=== PATIENT | male | born 1940 | race Caucasian/White ===

== ENCOUNTER 2018-05-08 13:28 | Outpatient (REF) | payer OTHER, SELFPAY ==
[2018-05-08 21:50] LABS: ALT 20 U/L (12-78); AST 21 U/L (15-37); Alkaline Phosphatase 95 U/L (46-116); Anion Gap 11.3 mmol/L (3-11); BUN 21 mg/dL (7-18); Bilirubin, Total 0.9 mg/dL (0.2-1.0); CO2 26.7 mmol/L (21.0-32.0); CREATININE 1.28 mg/dL (0.70-1.30); Calcium 8.8 mg/dL (8.5-10.1); Chloride 101 mmol/L (98-107); Estimated GFR 54.35 (mL/min/1.73m2); Glucose 94 mg/dL (70-100); LDH 193 U/L (85-227); Potassium 4.2 mmol/L (3.5-5.1); Sodium 139 mmol/L (136-145)
[2018-05-08 22:04] LABS: Abs Immature Grans 0.01 k/cumm (0.0-0.09); Absolute Basophil Count 0.03 k/cumm (0.0-0.2); Absolute Eosinophil Count 0.17 k/cumm (0.0-0.7); Absolute Lymphocyte Count 1.13 k/cumm (1.2-3.4); Absolute Monocyte Count 0.39 k/cumm (0.11-0.7); Absolute Neutrophil Count 2.77 k/cumm (1.2-6.7); Basophils % 0.7; Eosinophils % 3.8; HCT 41.8 % (40.0-50.0); HGB 14.5 g/dL (13.5-17.5); Immature Grans % 0.2; Lymphocytes % 25.1; Mean Corp. HGB Concentration 34.7 g/dL (32.0-36.0); Mean Corpuscular Hemoglobin 32.8 pg (27.0-33.0); Mean Corpuscular Volume 94.6 fL (80-95); Mean Platelet Volume 10.7 fL (8.0-11.0); Monocytes % 8.7; Neutrophils % 61.5; Platelet Count 236 x1000/uL (130-400); RBC 4.42 m/cumm (4.50-6.00); RBC Distribution Width 12.4 % (11.8-14.1)
[2018-05-11 18:35] LABS: Beta-2-Microglobulin 2.16 mcg/mL
== END 2018-05-08 13:48 ==
LOC: NCHCN 13:28
PROVIDERS: PCP Internal Medicine; Visit Provider Internal Medicine
DX: R22.1 Localized swelling, mass and lump, neck (principal)
CPT/HCPCS: 80053; 82232; 83615; 85025

== ENCOUNTER 2018-05-11 01:09 | Outpatient (CLI) | payer OTHER, SELFPAY ==
--- NOTE | 2018-05-11 10:22 | DI.CT_ITS ---
SYMPTOM/DIAGNOSIS: NECK MASS, R22.1 CT NECK: CT scan of the neck was performed according to protocol. No priors for comparison. A marker was placed in the area of palpable abnormality in the left neck. There is asymmetric enlargement of the left sternocleidomastoid muscle in the area of palpable abnormality. The sternocleidomastoid appears homogeneous in density at this level but measures 3.0 x 3.1 cm compared with 2.1 x 1.4 cm on the corresponding right muscle. There is artifact from the patient's dental amalgam which affects this visualization of the muscle in this region. A muscle mass cannot be excluded. In the right neck there is a multi-cystic lesion at the angle of the mandible measuring 2.2 cm transverse x 1.6 cm AP x 3.5 cm craniocaudad. There also appears to be a soft tissue mass at the base of the tongue on the left measuring 2.2 x 2.9 cm The remainder of the nasopharynx, hypopharynx and larynx are unremarkable. The retropharyngeal soft tissues are unremarkable. The parotid and submandibular glands have a normal appearance as does the thyroid gland. There are mildly enlarged lymph nodes seen in the neck. The visualized paranasal sinuses are clear. The mastoid air cells are well pneumatized. There are moderately severe degenerative changes present in the cervical spine. The vascular structures appear grossly unremarkable. The lung apices are clear. IMPRESSION: 1. Soft tissue mass seen at the left aspect of the base of the tongue. Neoplasm should be considered. 2. Focal thickening seen in the left sternocleidomastoid muscle corresponding to the area of palpable abnormality. The study is poorly visualized due to the orthodontic artifact. Metastatic disease or neoplasm should be considered. 3. Multi-cystic lesion seen in the left neck as described above. The finding is nonspecific. Further evaluation with post contrast MRI of the neck is recommended in this patient. Direct visualization is recommended. Biopsy should be considered particularly in the area involving the sternocleidomastoid and the area involving the left base of the tongue.
== END 2018-05-11 01:29 ==
PROVIDERS: PCP Internal Medicine; Visit Provider Internal Medicine
DX: R22.1 Localized swelling, mass and lump, neck (principal); M62.89 Other specified disorders of muscle; K14.9 Disease of tongue, unspecified; D48.7 Neoplasm of uncertain behavior of other specified sites
CPT/HCPCS: 70491

== ENCOUNTER 2018-07-23 13:14 | Outpatient (REF) | payer OTHER, SELFPAY ==
[2018-07-23 13:32] LABS: ALT 20 U/L (12-78); AST 18 U/L (15-37); Albumin 3.3 g/dL (3.4-5.0); Alkaline Phosphatase 87 U/L (46-116); Anion Gap 7.5 mmol/L (3-11); BUN 28 mg/dL (7-18); Bilirubin, Total 0.3 mg/dL (0.2-1.0); CO2 27.5 mmol/L (21.0-32.0); Calcium 9.2 mg/dL (8.5-10.1); Chloride 103 mmol/L (98-107); Estimated GFR 32.48 (mL/min/1.73m2); Glucose 151 mg/dL (70-100); Potassium 4.2 mmol/L (3.5-5.1); Sodium 138 mmol/L (136-145); Total Protein 6.5 g/dL (6.4-8.2)
== END 2018-07-23 13:34 ==
LOC: LBN 13:14
PROVIDERS: PCP Internal Medicine; Visit Provider Nurse Practitioner Family
DX: C01 Malignant neoplasm of base of tongue (principal)
CPT/HCPCS: 80053

== ENCOUNTER 2018-07-27 01:11 | Outpatient (RCR) | payer OTHER, SELFPAY ==
[2018-07-20] MEDS: Normal Saline Flush 10 ML SYR IVP (07:45)
[2018-07-20 08:12] LABS: Absolute Basophil Count 0.02 k/cumm (0.0-0.2); Absolute Eosinophil Count 0.19 k/cumm (0.0-0.7); Absolute Lymphocyte Count 0.88 k/cumm (1.2-3.4); Absolute Neutrophil Count 3.96 k/cumm (1.2-6.7); Basophils % 0.4; Eosinophils % 3.4; HCT 40.9 % (40.0-50.0); HGB 14.4 g/dL (13.5-17.5); Lymphocytes % 15.6; Mean Corp. HGB Concentration 35.2 g/dL (32.0-36.0); Mean Corpuscular Volume 93.8 fL (80-95); Mean Platelet Volume 9.5 fL (8.0-11.0); Monocytes % 10.6; Platelet Count 281 x1000/uL (130-400); RBC 4.36 m/cumm (4.50-6.00); RBC Distribution Width 11.9 % (11.8-14.1); White Blood Cell Count 5.65 k/cumm (4.4-10.8)
[2018-07-20 08:23] LABS: ALT 20 U/L (12-78); AST 17 U/L (15-37); Albumin 3.4 g/dL (3.4-5.0); Alkaline Phosphatase 85 U/L (46-116); Anion Gap 10.4 mmol/L (3-11); BUN 23 mg/dL (7-18); Bilirubin, Total 0.6 mg/dL (0.2-1.0); CO2 25.6 mmol/L (21.0-32.0); CREATININE 1.86 mg/dL (0.70-1.30); Calcium 8.9 mg/dL (8.5-10.1); Chloride 100 mmol/L (98-107); Estimated GFR 35.31 (mL/min/1.73m2); Glucose 181 mg/dL (70-100); Magnesium 1.9 mg/dL (1.8-2.4); Sodium 136 mmol/L (136-145); Total Protein 6.8 g/dL (6.4-8.2)
[2018-07-21] MEDS: Normal Saline Flush 10 ML SYR IVP (08:40)
[2018-07-21 09:03] LABS: CREATININE 1.74 mg/dL (0.70-1.30); Estimated GFR 38.14 (mL/min/1.73m2)
[2018-07-27] MEDS: Normal Saline Flush 10 ML SYR IVP (07:13)
[2018-07-27 07:36] LABS: Abs Immature Grans 0.01 k/cumm (0.0-0.09); Absolute Basophil Count 0.02 k/cumm (0.0-0.2); Absolute Eosinophil Count 0.19 k/cumm (0.0-0.7); Absolute Lymphocyte Count 0.48 k/cumm (1.2-3.4); Absolute Monocyte Count 0.59 k/cumm (0.11-0.7); Absolute Neutrophil Count 5.32 k/cumm (1.2-6.7); Basophils % 0.3; Eosinophils % 2.9; HCT 36.4 % (40.0-50.0); HGB 12.8 g/dL (13.5-17.5); Immature Grans % 0.2; Lymphocytes % 7.3; Mean Corp. HGB Concentration 35.2 g/dL (32.0-36.0); Mean Corpuscular Hemoglobin 33.7 pg (27.0-33.0); Mean Corpuscular Volume 95.8 fL (80-95); Mean Platelet Volume 9.2 fL (8.0-11.0); Monocytes % 8.9; Neutrophils % 80.4; Platelet Count 212 x1000/uL (130-400); RBC Distribution Width 11.9 % (11.8-14.1); White Blood Cell Count 6.61 k/cumm (4.4-10.8)
[2018-07-27 07:56] LABS: ALT 11 U/L (12-78); AST 21 U/L (15-37); Albumin 3.5 g/dL (3.4-5.0); Alkaline Phosphatase 101 U/L (46-116); Anion Gap 8.8 mmol/L (3-11); BUN 27 mg/dL (7-18); Bilirubin, Total 0.7 mg/dL (0.2-1.0); CO2 29.2 mmol/L (21.0-32.0); CREATININE 1.81 mg/dL (0.70-1.30); Chloride 100 mmol/L (98-107); Estimated GFR 36.44 (mL/min/1.73m2); Glucose 114 mg/dL (70-100); Magnesium 1.9 mg/dL (1.8-2.4); Potassium 4.5 mmol/L (3.5-5.1); Sodium 138 mmol/L (136-145); Total Protein 7.3 g/dL (6.4-8.2)
== END 2018-07-30 23:59 | disposition home or self-care (01) ==
LOC: INF 01:11
PROVIDERS: PCP Internal Medicine; Visit Provider Nurse Practitioner Family
DX: C01 Malignant neoplasm of base of tongue (principal); Z45.2 Encounter for adjustment and management of vascular access device
CPT/HCPCS: 36591; 80053; 82565; 83735; 85025

== ENCOUNTER 2018-08-17 01:25 | Outpatient (RCR) | payer OTHER, SELFPAY ==
[2018-08-03] MEDS: Normal Saline Flush 10 ML SYR IVP (08:56)
[2018-08-03 08:59] LABS: Abs Immature Grans 0.01 k/cumm (0.0-0.09); Absolute Basophil Count 0.02 k/cumm (0.0-0.2); Absolute Eosinophil Count 0.01 k/cumm (0.0-0.7); Absolute Lymphocyte Count 0.23 k/cumm (1.2-3.4); Absolute Monocyte Count 0.25 k/cumm (0.11-0.7); Absolute Neutrophil Count 5.03 k/cumm (1.2-6.7); Basophils % 0.4; Eosinophils % 0.2; HCT 30.7 % (40.0-50.0); HGB 10.6 g/dL (13.5-17.5); Immature Grans % 0.2; Lymphocytes % 4.1; Mean Corp. HGB Concentration 34.5 g/dL (32.0-36.0); Mean Corpuscular Hemoglobin 32.9 pg (27.0-33.0); Mean Corpuscular Volume 95.3 fL (80-95); Mean Platelet Volume 8.9 fL (8.0-11.0); Monocytes % 4.5; Neutrophils % 90.6; Platelet Count 257 x1000/uL (130-400); RBC 3.22 m/cumm (4.50-6.00); RBC Distribution Width 11.7 % (11.8-14.1); White Blood Cell Count 5.55 k/cumm (4.4-10.8)
[2018-08-03 09:12] LABS: ALT 18 U/L (12-78); AST 18 U/L (15-37); Albumin 3.4 g/dL (3.4-5.0); Alkaline Phosphatase 91 U/L (46-116); BUN 31 mg/dL (7-18); Bilirubin, Total 0.3 mg/dL (0.2-1.0); CO2 27.2 mmol/L (21.0-32.0); CREATININE 1.57 mg/dL (0.70-1.30); Calcium 9.1 mg/dL (8.5-10.1); Estimated GFR 42.94 (mL/min/1.73m2); Glucose 136 mg/dL (70-100); Magnesium 1.9 mg/dL (1.8-2.4); Total Protein 7.3 g/dL (6.4-8.2)
[2018-08-03 09:17] LABS: Anion Gap 8.8 mmol/L (3-11); Chloride 102 mmol/L (98-107); Potassium 4.8 mmol/L (3.5-5.1); Sodium 138 mmol/L (136-145)
[2018-08-10] MEDS: Normal Saline Flush 10 ML SYR IVP (08:15)
[2018-08-10 08:25] LABS: Abs Immature Grans 0.01 k/cumm (0.0-0.09); Absolute Basophil Count 0.01 k/cumm (0.0-0.2); Absolute Eosinophil Count 0.19 k/cumm (0.0-0.7); Absolute Lymphocyte Count 0.36 k/cumm (1.2-3.4); Absolute Monocyte Count 0.54 k/cumm (0.11-0.7); Basophils % 0.2; Eosinophils % 4.7; HCT 30.4 % (40.0-50.0); HGB 10.2 g/dL (13.5-17.5); Immature Grans % 0.2; Mean Corp. HGB Concentration 33.6 g/dL (32.0-36.0); Mean Corpuscular Hemoglobin 32.4 pg (27.0-33.0); Mean Corpuscular Volume 96.5 fL (80-95); Mean Platelet Volume 8.9 fL (8.0-11.0); Monocytes % 13.5; Neutrophils % 72.4; Platelet Count 240 x1000/uL (130-400); RBC 3.15 m/cumm (4.50-6.00); RBC Distribution Width 12.4 % (11.8-14.1); White Blood Cell Count 4.01 k/cumm (4.4-10.8)
[2018-08-10 08:38] LABS: ALT 24 U/L (12-78); AST 28 U/L (15-37); Albumin 3.1 g/dL (3.4-5.0); Alkaline Phosphatase 94 U/L (46-116); Anion Gap 6.4 mmol/L (3-11); BUN 30 mg/dL (7-18); Bilirubin, Total 0.6 mg/dL (0.2-1.0); CO2 31.6 mmol/L (21.0-32.0); CREATININE 1.32 mg/dL (0.70-1.30); Calcium 9.4 mg/dL (8.5-10.1); Chloride 101 mmol/L (98-107); Estimated GFR 52.46 (mL/min/1.73m2); Glucose 91 mg/dL (70-100); Magnesium 1.8 mg/dL (1.8-2.4); Potassium 4.3 mmol/L (3.5-5.1); Sodium 139 mmol/L (136-145)
[2018-08-17] MEDS: Normal Saline Flush 10 ML SYR IVP (08:11)
[2018-08-17 08:37] LABS: Abs Immature Grans 0.01 k/cumm (0.0-0.09); Absolute Basophil Count 0.01 k/cumm (0.0-0.2); Absolute Eosinophil Count 0.16 k/cumm (0.0-0.7); Absolute Lymphocyte Count 0.37 k/cumm (1.2-3.4); Absolute Monocyte Count 0.64 k/cumm (0.11-0.7); Absolute Neutrophil Count 3.16 k/cumm (1.2-6.7); Basophils % 0.2; Eosinophils % 3.7; HGB 9.3 g/dL (13.5-17.5); Immature Grans % 0.2; Lymphocytes % 8.5; Mean Corp. HGB Concentration 34.4 g/dL (32.0-36.0); Mean Corpuscular Hemoglobin 33.6 pg (27.0-33.0); Mean Corpuscular Volume 97.5 fL (80-95); Mean Platelet Volume 9.1 fL (8.0-11.0); Monocytes % 14.7; Neutrophils % 72.7; Platelet Count 231 x1000/uL (130-400); RBC 2.77 m/cumm (4.50-6.00); RBC Distribution Width 13.2 % (11.8-14.1); White Blood Cell Count 4.35 k/cumm (4.4-10.8)
[2018-08-17 08:53] LABS: ALT 19 U/L (12-78); AST 19 U/L (15-37); Albumin 2.8 g/dL (3.4-5.0); Alkaline Phosphatase 86 U/L (46-116); Anion Gap 7.4 mmol/L (3-11); BUN 33 mg/dL (7-18); Bilirubin, Total 0.5 mg/dL (0.2-1.0); CO2 32.6 mmol/L (21.0-32.0); CREATININE 1.04 mg/dL (0.70-1.30); Calcium 9.2 mg/dL (8.5-10.1); Chloride 98 mmol/L (98-107); Glucose 135 mg/dL (70-100); Magnesium 1.9 mg/dL (1.8-2.4); Potassium 3.5 mmol/L (3.5-5.1); Sodium 138 mmol/L (136-145)
== END 2018-08-27 23:59 | disposition home or self-care (01) ==
LOC: INF 01:25
PROVIDERS: PCP Internal Medicine; Visit Provider Nurse Practitioner Family
DX: C01 Malignant neoplasm of base of tongue (principal); Z45.2 Encounter for adjustment and management of vascular access device
CPT/HCPCS: 36591; 80053; 83735; 85025

== ENCOUNTER 2018-10-02 12:28 | Outpatient (CLI) | payer OTHER, SELFPAY ==
--- NOTE | 2018-10-02 12:16 | DI.RAD_ITS ---
SYMPTOMS/DIAGNOSIS: NAUSEA AND VOMITING, R11.2, EVALUATE POSITION OF G-TUBE G-TUBE INJECTION: Indwelling G-tube was injected with contrast material. The contrast material flows into the gastric fundus and body. No extravasation seen. CONCLUSION: Normally placed gastrostomy tube.
== END 2018-10-02 12:48 ==
PROVIDERS: PCP Internal Medicine; Visit Provider Preventive Medicine Undersea and Hyperbaric Medicine
DX: R11.2 Nausea with vomiting, unspecified (principal); Z43.1 Encounter for attention to gastrostomy
CPT/HCPCS: 74018

== ENCOUNTER 2018-10-08 15:44 | Emergency (ER) | payer OTHER, SELFPAY ==
[2018-10-08] VITALS (13 sets, daily range): BP systolic 123–159; BP diastolic 61–91; PULSE 82–96; RESP 12–27; TEMP 36.8; O2SAT 96
--- NOTE | 2018-10-08 16:02 | ED.GENADUL_ITS ---
Discharge Plan Disposition Patient Disposition: HOME Condition: Stable Discharge Details Chief Complaint: GenMedical Clinical Impression: Chronic sore throat, Chronic secondary oral pain, History of radiation to head and neck region, History of laryngeal cancer, Fatigue, Headache Primary Care Provider: Vicente Reagan ED Provider: Abi Hawkins Home Meds and New Rx's Prescriptions: New nystatin 100,000 unit/mL suspension 5 ml PO QID 14 Days Qty: 280 RF: 0 Continued acyclovir 200 mg capsule 200 mg PO DAILY PRN (Reason: genital herpes) RF: 0 dexamethasone 4 mg tablet 4 mg PO Q8H PRNRF: 0 lactulose 20 gram/30 mL solution 20 gm PO BID PRNRF: 0 lidocaine HCl 2 % solution 5 ml MM Q1H PRN RF: 0 ondansetron HCl 8 mg tablet 8 mg PO TID PRNRF: 0 prochlorperazine maleate 10 mg tablet 10 mg PO Q6H PRN RF: 0 Narcan 4 mg/actuation spray,non-aerosol 1 spray KAUSHIK ONCE PRN (Reason: opioid overdose) Qty: 2 RF: 0 Excedrin Extra Strength 250-250-65 mg tablet 2 tab PO TID PRNRF: 0 polyethylene glycol 3350 [Miralax] 17 gram powder in packet 17 gm PO BID PRN (Reason: constipation) RF: 0 methadone 10 mg/5 mL solution 5 mg PO Q8H MDD 7.5ml Qty: 60 RF: 0 morphine concentrate 100 mg/5 mL (20 mg/mL) solution 30 mg PO Q2H PRN MDD 6ml PRN (Reason: pain) Qty: 120 RF: 0 gabapentin 600 mg tablet 600 mg PO TID Qty: 90 RF: 4 guaifenesin 100 mg/5 mL liquid 400 mg PO Q4H PRN (Reason: mucous) Qty: 1500 RF: 4 magic mouthwash 5 ml PO Q2H PRN Qty: 120 RF: 3 Discharge Instructions Instructions: Fatigue (ED), General Headache (ED), Gingivostomatitis (ED) Additional Instructions: Continue to use your Magic mouthwash as needed and directed. Use the nystatin suspension as directed. Call your oncologist tomorrow to schedule a follow-up appointment for reevaluation next week. Drink fluids and get plenty of rest. Use [id number] Colace to help with constipation while taking narcotic pain medication. Take your narcotic pain medication as needed and directed. Return immediately to the emergency department any worsening or new concerning symptoms. Discharge Data Discharge Date/Time-TO BE ENTERED AT DEPARTURE: 10/08/18 19:54 Discharge Physician: Abi Hawkins Medical Decision Making 77-year-old male with a history of laryngeal cancer diagnosed in March 2018 with radiation and chemo finished in July 2018 who presents with mouth and throat pain for 3 months, worse recently, and a chronic history of migraine headaches who presents for persistent bitemporal and frontal headache not relieved with Excedrin over the past few days. Also complaining of fatigue, general malaise, nausea for the past week. He denies fever, neck pain, chest pain, shortness of breath, abdominal pain. Patient sent for evaluation by nurse practitioner at the cancer center down the street after evaluated for the symptoms above. Vitals within normal limits. Patient appears nontoxic. He appears uncomfortable with his headache. He has extensive sloughing of his mucosal tissue within the mouth, tongue and mucosa around teeth. No exudates. Speaking in full sentences. No drooling. Port noted in right chest NG tube and abdomen without evidence of infection. No meningeal signs. No focal deficits. Due to patient's age, history and complaint, will check labs, urinalysis, CT head, chest x-ray and give bolus IV fluids, Compazine and Benadryl and reassess. 1814 -- labs and imaging reviewed. Normal white blood cell count. Normal electrolytes. Troponin negative. Urinalysis negative. CT and chest x-ray negative. Will give a dose of Toradol and reassess. 1919 -- Pt feels much better and feels good to go home. States his headache is much improved. Patient has Magic mouthwash, lidocaine as well as nystatin at home. Patient states he is mainly concerned about his mouth pain. He states he has discussed this with his oncologist and was told that this is expected side effects which may be prolonged. Patient states he has used nystatin in the past which has worked but his most recent prescription has a bad taste. Patient is requesting another prescription for nystatin. The nurse practitioner report is now available from today's visit which states that patient had complained of fecal incontinence. Patient did not complain of this to me and states that he had previously had constipation which he was told to hold on his morphine and take lactulose. He is instructed to eat he can use Colace [id number]-[id number] as directed. Patient has no complaint of sudden headache or thunderclap quality so doubt dissection. He states his headache feels consistent with his usual migraine headaches but is now much improved. Patient, and I had a long discussion regarding his medications and how to take them appropriately. Instructed to call the primary care doctor and oncologist tomorrow to schedule a follow-up appointment for reevaluation. Return immediately to the emergency department with any worsening or new concerning symptoms. Medical Records Medical records reviewed: Yes I reviewed the patient's medical records. Imaging Data Radiologic Study: Radiologist's impression: XR Chest, 2 Views EXAM DATE/TIME: 10/08/2018 4:53 PM FINDINGS: Tubes, catheters and devices: A right-sided internal jugular Port-A-Cath is in place with the catheter tip in the superior vena cava. Lungs: Unremarkable. No consolidation. Pleural space: Unremarkable. No pleural effusion. No pneumothorax. Heart/Mediastinum: Unremarkable. No cardiomegaly. Vasculature: There is an elongated tortuous thoracic aorta. Bones/joints: Degenerative changes of the thoracic spine without acute osseous abnormality. IMPRESSION: No evidence of active pulmonary disease. Radiologic Study #2: Radiologist's impression: CT Head Without Contrast EXAM DATE/TIME: 10/08/2018 4:53 PM FINDINGS: Brain: There is mild prominence of cerebral cortical sulcal markings. Mild periventricular white matter lucency. Ventricles: Mild dilatation of the ventricles without evidence of intrinsic mass effect. Bones/joints: Unremarkable. No acute fracture. Sinuses: Visualized sinuses are unremarkable. No acute sinusitis. Mastoid air cells: Visualized mastoid air cells are unremarkable. No mastoid effusion. Soft tissues: Unremarkable. Vasculature: Atherosclerotic calcifications of the vertebral arteries. IMPRESSION: 1. No acute intracranial amount is identified. 2. Mild cerebral cortical atrophy with mild periventricular degenerative white matter changes. Lab Data Lab results reviewed: Yes I reviewed the patient's lab results. 10/08/18 18:29 Blood Blood Culture - Pending 10/08/18 16:40 Blood Blood Culture - Pending Laboratory Tests Range/Units 10/08/18 10/08/18 10/08/18 16:40 16:40 16:40 WBC (4.4-10.8) k/cumm 5.87 RBC (4.50-6.00) m/cumm 3.36 L Hgb (13.5-17.5) g/dL 11.2 L Hct (40.0-50.0) % 32.7 L MCV (80-95) fL 97.3 H MCH (27.0-33.0) pg 33.3 H MCHC (32.0-36.0) g/dL 34.3 RDW (11.8-14.1) % 12.0 Plt Count (130-400) x1000/uL 273 MPV (8.0-11.0) fL 9.4 Immature Gran % 0.2 Neutrophils % 67.8 Lymphocytes % 17.9 Monocytes % 11.4 Eosinophils % 2.2 Basophils % 0.5 Absolute Neutrophils (1.2-6.7) k/cumm 3.98 Absolute Lymphocytes (1.2-3.4) k/cumm 1.05 L Absolute Monocytes (0.11-0.7) k/cumm 0.67 Absolute Eosinophils (0.0-0.7) k/cumm 0.13 Absolute Basophils (0.0-0.2) k/cumm 0.03 Sodium (136-145) mmol/L 136 Potassium (3.5-5.1) mmol/L 3.9 Chloride (98-107) mmol/L 99 Carbon Dioxide (21.0-32.0) mmol/L 28.3 Anion Gap (3-11) mmol/L 8.7 BUN (7-18) mg/dL 25 H Creatinine (0.70-1.30) mg/dL 0.89 Estimated GFR/1.73 m2 (mL/min/1.73m2) >= 60.00 Glucose (70-100) mg/dL 91 Lactate (0.6-1.4) mmol/l 1.0 Calcium (8.5-10.1) mg/dL 8.9 Magnesium (1.8-2.4) mg/dL 2.2 Total Bilirubin (0.2-1.0) mg/dL 0.3 AST (15-37) U/L 16 ALT (12-78) U/L 21 Alkaline Phosphatase (46-116) U/L 112 Troponin I (0.00-0.06) ng/mL 0.02 Total Protein (6.4-8.2) g/dL 7.2 Albumin (3.4-5.0) g/dL 3.6 Urine Color (Yellow) Urine Clarity Urine pH (5-8) Ur Specific Edna (1.005-1.025) Urine Protein (Negative) mg/dL Urine Ketones (Negative) mg/dL Urine Blood (Negative) Urine Nitrite (Negative) Urine Bilirubin (Negative) Urine Urobilinogen (Up TO 0.2) EU/dL Ur Leukocyte Esterase (Negative) Urine Glucose (Negative) mg/dL Range/Units 10/08/18 16:55 WBC (4.4-10.8) k/cumm RBC (4.50-6.00) m/cumm Hgb (13.5-17.5) g/dL Hct (40.0-50.0) % MCV (80-95) fL MCH (27.0-33.0) pg MCHC (32.0-36.0) g/dL RDW (11.8-14.1) % Plt Count (130-400) x1000/uL MPV (8.0-11.0) fL Immature Gran % Neutrophils % Lymphocytes % Monocytes % Eosinophils % Basophils % Absolute Neutrophils (1.2-6.7) k/cumm Absolute Lymphocytes (1.2-3.4) k/cumm Absolute Monocytes (0.11-0.7) k/cumm Absolute Eosinophils (0.0-0.7) k/cumm Absolute Basophils (0.0-0.2) k/cumm Sodium (136-145) mmol/L Potassium (3.5-5.1) mmol/L Chloride (98-107) mmol/L Carbon Dioxide (21.0-32.0) mmol/L Anion Gap (3-11) mmol/L BUN (7-18) mg/dL Creatinine (0.70-1.30) mg/dL Estimated GFR/1.73 m2 (mL/min/1.73m2) Glucose (70-100) mg/dL Lactate (0.6-1.4) mmol/l Calcium (8.5-10.1) mg/dL Magnesium (1.8-2.4) mg/dL Total Bilirubin (0.2-1.0) mg/dL AST (15-37) U/L ALT (12-78) U/L Alkaline Phosphatase (46-116) U/L Troponin I (0.00-0.06) ng/mL Total Protein (6.4-8.2) g/dL Albumin (3.4-5.0) g/dL Urine Color (Yellow) Yellow Urine Clarity Clear Urine pH (5-8) 8.5 H Ur Specific Edna (1.005-1.025) 1.015 Urine Protein (Negative) mg/dL Negative Urine Ketones (Negative) mg/dL Negative Urine Blood (Negative) Negative Urine Nitrite (Negative) Negative Urine Bilirubin (Negative) Negative Urine Urobilinogen (Up TO 0.2) EU/dL 0.2 Ur Leukocyte Esterase (Negative) Negative Urine Glucose (Negative) mg/dL Negative ECG Data Attestation: I personally reviewed and interpreted this ECG (s) as follows: Interpretation: Rate of 85, sinus, PVCs. No acute ST findings. QTc 435. QRS 98. HPI General Mode of arrival: ambulatory . Date/Time Provider Initiated Documentation: 10/08/18 15:55 . Limitations to Documentation: no limitations . Information obtained by: patient . HPI Narrative: Patient is a 77-year-old male with a history of laryngeal cancer diagnosed in March 2018 with radiation chemo finished in July 2018 who presents with multiple complaints. Patient was seen by the nurse practitioner at the cancer center down the street for these symptoms when she thought he did not look well. Patient states he has had bilateral throat pain pain on the roof of his mouth and inside of his mouth above his teeth for 3 months. He has a G-tube and is rarely able to take p.o. by mouth. He states he is able to drink a bottle of water yesterday. He states he has history of chronic headaches and migraines for several years but states his headache has been worse over the past few days. He describes a headache is constant, dull, pressure-like and in the bitemporal and frontal region, currently 6-7/10. He states normally his headaches are resolved with Excedrin but has had no relief with this for the past few days. He also denies any relief of this with oxycodone. His states that it appears he is more withdrawn, fatigued, complaining of chills, and generally seems more sick than u sumarvel. Patient admits to nausea and vomiting once last week but not since then. He has been occasionally taking Reglan, Compazine, Zofran for his nausea. His last bowel movement was 2 days ago. He had seen his primary care doctor earlier this week for a checkup and was advised to hold on his morphine due to constipation recently. His last dose of morphine was 10/04/18. He also admits to decreased urine output recently. He denies any dysuria or hematuria. He denies any known fever, chest pain, shortness of breath or abdominal pain. Related Data Home Medications Medication Instructions Recorded Confirmed acyclovir 200 mg capsule 200 mg PO DAILY PRN cap 08/04/18 08/04/18 dexamethasone 4 mg tablet 4 mg PO Q8H PRN 08/04/18 08/04/18 lactulose 20 gram/30 mL oral 20 gm PO BID PRN 08/04/18 08/04/18 solution lidocaine 2 % mucosal solution 5 ml MM Q1H PRN ml 08/04/18 08/04/18 naloxone 4 mg/actuation nasal spray 1 spray KAUSHIK ONCE PRN #2 each 08/04/18 08/04/18 ondansetron HCl 8 mg tablet 8 mg PO TID PRN 08/04/18 08/04/18 prochlorperazine maleate 10 mg 10 mg PO Q6H PRN tab 08/04/18 08/04/18 tablet magic mouthwash 5 ml PO Q2H PRN #120 ml 08/19/18 [id number]-[id number]-zlhhxiyb 250 2 tab PO TID PRN tab 08/21/18 08/21/18 mg-250 mg-65 mg tablet gabapentin 600 mg tablet 600 mg PO TID #90 tab 08/21/18 08/21/18 guaifenesin 100 mg/5 mL oral liquid 400 mg PO Q4H PRN #1500 ml 08/21/18 08/21/18 methadone 10 mg/5 mL oral solution 5 mg PO Q8H #60 ml MDD 7.5ml 08/21/18 08/21/18 morphine concentrate 100 mg/5 mL 30 mg PO Q2H PRN PRN #120 ml MDD 08/21/18 08/21/18 (20 mg/mL) oral solution 6ml polyethylene glycol 3350 17 gram 17 gm PO BID PRN each 08/21/18 08/21/18 oral powder packet nystatin 5 ml PO QID 14 Days #280 ml 10/08/18 Previous Rx's Medication Instructions Recorded naloxone 4 mg/actuation nasal spray 1 spray KAUSHIK ONCE PRN #2 each 08/04/18 magic mouthwash 5 ml PO Q2H PRN #120 ml 08/19/18 gabapentin 600 mg tablet 600 mg PO TID #90 tab 08/21/18 guaifenesin 100 mg/5 mL oral liquid 400 mg PO Q4H PRN #1500 ml 08/21/18 methadone 10 mg/5 mL oral solution 5 mg PO Q8H #60 ml MDD 7.5ml 08/21/18 morphine concentrate 100 mg/5 mL 30 mg PO Q2H PRN PRN #120 ml MDD 08/21/18 (20 mg/mL) oral solution 6ml nystatin 5 ml PO QID 14 Days #280 ml 10/08/18 Allergies Allergy/AdvReac Type Severity Reaction Status Date / Time bee pollen Allergy Severe Anaphylaxsi Unverified 12/11/17 00:33 s Penicillins Allergy Unknown happened Unverified 12/11/17 00:33 at age 5, serious hives General Stated Complaint: GenMedical VIJAY: 2 Review of Systems Review of Systems All systems reviewed & are unremarkable except as noted in HPI and below Constitutional Reports as per HPI, Reports chills, Reports difficulty sleeping, Reports fatigue, Denies fever(s), Reports headache(s), Reports lethargy, Reports malaise and Reports poor appetite Eyes Denies blurry vision ENT Denies dizziness, Reports headache(s), Reports mouth pain, Reports sore throat and Denies throat swelling Cardiovascular Denies chest pain and Denies dyspnea Respiratory Denies cough and Denies dyspnea Gastrointestinal Denies abdominal pain, Denies diarrhea, Reports nausea and Reports vomiting Genitourinary Denies hematuria and Denies dysuria Musculoskeletal Denies back pain and Denies numbness Integumentary/Breasts Denies lesions and Denies rash Neurologic Denies dizziness, Reports headache(s), Denies focal weakness and Denies numbness Endocrine Reports fatigue Allergic/Immunologic Denies throat swelling PFSH Medical History Palliative care patient (Acute) 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) Uses feeding tube (Acute) Tongue cancer (Acute) Osteoarthritis of left knee Alcohol consumption binge drinking Chronic insomnia Situational depression Actinic cheilitis Adenomatous colon polyp Bee sting allergy Carpal tunnel syndrome Dermatitis Erectile dysfunction HSV (herpes simplex virus) infection Hyperlipidemia Left lumbar radiculopathy Leg pain Lipoma Lumbar back pain Marital problem Ventral hernia Surgical History Arthroplasty of knee Colonoscopy - IV Sedation (05/28/16) Family History Mother Alcohol abuse COPD (chronic obstructive pulmonary disease) Father Heart disease Sister Multiple myeloma Brother Alcohol abuse Substance abuse Social History Smoking/Tobacco Use Status: Never Alcohol Intake: current Counseling given: Yes Counseling provided: reduce to 2 or less/day Details: drinks heavily on a daily basis, says he's quit before. suggested reduction Drug use: Never Caregiver/Support person: Yes Household members: spouse Housing: house Number of Children: 0 number of grandchildren: 0 Pets and animals: Yes (yellow and chocolate labs, one each) Pets and animals: dog(s) What is your relationship status?: How often do you talk on the phone with friends or family?: twice per week How often do you get together with friends or relatives?: twice per week Panel score (0-1 are the most socially isolated patients): 2 What type of physical activity do you participate in: walking, irregular exercise and occasional exercise Special heidi needs: No Do you feel safe at home: Yes Do you feel safe in your relationship?: Yes Exam Const General: cooperative and no acute distress Orientation: alert, awake and oriented x3 HENMT Head: normal to inspection Ears: hearing grossly normal bilaterally, external ears normal and TM's normal bilaterally General nose exam: external nose normal Face and sinus: normal facial exam Mouth: oral mucosae normal Teeth and gingiva: abnormal tooth or associated gingiva (whitish discoloration and tenderness to superior gingiva) Throat: uvula midline and posterior oropharynx abnormal erythema; no edema and no exudates Eyes General: appearance normal, both eyes and all related structures Eyelids: eyelids normal Pupils: PERRL EOM: EOM intact bilaterally Neck Neck: normal visual inspection Lymphatic: no lymphadenopathy noted Chest Chest: normal inspection of the chest Other: Port in R chest, no signs of infection Resp Effort & Inspection: normal respiratory effort and able to speak in complete sentences Auscultation: clear to auscultation bilaterally Cardio Rate: regular rate Rhythm: regular rhythm GI Inspection: normal to inspection and other (G tube in place, no drainage or infection ) Palpation: soft, not firm, no guarding, no hepatosplenomegaly, no masses and nontender Auscultation: normal bowel sounds Back/Spine/Pelvis Back: no CVA tenderness Skin General skin exam: no rashes or lesions noted Neuro General: alert, awake, moves all extremities, no meningeal signs and no focal motor deficits Cranial Nerves: CN's II-XI intact bilaterally Cognition: normal cognition Speech: speech normal Gait: normal gait Motor: muscle tone normal throughout Sensory Exam: no sensory deficits noted Extrem General: normal to inspection, full ROM, normal capillary refill and no edema Psych Appearance: grossly normal Mental Status: mental status grossly normal Speech and Movement: speech and movement normal Affect: normal affect Thought Process: normal Course Vital Signs Temperature 98.2 F 10/08/18 15:49 Pulse 88 10/08/18 15:49 Respiratory Rate 20 10/08/18 15:49 Blood Pressure 123/61 10/08/18 15:49 Pulse Oximetry 96 10/08/18 15:49 Temperature 98.2 F 10/08/18 15:49 Temperature Source Temporal Artery Scan 10/08/18 15:49 Pulse 88 10/08/18 15:49 Respiratory Rate 20 10/08/18 15:49 Respiratory Effort Non-Labored 10/08/18 15:49 Blood Pressure 123/61 10/08/18 15:49 Pulse Oximetry 96 10/08/18 15:49 Oxygen Delivery Method Room Air 10/08/18 15:49 Oxygen Flow Rate 0 10/08/18 15:49 Pain Level 9 10/08/18 15:49
[2018-10-08 16:52] LABS: Abs Immature Grans 0.01 k/cumm (0.0-0.09); Absolute Basophil Count 0.03 k/cumm (0.0-0.2); Absolute Eosinophil Count 0.13 k/cumm (0.0-0.7); Absolute Lymphocyte Count 1.05 k/cumm (1.2-3.4); Absolute Monocyte Count 0.67 k/cumm (0.11-0.7); Absolute Neutrophil Count 3.98 k/cumm (1.2-6.7); Basophils % 0.5; Eosinophils % 2.2; HCT 32.7 % (40.0-50.0); HGB 11.2 g/dL (13.5-17.5); Immature Grans % 0.2; Lymphocytes % 17.9; Mean Corp. HGB Concentration 34.3 g/dL (32.0-36.0); Mean Corpuscular Hemoglobin 33.3 pg (27.0-33.0); Mean Corpuscular Volume 97.3 fL (80-95); Mean Platelet Volume 9.4 fL (8.0-11.0); Monocytes % 11.4; Neutrophils % 67.8; Platelet Count 273 x1000/uL (130-400); RBC 3.36 m/cumm (4.50-6.00); White Blood Cell Count 5.87 k/cumm (4.4-10.8)
[2018-10-08] MEDS: Normal Saline 250 ML 500 ML IV (16:59)
[2018-10-08 17:06] LABS: Bilirubin Negative (Negative); Blood Negative (Negative); Clarity Clear; Glucose Negative (Negative); Ketones Negative (Negative); Leukocyte Esterase Negative (Negative); Nitrite Negative (Negative); Specific Gravity 1.015 (1.005-1.025); Urobilinogen 0.2 EU/dL (Up TO 0.2); pH 8.5 (5-8)
[2018-10-08 17:10] LABS: ALT 21 U/L (12-78); AST 16 U/L (15-37); Albumin 3.6 g/dL (3.4-5.0); Alkaline Phosphatase 112 U/L (46-116); Anion Gap 8.7 mmol/L (3-11); BUN 25 mg/dL (7-18); Bilirubin, Total 0.3 mg/dL (0.2-1.0); CO2 28.3 mmol/L (21.0-32.0); CREATININE 0.89 mg/dL (0.70-1.30); Calcium 8.9 mg/dL (8.5-10.1); Chloride 99 mmol/L (98-107); Glucose 91 mg/dL (70-100); Magnesium 2.2 mg/dL (1.8-2.4); Potassium 3.9 mmol/L (3.5-5.1); Sodium 136 mmol/L (136-145); Total Protein 7.2 g/dL (6.4-8.2); Troponin I 0.02 ng/mL (0.00-0.06)
[2018-10-08] MEDS: diphenhydrAMINE 50 MG/ML VIAL 25 MG IVP (17:40)
[2018-10-08] MEDS: Prochlorperazine 10 MG/2 ML VIAL IVP (17:40)
[2018-10-08] MEDS: Dexamethasone 10 MG/ML VIAL IVP (17:41)
--- NOTE | 2018-10-08 18:04 | DI.COMBO_ITS ---
SYMPTOM/DIAGNOSIS: FATIGUE, ? PNEUMONIA, HEADACHE, ? ACUTE CVA OR BLEED NONCONTRAST HEAD CT: A noncontrast cranial CT was performed. There is mild generalized cerebral atrophy. There is an an apparent left sided lacunar infarct. There is no evidence of acute intracranial hemorrhage, mass effect or midline shift. Paranasal sinuses appear well aerated as visualized as do the mastoid air cells. The orbital and temporal bone structures appear intact. CONCLUSION: No evidence of acute intracranial process. PA AND LATERAL CHEST: There is a right subclavian indwelling catheter in position. The heart is not enlarged. The lungs are clear. No pleural effusion is seen. CONCLUSION: No evidence of acute disease.
--- NOTE | 2018-10-08 18:15 | DI.VRAD_ITS ---
EXAM: XR Chest, 2 Views EXAM DATE/TIME: 10/08/2018 4:53 PM CLINICAL HISTORY: 77 years old, male; Signs and symptoms; Other: Fatigue, R/O pneumonia/acute disease; Prior surgery TECHNIQUE: Imaging protocol: XR of the chest, 2 views. COMPARISON: No relevant prior studies available. FINDINGS: Tubes, catheters and devices: A right-sided internal jugular Port-A-Cath is in place with the catheter tip in the superior vena cava. Lungs: Unremarkable. No consolidation. Pleural space: Unremarkable. No pleural effusion. No pneumothorax. Heart/Mediastinum: Unremarkable. No cardiomegaly. Vasculature: There is an elongated tortuous thoracic aorta. Bones/joints: Degenerative changes of the thoracic spine without acute osseous abnormality. IMPRESSION: No evidence of active pulmonary disease. Dictated and Authenticated by: Juve Martinez MD. Ordering:JENNI Alex MD
--- NOTE | 2018-10-08 18:19 | DI.VRAD_ITS ---
EXAM: CT Head Without Contrast EXAM DATE/TIME: 10/08/2018 4:53 PM CLINICAL HISTORY: 77 years old, male; Signs and symptoms; Other: Fatigue, headache, R/O acute cva/bleed TECHNIQUE: Imaging protocol: Axial computed tomography images of the head/brain without contrast. Coronal and sagittal reformatted images were created and reviewed. COMPARISON: No relevant prior studies available. FINDINGS: Brain: There is mild prominence of cerebral cortical sulcal markings. Mild periventricular white matter lucency. Ventricles: Mild dilatation of the ventricles without evidence of intrinsic mass effect. Bones/joints: Unremarkable. No acute fracture. Sinuses: Visualized sinuses are unremarkable. No acute sinusitis. Mastoid air cells: Visualized mastoid air cells are unremarkable. No mastoid effusion. Soft tissues: Unremarkable. Vasculature: Atherosclerotic calcifications of the vertebral arteries. IMPRESSION: 1. No acute intracranial amount is identified. 2. Mild cerebral cortical atrophy with mild periventricular degenerative white matter changes. Dictated and Authenticated by: Jvue Martinez MD. Ordering:JENNI Alex MD
[2018-10-08] MEDS: Ketorolac 30 MG/ML VIAL IVP (18:48)
== END 2018-10-08 19:54 | disposition home or self-care (01) ==
PROVIDERS: Emergency Provider Physician Assistant; PCP Internal Medicine
DX: J02.9 Acute pharyngitis, unspecified (principal); R51 Headache; K12.31 Oral mucositis (ulcerative) due to antineoplastic therapy; C02.9 Malignant neoplasm of tongue, unspecified
CPT/HCPCS: 36415; 80053; 87040; 96374; 96375; 99284; 70450; 71046; 81003; 83605; 83735; 84484; 85025; J0780; J1100; J1200; J1885

== ENCOUNTER 2018-11-12 00:54 | Outpatient (CLI) | payer OTHER, SELFPAY ==
--- NOTE | 2018-11-12 11:03 | DI.CT_ITS ---
SYMPTOMS/DIAGNOSIS: HERNIA OF ABDOMINAL WALL, K43.[address]: CT examination of the abdomen and pelvis was performed with a bolus infusion of 100 cc of Omnipaque 350 and oral contrast material administered via feeding tube. Images obtained through the lung bases are unremarkable. Gastrostomy tube noted in position. The liver and spleen appear normal. Pancreas appears normal. Gallbladder and bile ducts are normal by CT criteria. Small infrahepatic elongated nodular radiodensities noted, unchanged from previous CT of 12/11/17. Spleen appears normal. Adrenals and kidneys are unremarkable except for presumed tiny left renal cortical cyst. No evidence of urinary tract obstruction or calcification. No abdominal or pelvic adenopathy seen. No focal bowel obstruction identified. Appendix is not specifically visualized, but there is no evidence of appendicitis or diverticulitis. Previously noted supraumbilical ventral hernia seen on CT of 12/11/17 is significantly smaller on today's examination and does not contain bowel. Small fat-containing umbilical hernia is noted, which is unremarkable. CONCLUSION: Small ventral hernias as described; widely patent 5.5 cm in diameter hernia is present just above the umbilicus and does not contain bowel. No evidence of acute disease.
[2018-11-12] MEDS: Omnipaque 350 MG/ML 100 ML BTL IJ (11:05)
== END 2018-11-12 01:14 ==
PROVIDERS: PCP Internal Medicine; Visit Provider Surgery
DX: K43.9 Ventral hernia without obstruction or gangrene (principal); K42.9 Umbilical hernia without obstruction or gangrene
CPT/HCPCS: 74177; J3490

== ENCOUNTER 2019-02-03 00:52 | Outpatient (CLI) | payer OTHER, SELFPAY ==
--- NOTE | 2019-02-03 13:13 | DI.RAD_ITS ---
SYMPTOM/DIAGNOSIS: RT HIP PAIN M25.551 PELVIS AND RIGHT HIP: There is mild narrowing of the left hip joint space and moderate narrowing of the right hip joint space. There is periarticular sclerosis bilaterally as well as acetabular spurring, greater on the right. There is also spurring from the right femoral head. There is severe degenerative changes of the lower lumbar spine. Some spurring is noted about the S-I joint as well as iliac wings. Vascular calcifications are seen. Suture material is noted in the right lower quadrant of the abdomen. IMPRESSION: Moderate to severe degenerative changes of the right hip. Mild to moderate degenerative changes of the left hip.
== END 2019-02-03 01:12 ==
PROVIDERS: PCP Internal Medicine; Visit Provider Internal Medicine
DX: M25.551 Pain in right hip (principal); M16.0 Bilateral primary osteoarthritis of hip; M53.3 Sacrococcygeal disorders, not elsewhere classified
CPT/HCPCS: 73502

== ENCOUNTER 2019-02-16 15:36 | Outpatient (REF) | payer OTHER, SELFPAY ==
[2019-02-16 21:52] LABS: FREE T4 0.82 ng/dL (0.76-1.46)
== END 2019-02-16 15:56 ==
LOC: NCHCN 15:36
PROVIDERS: PCP Internal Medicine; Visit Provider Internal Medicine
DX: E03.9 Hypothyroidism, unspecified (principal)
CPT/HCPCS: 84439; 84443

== ENCOUNTER → 2019-03-22 08:46 | Outpatient (BNVA) | payer OTHER, SELFPAY | PROVIDERS: PCP Internal Medicine; Referring Provider Internal Medicine; Visit Provider Student in an Organized Health Care Education/Training Program | DX: M16.11 Unilateral primary osteoarthritis, right hip (principal); C02.9 Malignant neoplasm of tongue, unspecified; Z92.3 Personal history of irradiation | CPT/HCPCS: 99203; 99214 ==

== ENCOUNTER 2019-03-29 00:48 | Outpatient (CLI) | payer OTHER, SELFPAY ==
--- NOTE | 2019-03-29 06:48 | DI.RAD_ITS ---
EXAM: RF JOINT INJECTION FLUORO GUID CLINICAL HISTORY: hip pain,PRIMARY OA RT HIP, M16.11 TECHNIQUE: 2D and realtime digital imaging was performed. CONTRAST MATERIAL: COMPARISON: No exams were available for comparison FINDINGS: Fluoroscopy was utilized by Dr. Woodward during the performance of a right hip injection. Please ref er to the procedure report for complete details. IMPRESSION: Right hip injection.
[2019-03-29] MEDS: Omnipaque 300 MG/ML 10 ML BTL IJ (08:29)
[2019-03-29] MEDS: methylPREDNISolone ACETATE 80 MG/ML VIAL IM (08:32)
--- NOTE | 2019-03-29 17:26 | W.PROCNOTE ---
Date of service: 03/29/19 Time of Service: 08:26 Procedure Note Date of procedure: 03/29/19 Procedure: Right Hip Injection with Fluoroscopic Guidance Surgeon/Proceduralist/Physician: Arnulfo Woodward Procedure Diagnosis: Right Hip Osteoarthritis Procedure Indications: Jim has had persistent pain of the RIGHT hip and groin. Noninvasive measures have been tried. To serve as both diagnostic and therapeutic, an injection under fluoroscopy was recommended. I had discussed the risks of the procedure and the patient elected to proceed. Procedure Description: Jim was greeted in the flouroscopy room. The correct side was identified and the consent was reviewed with the patient and signed. The patient was then placed in the supine position on the fluoroscopy table. The RIGHT hip was then prepped with Chloraprep. The anterolateral injection starting point was identiifed by bony landmarks and fluoroscopy. The skin and soft tissue in the tract of the injection was anesthetized with 1% Lidocaine. A spinal needle was then inserted deep into the hip joint at the level of the lateral femoral neck under fluoroscopic guidance. A small amount of Omnipaque solution was injected to confirm intraarticular placement. Once confirmed, the hip was injected with 6cc of 0.5% Bupivicaine and 80mg of Depo-Medrol. A bandaid was placed on the injection site. The patient tolerated the procedure well and noted improvement in pre-injection pain.
== END 2019-03-29 01:08 ==
PROVIDERS: PCP Internal Medicine; Visit Provider Student in an Organized Health Care Education/Training Program
DX: M16.11 Unilateral primary osteoarthritis, right hip (principal); M25.551 Pain in right hip
CPT/HCPCS: 20610; 77002; J1040

== ENCOUNTER 2019-04-12 10:09 | Outpatient (REF) | payer OTHER, SELFPAY ==
[2019-04-12 14:01] LABS: FREE T4 0.95 ng/dL (0.76-1.46); TSH 3.69 uIU/mL (0.36-3.74)
== END 2019-04-12 10:29 ==
LOC: NCHCN 10:09
PROVIDERS: PCP Internal Medicine; Visit Provider Internal Medicine
DX: E03.9 Hypothyroidism, unspecified (principal)
CPT/HCPCS: 84439; 84443

== ENCOUNTER 2019-05-05 07:02 | Emergency (ER) | payer OTHER, SELFPAY ==
--- NOTE | 2019-05-05 07:01 | W.ED.GENAD ---
Discharge Plan Disposition Patient Disposition: HOME Condition: Good Discharge Details Chief Complaint: HeadInjury Clinical Impression: Concussion, Scalp hematoma, Laceration of ear Primary Care Provider: Vicente Reagan ED Provider: Moe Mathis Home Meds and New Rx's Prescriptions: No Action acyclovir 200 mg capsule 200 mg PO DAILY PRN (Reason: genital herpes) RF: 0 ondansetron HCl 8 mg tablet 8 mg PO TID PRNRF: 0 Excedrin Extra Strength 250-250-65 mg tablet 2 tab PO TID PRNRF: 0 polyethylene glycol 3350 [Miralax] 17 gram powder in packet 17 gm PO BID PRN (Reason: constipation) RF: 0 bupropion HCl 100 mg tablet 125 mg PO DAILY RF: 0 meloxicam 15 mg tablet 15 mg PO DAILY RF: 0 levothyroxine 25 mcg capsule 50 mcg PO DAILY RF: 0 zolpidem [Ambien] 10 mg tablet 10 mg PO QHS RF: 0 Discharge Instructions Instructions: Concussion (ED), Care For Your Absorbable Stitches (ED) Additional Instructions: The CT scan of your head and neck show no evidence of fracture or bleed. I suspect you do have a mild to moderate concussion though. The sutures that were used to fix your laceration behind your ear are absorbable will come out on their own in 7 to 10 days. If you notice any redness, bleeding discharge fever or chills please return immediately for reassessment. If you notice any worsening of your symptoms, or any new symptoms such as vomiting, diarrhea, fever, chills, shortness of breath, chest pain, numbness, weakness, or fainting , please return immediately to the emergency department for reevaluation. Please follow up with your primary care provider as soon as possible for reassessment and reevaluation. As always, it was a pleasure participating in your medical care today. Referrals: Vicente Reagan MD [Primary Care Provider] - Medical Decision Making This is a pleasant 78-year-old male with a past medical history of squamous cell carcinoma, which has been treated, who is not currently on chemotherapy or radiation who does take a daily aspirin who presents today for evaluation of mechanical fall. The patient states that he fell and tripped down 14 steps earlier this morning when his feet caught on the cord of the dehumidifier that he was carrying. He hit his head on a sliding door at the bottom. He had no loss of consciousness, he was able to get up and ambulate to the stretcher when EMS arrived. Aside for mild achiness in his neck and pain in his head he denies any other complaints. Physical exam demonstrates notable contusion over the scalp. He has a 3 cm laceration behind the left ear. No fracture cartilage. No other evidence of significant trauma. Tetanus is up-to-date from 3 years ago. Mild achiness in the neck but no midline C-spine tenderness. C-collar was placed as a precaution. We will get a CT scan of his head neck, and not suture his laceration. He refuses any pain medications at this time. Neurologic exam is normal. No other concerning abnormalities on exam. 7:53 AM Left ear was sutured with 5-0 chromic gut, 5 simple interrupted sutures were placed. Wound edges were well reapproximated. CT scan results per Dr. Osorio demonstrate no evidence of acute intracranial or cervical spine process. There is notable hematoma, but no evidence of acute bleed, or cervical fracture. At this time the patient is feeling well. He would like to go home. Tetanus up-to-date. Concussion diagnosis. With no acute process I feel he can be safely discharged. C-spine is been clear. I have extensively reviewed the treatment plan and discharge instructions with the patient and their family. I have addressed all patient concerns at this time. The patient and family was made aware of what symptoms to monitor for that would warrant a return to the emergency department. Discussed the plan with the patient and family, they demonstrate verbal understanding and agreement with our assessment and plan at this time. HPI General Date/Time Provider Initiated Documentation: 05/05/19 07:08. HPI Narrative: This is a 78-year-old male with a past medical history of squamous cell carcinoma, no longer receiving chemotherapy or radiation, who presents today for evaluation of fall. Earlier this morning he was carrying a dehumidifier downstairs, when he tripped on the cords and fell 14 steps down his stairs, hitting his head. He had no loss of consciousness. He recalls the entire event. He denies any chest pain, arm neck or shoulder pain. He denies any pain in his body except for his head. He does admit to mild soreness in his neck. He is on an aspirin daily but no other blood thinners. He denies any other complaints at this time. He had no loss of consciousness. Uncertain for tetanus status. No other complaints or modifying factors. Related Data Home Medications Medication Instructions Recorded Confirmed acyclovir 200 mg capsule 200 mg PO DAILY PRN cap 08/04/18 03/22/19 ondansetron HCl 8 mg tablet 8 mg PO TID PRN 08/04/18 03/22/19 yqnvfws-pzfxxkoldkyun-rqwcjapj 250 2 tab PO TID PRN tab 08/21/18 03/22/19 mg-250 mg-65 mg tablet polyethylene glycol 3350 17 gram 17 gm PO BID PRN each 08/21/18 03/22/19 oral powder packet bupropion HCl 100 mg tablet 125 mg PO DAILY tab 03/22/19 03/22/19 levothyroxine 25 mcg capsule 50 mcg PO DAILY cap 03/22/19 03/22/19 meloxicam 15 mg tablet 15 mg PO DAILY 03/22/19 03/22/19 zolpidem 10 mg tablet 10 mg PO QHS tab 03/22/19 03/22/19 Allergies Allergy/AdvReac Type Severity Reaction Status Date / Time bee pollen Allergy Severe Anaphylaxsi Unverified 05/05/19 07:10 s Penicillins Allergy Unknown happened Unverified 05/05/19 07:10 at age 5, serious hives General VIJAY: 2 Review of Systems All systems reviewed & are unremarkable except as noted in HPI and below PFSH Medical History (Updated 03/22/19 @ 12:27 by ELLIE Duke) Actinic cheilitis Adenomatous colon polyp Alcohol consumption binge drinking Bee sting allergy Carpal tunnel syndrome Chronic insomnia Dermatitis Erectile dysfunction 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) HSV (herpes simplex virus) infection Hyperlipidemia Left lumbar radiculopathy Leg pain Lipoma Lumbar back pain Marital problem Osteoarthritis of left knee Palliative care patient (Acute) Situational depression Tongue cancer (Acute) Uses feeding tube (Acute) Ventral hernia Surgical History (Updated 03/22/19 @ 12:27 by ELLIE Duke) Colonoscopy - IV Sedation (05/28/16) History of total left knee replacement (TKR) (Acute) Social History Smoking/Tobacco Use Status: Never Alcohol Intake: current Counseling given: Yes Counseling provided: reduce to 2 or less/day Details: drinks heavily on a daily basis, says he's quit before. suggested reduction Drug use: Never Caregiver/Support person: Yes Household members: spouse Housing: house Number of Children: 0 number of grandchildren: 0 Pets and animals: Yes (yellow and chocolate labs, one each) Pets and animals: dog(s) What is your relationship status?: How often do you talk on the phone with friends or family?: twice per week How often do you get together with friends or relatives?: twice per week Panel score (0-1 are the most socially isolated patients): 2 What type of physical activity do you participate in: walking, irregular exercise and occasional exercise Special heidi needs: No Do you feel safe at home: Yes Do you feel safe in your relationship?: Yes Exam Narrative Exam Narrative: 1.Const: Well-nourished, Well-developed, appearing stated age 2.Eyes: PERRL, no conjunctival injection, and symmetrical lids. 3.ENT: Moist MM. Neck: Symmetric, trachea midline, No thyromegaly. There is no evidence of raccoon eyes, hector sign, CSF rhinorrhea, mastoid tenderness, cranial crepitus, hemotympanum, exophthalmos, or hyphema. Patient demonstrates intact dentition with no signs of tooth avulsion or fracture, no signs of jaw deformity, no evidence of a LeFort's fracture, with an intact palate, nose and orbital region. There is no evidence of a nasal septal hematoma. No proptosis. Jaw closes symmetrically. Airway is clear. Notable contusion over the left parietal region. Notable 3 cm linear laceration behind the left ear. No evidence of fracture cartilage. 4.CVS: Regular rate and rhythm, Normal s1 and s2. No murmurs, carotid bruits, rubs, or gallops. Radial pulses 2+ bilaterally and symmetric. Dorsalis pedis pulses 2+ bilaterally and symmetric. 2+ capillary refill. No evidence of distant heart sounds. No extremity edema. No evidence of gross hemorrhage. 5.RESP: Airway clear, no obstructions. No abrasions or ecchymosis. Chest movement symmetric with respirations. No chest wall tenderness. Trachea midline. No crepitus. No step offs. No paradoxical movements. Lungs are clear to auscultation bilaterally. No rales, rhonchi, wheezing or stridor. Breath sound symmetric. No Sucking chest wounds. No clinical evidence of significant chest trauma. 6.GI: Soft, nondistended, nontender. Bowel tones normoactive. No masses or organomegaly. No ecchymosis or abrasions. No periumbilical ecchymosis or seatbelt sign. No flank or CVA tenderness. No clinical signs of significant trauma. Genital Exam: Intact and traumatically unremarkable genital and rectal exam with no significant bruising, blood, or deformity. Rectal tone normal, stool without gross blood. No clinical evidence of significant abdominal trauma. 7.MSK: No gross deformities or discolorations or lesions. Tolerates full range of motion of extremities without tenderness. All compartments of upper and lower extremities are soft with no tenderness. Vascular exam demonstrates brisk capillary refill and intact pulses in all extremities. Pelvic exam demonstrates a stable pelvis, nontender to lateral compression and palpation of symphysis pubis.. No clinical evidence of significant musculoskeletal trauma. No midline tenderness to palpation over the CTLS spine. However he does have self-described achiness and stiffness in his neck with range of motion. Normal ROM in flexion, extension, side bend, and rotation. Patient has +5 out of 5 strength in the lower extremities in dorsiflexion and plantarflexion, knee flexion and extension, hip flexion and extension. There is +2 over 2 dorsalis pedis pulses bilaterally. There is normal sensation to the skin with light touch at the foot, knee, and hip. Normal saddle sensation. Good sensation over the deep sural nerve area bilaterally. Rectal exam deferred. Reflexes are +2 over 4 in the patellar reflex bilaterally. +5 out of 5 strength in the medial, ulnar, radial nerve distribution bilaterally in the hands as well as intact light touch sensation to these dermatomes on the hands 8.Skin: Warm, Dry. 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 Sensation grossly intact, no focal neurologic deficits. 10.Psych: (AAO) x3. Appropriate mood and affect Procedures Laceration Laceration 1: Site: other (Left Ear) Side (If applicable): left Size (cm): 3 Description: stellate Depth: simple, single layer Local Anesthetic: Lidocaine 1% Amount of anesthesia used (mL): 3 Pre-repair: wound explored, irrigated extensively and deep structures intact Skin layer closed with: other (chromic Gut) Size (cm): 5-0 Number of sutures: 5 Technique: simple, interrupted
[2019-05-05 07:04] VITALS: BP 123/74; PULSE 77; RESP 18; TEMP 36.4; O2SAT 99
--- NOTE | 2019-05-05 07:26 | DI.CT_ITS ---
EXAM: CT HEAD CERVICAL SPINE WO CLINICAL HISTORY: fell 14 steps, L ear lac, notable contusion TECHNIQUE: CT examination of the cervical spine was performed utilizing multi slice acquisition and multiplanar reconstruction. Cranial CT was performed without contrast administration COMPARISON: CT HEAD WO from 10/08/2018 FINDINGS: There are moderate degenerative changes involving the facet joints and vertebral endplates throughou t the cervical region and there is multilevel loss of disc height. No evidence of acute fracture or dislocation. Visualized lung apices and tracheolaryngeal structures appear intact. No cervical mass or adenopathy. There is mild generalized cerebral atrophy. No evidence of acute intracranial hemorrhage, mass effe ct or midline shift. Visualized mastoid air cells and paranasal sinuses are generally clear. Orbita l and temporal bone structures appear intact. IMPRESSION: No evidence of acute cervical spine injury. No evidence of acute intracranial injury.
[2019-05-05 08:13] VITALS: BP 138/95; PULSE 77; RESP 16; TEMP 36.4; O2SAT 96
== END 2019-05-05 08:05 | disposition home or self-care (01) ==
PROVIDERS: Emergency Provider Student in an Organized Health Care Education/Training Program; PCP Internal Medicine
DX: S06.0X0A Concussion without loss of consciousness, initial encounter (principal); S00.03XA Contusion of scalp, initial encounter; S01.312A Laceration without foreign body of left ear, initial encounter; W10.8XXA Fall (on) (from) other stairs and steps, initial encounter
CPT/HCPCS: 12013; 99284; 70450; 72125; L0172

== ENCOUNTER 2019-06-15 12:58 | Outpatient (CLI) | payer OTHER, SELFPAY ==
--- NOTE | 2019-06-15 13:19 | DI.RAD_ITS ---
EXAM: XR PELVIS AP INDICATION: R hip OA. COMPARISON: XR hip RT complete AP pelvis from 02/03/2019 TECHNIQUE: 2D digital imaging was performed. FINDINGS: Severe narrowing of the right hip joint space and periarticular spurring and sclerosis are again note d. Milder degenerative changes are seen of the left hip. No new abnormalities are identified.
[2019-06-15 21:55] LABS: HCT 41.1 % (40.0-50.0); Mean Corp. HGB Concentration 34.1 g/dL (32.0-36.0); Mean Corpuscular Hemoglobin 33.3 pg (27.0-33.0); Mean Corpuscular Volume 97.9 fL (80-95); Mean Platelet Volume 10.1 fL (8.0-11.0); Platelet Count 249 x1000/uL (130-400); White Blood Cell Count 4.72 k/cumm (4.4-10.8)
[2019-06-15 22:31] LABS: Anion Gap 10.6 mmol/L (3-11); BUN 29 mg/dL (7-18); CO2 26.4 mmol/L (21.0-32.0); CREATININE 1.08 mg/dL (0.70-1.30); Calcium 9.2 mg/dL (8.5-10.1); Chloride 104 mmol/L (98-107); Glucose 96 mg/dL (74-106); Magnesium 2.3 mg/dL (1.8-2.4); Potassium 4.4 mmol/L (3.5-5.1); Sodium 141 mmol/L (136-145); TSH 6.23 uIU/mL (0.36-3.74)
[2019-06-15 23:07] LABS: FREE T4 0.97 ng/dL (0.76-1.46)
== END 2019-06-15 13:18 ==
PROVIDERS: PCP Internal Medicine; Visit Provider Physician Assistant
DX: M16.0 Bilateral primary osteoarthritis of hip; I48.91 Unspecified atrial fibrillation
CPT/HCPCS: 80048; 85027; 72170; 83735; 84439; 84443

== ENCOUNTER 2019-06-15 14:20 | Outpatient (CLI) | payer OTHER, SELFPAY ==
--- NOTE | 2019-06-15 15:04 | W.PREOPHP ---
Date of service: 06/15/19 Assessment and Plan Assessment and plan (1) Atrial fibrillation: Status: Chronic Assessment and plan: Jim was found to have an irregular heartbeat at this visit both on physical exam and on EKG would suggest atrial fibrillation. He was referred to his PCP and has an appointment with him today. If he is assessed today and determined to be safe to continue with surgery, we will proceed with the surgery as planned. Likely, however, he will need a cardiac work-up in his surgery may have to be postponed. (2) Primary osteoarthritis of right hip: Status: Chronic Assessment and plan: Total hip replacement. Details of surgery were discussed with patient as well as risks and pertinent anatomy. All questions were answered. This may have to be postponed due to new onset atrial fibrillation. History of Present Illness History of Present Illness Chief Complaint: Right hip pain Narrative: Jim is a 78-year-old male who comes in today for a preop history and physical for a right total hip replacement. He states that he has been dealing with right hip pain for a few years now, but it really only bothered him with certain motions previously. 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 He has for the most part recovered from this, and his hip pain has continued to get worse. X-rays taken in the office did show some severe arthritis of the right hip with complete loss of joint space and bone spurring throughout. He did have an injection which only helps temporarily in the right hip. He has had a visit with his PCP who instructed him that as far as cancer treatment is concerned, there is no contraindication for him to have surgery. Dr. Woodward does have a right total hip replacement, and he is anxious to proceed. 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 He has been cleared by his PCP as far as cancer treatment completion, and he states that there is no contraindication to surgery. He does have a results of difficulty swallowing making him only able to swallow liquids. Patient denies history of hypertension, CVA, [place], angina, asthma, COPD, renal or liver disorders, hepatitis, bleeding disorders, diabetes, immune or thyroid disorders. No complications from anesthesia. Review of Systems Constitutional Constitutional: Denies fever(s) ENT Ears, Nose, Mouth, and Throat: Denies dizziness and Denies sore throat Cardiovascular Cardiovascular: Denies chest pain, Denies palpitations and Denies dyspnea Respiratory Respiratory: Denies cough and Denies dyspnea Gastrointestinal Gastrointestinal: Denies abdominal pain, Denies melena, Denies hematochezia, Denies diarrhea, Denies nausea and Denies vomiting Genitourinary Genitourinary: Denies hematuria and Denies dysuria Neurologic Neurologic: Denies dizziness Endocrine Endocrine: Denies palpitations [facility] Medical History (Updated 06/15/19 @ 15:08 by ELLIE Duke) Actinic cheilitis Adenomatous colon polyp Alcohol consumption binge drinking Bee sting allergy Chronic insomnia Dermatitis Dysphagia (Acute) Erectile dysfunction 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) HSV (herpes simplex virus) infection Hyperlipidemia Left lumbar radiculopathy Leg pain Lipoma Lumbar back pain Marital problem Osteoarthritis of left knee Palliative care patient (Acute) Situational depression Tongue cancer (Acute) Uses feeding tube (Acute) Ventral hernia Surgical History (Updated 06/15/19 @ 15:11 by ELLIE Duke) Ankle fracture, right (Inactive) s/p ORIF Carpal tunnel syndrome s/p ECTR and OCTR B/L (4 total surgeries) Colonoscopy - IV Sedation (05/28/16) History of cataract extraction with lens replacement (Acute) B/L History of tonsillectomy (Chronic) History of total left knee replacement (TKR) (Acute) Social History Smoking/Tobacco Use Status: Never Alcohol Intake: current Counseling given: Yes Counseling provided: reduce to 2 or less/day Details: drinks heavily on a daily basis, says he's quit before. suggested reduction Drug use: Never Caregiver/Support person: Yes Household members: spouse Housing: house Number of Children: 0 number of grandchildren: 0 Pets and animals: Yes (yellow and chocolate labs, one each) Pets and animals: dog(s) What is your relationship status?: How often do you talk on the phone with friends or family?: twice per week How often do you get together with friends or relatives?: twice per week Panel score (0-1 are the most socially isolated patients): 2 What type of physical activity do you participate in: walking, irregular exercise and occasional exercise Special heidi needs: No Do you feel safe at home: Yes Do you feel safe in your relationship?: Yes Meds Home Medications and Allergies Home Medications Medication Instructions Recorded Confirmed Type acyclovir 200 mg capsule 200 mg PO DAILY PRN cap 08/04/18 06/15/19 History ondansetron HCl 8 mg tablet 8 mg PO TID PRN 08/04/18 06/15/19 History qzjbzth-lrvthbtstvvdz-zuxiujmt 250 2 tab PO TID PRN tab 08/21/18 06/15/19 History mg-250 mg-65 mg tablet polyethylene glycol 3350 17 gram 17 gm PO BID PRN each 08/21/18 06/15/19 History oral powder packet bupropion HCl 100 mg tablet 125 mg PO DAILY tab 03/22/19 06/15/19 History levothyroxine 25 mcg capsule 50 mcg PO DAILY cap 03/22/19 06/15/19 History meloxicam 15 mg tablet 15 mg PO DAILY 03/22/19 06/15/19 History zolpidem 10 mg tablet 10 mg PO QHS tab 03/22/19 06/15/19 History Allergies Allergy/AdvReac Type Severity Reaction Status Date / Time bee pollen Allergy Severe Anaphylaxsi Unverified 05/05/19 07:10 s Penicillins Allergy Unknown happened Unverified 05/05/19 07:10 at age 5, serious hives Exam [facility] Head: normocephalic and atraumatic General nose exam: no nasal discharge Throat: uvula midline and no uvular edema Other: soft palate rises symmetrically, no erythema Eyes Conjunctivae: conjunctivae normal Sclera: sclerae normal Pupils: PERRL Resp Effort & Inspection: normal respiratory effort Auscultation: clear to auscultation bilaterally and no wheezes Cardio Rate: regular rate Rhythm: abnormal rhythm irregularly irregular Heart Sounds: no murmurs and other (only one heart sound noted at irregular rhythm) Other: pulse rhythm irregularly irregular GI Palpation: soft, no hepatosplenomegaly and nontender Auscultation: normal bowel sounds
== END 2019-06-15 14:40 ==
PROVIDERS: PCP Internal Medicine; Visit Provider Student in an Organized Health Care Education/Training Program
DX: I48.91 Unspecified atrial fibrillation (principal); M16.11 Unilateral primary osteoarthritis, right hip; Z01.810 Encounter for preprocedural cardiovascular examination
CPT/HCPCS: NC; 93005; 93010

== ENCOUNTER 2019-06-21 01:44 | Outpatient (CLI) | payer OTHER, SELFPAY | END 2019-06-21 02:04 | PROVIDERS: PCP Internal Medicine; Visit Provider Internal Medicine | DX: I48.91 Unspecified atrial fibrillation (principal) | CPT/HCPCS: 93225 ==

== ENCOUNTER 2019-06-25 08:58 | Outpatient (CLI) | payer OTHER, SELFPAY ==
--- NOTE | 2019-06-25 12:38 | W.HOLTRPT ---
Date of service: 06/25/19 Time of Service: 12:38 Holter Monitor Report Holter Monitor Note: The patient was monitored for 2 days and 12 minutes. Rhythm throughout was atrial fibrillation. Mean heart rate was 105. Minimum heart rate was 76. Maximum heart rate was 145 Ventricular ectopic beats, couplets and triplets were noted. There was one 4 beat run of nonsustained ventricular tachycardia. There was no bradycardia. There are no pauses
== END 2019-06-25 09:18 ==
PROVIDERS: PCP Internal Medicine; Visit Provider Internal Medicine
DX: I48.91 Unspecified atrial fibrillation (principal)
CPT/HCPCS: 93227; 93226

== ENCOUNTER 2019-06-29 01:23 | Outpatient (CLI) | payer OTHER, SELFPAY ==
--- NOTE | 2019-06-29 08:41 | DI.US_ITS ---
EXAM: US SOFT TISSUE HEAD OR NECK CLINICAL HISTORY: MIDLINE NECK MASS, R22.1 TECHNIQUE: Ultrasound performed using standard protocol. COMPARISON: No exams were available for comparison FINDINGS: Soft tissue ultrasound of questionable palpable areas of abnormality of the anterior mid cervical reg ion shows no mass lesion. Grossly unremarkable appearance of thyroid. No gross adenopathy. IMPRESSION: No cervical mass identified. If there is a high clinical suspicion of a mass, additional evaluation with CT or MRI may be considered.
[2019-06-29 09:20] LABS: Abs Immature Grans 0.01 k/cumm (0.0-0.09); Absolute Basophil Count 0.02 k/cumm (0.0-0.2); Absolute Eosinophil Count 0.21 k/cumm (0.0-0.7); Absolute Lymphocyte Count 0.35 k/cumm (1.2-3.4); Absolute Neutrophil Count 4.11 k/cumm (1.2-6.7); Basophils % 0.4; Eosinophils % 4.1; HCT 41.8 % (40.0-50.0); HGB 14.3 g/dL (13.5-17.5); Immature Grans % 0.2; Lymphocytes % 6.9; Mean Corp. HGB Concentration 34.2 g/dL (32.0-36.0); Mean Corpuscular Hemoglobin 33.2 pg (27.0-33.0); Monocytes % 7.8; Neutrophils % 80.6; Platelet Count 298 x1000/uL (130-400); RBC 4.31 m/cumm (4.50-6.00); RBC Distribution Width 12.4 % (11.8-14.1)
[2019-06-29 10:36] LABS: ALT 15 U/L (16-63); AST 15 U/L (15-37); Albumin 4.1 g/dL (3.4-5.0); Alkaline Phosphatase 103 U/L (46-116); Anion Gap 9.3 mmol/L (3-11); BUN 27 mg/dL (7-18); Bilirubin, Total 0.6 mg/dL (0.2-1.0); CO2 30.7 mmol/L (21.0-32.0); CREATININE 1.12 mg/dL (0.70-1.30); Calcium 9.4 mg/dL (8.5-10.1); Chloride 102 mmol/L (98-107); Glucose 83 mg/dL (74-106); Sodium 142 mmol/L (136-145); Total Protein 7.2 g/dL (6.4-8.2)
== END 2019-06-29 01:43 ==
PROVIDERS: Nurse Practitioner; PCP Internal Medicine; Visit Provider Otolaryngology
DX: C02.9 Malignant neoplasm of tongue, unspecified (principal); R22.1 Localized swelling, mass and lump, neck; E03.9 Hypothyroidism, unspecified
CPT/HCPCS: 36415; 76536; 80053; 84443; 85025

== ENCOUNTER 2019-07-06 01:18 | Outpatient (CLI) | payer OTHER, SELFPAY ==
--- NOTE | 2019-07-06 07:30 | DI.US_ITS ---
APPROVED REPORT EXAM: Comprehensive 2D, Doppler, and color-flow Echocardiogram Patient Location: Out-Patient [facility] Operator: Ml Dias RDCS (AE) Rhythm: Atrial Fibrillation Indications: atrial fibrillation i48.91 Conclusion Left Ventricle : The left ventricle is normal size. The left ventricular systolic function is normal. The left ventricular ejection fraction is within the normal range. There is normal left ventricular wall thickness. There is normal LV segmental wall motion. Diastolic function is indeterminate. LVEF i s estimated to be 55-60%. Right Ventricle : Right ventricle is mildly dilated. The right ventricular systolic function appears low normal. Atria : Left atrium is mildly dilated. Right atrium is mildly dilated. Aortic Valve : Aortic valve is trileaflet. Aortic valve leaflets are sclerotic but open well. There i s no aortic valvular stenosis. Mild aortic regurgitation. Mitral Valve : Mitral valve leaflets are mildly thickened, but open well. No evidence of mitral valve stenosis. Moderate mitral regurgitation. Tricuspid Valve : The tricuspid valve is normal in structure. Moderate tricuspid regurgitation. Great Vessels : Aortic root is mildly dilated. The ascending aorta is moderately dilated (4.47cm). IV C is normal in size and collapses >50% with inspiration. Estimated RVSP is 28-31 mmHg. There is no prior echocardiogram available for comparison. Wall motion Left Ventricle The left ventricle is normal size. The left ventricular systolic function is normal. The left ventric ular ejection fraction is within the normal range. There is normal left ventricular wall thickness. T here is normal LV segmental wall motion. Diastolic function is indeterminate. LVEF is estimated to be 55-60%. Right Ventricle Right ventricle is mildly dilated. The right ventricular systolic function appears low normal. Atria Left atrium is mildly dilated. Right atrium is mildly dilated. Aortic Valve Aortic valve is trileaflet. Aortic valve leaflets are sclerotic but open well. There is no aortic donald vular stenosis. Mild aortic regurgitation. Mitral Valve Mitral valve leaflets are mildly thickened, but open well. No evidence of mitral valve stenosis. Mode rate mitral regurgitation. Tricuspid Valve The tricuspid valve is normal in structure. Moderate tricuspid regurgitation. Pulmonic Valve Pulmonic valve is not well visualized. Mild to moderate pulmonic regurgitation. Great Vessels Aortic root is mildly dilated. The ascending aorta is moderately dilated (4.47cm). IVC is normal in s ize and collapses >50% with inspiration. Estimated RVSP is 28-31 mmHg. Pericardium The pericardium appears normal. 2D Dimensions IVSd 0.95 cm M: 0.6-1.2 LV EDV A2C 84.10 mL PWd 0.90 cm M: 0.6 - 1.2 LV EDV A4C 93.10 mL LVDd 5.20 cm M: 4.2 - 5.8 LA Volume Index A2C 44.22 mL/m2 LVDs 3.80 cm M: 2.5 - 4.0 LA Volume Index A4C 39.25 mL/m2 Aortic Root 3.60 cm M: 3.1 - 3.7 LA Volume Index Biplane 44.38 mL/m2 RVID Base (AP4) 4.06 cm (M/F) 2.5-4.1 LA Area A4C 23.75 cm2 RA Area A4C 20.96 cm2 LA Area A2C 26.86 cm2 LVOT 2.05 cm (M/F) 1.5-2.5 EF AP4 52.52 % Ascending Aorta 4.47 cm M: 2.6 - 3.4 EF AP2 57.43 % LVEF (Teich) 52.18 % EF BP 53.58 % LVEF (Nolan's) 53.58 % M: 52 - 72 LV Volume 66.04 mL M: 62 - 150 LV Volume Index 32.85 mL/m2 M: 34 - 74 FS 26.90 % LV Diastology MED E' 0.07 (>0.07 m/s) LV E/e MED 9.65 (<14) LAT E' 0.11 (>0.1 m/s) LV E/e LAT 6.35 (<14) Pulm Vein s 0.20 m/s PV S/D Ratio 0.29 Pulm Vein d 0.68 m/s Aortic Valve LVOT Area 3.38 cm2 LVOT Vmax 0.67 m/s LVOT Mean Paras. 0.50 m/s LVOT Peak Gr. 1.8 mmHg LVOT Mean Gr. 1.1 mmHg AoV Area/ BSA (Vmax) 1.03 cm2/m2 LVOT VTI 0.133 m AoV Vmax 1.09 (0.5-1.3 m/s) FABIAN Mean Paras. Index 0.94 cm2/m2 AoV Mean Paras. 0.89 m/s AoV Peak Grad 4.8 mmHg AoV Mean Grad 3.3 (<5 mmHg) AoV VTI 0.231 (0.18-0.25 m) AoV Area VTI 2.02 (2.5-4.5 cm2) AoV Area/ BSA (VTI) 1.00 cm/m2 Mitral Valve MV E Max Paras. 0.70 (0.4-1.3 m/s) MVA VTI 9.45 (4.0-6.0 cm2) Vena Contracta 0.50 (0-0.3 cm) MV Mean Gr. 0.30 (<2mmHg) Pulmonary Valve PV Peak Velocity 0.61 (0.5-1.5 m/s) RVOT Peak Gr. 0.90 mmHg RVOT Peak Paras. 0.47 m/s RVOT Mean Gr. 0.60 mmHg RVOT VTI 0.05 m Tricuspid Valve TR P. Velocity 2.69 m/s TV Regurg Vmax 2.69 m/s RAP Estimate 3.00 mmHg RVSP 31.90 mmHg TR P. Gradient 28.90 mmHg
== END 2019-07-06 01:38 ==
PROVIDERS: PCP Internal Medicine; Visit Provider Internal Medicine
DX: I48.91 Unspecified atrial fibrillation (principal); I51.7 Cardiomegaly; I77.819 Aortic ectasia, unspecified site; E03.9 Hypothyroidism, unspecified; E78.5 Hyperlipidemia, unspecified
CPT/HCPCS: 93306

== ENCOUNTER → 2019-07-15 00:52 | Outpatient (CLI) | payer OTHER, SELFPAY ==
--- NOTE | 2019-07-15 15:19 | DI.RAD_ITS ---
EXAM: RF JOINT INJECTION FLUORO GUID CLINICAL HISTORY: PRIMARY OA RT HIP, M16.11, RT HIP INJECTION, RT HIP PAIN. TECHNIQUE: 2D and realtime digital imaging was performed. COMPARISON: No exams were available for comparison FINDINGS: Fluoroscopy was provided for Dr. Woodward for guidance with performing a right hip injection. Please see procedure note for details. Fluoro time: 1 second
[2019-07-15] MEDS: Bupivacaine 0.5% Pres-Free 10 ML VIAL 6 ML IJ (15:32)
[2019-07-15] MEDS: Omnipaque 300 MG/ML 10 ML BTL IJ (15:33)
[2019-07-15] MEDS: methylPREDNISolone ACETATE 80 MG/ML VIAL IM (15:34)
--- NOTE | 2019-07-16 06:31 | W.PROCNOTE ---
Date of service: 07/15/19 Time of Service: 15:31 Procedure Note Date of procedure: 07/15/19 Procedure: Right Hip Injection with Fluoroscopic Guidance Surgeon/Proceduralist/Physician: Arnulfo Woodward Procedure Diagnosis: Right Hip Osteoarthritis Procedure Indications: Jim has had persistent pain of the RIGHT hip and groin. Noninvasive measures have been tried. To serve as both diagnostic and therapeutic, an injection under fluoroscopy was recommended. I had discussed the risks of the procedure and the patient elected to proceed. Procedure Description: Jim was greeted in the flouroscopy room. The correct side was identified and the consent was reviewed with the patient and signed. The patient was then placed in the supine position on the fluoroscopy table. The RIGHT hip was then prepped with Chloraprep. The anterolateral injection starting point was identiifed by bony landmarks and fluoroscopy. The skin and soft tissue in the tract of the injection was anesthetized with 1% Lidocaine. A spinal needle was then inserted deep into the hip joint at the level of the lateral femoral neck under fluoroscopic guidance. A small amount of Omnipaque solution was injected to confirm intraarticular placement. Once confirmed, the hip was injected with 6cc of 0.5% Bupivicaine and 80mg of Depo-Medrol. A bandaid was placed on the injection site. The patient tolerated the procedure well and noted improvement in pre-injection pain.
== END ==
PROVIDERS: PCP Internal Medicine; Visit Provider Student in an Organized Health Care Education/Training Program
DX: M25.551 Pain in right hip (principal); M16.11 Unilateral primary osteoarthritis, right hip
CPT/HCPCS: 20610; 77002; J1040

== ENCOUNTER 2019-07-20 01:03 | Outpatient (CLI) | payer OTHER, SELFPAY ==
[2019-07-20 09:36] LABS: ALT 16 U/L (16-63); AST 18 U/L (15-37); Albumin 3.8 g/dL (3.4-5.0); Alkaline Phosphatase 99 U/L (46-116); Anion Gap 8.1 mmol/L (3-11); BUN 26 mg/dL (7-18); Bilirubin, Total 0.7 mg/dL (0.2-1.0); CO2 28.9 mmol/L (21.0-32.0); CREATININE 1.06 mg/dL (0.70-1.30); Chloride 104 mmol/L (98-107); Glucose 91 mg/dL (74-106); Potassium 4.3 mmol/L (3.5-5.1); Sodium 141 mmol/L (136-145)
--- NOTE | 2019-07-20 10:02 | DI.CT_ITS ---
EXAM: CT NECK W CLINICAL HISTORY: CANCER BASE OF TONGUE C01 TECHNIQUE: The exam was performed according to the usual protocol. COMPARISON: CT HEAD CERVICAL SPINE WO from 05/05/2019 FINDINGS: ThIs is a cervical CT July 20. CT examination cervical region was performed with intravenous in fusion of 100 cc of Omnipaque 350. Images obtained through the lung apices are unremarkable. No vas cular abnormality seen involving the aortic arch or cervical vessels. No superior mediastinal adenop athy. 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 This region is partially obscured by artifact from dental amalgams. There appears to be narrowing of the oropharyngeal and nasal pharyng eal airway with edema seen bilaterally. There is also paralaryngeal edema to the level of the vocal cords. No gross obstructing mass identified. Correlation requested regarding recent surgical proced ure. No significant cervical adenopathy seen. Salivary glands are unremarkable. Thyroid is small and mil dly heterogeneous. IMPRESSION: Nonspecific laryngeal/para laryngeal edema and narrowing of an oropharyngeal airway, nonspecific. No cervical adenopathy seen. Correlation requested regarding surgical history in a patient with reporte d history of carcinoma of the base of the tongue.
[2019-07-20] MEDS: Omnipaque 350 MG/ML 100 ML BTL IJ (10:08)
== END 2019-07-20 01:23 ==
PROVIDERS: PCP Internal Medicine; Visit Provider Otolaryngology
DX: C01 Malignant neoplasm of base of tongue (principal); J38.4 Edema of larynx
CPT/HCPCS: 70491; 80053; J3490

== ENCOUNTER 2019-09-02 11:47 | Outpatient (REF) | payer OTHER, SELFPAY ==
[2019-09-02 21:21] LABS: FREE T4 1.19 ng/dL (0.76-1.46); TSH 5.48 uIU/mL (0.36-3.74)
== END 2019-09-02 12:07 ==
LOC: NCHCN 11:47
PROVIDERS: PCP Internal Medicine
DX: E03.9 Hypothyroidism, unspecified (principal)
CPT/HCPCS: 84439; 84443

== ENCOUNTER 2019-11-03 12:52 | Outpatient (CLI) | payer OTHER, SELFPAY ==
--- NOTE | 2019-11-03 12:45 | DI.RAD_ITS ---
EXAM: XR HIP RT COMPLETE AP PELVIS INDICATION: PRE OP. COMPARISON: XR PELVIS AP from 06/15/2019 TECHNIQUE: 2D digital imaging was performed. FINDINGS: There is marked narrowing of the right hip joint space, similar to the previous exam. There is ivy articular spurring and sclerosis. Subchondral cysts are seen in the superior acetabulum. There are [id number] degenerative changes of left hip. There is mild spurring of the SI joints. IMPRESSION: Stable degenerative changes of both hips, right greater than. DATA REPOSITORY: RADIATION DOSE DELIVERED:
== END 2019-11-03 13:12 ==
PROVIDERS: PCP Internal Medicine; Referring Provider Internal Medicine; Visit Provider Student in an Organized Health Care Education/Training Program
DX: M53.3 Sacrococcygeal disorders, not elsewhere classified; Z01.818 Encounter for other preprocedural examination; M16.11 Unilateral primary osteoarthritis, right hip
CPT/HCPCS: 73502

== ENCOUNTER 2019-11-05 08:59 | Outpatient (CLI) | payer OTHER, SELFPAY ==
[2019-11-05 15:39] LABS: HCT 36.8 % (40.0-50.0); HGB 12.8 g/dL (13.5-17.5); Mean Corp. HGB Concentration 34.8 g/dL (32.0-36.0); Mean Corpuscular Hemoglobin 33.5 pg (27.0-33.0); Mean Corpuscular Volume 96.3 fL (80-95); Mean Platelet Volume 8.7 fL (8.0-11.0); Platelet Count 287 x1000/uL (130-400); RBC 3.82 m/cumm (4.50-6.00); RBC Distribution Width 12.6 % (11.8-14.1); White Blood Cell Count 5.24 k/cumm (4.4-10.8)
[2019-11-05 17:08] LABS: Anion Gap 8.6 mmol/L (3-11); BUN 29 mg/dL (7-18); CO2 27.4 mmol/L (21.0-32.0); CREATININE 1.43 mg/dL (0.70-1.30); Calcium 8.9 mg/dL (8.5-10.1); Chloride 103 mmol/L (98-107); Estimated GFR 47.58 (mL/min/1.73m2); Glucose 91 mg/dL (74-106); Potassium 4.1 mmol/L (3.5-5.1); Sodium 139 mmol/L (136-145)
[2019-11-06 15:53] LABS: COVID-19 RT-PCR UVMMC Result Negative (Negative)
== END 2019-11-05 09:19 ==
PROVIDERS: PCP Internal Medicine; Visit Provider Student in an Organized Health Care Education/Training Program
DX: M25.551 Pain in right hip (principal); M16.11 Unilateral primary osteoarthritis, right hip; Z11.59 Encounter for screening for other viral diseases; Z01.818 Encounter for other preprocedural examination; Z01.812 Encounter for preprocedural laboratory examination
CPT/HCPCS: 36415; 80048; 85027; 86850; 86900; 86901; U0003

== ENCOUNTER 2019-11-10 06:03 | Inpatient (IN) | payer OTHER, SELFPAY ==
[2019-11-10] VITALS (13 sets, daily range): BP systolic 93–121; BP diastolic 51–83; PULSE 52–69; RESP 14–19; TEMP 35.9–36.9; O2SAT 97–99
[2019-11-10] MEDS: Celecoxib 200 MG CAP 400 MG PO (06:56)
[2019-11-10] MEDS: Lactated Ringers 1,000 ML 80 ML IV ×2 (07:05→11:52)
[2019-11-10] MEDS: ACETAMINOPHEN 1,000 MG/100 ML BTL 400 MG IVPB (07:25)
[2019-11-10] MEDS: ceFAZolin 2 GM/50 ML BAG IVPB (07:31)
[2019-11-10] MEDS: Bupivacaine 0.25% Pres-Free 30 ML VIAL (08:21)
[2019-11-10] MEDS: Ketorolac 30 MG/ML VIAL (08:22)
--- NOTE | 2019-11-10 09:20 | DI.RAD_ITS ---
EXAM: XR HIP RT IN OR CLINICAL HISTORY: Primary osteoarthritis of right hip TECHNIQUE: 2D and realtime digital imaging was performed. Fluoroscopy was provided in the OR COMPARISON: No exams were available for comparison FINDINGS: C-arm fluoroscopy was utilized by Dr. Woodward during total joint replacement of the right hip. Hard copy show placement of right total hip arthroplasty, the components appear well seated. Fluoro time was 43 seconds. IMPRESSION: RADIATION DOSE DELIVERED: Total DLP
--- NOTE | 2019-11-10 09:53 | DSE_ITS ---
DS: Diagnosis Discharge Diagnosis (1) Primary osteoarthritis of right hip: Status: Chronic Discharge Plan Disposition Patient Disposition: HOME Condition: Good Discharge Details Reason For Visit: (R) HIP DJD Admit Date/Time: 11/10/19 06:03 Admit Provider: Arnulfo Woodward Attending Provider: Arnulfo Woodward Primary Care Provider: Vicente Reagan Hospital Course Hospital Course: Patient was admitted to the medical/surgical floor following the procedure. It was tolerated well without any notable medical, surgical, or anesthetic complications. Mobilization began postoperatively. The sanchez catheter was removed and voiding spontaneously. Vitals were stable. Physical therapy worked with the patient and was cleared for discharge home. No acute medical issues. Home Meds and New Rx's Prescriptions: New ibuprofen 100 mg/5 mL suspension 400 mg PO Q6H PRNQty: 473 RF: 6 acetaminophen 650 mg/20.3 mL solution 650 mg PO Q6H PRNQty: 2030 RF: 3 morphine concentrate 100 mg/5 mL (20 mg/mL) solution 10 - 20 mg PO Q4H PRNQty: 30 RF: 0 Continued acyclovir 200 mg capsule 200 mg PO DAILY PRN (Reason: genital herpes) RF: 0 Excedrin Extra Strength 250-250-65 mg tablet 2 tab PO TID PRNRF: 0 polyethylene glycol 3350 [Miralax] 17 gram powder in packet 17 gm PO DAILY RF: 0 zolpidem [Ambien] 10 mg tablet 10 mg PO QHS RF: 0 levothyroxine 25 mcg capsule 100 mcg PO DAILY RF: 0 metoprolol succinate 25 mg tablet extended release 24 hr 25 mg PO DAILY RF: 0 Discontinued ondansetron HCl 8 mg tablet 8 mg PO TID PRNRF: 0 ibuprofen 800 mg Tablet 800 mg PO Q6H RF: 0 morphine concentrate 100 mg/5 mL (20 mg/mL) Solution 10 mg PO Q4H PRNRF: 0 No Action bupropion HCl 300 mg tablet extended release 24 hr 300 mg PO DAILY RF: 0 Xarelto 20 mg tablet 20 mg PO DAILY RF: 0 Discharge Instructions Additional Instructions: Dr. Woodward's Total Hip Discharge Instructions Activity: The most important activity is to walk. You should try to take short walks a few times a day. You have no restrictions on movement or positioning, but do not try to force what you do. You will find some stiffness and weakness with hip flexion (lifting your knee). Do not try to strengthen this too early, continue to practice walking and stairs and this will come. Use the walker for balance and support while you're healing. - Outpatient physical therapy can be helpful to help return you to a normal gait and improve your flexibility and strength. This can start around 2 weeks. For some patients, it?s not necessary. Usually this is determined at the time of discharge or at the first post-operative visit. - You should wear the OCTAVIO hose on both legs for 2 weeks. Dressing: Keep the surgical dressing in place for at least one week. After the first week it may be removed and replace with light gauze and tape or nothing. It may get wet after 3 days but avoid soaking the dressing. If it gets wet, just lightly pat dry. It is important to always keep some gauze between skin folds if you removed the dressing, especially when you are sitting. Medications: - You should take Tylenol and an anti-inflammatory, Ibuprofen, as your primary pain control medications every 6 hours as needed - You have been prescribed a stronger pain medication, Morphine, for breakthrough pain, take as needed as prescribed. - You will be taking your home dose of Rivaroxaban for DVT prevention. - If you have constipation you should take Colace or Miralax (both hris-cta-xoibyvs). It takes most people 3-4 days to have a bowel movement. Follow-up: 2 weeks. If you have any urgent or emergent question or concern, do not hesitate to contact Dr. Woodward on his cell, Referrals: Arnulfo Woodward MD [ [facility]FF [facility]YS[facility]IAN] - Activity:: Activity as Tolerated Equipment/Supplies:: Walker Diet:: As Tolerated Discharge Orders Discharge Orders: Discharge Order (Routine); Ordered 11/10/19 Ordered By: Arnulfo Woodward DS: Summary Status at Discharge Functional status at discharge: uses cane/walker Overall status at discharge: patient is progressing back to baseline Mental Status: mental status grossly normal Speech and Movement: speech and movement normal Mood: congruent mood Affect: normal affect Exam Psych Mental Status: mental status grossly normal Speech and Movement: speech and movement normal Mood: congruent mood Affect: normal affect DS: Data Vitals/I&O Vitals and I&O: Vital Signs Temperature 36.3 C L 11/10/19 06:35 Pulse 69 11/10/19 06:35 Pulse Rhythm Regular 11/10/19 06:35 Respiratory Rate 18 11/10/19 06:35 Respiratory Effort 11/10/19 06:35 Respiratory Depth Normal 11/10/19 06:35 Respiratory Pattern Normal 11/10/19 06:35 Blood Pressure 97/58 L 11/10/19 06:35 Pulse Oximetry 98 11/10/19 06:35 Oxygen Delivery Method Room Air 11/10/19 06:35 Oxygen Flow Rate 0 11/10/19 06:35 Pain Level 4 11/10/19 06:35 Intake & Output 11/09/19 11/09/19 11/10/19 11:59 23:59 11:59 Intake Total 670 / 670 Output Total 350 / 350 Balance 320 / 320 Weight 85.3 kg Intake: IV 670 / 670 Output: Urine 50 / 50 Estimated Blood Loss 300 / 300 Other: Urine Color Yellow Urine Appearance Clear [facility] Medical History Actinic cheilitis Adenomatous colon polyp Alcohol consumption binge drinking Bee sting allergy Chronic insomnia Dermatitis Dysphagia (Acute) Erectile dysfunction 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) HSV (herpes simplex virus) infection Hyperlipidemia denies any history looks like he was discontinued on medication last July Left lumbar radiculopathy Following left TKA Leg pain Lipoma Lumbar back pain Marital problem Palliative care patient (Acute) Situational depression Tongue cancer (Acute) Uses feeding tube (Acute) Ventral hernia s/p 2 repairs Surgical History Ankle fracture, right (Inactive) s/p ORIF Carpal tunnel syndrome s/p ECTR and OCTR B/L (4 total surgeries) Colonoscopy - IV Sedation (05/28/16) History of cataract extraction with lens replacement (Acute) B/L History of gastrostomy tube placement (Acute) feeding tube per pt History of removal of Port-a-Cath (Acute) History of tonsillectomy (Chronic) History of total left knee replacement (TKR) (Acute) Status post hernia repair (Acute) Family History Mother , age 76 Alcohol abuse COPD (chronic obstructive pulmonary disease) Father , age 74 during surgery to repair heart valve Heart disease Sister Multiple myeloma Brother Alcohol abuse Substance abuse Social History Smoking/Tobacco Use Status: Never Alcohol Intake: current Alcohol Intake frequency: 0-2 drinks per day Counseling given: Yes Counseling provided: reduce to 2 or less/day Details: drinks heavily on a daily basis, says he's quit before. suggested reduction Drug use: Never Caregiver/Support person: Yes Household members: spouse Housing: house Number of Children: 0 number of grandchildren: 0 Pets and animals: Yes (yellow and chocolate labs, one each) Pets and animals: dog(s) What is your relationship status?: How often do you talk on the phone with friends or family?: twice per week How often do you get together with friends or relatives?: twice per week Panel score (0-1 are the most socially isolated patients): 2 What type of physical activity do you participate in: walking, irregular exercise and occasional exercise Special heidi needs: No Do you feel safe at home: Yes Do you feel safe in your relationship?: Yes
[2019-11-10] MEDS: fentaNYL 100 MCG/2 ML VIAL IVP (10:12)
[2019-11-10] MEDS: ceFAZolin 1 GM/50 ML BAG IVPB (12:19)
--- NOTE | 2019-11-10 12:22 | IN_ITS ---
Date of service: 11/10/19 Time of Service: 11:25 PT Notes Visit Reasons: (R) HIP DJD Inpatient Physical Therapy Evaluation Date: November 10, 2019 Referring Doctor: Arnulfo Woodward PT Orders: PT CONSULT: s/p R JAQUELINE Precautions: WBAT R LE, Standard, Falls Patient Profile/Admitting Diagnosis: Shon is a 79 year old male s/p R JAQUELINE secondary to chronic right hip OA. 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) HSV (herpes simplex virus) infection Hyperlipidemia denies any history looks like he was discontinued on medication last July Left lumbar radiculopathy Following left TKA Leg pain Lipoma Lumbar back pain Marital problem Palliative care patient (Acute) Situational depression Tongue cancer (Acute) Uses feeding tube (Acute) Ventral hernia s/p 2 repairs Surgical History (Updated 11/03/19 @ 13:23 by Nelda Erazo) Ankle fracture, right (Inactive) s/p ORIF Carpal tunnel syndrome s/p ECTR and OCTR B/L (4 total surgeries) Colonoscopy - IV Sedation (05/28/16) History of cataract extraction with lens replacement (Acute) B/L History of tonsillectomy (Chronic) History of total left knee replacement (TKR) (Acute) Status post hernia repair (Acute) Social History/Home Situation: Patient lives at home with his . He does have a flight of stairs to his bedroom with bilateral railings however does have a bedroom on the first level if needed. He reports of previous use of a walker in the past as well as crutches due to knee surgery. He reports complete I at baseline. Current Functional Limitations: WBAT R LE Equipment Owned/DME: Walk in shower, grab bars in bathroom, raised toilet Subjective: Shon notes that he feels well for just coming out of surgery. Reports his pain to be a 5/10 right hip and is in hopes of going home this evening. Objective: General Observation: IV R UE, catheter, bilateral OCTAVIO stockings Mental Status: Alert and oriented x3 Pain: 5/10 right hip Vital Signs: BP 110-74 mmHg, heart rate 52 bpm ROM: Right Upper Extremity: Demonstrates within functional limit active right upper extremity range of motion Left Upper Extremity: Demonstrates within functional limit active left upper extremity range of motion Right Lower Extremity: Demonstrates hip flexion to 100 degrees, knee flexion 110 degrees, knee extension 0 degrees, within functional limits dorsiflexion/pl antarflexion Left Lower Extremity: Demonstrates within functional limits active left lower extremity range of motion Strength: Right Upper Extremity: Demonstrates 5/5 right upper extremity myotomes Left Upper Extremity: Demonstrates 5/5 left lower extremity myotomes Right Lower Extremity: Hip flexion 4-/5, knee extension 4+/5, knee flexion 4+/5, dorsiflexion/plantarflexion 5/5 Left Lower Extremity: Demonstrates 5/5 left lower extremity myotomes Sensation: Intact to light touch. Declines paresthesias Bed Mobility/Transfers: Rolling: Independent Supine?sit: Independent Sit?supine: Independent Sit?stand: Independent Stand?sit: Independent Bed?chair: Supervision with front wheel walker Gait: Front wheeled walker, weightbearing as tolerated right lower extremity, supervision, 200 feet with good betty and no loss of balance Stairs: Patient tolerated with use of bilateral railings 6 x 4 inch step, 4 time 6 inch step, step to fashion with cueing for proper sequencing with no loss of balance Balance: Static Sitting: Normal Dynamic Sitting: Normal Static Standing: Good Dynamic Standing: Good Special Tests: Mobility Limitations Standardized Measure [facility] AM-PAC 6 clicks Basic Mobility Inpatient Short Form: Raw Score: 22 CMS Score: 21% Informed Consent/Education: Patient instructed in purpose of PT consult and plan of care. Assessment: Patient is a 79 year old male referred to physical therapy services with the diagnosis of s/p R JAQUELINE. Patient presents with clinical signs and symptoms consistent with diagnosis, as demonstrated by the following impairment level findings: Impaired right hip joint mobility, muscle performance, motor function with mild altered gait requiring use of front wheeled walker or all ADLs and ambulation for safety- status post R JAQUELINE. Demonstrated good independence with his functional transfers at time of PT consult. Demonstrated no loss of balance with ambulation. Anticipate patient will return home per MD order this evening Patient is [place] a Low 37311 complexity based on the following: History: As above Examination: As above Presentation: Stable Decision Making: Low Plan of Care/Treatment Plan: Discharge patient from PT services with anticipation of return home via MD order this evening. We will seek follow-up consultation via Dr. Woodward in clinic with outpatient PT services if needed. DISCHARGE RECOMMENDATIONS: TREATMENT CODE/TIME: 29853, 30 minutes, 11:25 AM Thank you for this referral! Kathya Bailey, MPT [facility] Disclaimer: This note was created using [employer] voice recognition software. It was reviewed for major content. However, there may be multiple small discrepancies and errors due to the voice recognition aspects of the software.
[2019-11-10] MEDS: Ketorolac 15 MG/ML VIAL IVP (13:19)
--- NOTE | 2019-11-10 13:46 | NUR.NOTE ---
Nursing Note: 1101: pt arrives to room 206 via pt bed from pacu. pt is alert/oriented x 3. pt has patent IV in RH and patent sanchez draining yellow urine. pt reports pain at 5/10 but declines pain medication at this time. pt oriented to call elias/tv remote. SCDs placed on pt. HR regular, LS anteriorly are clear, hypo bs at this time. pt has good CMST's in bilateral extremities. dressing to right hip is CDI; a few wrinkles are noted r/t pt position at this time. see VS for further information. continue to monitor.
--- NOTE | 2019-11-10 14:11 | ROE_ITS ---
Date of service: 11/10/19 Time of Service: 09:45 Operative Note Operative Note DATE OF PROCEDURE: 11/10/19 PRE-OP DIAGNOSIS: Right Hip Osteoarthritis POST-OP DIAGNOSIS: same PROCEDURE: Right Anterior Total Hip Arthroplasty SURGEON: Arnulfo Woodward ECHO TECHNICIAN: Pelon Lou ANESTHESIA: spinal ESTIMATED BLOOD LOSS: 300 PATHOLOGY: none sent TOURNIQUET TIME: 0 COMPLICATIONS: None Patient was transported to: PACU Patient's condition: stable Implants: 1. Depuy [place] Acetabular Component, 58 mm 2. Depuy Acetabular Liner, 58 x 36 mm 3. Depuy Corail coxa vara femoral Stem, Size 16 4. Depuy Altrx Ceramic Femoral Head, Size 36+5 mm Indications: I have seen Jim in clinic for symptoms of hip arthritis, confirmed with radiographic findings. Jim has exhausted nonoperative methods and was having significant limitations in daily function and desired better function and less pain. I discussed the technical details of a hip replacement. I explained the risks of the procedure to include, but not limited to, bleeding, infection, pain, stiffness, fracture, damage to nerves and vessels, damage to muscles and tendons, loosening, instability, leg length inequality, need for repeat procedure, blood clot and cardiopulmonary demise. Despite these risks, he elected to proceed. Findings: There was significant signs of arthritis throughout the hip. Large osteophytes were seen along the femoral neck with complete eburnation of bone over the superior femoral head. Procedure Description: Jim was greeted in the preoperative holding area where the correct side was identified and marked. The consent was reviewed with the patient and signed. The history and physical was updated. All questions were answered. Jim was taken back to the operating room. A spinal anesthestic was then administered. The patient was placed into the supine position on the operating room table. The patient was then positioned onto the ARCH table. Both feet were wrapped with Webrill cotton wrap along with Coban. The feet were placed in specialized boots for the ARCH table, well seated within the boot and secured. SCDs were applied. The patient was then slid down onto a peroneal post and the nonoperative leg was secured in a leg mejia attached to the table. The operative side was placed into the ARCH table attachment and bed height and positioning was secured. A preoperative AP pelvis was obtained to serve as a reference for determining leg lengths. Prophylactic antibiotics in the form of cefazolin were administered. 1g of Tranxemic Acid was given intravenously within 30 minutes of incision. The right leg was then prepped with Chloraprep and draped in a standard fashion. A second prep with Chloraprep was performed prior to placement of a shower-curtain type drape with Iodine impregnated skin protection. A timeout to confirm correct identity, side and site, procedure, allergies, anesthesia, and medical concerns was performed. An obliquely oriented incision was made starting lateral to the ASIS and running distal over the Tensor Fascia Kimmy (TFL) muscle belly toward the fibular head, approximately 10cm. The skin and soft tissue was dissected sharply, through Sc arpa?s fascia, and to the fascia of the TFL. With the fascia and superior border of the IT band identified, the fascia was incised with a new knife just above any perforators from the IT band. The TFL muscle belly was bluntly dissected away from the fascia and moved laterally. The fat between TFL and rectus was identified to ensure the dissection was not within the TFL. Blunt dissection created space between abductors and the capsule and retractor was placed over the lateral femoral neck. The fibers of the rectus femoris tendon were identified and these were freed from the anterior capsule. A second cobra retractor was placed around the medial femoral neck. The TFL was further retracted laterally to show the deep fascia. Careful dissection through this layer identified three main crossing vessels of the lateral femoral circumflex. These were cauterized in multiple locations and then cut without any noticeable bleeding. The TFL was further released bluntly from the deep fascia to expose anterior hip capsule and fat the Josesito orthopaedic retractor was then placed beneath the TFL and against sartorius and medial soft tissues to protect and retract the soft tissues. A T-capsulotomy was then performed starting at the superior lateral acetabulum and moving distally to the intertrochanteric ridge. These capsular flaps were tagged with a No. 1 Ethibond and elevated from within. The capsular flaps were released to the shoulder of the lateral neck and to the lesser trochanter to give excellent visualization of the proximal femur. A neck osteotomy was performed using an oscillating saw based on preoperative templates. This cut started in the shoulder and of the lateral neck and exited medially. The saw was at all times directed medially to avoid injury to the gr eater trochanter. 6cm of traction was applied to the leg and the osteotomy opened. The femoral head was removed with a corkscrew, making sure to protect the TFL on its exit. This was measured on the back table to determing the starting reamer size. Portions of the rectus obscuring visualization were minimally elevated off the superior acetabulum. An anterior retractor was placed over the anterior wall between capsule and labrum and attached to the Gripper retraction system. A posterior retractor was placed similarly. This provided excellent visualization. The contents of the cotyloid fossa were removed with electrocautery and the labrum was removed with a knife. There was a notable floor osteophyte. There was significant chondromalacia of the superior acetabulum. Acetabular reaming began with a 52 mm reamer. This first reaming was directed anterior to posterior and medial to get down to the true floor. This was inspected and reamed until the true floor was reached. I then reamed sequentially up to a 57 mm reamer where good fit was obtained. The larger reamers were oriented based on anatomical reference of the anterior and lateral diane to ensure proper abduction and anteversion. Positioning and size was confirmed with the fluoroscopy. A 58 mm Depuy [place] acetabular component was selected. The acetabulum was reamed around the periphery with the selected acet abular size to prevent a rim fit. The deep tissues were irrigated. The acetabular component was then impacted in a position of about 40-45 degrees of abduction and 15-20 degrees of anteversion, using the patient?s anatomy as the ultimate landmark. Fluoroscopy was used to confirm this. There was excellent assembly line machine operator of the acetabular component and the inserting handle was removed. The acetabular liner, Depuy 58 x 36 mm polyethylene liner, was inserted and lined up with the tines of the acetabular component. There was no soft tissue interposition. The liner was then impacted into position and confirmed to be well-seated. A portion of the ivy-articular cocktail was then injected around the acetabulum into the capsule and periosteum. This cocktail consisted of 50cc of 0.25% Bupivicaine and 20cc of Exparel, expanded to a total of 120cc. Traction was released from the femur. The leg was rotated to 120 degrees. Any remaining medial capsule was released until the lesser trochanter was easily palpable. A Arana retractor was placed medially. The lateral capsule was further released into the shoulder to allow access to the greater trochanter. A Arana retractor was placed over the greater trochanter which allowed the trochanter to flip in front of the capsule for excellent exposure. The leg was brought down into maximal extension and 20 degrees of adduction while ensuring there was no impingement on the acetabulum. Any remnant capsule within the trochanter was released. Piriformis and obturator externis were identified and protected. There was excellent access to the proximal femur. The lateral neck remnant was removed with a rongeur. A blunt canal probe was used to identify the canal and trajectory for later broaching. A box osteotome initiated the broach course. A small curved rasp and a curved curette were used to work laterally. Broaching then began with a size 8 Corail broach. This was inserted manually around the trochanter and into the canal before mallet blows. The broach was seated to the neck cut level based on the neck cut and the preoperative template. Sequential broaching was continued with the Familytic pneumatic broaching device until a tight fit was obtained with good rotational control of the femur. A trial coxa vara neck was inserted along with a +1.5 trial head. The leg was brought out of extension and adduction and then reduced with traction and internal rotation. The leg was stable anteriorly in a position of 30 degrees of extension and 90 degrees of external rotation. Fluoroscopy was used to ensure there was no fracture and the stem was seated well. Leg lengths were checked with an AP pelvis and pelvic reference points. Joint point intraoperative navigation was also utilized to confirm appropriate positioning, leg length, and offset. It was determined to go up to +5 head slight leg length as well as offset. Once content with the desired offset and leg lengths, the leg was brought back into extension, external rotation and adduction. The periosteum and surrounding tissue was injected with remaining portion of the ivy-articular cocktail. The proximal femur was irrigated as well as the deep tissues. The Depuy Corail coxa vara stem, size 16, was then manually inserted into the proximal femur making sure to control rotation. It was then malleted into position with light blows, giving breaks to allow bone expansion and decrease risk of fracture. The selected Depuy Altrx Ceramic Head, size 36+5 mm, was then placed onto the clean and dry trunnion and secured with impaction onto the tapered fit. The leg was brought back out of extension and adduction and reduced with traction and internal rotation. Stability was confirmed with no shuck at 90 degrees of external rotation and 30 degrees of extension. No impingement through range of motion arc. Final x-ray images were obtained with fluoroscopy to confirm adequate positioning and no intraoperative fracture. The deep tissues were thoroughly irrigated with Irrisept chlorhexadine solution. The second dose of TXA 1g was administered intravenously. The capsule was then reapproximated with the previously placed Ethibond sutures. The TFL fascia was finally closed with a No. 2 Stratafix, barbed suture. Deep tissues were then reapproximated with 0 Vicryl and a running 2-0 Vicryl. The skin was closed with a running 4-0 Monocryl in a subcuticular fashion. This was reinforced with skin glue. A Mepilex silver dressing was applied. At the end of the case, all counts were correct. Jim was transferred to the hospital bed without difficulty and suffering no apparent complication. NAME has a good prognosis. Physical therapy will start today and without restrictions, weight-bearing as tolerated. Aspirin 81mg BID will be used for DVT prophylaxis.
== END 2019-11-10 15:10 | disposition home or self-care (01) | DRG 470 ==
LOC: PDS 09:55 → MS 13:32
PROVIDERS: Admitting Provider Student in an Organized Health Care Education/Training Program; PCP Internal Medicine; Visit Provider Student in an Organized Health Care Education/Training Program
PROC: 0SR904A Replacement of Right Hip Joint with Ceramic on Polyethylene Synthetic Substitute, Uncemented, Open Approach (ICD-10-PCS; CPT 27130; principal; 2019-11-10 07:30)
DX: M16.11 Unilateral primary osteoarthritis, right hip (principal); M25.551 Pain in right hip; Z96.641 Presence of right artificial hip joint; I48.91 Unspecified atrial fibrillation; Z93.1 Gastrostomy status
CPT/HCPCS: 27130; 97161; NC; 73501; J0131; J0690; J1885; J2001; J3010

== ENCOUNTER 2019-11-15 12:57 | Outpatient (REF) | payer OTHER, SELFPAY ==
[2019-11-15 21:41] LABS: TSH 1.46 uIU/mL (0.36-3.74)
== END 2019-11-15 13:17 ==
LOC: NCHCN 12:57
PROVIDERS: PCP Internal Medicine; Visit Provider Internal Medicine
DX: I48.91 Unspecified atrial fibrillation (principal); E03.9 Hypothyroidism, unspecified; F32.9 Major depressive disorder, single episode, unspecified; R63.4 Abnormal weight loss; M16.0 Bilateral primary osteoarthritis of hip; F51.04 Psychophysiologic insomnia
CPT/HCPCS: 84439; 84443

== ENCOUNTER 2019-11-25 12:29 | Outpatient (CLI) | payer OTHER, SELFPAY ==
--- NOTE | 2019-11-25 11:45 | DI.RAD_ITS ---
EXAM: XR HIP RT AP LAT ONLY INDICATION: f/u R JAQUELINE. COMPARISON: CR XR HIP RT COMPLETE AP PELVIS from 11/03/2019 XR HIP RT IN OR from 11/10/2019 TECHNIQUE: 2D digital imaging was performed. FINDINGS: A right hip prosthesis is seen, unchanged when compared with intraoperative images. No abnormal bon y lucencies are seen. There are moderate degenerative changes of the left hip. DATA REPOSITORY: RADIATION DOSE DELIVERED:
== END 2019-11-25 12:49 ==
PROVIDERS: PCP Internal Medicine; Referring Provider Internal Medicine; Visit Provider Student in an Organized Health Care Education/Training Program
DX: M16.11 Unilateral primary osteoarthritis, right hip (principal); Z96.641 Presence of right artificial hip joint; M16.12 Unilateral primary osteoarthritis, left hip; Z47.89 Encounter for other orthopedic aftercare
CPT/HCPCS: 73502

== ENCOUNTER → 2019-12-13 15:16 | Outpatient (BNVA) | payer OTHER, SELFPAY | PROVIDERS: PCP Internal Medicine; Referring Provider Internal Medicine; Visit Provider Student in an Organized Health Care Education/Training Program | DX: Z47.1 Aftercare following joint replacement surgery (principal); Z96.641 Presence of right artificial hip joint ==

== ENCOUNTER → 2020-02-17 11:45 | Outpatient (BNVA) | payer OTHER, SELFPAY | PROVIDERS: PCP Internal Medicine; Referring Provider Internal Medicine; Visit Provider Student in an Organized Health Care Education/Training Program | DX: M16.11 Unilateral primary osteoarthritis, right hip (principal); M70.61 Trochanteric bursitis, right hip; Z96.641 Presence of right artificial hip joint | CPT/HCPCS: 99213 ==

== ENCOUNTER 2020-05-01 15:11 | Emergency (ER) | payer OTHER, SELFPAY ==
[2020-05-01 16:05] VITALS: BP 134/78; PULSE 97; RESP 20; TEMP 36.3; O2SAT 97
[2020-05-01] MEDS: Lidocaine/Epinephri/Tetracaine Topical Gel 3 ML TP (16:05)
--- NOTE | 2020-05-01 16:16 | ED.GENADUL_ITS ---
Discharge Plan Disposition Patient Disposition: HOME Condition: Stable Discharge Details Clinical Impression: Head injury, Laceration of scalp Primary Care Provider: Vicente Reagan ED Provider: Casa Nagel Home Meds and New Rx's Prescriptions: Continued acyclovir 200 mg capsule 200 mg PO DAILY PRN (Reason: genital herpes) RF: 0 Excedrin Extra Strength 250-250-65 mg tablet 2 tab PO TID PRNRF: 0 polyethylene glycol 3350 [Miralax] 17 gram powder in packet 17 gm PO DAILY RF: 0 morphine concentrate 100 mg/5 mL (20 mg/mL) solution 10 - 20 mg PO Q6H MDD 80mg PRN (Reason: pain) Qty: 30 RF: 0 celecoxib 100 mg capsule 100 mg PO BID PRN (Reason: pain) Qty: 60 RF: 0 diclofenac sodium [Voltaren] 1 % gel 2 gm TP QID Qty: 20 RF: 0 zolpidem [Ambien] 10 mg tablet 10 mg PO QHS RF: 0 levothyroxine 25 mcg capsule 100 mcg PO DAILY RF: 0 metoprolol succinate 25 mg tablet extended release 24 hr 25 mg PO DAILY RF: 0 amoxicillin 500 mg tablet 500 mg PO TID RF: 0 amoxicillin 400 mg/5 mL suspension for reconstitution 800 mg PO ONCE Qty: 25 RF: 0 ibuprofen 100 mg/5 mL suspension 400 mg PO Q6H PRNQty: 473 RF: 6 acetaminophen 650 mg/20.3 mL solution 650 mg PO Q6H PRNQty: 2030 RF: 3 bupropion HCl 300 mg tablet extended release 24 hr 300 mg PO DAILY RF: 0 Xarelto 20 mg tablet 20 mg PO DAILY RF: 0 Discharge Instructions Instructions: Head Injury (ED), Staple Care (ED) Additional Instructions: CT imaging of head and neck do not reveal any obvious emergent process. Cool compresses as tolerated. You may change antibiotic dressing daily. Ella should be removed in the next 5-7 days. Please watch for new or worsening symptoms and return to the ER for any concerns. Otherwise I recommend contacting your primary care provider tomorrow for prompt outpatient reevaluation Discharge Data Discharge Date/Time-TO BE ENTERED AT DEPARTURE: 05/01/20 18:12 Medical Decision Making I assumed care of this 79-year-old gentleman at shift change from my colleague JENNIFER Pro. His initial chart was started during downtime, please see JENNIFER Pro's note for initial history and physical. In short patient had a mechanical fall striking the back of his head, he is anticoagulated. Upon my evaluation of the patient he was awaiting head CT. He reports now mild nausea, mild global headache, and diffuse mild posterior neck discomfort. He appears well, nontoxic and neurologically intact. He has no midline cervical point tenderness given his age, presenting complaint, I will add on a cervical spine CT as well. LET has already been applied to the laceration. The wound on his occiput was 3 cm in nature. No active bleeding. He denies any pain to palpation. Easily repaired using 5 ella. Bacitracin dressing a pplied. CT imaging of the head and cervical spine reveal no significant change when compared to the prior study. Degenerative changes and degenerative disc disease as above. Nothing acute. Patient was offered Tylenol for his discomfort, declined. Upon my initial evaluation he reported nausea, was given Zofran, and now reports nausea has resolved completely. Patient appears well, nontoxic, remains neurologically intact. He ambulates without difficulty. We discussed his negative CT results. Patient has no additional questions or concerns and is comfortable discharge at this time. We discussed that the ella need to be removed in the next 5-7 days. He was encouraged to return to the ER for new or worsening symptoms, otherwise contact his primary care provider tomorrow for outpatient reevaluation. Medical Records Medical records reviewed: Yes I reviewed the patient's medical records. HPI General Date/Time Provider Initiated Documentation: 05/01/20 16:13 . Related Data Home Medications Medication Instructions Recorded Confirmed acyclovir 200 mg capsule 200 mg PO DAILY PRN cap 08/04/18 02/17/20 stjeris-[id number]-[id number] 250 2 tab PO TID PRN tab 08/21/18 02/17/20 mg-250 mg-65 mg tablet polyethylene glycol 3350 17 gram 17 gm PO DAILY each 08/21/18 02/17/20 oral powder packet zolpidem 10 mg tablet 10 mg PO QHS tab 03/22/19 02/17/20 levothyroxine 25 mcg capsule 100 mcg PO DAILY cap 11/03/19 02/17/20 metoprolol succinate 25 mg 25 mg PO DAILY 11/03/19 05/01/20 tablet,extended release 24 hr Xarelto 20 mg PO DAILY 11/10/19 05/01/20 acetaminophen 650 mg PO Q6H PRN #2030 ml 11/10/19 02/17/20 bupropion HCl 300 mg PO DAILY 11/10/19 02/17/20 ibuprofen 400 mg PO Q6H PRN #473 ml 11/10/19 02/17/20 morphine concentrate 100 mg/5 mL 10 - 20 mg PO Q6H PRN #30 ml MDD 11/26/19 02/17/20 (20 mg/mL) oral solution 80mg amoxicillin 400 mg/5 mL oral 800 mg PO ONCE #25 ml 11/29/19 02/17/20 suspension amoxicillin 500 mg tablet 500 mg PO TID 12/13/19 02/17/20 celecoxib 100 mg capsule 100 mg PO BID PRN #60 cap 02/17/20 02/17/20 diclofenac sodium 1 % topical gel 2 gm TP QID #20 gm 02/17/20 02/17/20 Previous Rx's Medication Instructions Recorded acetaminophen 650 mg PO Q6H PRN #2030 ml 11/10/19 ibuprofen 400 mg PO Q6H PRN #473 ml 11/10/19 morphine concentrate 100 mg/5 mL 10 - 20 mg PO Q6H PRN #30 ml MDD 11/26/19 (20 mg/mL) oral solution 80mg amoxicillin 400 mg/5 mL oral 800 mg PO ONCE #25 ml 11/29/19 suspension celecoxib 100 mg capsule 100 mg PO BID PRN #60 cap 02/17/20 diclofenac sodium 1 % topical gel 2 gm TP QID #20 gm 02/17/20 Allergies Allergy/AdvReac Type Severity Reaction Status Date / Time bee pollen Allergy Severe Anaphylaxsi Unverified 05/01/20 16:49 s Penicillins Allergy Unknown happened Unverified 05/01/20 16:49 at age 5, serious hives General VIJAY: 3 PFSH Medical History (Updated 05/01/20 @ 18:03 by ELLIE Hubbard) Actinic cheilitis Adenomatous colon polyp Alcohol consumption binge drinking Bee sting allergy Chronic insomnia Dermatitis Dysphagia Erectile dysfunction 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 (herpes simplex virus) infection Hyperlipidemia denies any history looks like he was discontinued on medication last July Left lumbar radiculopathy Following left TKA Leg pain Lipoma Lumbar back pain Marital problem Palliative care patient Situational depression Tongue cancer Uses feeding tube Ventral hernia s/p 2 repairs Surgical History (Updated 12/14/19 @ 13:51 by ELLIE Duke) Ankle fracture, right s/p ORIF Carpal tunnel syndrome s/p ECTR and OCTR B/L (4 total surgeries) Colonoscopy - IV Sedation (05/28/16) History of cataract extraction with lens replacement B/L History of gastrostomy tube placement feeding tube per pt History of removal of Port-a-Cath History of tonsillectomy History of total left knee replacement (TKR) History of total right hip replacement (11/10/19) Status post hernia repair Family History Mother , age 76 Alcohol abuse COPD (chronic obstructive pulmonary disease) Father , age 74 during surgery to repair heart valve Heart disease Sister Multiple myeloma Brother Alcohol abuse Substance abuse Social History Smoking/Tobacco Use Status: Never Smoking risk assessment performed?: Yes Alcohol Intake: current Alcohol Intake frequency: 0-2 drinks per day Alcohol type: beer, wine and hard liquor Counseling given: Yes Counseling provided: reduce to 2 or less/day Details: drinks heavily on a daily basis, says he's quit before. suggested reduction Drug use: Never Caregiver/Support person: Yes Household members: spouse Housing: house Number of Children: 0 number of grandchildren: 0 Pets and animals: Yes (yellow and chocolate labs, one each) Pets and animals: dog(s) Current gender identity: male What is your relationship status?: How often do you talk on the phone with friends or family?: twice per week How often do you get together with friends or relatives?: twice per week Panel score (0-1 are the most socially isolated patients): 2 What type of physical activity do you participate in: walking, irregular exercise and occasional exercise Special heidi needs: No Do you feel safe at home: Yes Do you feel safe in your relationship?: Yes
[2020-05-01] MEDS: Ondansetron O.D.T. 4 MG TABEF PO (16:35)
--- NOTE | 2020-05-01 16:50 | DI.CT_ITS ---
EXAM: CT HEAD CERVICAL SPINE WO CLINICAL HISTORY: fall, pain, anticoagulated. TECHNIQUE: Imaging Protocol: Axial computed tomography images with coronal and sagittal reformatted images were created and reviewed COMPARISON: CT CT HEAD CERVICAL SPINE WO from 05/05/[address] NECK W from 07/20/2019 FINDINGS: CT Head: Ventricles and Extra axial spaces: Normal in size and morphology for the patient's age. Hemorrhage: None. Cerebral parenchyma: There are areas of decreased attenuation in the white matter consistent with chr onic microvascular ischemic change. 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 No acute t erritorial infarct. Midline shift: None. Brainstem/Cerebellum: Normal. Calvarium: Normal. Visualized Paranasal sinuses/Mastoids: Clear. Soft Tissues: There is a small scalp hematoma at the apex of the skull posteriorly. CT Cervical Spine: Bones: No acute fracture or subluxation. Moderate degenerative changes are seen throughout the cervic al spine. Soft Tissues: Unremarkable. Lung Apices: Clear. IMPRESSION: 1. No acute intracranial process. 2. No acute fracture or subluxation in the cervical spine. RADIATION DOSE DELIVERED: 1,296.01mGy.cm Total DLP DATA REPOSITORY: All CT scans at this facility are submitted to the National Radiology Data Registry (NRDR) Dose Index Registry (DIR) with the [employer] ([employer]). RADIATION OPTIMIZATION: All CT scans at this facility use at least one of these dose optimization te chniques: automated exposure control; mA and/or kV adjustment per patient size (includes targeted exa ms where dose is matched to clinical indication); or iterative reconstruction.
--- NOTE | 2020-05-01 17:44 | DI.VRAD_ITS ---
PROCEDURE INFORMATION: Exam: CT Head Without Contrast Exam date and time: 05/01/2020 4:40 PM Age: 79 years old Clinical indication: Injury or trauma; Fall; Blunt trauma (contusions or hematomas); Without loss of consciousness; Injury date: 05/01/20 TECHNIQUE: Imaging protocol: Computed tomography of the head without contrast. Radiation optimization: All CT scans at this facility use at least one of these dose optimization techniques: automated exposure control; mA and/or kV adjustment per patient size (includes targeted exams where dose is matched to clinical indication); or iterative reconstruction. COMPARISON: CT HEAD CERVICAL SPINE WO 05/05/2019 7:15 AM FINDINGS: Brain: There is normal sulcal prominence for a patient of this age. There is an old lacunar infarct within the left basal ganglion region. This was present on the earlier study and is unchanged. Cerebral ventricles: The ventricular system is midline and symmetrical. It is normally dilated for a patient of this age. Bones/joints: Unremarkable. No acute fracture. Paranasal sinuses: Visualized sinuses are unremarkable. No fluid levels. Mastoid air cells: Visualized mastoid air cells are well aerated. Soft tissues: Unremarkable. IMPRESSION: No significant change when compared to the prior study. Please see discussion above. PROCEDURE INFORMATION: Exam: CT Cervical Spine Without Contrast Exam date and time: 05/01/2020 4:40 PM Age: 79 years old Clinical indication: Injury or trauma; Fall; Blunt trauma (contusions or hematomas); Without loss of consciousness; Injury date: 05/01/20 TECHNIQUE: Imaging protocol: Computed tomography images of the cervical spine without contrast. Radiation optimization: All CT scans at this facility use at least one of these dose optimization techniques: automated exposure control; mA and/or kV adjustment per patient size (includes targeted exams where dose is matched to clinical indication); or iterative reconstruction. COMPARISON: CT HEAD CERVICAL SPINE WO 05/05/2019 7:15 AM FINDINGS: Bones/joints: There is a normal lordosis. The vertebral bodies maintain their height throughout. The pedicles are intact. There is left-sided facet joint hypertrophy at C3-C4. There is bilateral facet joint hypertrophy at C4-C5. Discs/Spinal canal/Neural foramina: There are degenerative changes at C2-C3. There are degenerative changes and degenerative disc disease at C3-C4, C4-C5, C5-C6 and C6-C7. These findings are essentially unchanged when compared to the prior study. Prevertebral Space: There is no prevertebral soft tissue swelling. Soft tissues: Unremarkable. Lungs: The visualized lung apices are unremarkable. IMPRESSION: Degenerative changes and degenerative disc disease as above. Dictated and Authenticated by: Jordan Jeffery MD. Ordering:MICHELL Cormier MD
[2020-05-01 18:09] VITALS: BP 115/89; PULSE 75; RESP 18; TEMP 36.5; O2SAT 96
[2020-05-01 18:10] VITALS: BP 115/89; PULSE 75; RESP 18; TEMP 36.5; O2SAT 96
== END 2020-05-01 18:12 | disposition home or self-care (01) ==
PROVIDERS: Emergency Provider Physician Assistant; PCP Internal Medicine
DX: S01.01XA Laceration without foreign body of scalp, initial encounter (principal); W00.0XXA Fall on same level due to ice and snow, initial encounter; R11.0 Nausea; R51.9 Headache, unspecified; M54.2 Cervicalgia; Z79.01 Long term (current) use of anticoagulants
CPT/HCPCS: 12002; 99284; 70450; 72125; 99281

== ENCOUNTER 2020-05-11 21:37 | Outpatient (REF) | payer OTHER, SELFPAY ==
[2020-05-11 22:07] LABS: HCT 40.4 % (40.0-50.0); HGB 13.2 g/dL (13.5-17.5); MCH 32.2 pg (27.0-33.0); MCHC 32.7 % (32.0-36.0); MCV 98.5 fL (80-95); MPV 10.2 fL (8.0-11.0); Platelet Count 283 10^3/uL (130-400); RDW 13.1 % (11.8-14.1); RDW-SD 46.5 fL; WBC 5.36 10^3/uL (4.4-10.8)
[2020-05-11 22:44] LABS: ALT 17 U/L (16-63); AST 20 U/L (15-37); Albumin 3.8 g/dL (3.4-5.0); Alkaline Phosphatase 91 U/L (46-116); Anion Gap 10.9 mmol/L (3-11); BUN 21 mg/dL (7-18); Bilirubin, Total 0.6 mg/dL (0.2-1.0); CO2 26.1 mmol/L (21.0-32.0); CREATININE 1.35 mg/dL (0.70-1.30); Calcium 9.1 mg/dL (8.5-10.1); Chloride 103 mmol/L (98-107); Estimated GFR 50.85 (mL/min/1.73m2); Glucose 97 mg/dL (74-106); Magnesium 2.2 mg/dL (1.8-2.4); Potassium 4.7 mmol/L (3.5-5.1); Sodium 140 mmol/L (136-145); TSH 3.54 uIU/mL (0.36-3.74); Total Protein 6.6 g/dL (6.4-8.2); Vitamin B12 555 pg/mL (193-986)
== END 2020-05-11 21:57 ==
LOC: NCHCN 21:37
PROVIDERS: PCP Internal Medicine; Visit Provider Internal Medicine
DX: R27.9 Unspecified lack of coordination (principal)
CPT/HCPCS: 80053; 85027; 82607; 83735; 84443

== ENCOUNTER 2020-08-18 00:37 | Outpatient (CLI) | payer OTHER, SELFPAY ==
--- NOTE | 2020-08-18 | DI.RAD_ITS ---
EXAM: XR MANDIBLE COMPLETE CLINICAL HISTORY: JAW PAIN, R68.84. TECHNIQUE: 2D digital imaging was performed. COMPARISON: No exams were available for comparison FINDINGS: BONES: No evidence of fracture. No gross bony erosion. JOINTS: No evidence of temporomandibular joint dislocation or subluxation. SOFT TISSUES: Unremarkable. IMPRESSION: Unremarkable radiographs of the mandible. DATA REPOSITORY: RADIATION DOSE DELIVERED:
== END 2020-08-18 00:38 ==
PROVIDERS: PCP Internal Medicine; Visit Provider Internal Medicine
DX: R68.84 Jaw pain (principal)
CPT/HCPCS: 70110

== ENCOUNTER 2020-08-23 01:07 | Outpatient (CLI) | payer OTHER, SELFPAY ==
--- NOTE | 2020-08-23 09:45 | DI.CT_ITS ---
EXAM: CT FACIAL W CLINICAL HISTORY: JAW PAIN,R68.84. TECHNIQUE: Imaging Protocol: Axial computed tomography images with coronal and sagittal reformatted images were created and reviewed. IV contrast administered: 100 cc Omnipaque 350 COMPARISON: CT CT HEAD CERVICAL SPINE WO from 05/01/2020 FINDINGS: MAXILLOFACIAL CT SCAN: On the left side of the mandible there is a defect at the previous molar extraction site. This bony defect measures 11 millimeters wide by 9 millimeters AP by 8 millimeters deep. It is well-defined bu t there is dehiscence of the medial cortex of the mandible at this level.. There is no enhancing mas s at this level evident. No surrounding soft tissue mass nor adenopathy evident. No other focal fin dings elsewhere in the field of view of this study. Paranasal sinuses are clear. Submandibular glands appear symmetrical. Tissues nasopharynx are symmetrical.. Uvula is midline. There is no obvious mass in the oropharynx. There is slight thickening of the free edge of the epiglottis. No significant orbital findings. Some calcified plaque is noted at level the carotid bifurcations but without prominent stenosis at th is level either side. IMPRESSION: There is a defect in the left side of the mandible at site of prior molar extraction. There is dehis cence of the medial cortex of the mandible at this level noted. There is also single gas bubble in t his pocket, possibly significant with respect to infection. However, there is no enhancing soft tiss ue mass at this level nor elsewhere in the field of view of this study. No obvious lymphadenopathy. Slightly thickened free edge of the epiglottis, possibly related to prior radiation. RADIATION DOSE DELIVERED: 403.05mGy.cm Total DLP DATA REPOSITORY: All CT scans at this facility are submitted to the National Radiology Data Registry (NRDR) Dose Index Registry (DIR) with the [employer] (ACR). RADIATION OPTIMIZATION: All CT scans at this facility use at least one of these dose optimization te chniques: automated exposure control; mA and/or kV adjustment per patient size (includes targeted exa ms where dose is matched to clinical indication); or iterative reconstruction.
[2020-08-23 09:56] LABS: CREATININE 1.3 mg/dL (0.70-1.30); Estimated GFR 53.12 (mL/min/1.73m2)
== END 2020-08-23 01:08 ==
LOC: DI 01:07
PROVIDERS: PCP Internal Medicine; Visit Provider Internal Medicine
DX: R68.84 Jaw pain (principal); M27.8 Other specified diseases of jaws; Z01.812 Encounter for preprocedural laboratory examination
CPT/HCPCS: 70487; 82565

== ENCOUNTER 2020-11-06 15:50 | Outpatient (REF) | payer OTHER, SELFPAY ==
[2020-11-07 17:50] LABS: PSA, Screening 12.8 ng/mL (0.0-6.5)
== END 2020-11-06 15:51 | disposition home or self-care (01) ==
LOC: NCHCN 15:50
PROVIDERS: PCP Internal Medicine; Visit Provider Internal Medicine
DX: N40.1 Benign prostatic hyperplasia with lower urinary tract symptoms (principal); Z12.5 Encounter for screening for malignant neoplasm of prostate
CPT/HCPCS: 84153

== ENCOUNTER 2020-11-23 13:31 | Outpatient (CLI) | payer OTHER, SELFPAY ==
--- NOTE | 2020-11-23 10:45 | DI.RAD_ITS ---
Exam(s) XR HIP RT AP LAT ONLY EXAM: XR HIP RT AP LAT ONLY CLINICAL HISTORY: R JAQUELINE. TECHNIQUE: 2D digital imaging was performed. COMPARISON: CR XR HIP RT AP LAT ONLY from 11/25/2019 FINDINGS: There is stable position alignment of the components of the right hip prosthesis. No fracture or loo sening evident. No radiographic evidence of osteomyelitis. IMPRESSION: DATA REPOSITORY: RADIATION DOSE DELIVERED:
== END 2020-11-23 13:32 | disposition home or self-care (01) ==
LOC: DIORS 13:32
PROVIDERS: PCP Internal Medicine; Referring Provider Internal Medicine; Visit Provider Student in an Organized Health Care Education/Training Program
DX: Z47.1 Aftercare following joint replacement surgery (principal); Z96.641 Presence of right artificial hip joint; M16.11 Unilateral primary osteoarthritis, right hip
CPT/HCPCS: 99213; 73502

== ENCOUNTER 2021-02-21 01:06 | Outpatient (CLI) | payer OTHER, SELFPAY ==
--- NOTE | 2021-02-21 15:10 | DI.RAD_ITS ---
Exam(s) RF MODIFIED SPEECH BA SWALLOW TECHNIQUE: Modified barium swallow was performed in conjunction with speech pathology. CONTRAST MATERIAL: Oral barium Oral water soluble contrast was administered. COMPARISON: No exams were available for comparison FINDINGS: Imaging assistance-fluoroscopy was provided during swallowing mechanism modified barium swallow study performed in our department in conjunction with the speech therapist. Please see her separate repor t dictation Hypertense upper esophageal sphincter was noted. There was some aspiration evident on this study. IMPRESSION: Aspiration was demonstrated on this study. See separate report from speech pathologist. RADIATION DOSE DELIVERED: latia Romero=23.3 mGy
[2021-02-21] MEDS: Barium Sulfate Oral Paste 40% W/V 230 ML TUBE 60 ML PO (15:15)
[2021-02-21] MEDS: Barium Sulfate 81% w/w for Oral Suspension 148 GM BTL 90 GM PO (15:16)
[2021-02-21] MEDS: Barium Sulfate 700 MG TAB PO (15:18)
[2021-02-21] MEDS: Barium Sulfate 40% W/V 240 ML BTL 30 ML PO (15:19)
[2021-02-21] MEDS: Barium Sulfate 40% W/V 1500 CPS 250 ML BTL 30 ML PO (15:21)
--- NOTE | 2021-03-29 19:41 | ST.MBS ---
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 Patient referred for VFSE/MBSS from Dr Sue given ongoing issues with pharyngeal dysphagia, also being followed by both Dr. Ortega and Dr Perkins (ENT). PMHx: History of tongue cancer, mucositis, thrush Previous Imaging: N/A SUBJECTIVE: Patient arrives and reports consistent throat clearing with thick ropey phlegm, occasionally will be bubbly or frothy, continues with xerostomia and reduced appetite, as well as pharyngeal globus (patient reports he consistently has to swallow multiple times to clear residue); Dr. Perkins recently recommended continuation of famotidine to help with nausea as well as reflux management. The MD Koko Dysphagia Inventory (MDADI) is a self-administered questionnaire designed specifically for evaluating the impact of dysphagia on the quality of life of patients with head and neck cancer. MDADI: 2/5 Physical 2.9 Emotional 2.7 Functional 3.0 Composite: 57.9 / 100 Reflux Symptom Index (RSI) RSI: 28 (elevated) Interpretation: Normative data suggests that a RSI greater than or equal to 13 is clinically significant and may be indicative of significant reflux disease. Izzy PC, Robinson GN, Jannet JA. Validity and reliability of the reflux symptom index (RSI). J Voice. 2002 Vince;16(2):274-7. OBJECTIVE: Videofluoroscopic Swallow Evaluation (VFSE/MBSS) was conducted in the lateral and [id number] projections by Speech-Language Pathologist, in collaboration with Radiologist, to evaluate oropharyngeal swallow function. Anatomic view under fluoroscopy: WFL PO barium contrast trials: Oral barium water soluble contrast was administered as follows: IDDSI Level 0 Varibar thin liquid (40% w/v) IDDSI Level 2 Varibar nectar thick/mildly thick liquid (40% w/v) IDDSI Level 3 Varibar thin honey/liquidised/moderately-thick (40% w/v) IDDSI Level 4 Varibar pudding/pureed/extremely thick (40% w/v) IDDSI Level 7 Regular Solid: 1/2 omid cracker coated in 3 mL Varibar pudding; 13 mm barium tablet PHYSIOLOGIC FINDINGS Oral Phase 1 Lip Closure: 0-No labial escape 2 Tongue Control: 0- Cohesive bolus between tongue to palatal seal 3 Bolus Preparation/Mastication: 0- Timely and efficient chewing/mashing 4 Bolus Transport/Lingual Motion: 0- Brisk tongue motion 5 Oral residue: 0- Complete oral clearance 6 Initiation of pharyngeal swallow: 1- Bolus head in valleculae Pharyngeal Phase 7 Velar Elevation: 1- Trace column of contrast or air between soft palate and pharyngeal wall 8 Laryngeal Elevation: 2- Minimal superior movement of thyroid cartilage with minimal approximation of arytenoids to epiglottic petiole 9 Anterior Hyoid Excursion: 1- Partial anterior movement 10 Epiglottic Movement: 1- Partial inversion (delayed; incomplete) 11 Laryngeal Vestibule Closure: 1- incomplete, narrow column of air/contrast in laryngeal vestibule 12 Pharyngeal Stripping Wave: 1- Present; diminished 13 Pharyngeal Contraction: 1 - Incomplete 14 PES/UES Openin- minimal distension and minimal duration; marked obstruction of flow 15 Tongue Base Retraction: 3- Wide column of contrast between tongue base and posterior pharyngeal wall 16 Pharyngeal residue: 2- Collection of residue within or on pharyngeal structures Diffuse: Tongue base, Valleculae, Pharyngeal wall, Pyriform sinuses Vermilion Pharyngeal Residue Severity Rating Scale (YPRS) (Ameena, et al, 2015) Vallecula Residue Severity IV Moderate 25-50% Epiglottic ligament covered *Patient unable to completely swallow barium tablet during study, instead bringing tablet back into oral cavity Pyriform Sinus Residue Severity IV Moderate 25-50% Up wall to half full Esophageal Phase 17 Esophageal Clearance Upright Position: 2 esophageal retention with retrograde flow below PES; hypertense PES with hypertrophy also noted at C5-C6 level of cervical esophagus NOTE: This study was performed for interpretation only of the oropharyngeal and pharyngoesophageal domains of swallowing. It is not intended to diagnose any other radiologic abnormalities or substitute for a formal esophagram study. Overall 8-Point Penetration-Aspiration Scale (PAS) (Rosenestellak, et al, 1996) 1 - No material enters the airway. 2 - Material enters the airway, remains above the vocal folds, and is ejected from the airway. 3 - Material enters the airway, remains above the vocal folds, and is not ejected from the airway. 4 - Material enters the airway, contacts the vocal folds, and is ejected from the airway. 5 - Material enters the airway, contacts the vocal folds, and is not ejected from the airway. 6 - Material enters the airway, passes below the vocal folds, and is ejected into the larynx or out of the airway. (cued cough required) 7 - Material enters the airway, passes below the vocal folds, and is not ejected from the trachea despite effort. 8 - Material enters the airway, passes below the vocal folds, and no effort is made to eject. Clinical Indicator(s) of Prandial/Postprandial Aspiration: Throat Clear Cough DIGEST Scale Rating (O'Dick, et al, 1999) DIGEST Score: Safety Grade 2 / Efficiency Grade 3 = 3 - Overall Severe Pharyngeal Impairment (0=No Impairment, 1=Mild, 2=Moderate, 3=Severe, 4=Life Threatening) The Dynamic Imaging Grade of Swallowing Toxicity (DIGEST) Score represents a set of structured criteria primarily validated for head and neck cancer patients to grade the interaction of safety, efficiency, and overall impairment of the pharyngeal swallow, meant to assist in prioritization of targets for dysphagia treatment planning. (Ford, et al. Cancer. 2017;123(1):62-70) Note: Above score represents swallowing events without application of compensatory techniques Trialed Compensatory Swallow Strategies & Outcome: Postures Head Turn/Rotation to Left and/or Right - unsuccessful in clearing barium tablet from vallecular space Maneuvers 3-second Preparatory Set - no change Volitional Cough - successful in clearing aspirated material Volitional Throat Clear - successful in clearing aspirated material Secondary saliva swallow x3-4- successful in reducing amount of pharyngeal stasis Bolus Modifications Delivery/Alternating Consistencies - Wash with thin liquid - unsuccessful in clearing barium tablet from vallecular space; mildly successful in clearing puree texture from vallecular and pyriform sinus space Reduced Volume - most successful Dysphagia Outcome and Severity Scale (ASIM) LEVEL 6 - Full PO: normal diet - Within functional limits/modified independence IMPRESSIONS: Overall Moderate-severe pharyngeal dysphagia with esophageal component, likely chronic; dysphagia presentation likely due to combination of atrophy and post-radiation change/radiation fibrosis, as well as possible link with reflux symptomology and reduced laryngeal sensation during aspiration event (noted x2, able to effectively clear aspirated material from airway first with cued cough, then with reflexive cough during second aspiration event at end of study, seen in a-p view). Patient does demonstrate hypertensive upper esophageal sphincter which appears to contribute to overall inefficiency of swallow process, which results in marked residue post swallow of most consistencies in both vallecular and pyriform sinus space; esophageal retention with retrograde flow below UES/PES is also noted, along with hypertrophy at C5-C6 level of cervical esophagus; patient is likely to benefit from GI consult with endoscopy and potential consideration of esophageal dilation as deemed appropriate and follow up with DEGREASER OPERATOR to re-assess efficiency of swallow mechanism with appropriate treatment plan of care. Swallow safety is somewhat impaired however appears to be managed relatively well by patient at this time; swallow efficiency is also quite impaired, requiring multiple compensatory strategies which the patient has initiated himself (and appear to work quite well, despite increased effort). Patient appears to be at low-moderate risk for potential aspiration PNA, pulmonary compromise and low-moderate risk for malnutrition given reduced appetite, low risk for dehydration. Diet modification, non-oral nutrition are not indicated. Swallow prognosis is good-fair, given history of post-radiation changes and motivation to participate in direct treatment; outcomes pending patient/caregiver training in risk management as outlined. Patient appears to be a good candidate for behavioral swallow rehabilitation. PLAN: Diet recommendation: IDDSI Level 7-Regular, 0-Thin Liquids May consider pills/tablets in more viscous texture combined with hard swallow and to be followed with multiple (separate) hard swallows of thin liquid until pharyngeal globus passes; may consider alternate forms of medications as appropriate with MD/Pharmacist to prevent deterioration of medications in pharyngeal space (and possible reduced sensation to pharyngeal area over time) Risk Management: Behavioral reflux precautions, including upright position during + 90 mins after meals. Small bites, small sips Alternate solids/liquids as able Multiple swallows per bolus to encourage clearance of both vallecular and pyriform sinus residue Control risk factors for aspiration pneumonia via (a) thorough oral hygiene & (b) maintaining physical mobility as tolerated Specialist referrals: GI for assessment re: esophageal hypertension, ?dilation; patient also requested ENT to review study images from today as well, specifically Dr. Perkins Therapy: Recommend subsequent outpatient session with DEGREASER OPERATOR to review results of today's exam and develop treatment plan as appropriate. May consider discussion re: RMST for improved airway clearance and, continued reflux symptom management review, discussion of potential pharyngeal swallow exercise to be addressed after GI consult if this does take place. Goal: TBD pending patient/caregiver interview Follow-up exam: N/A Thank you for allowing me to take part in this patient's care. Please feel free to contact me with any questions/concerns. Sridevi Gan MA CCC-DEGREASER OPERATOR Speech Language Pathologist [phone] Coding CPT Codes MOTION FLUOROSCOPY/SWALLOW - [id number] ([id number])
== END 2021-02-21 01:26 ==
PROVIDERS: PCP Internal Medicine; Visit Provider Speech-Language Pathologist
DX: C01 Malignant neoplasm of base of tongue (principal)
CPT/HCPCS: 74221

== ENCOUNTER 2021-03-16 03:51 | Outpatient (CLI) | payer OTHER, SELFPAY ==
--- NOTE | 2021-03-16 | DI.CT_ITS ---
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 CT examination of the cervical region was also performed. COMPARISON: CR XR CHEST 2V PA LATERAL from 10/08/2018 CR XR CHEST 2V PA LATERAL from 10/08/[address] NECK W from 07/20/[address] NECK W from 07/20/[address] HEAD CERVICAL SPINE WO from 05/01/2020 FINDINGS: The lungs show evidence of mild emphysematous change. There are multiple apparent linear scars in th e right upper lobe. There are multiple calcified basilar intrapulmonary nodules. No significant non calcified intrapulmonary nodule seen.. There is no evidence of pleural effusion. There is no evidence of pulmonary embolic disease although there is suboptimal contrast opacification for visualization of smaller vessels.. The ascending thoracic aorta is ectatic at 45 millimeters. No evidence of dissection. There is no mediastinal or hilar adenopathy. Tracheobronchial tree appears intact. No axillary or supraclavicular adenopathy. Visualized portions of the liver, spleen, adrenals, and kidneys are unremarkable. No abnormality seen involving the bony thorax. CT examination of the cervical region was performed. 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 No recurrent mass identified. No cervical adenopathy. Tracheolaryngeal structures appear intact as visualized. There is an unremarkable appearance of the salivary glands bilaterally. Visualized orbital and intracranial structures appear intact. No focal vascular abnorm ality seen. Visualized paranasal sinuses are clear. IMPRESSION: No evidence of intrapulmonary metastatic disease. No evidence of acute process. 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 RADIATION DOSE DELIVERED: 894.45mGy.cm Total DLP 894.45mGy.cm Total DLP 10.84mGy CTDIvol
[2021-03-16 07:52] LABS: ALT 15 U/L (16-63); AST 16 U/L (15-37); Albumin 3.6 g/dL (3.4-5.0); Alkaline Phosphatase 138 U/L (46-116); Anion Gap 6.5 mmol/L (3-11); BUN 22 mg/dL (7-18); Bilirubin, Total 0.5 mg/dL (0.2-1.0); CO2 26.5 mmol/L (21.0-32.0); CREATININE 1.5 mg/dL (0.70-1.30); Calcium 8.6 mg/dL (8.5-10.1); Chloride 105 mmol/L (98-107); Estimated GFR 44.92 (mL/min/1.73m2); Glucose 102 mg/dL (74-106); Potassium 4.2 mmol/L (3.5-5.1); Sodium 138 mmol/L (136-145)
== END 2021-03-16 04:11 ==
PROVIDERS: Nurse Practitioner Family; PCP Internal Medicine; Visit Provider Internal Medicine Hematology & Oncology
DX: C01 Malignant neoplasm of base of tongue (principal); C77.0 Secondary and unspecified malignant neoplasm of lymph nodes of head, face and neck
CPT/HCPCS: 70491; 80053; 71260

== ENCOUNTER 2021-03-20 16:12 | Outpatient (REF) | payer OTHER, SELFPAY ==
[2021-03-20 22:15] LABS: FREE T4 0.97 ng/dL (0.76-1.46); TSH 2.46 uIU/mL (0.36-3.74)
[2021-03-21 17:04] LABS: PSA, Screening 14.3 ng/mL (0.0-6.5)
== END 2021-03-20 16:13 | disposition home or self-care (01) ==
LOC: NCHCN 16:12
PROVIDERS: PCP Internal Medicine; Visit Provider Internal Medicine
DX: Z12.5 Encounter for screening for malignant neoplasm of prostate (principal); R97.20 Elevated prostate specific antigen [PSA]; E03.9 Hypothyroidism, unspecified
CPT/HCPCS: 84153; 84439; 84443

== ENCOUNTER 2021-03-25 02:11 | Emergency (ER) | payer OTHER, SELFPAY ==
[2021-03-25 02:36] VITALS: BP 124/87; PULSE 76; RESP 16; TEMP 36.6; O2SAT 97
--- NOTE | 2021-03-25 02:50 | ED.GENADUL_ITS ---
Discharge Plan Disposition Patient Disposition: HOME Condition: Good Discharge Details Clinical Impression: Postoperative bleeding from incision Primary Care Provider: Vicente Reagan ED Provider: Vahe Johnson [place] Meds and New Rx's Prescriptions: Continued acyclovir 200 mg capsule 800 mg PO BID PRN (Reason: genital herpes) RF: 0 polyethylene glycol 3350 [Miralax] 17 gram powder in packet 17 gm PO DAILY RF: 0 ondansetron 8 mg tablet,disintegrating 8 mg PO DAILY PRNRF: 0 tamsulosin 0.4 mg capsule 0.8 mg PO QHS RF: 0 lidocaine HCl [Lidocaine Viscous] 2 % solution 1 applic mucous membrane QID RF: 0 levothyroxine 25 mcg capsule 100 mcg PO DAILY RF: 0 Xarelto 20 mg tablet 20 mg PO DAILY RF: 0 Discharge Instructions Additional Instructions: Please follow up with Dr. Vasquez next week for recheck and suture removal. Return to ED for continued bleeding, infection other concerns Medical Decision Making Area around previous biopsy site injected with 1% lidocaine with epinephrine which slowed the bleeding but did not stop it. Direct pressure held which also did not control the bleeding. When previous biopsy site pinched together, bleeding controlled. Therefore, one 6-0 nylon stitch placed with complete control of bleeding. Will have patient follow-up with Dr. Vasquez next week for reevaluation and suture removal. Return to ED if problems. HPI General Mode of arrival: ambulatory . Date/Time Provider Initiated Documentation: 03/25/21 02:50 . Limitations to Documentation: no limitations . Information obtained by: patient and RN notes reviewed . HPI Narrative: Patient presents to ED with bleeding from previous biopsy site on his forehead. Patient has been seen by dermatology and has biopsy of lesion on his forehead done little over a week ago. It has been healing fine but tonight just spontaneously started bleeding. Patient does not think that he has been taking at it though he does admit it sometimes pruritic in nature. He is on Xarelto. They have not been able to control the bleeding at home. Presents here for ev aluation. Related Data Home Medications Medication Instructions Recorded Confirmed polyethylene glycol 3350 17 gram 17 gm PO DAILY each 08/21/18 03/25/21 oral powder packet levothyroxine 25 mcg capsule 100 mcg PO DAILY cap 11/03/19 03/25/21 Xarelto 20 mg PO DAILY 11/10/19 03/25/21 acyclovir 200 mg capsule 800 mg PO BID PRN cap 11/23/20 03/25/21 lidocaine HCl 2 % mucosal solution 1 applic MUCOUS MEMBRANE QID 11/23/20 02/15/21 ondansetron 8 mg disintegrating 8 mg PO DAILY PRN tab 11/23/20 03/25/21 tablet tamsulosin 0.4 mg capsule 0.8 mg PO QHS cap 11/23/20 03/25/21 Allergies Allergy/AdvReac Type Severity Reaction Status Date / Time bee pollen Allergy Severe Anaphylaxsi Verified 03/25/21 02:40 s Penicillins Allergy Unknown happened Verified 03/25/21 02:40 at age 5, serious hives General Stated Complaint: Laceration VIJAY: 4 Review of Systems Constitutional Constitutional: Denies fever(s) Cardiovascular Cardiovascular: Denies chest pain and Denies dyspnea Respiratory Respiratory: Denies cough and Denies dyspnea Hematologic/Lymphatic Hematologic/Lymphatic: Reports easy bleeding PFSH Medical History Actinic cheilitis Adenomatous colon polyp Alcohol consumption binge drinking Bee sting allergy Chronic insomnia Dermatitis Dysphagia Erectile dysfunction 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 (herpes simplex virus) infection Hyperlipidemia denies any history looks like he was discontinued on medication last July Left lumbar radiculopathy Following left TKA Leg pain Lipoma Lumbar back pain Marital problem 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 care 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 Situational depression Tongue cancer Uses feeding tube Ventral hernia s/p 2 repairs Surgical History Ankle fracture, right s/p ORIF Carpal tunnel syndrome s/p ECTR and OCTR B/L (4 total surgeries) Colonoscopy - IV Sedation (05/28/16) History of cataract extraction with lens replacement B/L History of gastrostomy tube placement feeding tube per pt History of lung surgery 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) History of removal of Port-a-Cath History of tonsillectomy History of total left knee replacement (TKR) History of total right hip replacement (11/10/19) Status post hernia repair Family History Mother , age 76 Alcohol abuse COPD (chronic obstructive pulmonary disease) Father , age 74 during surgery to repair heart valve Heart disease Sister Multiple myeloma Brother Alcohol abuse Substance abuse Social History Smoking/Tobacco Use Status: Never Smoking risk assessment performed?: Yes Alcohol Intake: current Alcohol Intake frequency: 0-2 drinks per day Alcohol type: beer, wine and hard liquor Counseling given: Yes Counseling provided: reduce to 2 or less/day Details: drinks heavily on a daily basis, says he's quit before. suggested reduction Drug use: Never Substance use type: does not use Caregiver/Support person: Yes Household members: spouse Housing: house Number of Children: 0 number of grandchildren: 0 Pets and animals: Yes (yellow and chocolate labs, one each) Pets and animals: dog(s) Current gender identity: male What is your relationship status?: How often do you talk on the phone with friends or family?: twice per week How often do you get together with friends or relatives?: twice per week Panel score (0-1 are the most socially isolated patients): 2 What type of physical activity do you participate in: walking, irregular exercise and occasional exercise Special heidi needs: No Do you feel safe at home: Yes Do you feel safe in your relationship?: Yes Exam Narrative Exam Narrative: Const: WDWN elderly male in NAD. HEENT: NC/AT. Brisk bleeding from small incision left lower forehead. Eyes: Normal conjunctiva and sclera. Neck: Supple. Trachea midline. Lungs: Normal respiratory effort. Cor: Good radial pulses. Neuro: A+O x 3. Normal speech, mentation, gait. Cranial nerves II - XII grossly intact. No gross motor or sensory deficit. Course Vital Signs Vital signs: Vital Signs Temperature 97.9 F 03/25/21 02:36 Pulse 76 03/25/21 02:36 Respiratory Rate 16 03/25/21 02:36 Blood Pressure 124/87 03/25/21 02:36 Pulse Oximetry 97 03/25/21 02:36 Temperature 97.9 F 03/25/21 02:36 Temperature Source Temporal Artery Scan 03/25/21 02:36 Pulse 76 03/25/21 02:36 Respiratory Rate 16 03/25/21 02:36 Respiratory Effort Non-Labored 03/25/21 02:44 Blood Pressure 124/87 03/25/21 02:36 Blood Pressure Position Supine 03/25/21 02:36 Pulse Oximetry 97 03/25/21 02:36 Oxygen Delivery Method Room Air 03/25/21 02:36 Oxygen Flow Rate 0 03/25/21 02:36 Procedures Laceration Laceration 1: Site: face Size (cm): 0.3 Description: linear Depth: simple, single layer Local Anesthetic: Lidocaine 1% and with Epi Skin layer closed with: nylon Size (cm): 6-0 Number of sutures: 1 Technique: simple, interrupted
== END 2021-03-25 03:33 | disposition home or self-care (01) ==
PROVIDERS: Emergency Provider Emergency Medicine; PCP Internal Medicine
DX: L76.21 Postprocedural hemorrhage of skin and subcutaneous tissue following a dermatologic procedure (principal)
CPT/HCPCS: 12001

== ENCOUNTER 2021-05-09 15:39 | Outpatient (REF) | payer MEDICARE, SELFPAY ==
[2021-05-11 15:55] LABS: COVID-19 RT-PCR UVMMC Result Negative (Negative)
== END 2021-05-09 15:40 | disposition home or self-care (01) ==
LOC: NCHCN 15:39
PROVIDERS: PCP Internal Medicine; Visit Provider Internal Medicine
DX: Z20.822 Contact with and (suspected) exposure to COVID-19 (principal)
CPT/HCPCS: U0003

== ENCOUNTER 2021-05-11 12:32 | Outpatient (CLI) | payer MEDICARE, SELFPAY ==
--- NOTE | 2021-05-11 | DI.RAD_ITS ---
Exam(s) XR RIBS RT W PA LAT CHEST EXAM: XR RIBS RT W PA LAT CHEST CLINICAL HISTORY: RT CHEST PAIN, RT LUNG CA METASTATIC,R07.89,C34.91 TECHNIQUE: COMPARISON: CR XR CHEST 2V PA LATERAL from 10/08/[address] NECK CHEST W from 03/16/2021 FINDINGS: PA and lateral views of the chest and 4 additional views of the right ribs were obtained. There is a n old healed fracture of the right 10th rib posteriorly and also of the right 3rd rib posteriorly.. No acute rib fracture or erosive process is seen. There is an apparent small right pleural effusion. Radiodensities are again noted peripherally in the right mid lung, with associated pleural thickening , as noted on chest CT of March 16. The peripheral radiodensities are grossly unchanged from p rior examination, however the right pleural effusion appears to be new.. IMPRESSION: Small new right pleural effusion in a patient who is status post right lung carcinoma. Pleural based changes in the right mid to upper lung are again noted and probably stable since chest CT of . RADIATION DOSE DELIVERED: Total DLP
== END 2021-05-11 12:52 ==
PROVIDERS: PCP Internal Medicine; Visit Provider Internal Medicine
DX: R07.89 Other chest pain (principal); C34.91 Malignant neoplasm of unspecified part of right bronchus or lung; J90 Pleural effusion, not elsewhere classified; J98.4 Other disorders of lung
CPT/HCPCS: 71046; 71100

== ENCOUNTER 2021-05-18 01:40 | Outpatient (CLI) | payer MEDICARE, SELFPAY ==
[2021-05-18 14:16] LABS: CREATININE 1.1 mg/dL (0.70-1.30)
[2021-05-18] MEDS: Normal Saline - Diluent 50 ML VIAL IV (14:45)
[2021-05-18] MEDS: Omnipaque 350 MG/ML 50 ML BTL IJ ×2 (14:45→14:48)
[2021-05-18] MEDS: Breeza Beverage 473 ML BTL PO (14:47)
[2021-05-18] MEDS: Omnipaque 350 MG/ML 100 ML BTL IJ (14:47)
--- NOTE | 2021-05-18 14:52 | DI.CT_ITS ---
Exam(s) CT NECK CHEST ABD W EXAM: CT NECK CHEST ABD W CLINICAL HISTORY: RT LUNG CARCINOMA C34.91, PERSISTANT RT SIDED CHEST PAIN TECHNIQUE: Imaging Protocol: Axial computed tomography images with coronal and sagittal reformatted images were created and reviewed CONTRAST MATERIAL: Intravenous: Omnipaque 350 Contrast volume:structured data in ml Contrast route:I V - Oral: yes COMPARISON: CT CT NECK CHEST W from 03/16/[address] NECK CHEST W from 03/16/2021 CR XR RIBS RT W PA LAT CHEST from 05/11/2021 CR XR RIBS RT W PA LAT CHEST from 05/11/2021 FINDINGS: Neck: Parotids/submandibular/thyroid gland: Parotids normal. Submandibular and thyroid glands appear atrop hic. Lymphadenopathy: There is scattered lymph nodes seen along the level one to level three all measurin g less than 8 mm in short axis diameter which are physiologic in nature. Carotids/Jugular: Within normal limits. Soft tissues: There is artifact related to dental work. T there is some asymmetry in the floor of th e mouth but no visible mass. The findings may be postsurgical. Appear unchanged from the previous exa m. The epiglottis and vocal cords are within normal limits. Bones: Degenerative disc changes and facet degenerative changes. Sinuses: Clear. Mastoid air cells: Clear. Chest: Tracheobronchial tree: Patent where visualized. Mediastinum and Suzette: No dominant adenopathy or fluid collection. Pulmonary parenchyma: Suture material and linear scarring right upper lobe. Apparent recurrence mass pleural based low in the right upper lobe measuring 5.1 x 3.1 by 4.0 cm. Additional 13 millimeter p leural-based nodule posterior right upper lobe. Mild nodular thickening along left lateral chest inf erior to the larger mass. Mild emphysematous changes.. Pleura: Tiny right pleural effusion. No pneumothorax. Heart/Aorta: Ascending aorta 4.8 cm. Left atrial enlargement.. Coronary artery calcifications are see n. Bone: Old right rib fractures. No bony destruction. Mild compression fractures T4 and T5, stable. Mild compression of the superior endplate of T11 appears more prominent when compared with the previo us exam.. ABDOMEN: Lung Bases: Normal where visualized. Liver: Normal density. No measurable mass. Gallbladder and biliary tract: Small stones. No biliary dilation. Pancreas: Normal density, no abnormal calcifications or inflammatory process. Spleen: Normal. Kidneys: Normal size, contour and axis. No radiodense stones or obstructive uropathy. No masses seen. Adrenal glands: No masses seen. Abdominal Aorta: Abdominal portion non-dilated. Mild to moderate atherosclerotic changes. Soft tissues: Anterior abdominal wall midline hernia,, above the umbilicus. Defect 4.7 cm transverse containing nonobstructed loop of bowel. Bowel: No obstruction or bowel wall thickening. Peritoneal cavity: No ascites, collection or mesenteric inflammatory response. Bones: No lytic or blastic lesions. Degenerative changes lower lumbar spine. IMPRESSION: Right upper lobe pleural based mass measuring 5.1 x 3.1 x 4.0 cm. Additional 13 millimeter posterior right upper lobe nodule. No metastatic disease in the upper abdomen. No visible recurrence mass in the mouth. Small region somewhat obscured by dental artifact. No adenop athy. RADIATION DOSE DELIVERED: 1,853.46mGy.cm Total DLP DATA REPOSITORY: All CT scans at this facility are submitted to the National Radiology Data Registry (NRDR) Dose Index Registry (DIR) with the [employer] (ACR). RADIATION OPTIMIZATION: All CT scans at this facility use at least one of these dose optimization te chniques: automated exposure control; mA and/or kV adjustment per patient size (includes targeted exa ms where dose is matched to clinical indication); or iterative reconstruction.
== END 2021-05-18 02:00 ==
PROVIDERS: PCP Internal Medicine; Visit Provider Internal Medicine
DX: C34.91 Malignant neoplasm of unspecified part of right bronchus or lung (principal); R07.89 Other chest pain; R91.8 Other nonspecific abnormal finding of lung field; J90 Pleural effusion, not elsewhere classified; K43.9 Ventral hernia without obstruction or gangrene; Z01.812 Encounter for preprocedural laboratory examination
CPT/HCPCS: 70491; 71260; 74160; 82565; J3490; Q9967

== ENCOUNTER → 2021-05-21 09:45 | Outpatient (BNVA) | payer MEDICARE, SELFPAY | PROVIDERS: PCP Internal Medicine; Referring Provider Internal Medicine; Visit Provider Student in an Organized Health Care Education/Training Program | DX: T84.84XA Pain due to internal orthopedic prosthetic devices, implants and grafts, initial encounter (principal); Z96.652 Presence of left artificial knee joint | CPT/HCPCS: 99212 ==

== ENCOUNTER 2021-06-06 00:36 | Outpatient (CLI) | payer MEDICARE, SELFPAY ==
--- NOTE | 2021-06-06 | DI.RAD_ITS ---
Exam(s) XR CHEST 2V PA LATERAL EXAM: XR CHEST 2V PA LATERAL CLINICAL HISTORY: H/O RUL LUNG CA,C34.11,NEW RT LAT PLEURAL MASS,SOLID VS HEMATOMA,INCREASING TECHNIQUE: 2D digital imaging was performed of the chest. Two images were obtained. PA and lateral views were obtained. COMPARISON: CR XR CHEST 2V PA LATERAL from 10/08/2018 CR XR RIBS RT W PA LAT CHEST from 05/11/2021 CR XR RIBS RT W PA LAT CHEST from 05/11/2021 FINDINGS: MEDIASTINUM: Normal. HEART: Normal. PULMONARY VASCULATURE: Normal. There is tortuosity of the thoracic aorta. LUNGS: There has been no change in the right upper lobe pleural based mass since 05/11/2021. PLEURAL SPACE: There is been interval increase in size of the right pleural effusion which is now sma ll to moderate. No left pleural effusion is seen. No pneumothorax. BONE:Within normal limits for the patient's age. OTHER FINDINGS:Normal. IMPRESSION: 1. Stable right upper lobe pulmonary mass. 2. Slight interval increase in size of the right pleural effusion since 05/11/2021. DATA REPOSITORY: RADIATION DOSE DELIVERED:
== END 2021-06-06 00:56 ==
PROVIDERS: PCP Internal Medicine; Visit Provider Internal Medicine Hematology & Oncology
DX: Z85.118 Personal history of other malignant neoplasm of bronchus and lung (principal); J90 Pleural effusion, not elsewhere classified
CPT/HCPCS: 71046

== ENCOUNTER 2021-07-23 02:47 | Outpatient (RCR) | payer MEDICARE, SELFPAY ==
[2021-07-02 08:07] LABS: Abs Immature Grans 0.03 10^3/uL (0.0-0.06); Absolute Basophil Count 0.03 10^3/uL (0.0-0.2); Absolute Eosinophil Count 0.31 10^3/uL (0.0-0.7); Absolute Lymphocyte Count 0.61 10^3/uL (1.2-3.4); Absolute Monocyte Count 0.74 10^3/uL (0.1-0.8); Absolute Neutrophil Count 7.45 10^3/uL (1.2-6.7); Basophils % 0.3; Eosinophils % 3.4; HCT 43.4 % (40.0-50.0); HGB 13.9 g/dL (13.5-17.5); Immature Grans % 0.3; Lymphocytes % 6.7; MCH 29.6 pg (27.0-33.0); MCV 92.3 fL (80-95); MPV 9.1 fL (8.0-11.0); Monocytes % 8.1; Neutrophils % 81.2; Nucleated RBC 0 %; Platelet Count 369 10^3/uL (130-400); RDW-SD 42.8 fL; WBC 9.17 10^3/uL (4.4-10.8)
[2021-07-02 08:34] LABS: ALT 19 U/L (16-63); AST 19 U/L (15-37); Albumin 3.5 g/dL (3.4-5.0); Alkaline Phosphatase 179 U/L (46-116); Anion Gap 8.4 mmol/L (3-11); BUN 14 mg/dL (7-18); Bilirubin, Total 0.5 mg/dL (0.2-1.0); CO2 28.6 mmol/L (21.0-32.0); CREATININE 1.3 mg/dL (0.70-1.30); Calcium 9.1 mg/dL (8.5-10.1); Chloride 100 mmol/L (98-107); Estimated GFR 52.98 (mL/min/1.73m2); Glucose 107 mg/dL (74-106); Sodium 137 mmol/L (136-145); Total Protein 7.9 g/dL (6.4-8.2)
[2021-07-23 12:55] LABS: Abs Immature Grans 0.05 10^3/uL (0.0-0.06); Absolute Basophil Count 0.05 10^3/uL (0.0-0.2); Absolute Lymphocyte Count 0.57 10^3/uL (1.2-3.4); Absolute Monocyte Count 0.76 10^3/uL (0.1-0.8); Absolute Neutrophil Count 9.68 10^3/uL (1.2-6.7); Basophils % 0.4; Eosinophils % 1.8; HCT 40.3 % (40.0-50.0); HGB 12.9 g/dL (13.5-17.5); Immature Grans % 0.4; MCH 29.3 pg (27.0-33.0); MCV 91.4 fL (80-95); Monocytes % 6.7; Neutrophils % 85.7; Nucleated RBC 0 %; Platelet Count 359 10^3/uL (130-400); RBC 4.41 10^6/uL (4.36-5.78); RDW 13.2 % (11.8-14.1)
[2021-07-23 13:17] LABS: ALT 11 U/L (16-63); AST 22 U/L (15-37); Albumin 3.6 g/dL (3.4-5.0); Alkaline Phosphatase 138 U/L (46-116); Anion Gap 8.1 mmol/L (3-11); BUN 18 mg/dL (7-18); Bilirubin, Total 0.5 mg/dL (0.2-1.0); CO2 25.9 mmol/L (21.0-32.0); CREATININE 1.3 mg/dL (0.70-1.30); Calcium 9.2 mg/dL (8.5-10.1); Chloride 103 mmol/L (98-107); Estimated GFR 52.98 (mL/min/1.73m2); FREE T4 1.23 ng/dL (0.76-1.46); Glucose 133 mg/dL (74-106); Potassium 4.1 mmol/L (3.5-5.1); Sodium 137 mmol/L (136-145); TSH 2.91 uIU/mL (0.36-3.74); Total Protein 7.3 g/dL (6.4-8.2)
== END 2021-07-30 23:59 | disposition home or self-care (01) ==
LOC: INF 02:47
PROVIDERS: PCP Internal Medicine; Visit Provider Internal Medicine Hematology & Oncology
DX: C01 Malignant neoplasm of base of tongue (principal)
CPT/HCPCS: 36415; 80053; 84439; 84443; 85025

== ENCOUNTER 2021-08-10 19:10 | Outpatient (REF) | payer MEDICARE, SELFPAY ==
[2021-08-10 18:39] LABS: C Diff PCR Negative (Negative)
[2021-08-12 10:43] LABS: Campylobacter PCR Negative (Negative); Salmonella PCR Negative (Negative); Shiga Toxin PCR Negative (Negative); Shigella/Enteroinvasive Ecoli Negative (Negative)
== END 2021-08-10 19:11 | disposition home or self-care (01) ==
LOC: LBN 19:10
PROVIDERS: PCP Internal Medicine; Visit Provider Internal Medicine Hematology & Oncology
DX: R19.7 Diarrhea, unspecified (principal)
CPT/HCPCS: 87493; 87505

== ENCOUNTER 2021-08-13 00:45 | Outpatient (RCR) | payer MEDICARE, SELFPAY ==
[2021-08-13 10:50] LABS: Abs Immature Grans 0.09 10^3/uL (0.0-0.06); Absolute Basophil Count 0.03 10^3/uL (0.0-0.2); Absolute Eosinophil Count 0.01 10^3/uL (0.0-0.7); Absolute Lymphocyte Count 0.78 10^3/uL (1.2-3.4); Absolute Monocyte Count 0.89 10^3/uL (0.1-0.8); Absolute Neutrophil Count 12.16 10^3/uL (1.2-6.7); Basophils % 0.2; Eosinophils % 0.1; HCT 38.1 % (40.0-50.0); HGB 12.4 g/dL (13.5-17.5); Immature Grans % 0.6; Lymphocytes % 5.6; MCH 29.3 pg (27.0-33.0); MCHC 32.5 % (32.0-36.0); MCV 90.1 fL (80-95); MPV 9.1 fL (8.0-11.0); Monocytes % 6.4; Neutrophils % 87.1; Nucleated RBC 0 %; Platelet Count 392 10^3/uL (130-400); RBC 4.23 10^6/uL (4.36-5.78); RDW 13.6 % (11.8-14.1); RDW-SD 44.9 fL; WBC 13.96 10^3/uL (4.4-10.8)
[2021-08-13 11:12] LABS: ALT 22 U/L (16-63); AST 27 U/L (15-37); Albumin 3.6 g/dL (3.4-5.0); Alkaline Phosphatase 123 U/L (46-116); Anion Gap 7.4 mmol/L (3-11); BUN 20 mg/dL (7-18); Bilirubin, Total 0.3 mg/dL (0.2-1.0); CO2 26.6 mmol/L (21.0-32.0); CREATININE 1.3 mg/dL (0.70-1.30); Calcium 9.6 mg/dL (8.5-10.1); Chloride 101 mmol/L (98-107); Estimated GFR 52.98 (mL/min/1.73m2); FREE T4 1.19 ng/dL (0.76-1.46); Glucose 110 mg/dL (74-106); Potassium 5.1 mmol/L (3.5-5.1); Sodium 135 mmol/L (136-145); TSH 0.52 uIU/mL (0.36-3.74); Total Protein 7.5 g/dL (6.4-8.2)
== END 2021-08-27 23:59 | disposition home or self-care (01) ==
LOC: INF 00:45
PROVIDERS: PCP Internal Medicine; Visit Provider Internal Medicine Hematology & Oncology
DX: C01 Malignant neoplasm of base of tongue (principal)
CPT/HCPCS: 36415; 80053; 84439; 84443; 85025

== ENCOUNTER 2021-09-24 02:23 | Outpatient (RCR) | payer MEDICARE, SELFPAY ==
[2021-09-03 10:40] LABS: Abs Immature Grans 0.07 10^3/uL (0.0-0.06); Absolute Basophil Count 0.04 10^3/uL (0.0-0.2); Absolute Eosinophil Count 0.44 10^3/uL (0.0-0.7); Absolute Lymphocyte Count 0.34 10^3/uL (1.2-3.4); Absolute Monocyte Count 0.46 10^3/uL (0.1-0.8); Absolute Neutrophil Count 10.85 10^3/uL (1.2-6.7); Basophils % 0.3; Eosinophils % 3.6; HCT 42.1 % (40.0-50.0); HGB 13.6 g/dL (13.5-17.5); Immature Grans % 0.6; Lymphocytes % 2.8; MCHC 32.3 % (32.0-36.0); MCV 92.7 fL (80-95); Monocytes % 3.8; Neutrophils % 88.9; Nucleated RBC 0 %; Platelet Count 239 10^3/uL (130-400); RBC 4.54 10^6/uL (4.36-5.78); RDW 15.6 % (11.8-14.1); RDW-SD 53.1 fL
[2021-09-03 11:05] LABS: ALT 20 U/L (16-63); AST 31 U/L (15-37); Albumin 3.5 g/dL (3.4-5.0); Alkaline Phosphatase 110 U/L (46-116); BUN 16 mg/dL (7-18); Bilirubin, Total 0.7 mg/dL (0.2-1.0); CREATININE 1.2 mg/dL (0.70-1.30); Calcium 9.4 mg/dL (8.5-10.1); Chloride 100 mmol/L (98-107); Estimated GFR 58.11 (mL/min/1.73m2); FREE T4 1.11 ng/dL (0.76-1.46); Glucose 118 mg/dL (74-106); Potassium 4.6 mmol/L (3.5-5.1); Sodium 140 mmol/L (136-145); TSH 1.81 uIU/mL (0.36-3.74); Total Protein 7.3 g/dL (6.4-8.2)
[2021-09-24 08:16] LABS: Abs Immature Grans 0.18 10^3/uL (0.0-0.06); Absolute Basophil Count 0.09 10^3/uL (0.0-0.2); Absolute Eosinophil Count 0.18 10^3/uL (0.0-0.7); Absolute Lymphocyte Count 0.96 10^3/uL (1.2-3.4); Basophils % 0.6; Eosinophils % 1.2; HCT 40.4 % (40.0-50.0); HGB 12.8 g/dL (13.5-17.5); Immature Grans % 1.2; Lymphocytes % 6.4; MCH 30.2 pg (27.0-33.0); MCHC 31.7 % (32.0-36.0); MCV 95.3 fL (80-95); MPV 8.9 fL (8.0-11.0); Monocytes % 7.7; Neutrophils % 82.9; Nucleated RBC 0 %; Platelet Count 484 10^3/uL (130-400); RBC 4.24 10^6/uL (4.36-5.78); WBC 14.99 10^3/uL (4.4-10.8)
[2021-09-24 08:19] LABS: Absolute Monocyte Count 1.15 10^3/uL (0.1-0.8); Absolute Neutrophil Count 12.43 10^3/uL (1.2-6.7)
[2021-09-24 08:41] LABS: ALT 24 U/L (16-63); AST 25 U/L (15-37); Albumin 3.5 g/dL (3.4-5.0); Alkaline Phosphatase 123 U/L (46-116); Anion Gap 9.7 mmol/L (3-11); BUN 17 mg/dL (7-18); Bilirubin, Total 0.5 mg/dL (0.2-1.0); CO2 27.3 mmol/L (21.0-32.0); CREATININE 1.5 mg/dL (0.70-1.30); Calcium 9.6 mg/dL (8.5-10.1); Chloride 105 mmol/L (98-107); Estimated GFR 44.92 (mL/min/1.73m2); FREE T4 1.11 ng/dL (0.76-1.46); Glucose 104 mg/dL (74-106); Potassium 4.8 mmol/L (3.5-5.1); Sodium 142 mmol/L (136-145); TSH 4.96 uIU/mL (0.36-3.74); Total Protein 7.7 g/dL (6.4-8.2)
== END 2021-09-27 23:59 | disposition home or self-care (01) ==
LOC: INF 02:23
PROVIDERS: PCP Internal Medicine; Visit Provider Internal Medicine Hematology & Oncology
DX: C01 Malignant neoplasm of base of tongue (principal)
CPT/HCPCS: 36415; 80053; 99195; 84439; 84443; 85025

== ENCOUNTER 2021-10-12 00:51 | Outpatient (RCR) | payer MEDICARE, SELFPAY ==
[2021-10-12 10:28] LABS: Abs Immature Grans 0.08 10^3/uL (0.0-0.06); Absolute Basophil Count 0.06 10^3/uL (0.0-0.2); Absolute Lymphocyte Count 0.63 10^3/uL (1.2-3.4); Absolute Monocyte Count 0.92 10^3/uL (0.1-0.8); Absolute Neutrophil Count 12.75 10^3/uL (1.2-6.7); Basophils % 0.4; Eosinophils % 1.2; HCT 34.4 % (40.0-50.0); HGB 10.9 g/dL (13.5-17.5); Immature Grans % 0.5; Lymphocytes % 4.3; MCH 30.2 pg (27.0-33.0); MCHC 31.7 % (32.0-36.0); MCV 95.3 fL (80-95); MPV 8.8 fL (8.0-11.0); Monocytes % 6.3; Neutrophils % 87.3; Platelet Count 361 10^3/uL (130-400); RBC 3.61 10^6/uL (4.36-5.78); RDW 15.9 % (11.8-14.1); RDW-SD 55.7 fL; WBC 14.61 10^3/uL (4.4-10.8)
[2021-10-12 10:30] LABS: Absolute Eosinophil Count 0.18 10^3/uL (0.0-0.7)
[2021-10-12 10:48] LABS: ALT 17 U/L (16-63); AST 23 U/L (15-37); Albumin 3.2 g/dL (3.4-5.0); Alkaline Phosphatase 121 U/L (46-116); Anion Gap 7.8 mmol/L (3-11); BUN 16 mg/dL (7-18); Bilirubin, Total 0.4 mg/dL (0.2-1.0); CO2 29.2 mmol/L (21.0-32.0); CREATININE 1.4 mg/dL (0.70-1.30); Calcium 8.9 mg/dL (8.5-10.1); Chloride 99 mmol/L (98-107); Estimated GFR 48.64 (mL/min/1.73m2); FREE T4 1.23 ng/dL (0.76-1.46); Glucose 138 mg/dL (74-106); Sodium 136 mmol/L (136-145); TSH 0.79 uIU/mL (0.36-3.74); Total Protein 6.6 g/dL (6.4-8.2)
== END 2021-10-27 23:59 | disposition home or self-care (01) ==
LOC: INF 00:51
PROVIDERS: PCP Internal Medicine; Visit Provider Internal Medicine Hematology & Oncology
DX: C01 Malignant neoplasm of base of tongue (principal)
CPT/HCPCS: 36415; 80053; 84439; 84443; 85025

== ENCOUNTER 2021-10-19 13:20 | Outpatient (REF) | payer MEDICARE, SELFPAY ==
[2021-10-19 11:36] LABS: Anion Gap 5.2 mmol/L (3-11); BUN 27 mg/dL (7-18); CO2 29.8 mmol/L (21.0-32.0); CREATININE 1.6 mg/dL (0.70-1.30); Calcium 8.8 mg/dL (8.5-10.1); Chloride 101 mmol/L (98-107); Estimated GFR 41.69 (mL/min/1.73m2); Glucose 116 mg/dL (74-106); Magnesium 2.2 mg/dL (1.8-2.4); Potassium 3.8 mmol/L (3.5-5.1); Sodium 136 mmol/L (136-145)
== END 2021-10-19 13:21 | disposition home or self-care (01) ==
LOC: LBN 13:20
PROVIDERS: PCP Internal Medicine; Visit Provider Internal Medicine Hematology & Oncology
DX: C01 Malignant neoplasm of base of tongue (principal)
CPT/HCPCS: 80048; 83735

== ENCOUNTER 2021-10-27 09:54 | Emergency (ER) | payer MEDICARE, SELFPAY ==
[2021-10-27 10:06] VITALS: BP 102/69; PULSE 83; RESP 17; TEMP 36.3; O2SAT 100
--- NOTE | 2021-10-27 10:30 | DI.RAD_ITS ---
Exam(s) XR HAND RT COMPLETE EXAM: XR HAND RT COMPLETE CLINICAL HISTORY: Fall, Swelling, R/O Fx. TECHNIQUE: 2D digital imaging was performed. Three views. COMPARISON: No exams were available for comparison FINDINGS: BONES: No acute fracture is present. No bony destructive lesion is seen. JOINTS: No dislocation present. Degenerative changes greatest at scaphoid multangular joint. SOFT TISSUE: Dorsal soft tissue swelling over metacarpal region. IMPRESSION: No acute DATA REPOSITORY: RADIATION DOSE DELIVERED:
--- NOTE | 2021-10-27 10:39 | ED.GENADUL_ITS ---
Discharge Plan Disposition Patient Disposition: HOME Condition: Stable Discharge Details Clinical Impression: Cellulitis of hand, right Primary Care Provider: Vicente Reagan ED Provider: Ariana Pro Home Meds and New Rx's Prescriptions: New clindamycin HCl 150 mg capsule 450 mg PO TID 7 Days Qty: 63 0RF Rx Instructions: Take with Food. Three tablets TID x 7 days Continued polyethylene glycol 3350 [Miralax] 17 gram powder in packet 17 gm PO DAILY 0RF tamsulosin 0.4 mg capsule 0.8 mg PO BID 0RF levothyroxine 25 mcg capsule 100 mcg PO DAILY 0RF carvedilol 3.125 mg tablet 3.125 mg PO BID 0RF Rx Instructions: must administer with a meal/food multivitamin Tablet 1 tab PO DAILY 0RF omeprazole 40 mg capsule,delayed release(DR/EC) 40 mg PO DAILY 0RF prednisone 10 mg tablets,dose pack 5 mg PO DAILY 0RF Xarelto 20 mg tablet 20 mg PO DAILY 0RF acetaminophen 500 mg Tablet 1,000 mg PO Q6H PRN0RF Discharge Instructions Instructions: Cellulitis (ED) Additional Instructions: Keep wound area clean and dry. Allowed to air dry at least 2 hours a day. Take antibiotics 3 tablets a day 3 times a day for the next 7 days. At this time the x-rays show no evidence for fracture or broken bones. There is questionable small foreign body to the base of your pinky finger. This should however work itself out. Please take the antibiotics as directed. Take the antibiotics with yogurt or probiotic. Follow up with primary care provider in 3-5 days. Return to ED sooner if any worsening swelling, redness or problems bending your fingers or your wrist or concerns. Increase oral fluids. Please take Tylenol with food every 4-6 hours as needed for pain and swelling. Referrals: Vicente Reagan MD [Primary Care Provider] - 5 days Medical Decision Making 80-year-old male presents to the ER with chief complaint of mechanical fall 2 days ago while walking his dog. Patient reports that he fell onto gravel ground. He has had it covered for the last 2 days. Does have a laceration/abrasion noted to the dorsum of his right hand at the base of his fifth digit. He also has some swelling noted to the dorsum of his right hand. Full range of motion to all 5 fingers. Denies any wrist pain. Denies any other associated symptoms or injuries. Past medical history includes tongue cancer, insomnia, atrial fibrillation, osteoarthritis. Past surgical history left total knee replacement, tonsillectomy, carpal tunnel, skin biopsy. 1052: At this time imaging ordered to rule out fracture or foreign body, wound care and clindamycin 450 mg p.o. At this time laceration repair not available option there is no suturable laceration. I do suspect infection and or underlying fracture. Patient does have a penicillin allergy. Clindamycin ordered. [facility] report of hand x-ray shows mild osteoarthritic changes without acute findings. No acute fracture or dislocation. There is a couple of small radiopaque lucencies noted to the base of the fifth digit questionable foreign body. This time we will treat for infection. Wound care performed by senior staff specialized employment. Will discuss home care with patient and follow-up care we will send patient home on clindamycin 450 mg 3 times daily x7 days. This text was generated using [employer] system, please disregard any oddities of phrase or misspellings. Imaging Data Radiologic Study: Imaging: X-Ray My impression: Radiopaque lucency. Questionable FB? to base of 5th digit. No Fracture. Radiologist's impression: [facility] Report: Imaging protocol: XR Right hand. Views: 3 or more views. COMPARISON: No relevant images were readily available for comparison purposes. FINDINGS: Bones/joints: N o acute fracture or dislocation. Mild osteoarthritic changes. Soft tissues: Unremarkable. IMPRESSION: Mild osteoarthritic changes without acute findings. Dictated and Authenticated by: Vicente Viramontes DO [facility] Mode of arrival: ambulatory . Date/Time Provider Initiated Documentation: 10/27/21 10:27 . Limitations to Documentation: no limitations . Information obtained by: patient, RN notes reviewed and old records reviewed . HPI Narrative: 80-year-old male presents to the ER with chief complaint of mechanical fall 2 days ago while walking his dog. Patient reports that he fell onto gravel ground. He has had it covered for the last 2 days. Does have a laceration/ abrasion noted to the dorsum of his right hand at the base of his fifth digit. He also has some swelling noted to the dorsum of his right hand. Full range of motion to all 5 fingers. Denies any wrist pain. Denies any other associated symptoms or injuries. Past medical history includes tongue cancer, insomnia, atrial fibrillation, osteoarthritis. Past surgical history left total knee replacement, tonsillectomy, carpal tunnel, skin biopsy. Related Data Home Medications Medication Instructions Recorded Confirmed polyethylene glycol 3350 17 gram 17 gm PO DAILY each 08/21/18 10/27/21 oral powder packet (Miralax) levothyroxine 25 mcg capsule 100 mcg PO DAILY cap 11/03/19 10/27/21 rivaroxaban 20 mg tablet (Xarelto) 20 mg PO DAILY 11/10/19 10/27/21 tamsulosin 0.4 mg capsule 0.8 mg PO BID cap 11/23/20 10/27/21 carvedilol 3.125 mg tablet 3.125 mg PO BID 05/17/21 10/27/21 multivitamin 1 tab PO DAILY 05/17/21 10/27/21 omeprazole 40 mg capsule,delayed 40 mg PO DAILY 05/17/21 10/27/21 release prednisone 10 mg tablets in a dose 5 mg PO DAILY 10/04/21 10/27/21 pack acetaminophen 500 mg tablet 1,000 mg PO Q6H PRN 10/27/21 10/27/21 clindamycin HCl 150 mg capsule 450 mg PO TID 7 Days #63 cap 10/27/21 Previous Rx's Medication Instructions Recorded clindamycin HCl 150 mg capsule 450 mg PO TID 7 Days #63 cap 10/27/21 Allergies Allergy/AdvReac Type Severity Reaction Status Date / Time Penicillins Allergy Unknown happened Verified 10/27/21 10:11 at age 5, serious hives bee sting Allergy Uncoded 10/27/21 10:11 General Stated Complaint: Orthopedic VIJAY: 4 Review of Systems Musculoskeletal Musculoskeletal: Reports as per HPI, Reports arthralgias (Right hand, base of fifth digit and fourth digit.) and Reports joint swelling Integumentary/Breasts Skin/Breast: Reports wounds (Abrasion dorsum of right hand) PFSH All Active Problems (Updated 10/27/21 @ 11:31 by Ariana Pro) Cellulitis of hand, right (Acute) Adenocarcinoma of right lung (Acute) Painful total knee replacement, left (Acute) Postoperative bleeding from incision (Acute) Chronic throat clearing (Acute) History of lung surgery (Acute) 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) Trochanteric bursitis, right hip (Acute) History of total right hip replacement (Acute 11/10/19) Tongue irritation (Acute) Globus sensation (Acute) Mucositis (ulcerative) due to antineoplastic therapy (Acute) Tongue ulcer (Acute) Dr. Perkins Atrial fibrillation (Chronic) Mass in neck (Acute) Cancer of base of tongue (Acute) Palliative care patient (Acute) 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) Uses feeding tube (Acute) Tongue cancer (Acute) Medical History Actinic cheilitis Adenomatous colon polyp Bee sting allergy BPH (benign prostatic hyperplasia) Dermatitis Dysphagia Erectile dysfunction HSV (herpes simplex virus) infection Hyperlipidemia denies any history looks like he was discontinued on medication last July Left lumbar radiculopathy Following left TKA Leg pain Lipoma Lumbar back pain Marital problem Cpjnixex-Ewsddrilui-Rhreyhmyw syndrome Thrush Ventral hernia s/p 2 repairs Surgical History Ankle fracture, right s/p ORIF Carpal tunnel syndrome s/p ECTR and OCTR B/L (4 total surgeries) Colonoscopy - IV Sedation (05/28/16) History of biopsy History of cataract extraction with lens replacement B/L History of esophagogastroduodenoscopy (EGD) History of gastrostomy tube placement feeding tube per pt History of removal of Port-a-Cath History of tonsillectomy History of total left knee replacement (TKR) Status post hernia repair Family History Mother , age 76 Alcohol abuse COPD (chronic obstructive pulmonary disease) Father , age 74 during surgery to repair heart valve Heart disease Sister Multiple myeloma Brother Alcohol abuse Substance abuse Social History Smoking/Tobacco Use Status: Never Smoking risk assessment performed?: Yes Alcohol Intake: current Alcohol Intake frequency: 0-2 drinks per day Alcohol type: beer, wine and hard liquor Counseling given: Yes Counseling provided: reduce to 2 or less/day Details: drinks heavily on a daily basis, says he's quit before. suggested reduction Drug use: Never Substance use type: does not use Caregiver/Support person: Yes Household members: spouse Housing: house Number of Children: 0 number of grandchildren: 0 Pets and animals: Yes (yellow and chocolate labs, one each) Pets and animals: dog(s) Current gender identity: male What is your relationship status?: How often do you talk on the phone with friends or family?: twice per week How often do you get together with friends or relatives?: twice per week Panel score (0-1 are the most socially isolated patients): 2 What type of physical activity do you participate in: walking, irregular exercise and occasional exercise Special heidi needs: No Do you feel safe at home: Yes Do you feel safe in your relationship?: Yes Exam Extrem Right upper extremity: hand Details: abnormal to inspection Details: joint swelling, normal capillary refill, tenderness, swelling, abrasion Location: of the dorsal hand Location: over the ulnar aspect and over the 5th metacarpal (Mild purulent, Greenish, yellow drainage noted. ) and laceration Hand/finger images: 1. Abrasion approx 2cm in length, with purulent drainage, 2. Swelling to dorsum Course Vital Signs Vital signs: Vital Signs Temperature 36.3 C L 10/27/21 10:06 Pulse 83 10/27/21 10:06 Respiratory Rate 17 10/27/21 10:06 Blood Pressure 102/69 10/27/21 10:06 Pulse Oximetry 100 10/27/21 10:06 Temperature 36.3 C L 10/27/21 10:06 Temperature Source Temporal Artery Scan 10/27/21 10:06 Pulse 83 10/27/21 10:06 Respiratory Rate 17 10/27/21 10:06 Respiratory Effort Non-Labored 10/27/21 10:07 Blood Pressure 102/69 10/27/21 10:06 Pulse Oximetry 100 10/27/21 10:06 Oxygen Delivery Method Room Air 10/27/21 10:06 Oxygen Flow Rate 0 10/27/21 10:06 Pain Level 3 10/27/21 10:07 PAWSS Have you Been Recently Intoxicated or Drunk Within the Last 30 days?: No Have you Ever Experienced Previous Episodes of Alcohol Withdrawal?: No Have you ever Experienced Withdrawal Seizures?: No Have you ever Experienced Delirium Tremens(DT)s?: No Have you ever undergone Alcohol Rehabilitation Treatment (i.e, inpt ot outpatient treatment programs)?: No Have you ever Experienced Blackouts?: No Have you ever Combined Alcohol with other Downers within the last 90 days?: No Have you ever Combined Alcohol with any other Substance of Abuse during the last 90 days?: No Positive Blood Alcohol level on Presentation? [PCS.BAL]: No Evidence of Increased Autonomic Activity (i.e. HR>120, tremor, sweating, agitation, nausea)?: No Result: 0
[2021-10-27] MEDS: Clindamycin 150 MG CAP 450 MG PO (11:11)
--- NOTE | 2021-10-27 11:17 | DI.[facility]AD_ITS ---
PROCEDURE INFORMATION: Exam: XR Right Hand Exam date and time: 10/27/2021 11:02 AM Age: 80 years old Clinical indication: Injury or trauma; Fall; Sprain or strain; Hand; Right TECHNIQUE: Imaging protocol: XR Right hand. Views: 3 or more views. COMPARISON: No relevant images were readily available for comparison purposes. FINDINGS: Bones/joints: No acute fracture or dislocation. Mild osteoarthritic changes. Soft tissues: Unremarkable. IMPRESSION: Mild osteoarthritic changes without acute findings. Dictated and Authenticated by: Vicente Viramontes MD. Ordering:EMMANUEL Lane MD
== END 2021-10-27 11:36 | disposition home or self-care (01) ==
PROVIDERS: Emergency Provider Registered Nurse Emergency; PCP Internal Medicine
DX: S60.511A Abrasion of right hand, initial encounter (principal); L03.113 Cellulitis of right upper limb; W01.0XXA Fall on same level from slipping, tripping and stumbling without subsequent striking against object, initial encounter
CPT/HCPCS: 99283; 73130

== ENCOUNTER 2021-11-27 02:07 | Outpatient (RCR) | payer MEDICARE, SELFPAY ==
[2021-11-02 12:57] LABS: Abs Immature Grans 0.02 10^3/uL (0.0-0.06); Absolute Basophil Count 0.04 10^3/uL (0.0-0.2); Absolute Eosinophil Count 0.13 10^3/uL (0.0-0.7); Absolute Lymphocyte Count 0.67 10^3/uL (1.2-3.4); Absolute Monocyte Count 0.46 10^3/uL (0.1-0.8); Absolute Neutrophil Count 4.56 10^3/uL (1.2-6.7); Basophils % 0.7; Eosinophils % 2.2; HCT 30.4 % (40.0-50.0); HGB 9.8 g/dL (13.5-17.5); Immature Grans % 0.3; Lymphocytes % 11.4; MCH 31.1 pg (27.0-33.0); MCHC 32.2 % (32.0-36.0); MCV 97 fL (80-95); MPV 8.8 fL (8.0-11.0); Monocytes % 7.8; Neutrophils % 77.6; Platelet Count 324 10^3/uL (130-400); RBC 3.15 10^6/uL (4.36-5.78); RDW 15.7 % (11.8-14.1); RDW-SD 54.4 fL; WBC 5.88 10^3/uL (4.4-10.8)
[2021-11-02 13:26] LABS: ALT 17 U/L (16-63); AST 15 U/L (15-37); Albumin 3.7 g/dL (3.4-5.0); Alkaline Phosphatase 100 U/L (46-116); Anion Gap 7.5 mmol/L (3-11); BUN 18 mg/dL (7-18); Bilirubin, Total 0.3 mg/dL (0.2-1.0); CO2 28.5 mmol/L (21.0-32.0); CREATININE 1.7 mg/dL (0.70-1.30); Calcium 8.4 mg/dL (8.5-10.1); Chloride 100 mmol/L (98-107); Estimated GFR 38.88 (mL/min/1.73m2); FREE T4 0.99 ng/dL (0.76-1.46); Glucose 121 mg/dL (74-106); Potassium 5.3 mmol/L (3.5-5.1); Sodium 136 mmol/L (136-145); TSH 6.18 uIU/mL (0.36-3.74); Total Protein 6.9 g/dL (6.4-8.2)
[2021-11-06 09:49] LABS: Magnesium 2.4 mg/dL (1.8-2.4)
[2021-11-16 08:59] LABS: Abs Immature Grans 0.02 10^3/uL (0.0-0.06); Absolute Basophil Count 0.03 10^3/uL (0.0-0.2); Absolute Eosinophil Count 0.04 10^3/uL (0.0-0.7); Absolute Lymphocyte Count 0.56 10^3/uL (1.2-3.4); Absolute Monocyte Count 0.38 10^3/uL (0.1-0.8); Absolute Neutrophil Count 3.28 10^3/uL (1.2-6.7); Basophils % 0.7; Eosinophils % 0.9; HCT 34.6 % (40.0-50.0); HGB 11.5 g/dL (13.5-17.5); Immature Grans % 0.5; MCH 33.2 pg (27.0-33.0); MCHC 33.2 % (32.0-36.0); MCV 100 fL (80-95); MPV 9.1 fL (8.0-11.0); Monocytes % 8.8; Neutrophils % 76.1; Platelet Count 253 10^3/uL (130-400); RBC 3.46 10^6/uL (4.36-5.78); RDW 16.1 % (11.8-14.1); RDW-SD 57.2 fL; WBC 4.31 10^3/uL (4.4-10.8)
[2021-11-16 09:28] LABS: ALT 17 U/L (16-63); AST 16 U/L (15-37); Albumin 3.8 g/dL (3.4-5.0); Alkaline Phosphatase 95 U/L (46-116); Anion Gap 6.1 mmol/L (3-11); BUN 14 mg/dL (7-18); Bilirubin, Total 0.5 mg/dL (0.2-1.0); CO2 27.9 mmol/L (21.0-32.0); CREATININE 1.5 mg/dL (0.70-1.30); Calcium 8.8 mg/dL (8.5-10.1); Chloride 100 mmol/L (98-107); Estimated GFR 44.81 (mL/min/1.73m2); Glucose 129 mg/dL (74-106); Potassium 4.5 mmol/L (3.5-5.1); Sodium 134 mmol/L (136-145); TSH 3.54 uIU/mL (0.36-3.74)
[2021-11-27 08:24] LABS: Abs Immature Grans 0.01 10^3/uL (0.0-0.06); Absolute Basophil Count 0.02 10^3/uL (0.0-0.2); Absolute Lymphocyte Count 0.89 10^3/uL (1.2-3.4); Absolute Monocyte Count 0.54 10^3/uL (0.1-0.8); Absolute Neutrophil Count 2.38 10^3/uL (1.2-6.7); Basophils % 0.5; Eosinophils % 2.5; HGB 12.7 g/dL (13.5-17.5); Immature Grans % 0.3; Lymphocytes % 22.6; MCH 34.4 pg (27.0-33.0); MCHC 34.3 % (32.0-36.0); MCV 100 fL (80-95); MPV 9.1 fL (8.0-11.0); Monocytes % 13.7; Neutrophils % 60.4; Platelet Count 298 10^3/uL (130-400); RBC 3.69 10^6/uL (4.36-5.78); RDW 17.3 % (11.8-14.1); RDW-SD 63.7 fL; WBC 3.94 10^3/uL (4.4-10.8)
[2021-11-27 08:46] LABS: ALT 13 U/L (16-63); AST 17 U/L (15-37); Albumin 3.7 g/dL (3.4-5.0); Alkaline Phosphatase 117 U/L (46-116); Anion Gap 9.8 mmol/L (3-11); BUN 19 mg/dL (7-18); Bilirubin, Total 0.6 mg/dL (0.2-1.0); CO2 26.2 mmol/L (21.0-32.0); CREATININE 1.5 mg/dL (0.70-1.30); Calcium 8.9 mg/dL (8.5-10.1); Chloride 101 mmol/L (98-107); Estimated GFR 44.81 (mL/min/1.73m2); FREE T4 1.17 ng/dL (0.76-1.46); Glucose 132 mg/dL (74-106); Potassium 4.3 mmol/L (3.5-5.1); Sodium 137 mmol/L (136-145); TSH 1.25 uIU/mL (0.36-3.74); Total Protein 7.2 g/dL (6.4-8.2)
[2021-11-27 09:06] LABS: Magnesium 1.8 mg/dL (1.8-2.4)
== END 2021-11-27 23:59 | disposition home or self-care (01) ==
LOC: INF 02:07
PROVIDERS: PCP Internal Medicine; Visit Provider Internal Medicine Hematology & Oncology
DX: C01 Malignant neoplasm of base of tongue (principal); C34.91 Malignant neoplasm of unspecified part of right bronchus or lung; I48.91 Unspecified atrial fibrillation
CPT/HCPCS: 36415; 80053; 83735; 84439; 84443; 85025

== ENCOUNTER → 2021-11-30 15:50 | Outpatient (CLI) | payer MEDICARE, SELFPAY ==
--- NOTE | 2021-11-30 11:51 | DI.RAD_ITS ---
Exam(s) XR CHEST 2V PA LATERAL EXAM: XR CHEST 2V PA LATERAL CLINICAL HISTORY: CA OF TONGUE, C01,METASTATIC LYMPH NODES,C77.0 TECHNIQUE: 2D digital imaging was performed of the chest. Two images were obtained. PA and lateral views were obtained. COMPARISON: CR XR RIBS RT W PA LAT CHEST from 05/11/2021 FINDINGS: MEDIASTINUM: Normal. HEART: Normal. PULMONARY VASCULATURE: Normal. LUNGS: There is a stable right upper lobe pleural based mass with right perihilar scarring. No focal consolidating infiltrates are seen. PLEURAL SPACE: No pleural effusion or pneumothorax. BONE:Within normal limits for the patient's age. OTHER FINDINGS:Normal. IMPRESSION: 1. No acute pulmonary findings. 2. Stable right upper lobe pleural based mass. DATA REPOSITORY: RADIATION DOSE DELIVERED:
== END ==
PROVIDERS: PCP Internal Medicine; Visit Provider Internal Medicine Hematology & Oncology
DX: C77.0 Secondary and unspecified malignant neoplasm of lymph nodes of head, face and neck (principal); C01 Malignant neoplasm of base of tongue; R91.8 Other nonspecific abnormal finding of lung field; R05.8 Other specified cough
CPT/HCPCS: 71046

== ENCOUNTER → 2021-12-06 01:26 | Outpatient (CLI) | payer MEDICARE, SELFPAY ==
--- NOTE | 2021-12-06 11:00 | DI.CT_ITS ---
Exam(s) CT CHEST WO EXAM: CT CHEST WO CLINICAL HISTORY: TONGUE CA, KNOWN LUNG METS,INCREASING PAIN,? PROGRESSION,. TECHNIQUE: Multi planar reconstructions were performed. CONTRAST MATERIAL: None COMPARISON: CT CT NECK CHEST W from 03/16/2021 FINDINGS: CHEST: LUNGS: There has been further deterioration. In the right upper lobe region there is increasing pleu ral base mass near the site of prior surgery which is associated with some lytic destruction of the l ateral aspect of the right 4th rib which is a new finding. The pleural base mass in this region doretha ures approximately 9 cm AP by 3 cm wide. Lower down on the right side there is a fluid collection me asuring 4 cm wide by 4.5 cm AP x 6 cm craniocaudal, this not associated with overlying rib destructio n but not evident on the prior CT scan of February 2021. In addition, there is some increasing pleu ral based and subpleural infiltrate posteriorly in the superior segment of the right lower lobe. The re is no layering pleural effusion on the right side. In the opposite-left lung there are no new significant findings nor pleural fluid. No left rib destr uction. MEDIASTINUM: There is no new obvious hilar nor mediastinal adenopathy. No subcarinal adenopathy. No new axillary nor supraclavicular adenopathy. Thyroid gland is diminutive. CARDIAC: Heart size is upper normal. There is slight thickening of the anterior pericardium. There is no large pericardial effusion. Coronary artery calcification is noted.The diameter of the ascendi ng thoracic aorta is prominent, measuring 4.6 cm. The diameter of the mid aortic arch is 3.3 cm. Th e diameter of the proximal descending thoracic aorta is 3.4 cm. Diameter of the distal thoracic aort a is 3.3 cm. VISUALIZED UPPER ABDOMEN:No adrenal mass is seen. No splenomegaly. OSSEOUS: Right 4th rib lytic destruction where it is contiguous with the increasing size right pleura l base mass. Other ribs remain intact. There is slight loss of height of what is probably T11 verte bral body. This, however, was previously present. No new compression fractures. IMPRESSION: 1. Compared to the prior CT scan of February 2021 there is now an increasing size pleural mass in th e right upper lobe region with overlying destruction of the adjacent 4th right rib. There is also a new well-defined fluid collection in the right costophrenic angle-lateral right lung base which measu res 4 x 4.5 x 6.0 cm. There is no free layering pleural effusion on either side. 2. No new adenopathy evident in the chest. 3. Enlarged ascending thoracic aorta which exhibits diameter 4.6 cm. RADIATION DOSE DELIVERED: 607.46mGy.cm Total DLP DATA REPOSITORY: All CT scans at this facility are submitted to the National Radiology Data Registry (NRDR) Dose Index Registry (DIR) with the [employer] (ACR). RADIATION OPTIMIZATION: All CT scans at this facility use at least one of these dose optimization te chniques: automated exposure control; mA and/or kV adjustment per patient size (includes targeted exa ms where dose is matched to clinical indication); or iterative reconstruction.
== END ==
PROVIDERS: PCP Internal Medicine; Visit Provider Preventive Medicine Undersea and Hyperbaric Medicine
DX: I77.89 Other specified disorders of arteries and arterioles (principal); R91.8 Other nonspecific abnormal finding of lung field; C01 Malignant neoplasm of base of tongue; C78.00 Secondary malignant neoplasm of unspecified lung
CPT/HCPCS: 71250

== ENCOUNTER 2021-12-18 00:39 | Outpatient (RCR) | payer MEDICARE, SELFPAY ==
[2021-12-18 08:47] LABS: Abs Immature Grans 0.01 10^3/uL (0.0-0.06); Absolute Basophil Count 0.02 10^3/uL (0.0-0.2); Absolute Eosinophil Count 0.15 10^3/uL (0.0-0.7); Absolute Lymphocyte Count 0.47 10^3/uL (1.2-3.4); Absolute Monocyte Count 0.58 10^3/uL (0.1-0.8); Absolute Neutrophil Count 2.69 10^3/uL (1.2-6.7); Basophils % 0.5; Eosinophils % 3.8; HCT 36.9 % (40.0-50.0); HGB 12.3 g/dL (13.5-17.5); Immature Grans % 0.3; MCH 34.4 pg (27.0-33.0); MCHC 33.3 % (32.0-36.0); MCV 103 fL (80-95); MPV 8.9 fL (8.0-11.0); Monocytes % 14.8; Neutrophils % 68.6; Platelet Count 249 10^3/uL (130-400); RBC 3.58 10^6/uL (4.36-5.78); RDW 16.5 % (11.8-14.1); RDW-SD 62.4 fL; WBC 3.92 10^3/uL (4.4-10.8)
[2021-12-18 09:09] LABS: ALT 16 U/L (16-63); AST 18 U/L (15-37); Albumin 3.7 g/dL (3.4-5.0); Alkaline Phosphatase 122 U/L (46-116); Anion Gap 8.8 mmol/L (3-11); BUN 20 mg/dL (7-18); Bilirubin, Total 0.5 mg/dL (0.2-1.0); CO2 27.2 mmol/L (21.0-32.0); CREATININE 1.7 mg/dL (0.70-1.30); Calcium 8.9 mg/dL (8.5-10.1); Chloride 100 mmol/L (98-107); Estimated GFR 38.78 (mL/min/1.73m2); FREE T4 1.11 ng/dL (0.76-1.46); Glucose 116 mg/dL (74-106); Potassium 4.1 mmol/L (3.5-5.1); Sodium 136 mmol/L (136-145); TSH 1.06 uIU/mL (0.36-3.74); Total Protein 7.1 g/dL (6.4-8.2)
[2021-12-18 09:42] LABS: Magnesium 1.9 mg/dL (1.8-2.4)
== END 2021-12-27 23:59 | disposition home or self-care (01) ==
LOC: INF 00:39
PROVIDERS: PCP Internal Medicine; Visit Provider Internal Medicine Hematology & Oncology
DX: C01 Malignant neoplasm of base of tongue (principal)
CPT/HCPCS: 36415; 80053; 83735; 84439; 84443; 85025

== ENCOUNTER 2022-01-08 02:04 | Outpatient (RCR) | payer MEDICARE, SELFPAY ==
[2022-01-08 08:35] LABS: Abs Immature Grans 0.01 10^3/uL (0.0-0.06); Absolute Basophil Count 0.02 10^3/uL (0.0-0.2); Absolute Lymphocyte Count 0.55 10^3/uL (1.2-3.4); Absolute Monocyte Count 0.87 10^3/uL (0.1-0.8); Absolute Neutrophil Count 2.64 10^3/uL (1.2-6.7); Basophils % 0.5; Eosinophils % 2.4; HCT 36.3 % (40.0-50.0); HGB 12.5 g/dL (13.5-17.5); Immature Grans % 0.2; Lymphocytes % 13.1; MCH 35.6 pg (27.0-33.0); MCHC 34.4 % (32.0-36.0); MCV 103 fL (80-95); MPV 8.8 fL (8.0-11.0); Monocytes % 20.8; Platelet Count 249 10^3/uL (130-400); RBC 3.51 10^6/uL (4.36-5.78); RDW 16.4 % (11.8-14.1); RDW-SD 62.4 fL; WBC 4.19 10^3/uL (4.4-10.8)
[2022-01-08 08:50] LABS: ALT 15 U/L (16-63); AST 16 U/L (15-37); Albumin 3.5 g/dL (3.4-5.0); Alkaline Phosphatase 116 U/L (46-116); Anion Gap 8.3 mmol/L (3-11); BUN 20 mg/dL (7-18); Bilirubin, Total 0.6 mg/dL (0.2-1.0); CO2 26.7 mmol/L (21.0-32.0); CREATININE 1.6 mg/dL (0.70-1.30); Chloride 100 mmol/L (98-107); Estimated GFR 41.59 (mL/min/1.73m2); Glucose 98 mg/dL (74-106); Potassium 4.6 mmol/L (3.5-5.1); Sodium 135 mmol/L (136-145); Total Protein 6.8 g/dL (6.4-8.2)
[2022-01-08 09:39] LABS: FREE T4 1.14 ng/dL (0.76-1.46); TSH 1.35 uIU/mL (0.36-3.74)
[2022-01-08 09:46] LABS: Magnesium 1.6 mg/dL (1.8-2.4)
== END 2022-01-27 23:59 | disposition home or self-care (01) ==
LOC: INF 02:04
PROVIDERS: PCP Internal Medicine; Visit Provider Internal Medicine Hematology & Oncology
DX: C01 Malignant neoplasm of base of tongue (principal)
CPT/HCPCS: 36415; 80053; 83735; 84439; 84443; 85025

== ENCOUNTER → 2022-02-11 01:04 | Outpatient (CLI) | payer MEDICARE, SELFPAY ==
--- NOTE | 2022-02-11 | DI.CT_ITS ---
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 TECHNIQUE: Multi planar reconstructions were performed. CONTRAST MATERIAL: Omnipaque 350; 70 cc COMPARISON: CR XR CHEST 2V PA LATERAL from 11/30/[address] CHEST WO from 12/06/2021 FINDINGS: CHEST: LUNGS: There is relative stable size of the malignant appearing pleural based mass in the lateral asp ect of the right upper lobe which is associated with an element of lytic destruction of the adjacent right 4th rib. The amount of 4th rib involvement appears unchanged. The amount of pleural thickenin g posteriorly at this level is also relatively stable and not associated with new rib destruction. S mall pleural based densities laterally in the right lung slightly lower down are slightly larger in s ize. The previously described pleural based fluid collection in the lower posterior right pleural sp ledy exhibits minimal change, presently measuring 5.3 cm craniocaudal by 3.7 cm wide by 4.6 cm AP. A few small metastatic nodules in the posterior basal segment of the right lower lobe appear slightly l arger than previous, the largest of these measuring 11 x 8 millimeters. Small focal pleural thickeni ng over the posterior aspect of the right lower lobe posterior basal segment exhibits minimal change. This is over an area of healed rib fracture. No rib destruction at this level. In the opposite-left lung there are no new significant focal findings. There is a healed fracture of the posterior aspect of the left 10th rib again noted. No layering pleural effusions on either side. MEDIASTINUM: There is no hilar nor mediastinal adenopathy. Visualized thyroid is diminutive. CARDIAC: Heart size is normal. There is no pericardial effusion.Caliber of the ascending thoracic ao rta is enlarged, measuring 4.5 cm. There is no dissection. The diameter of the aortic arch at mid l evel is 3.2 cm. Diameter of the descending thoracic aorta is minimally prominent. VISUALIZED UPPER ABDOMEN:There are no significant adrenal masses. Gallstones noted. OSSEOUS: There is loss of height of superior endplate ofT11 vertebral body again noted. Also T5, unc hanged. IMPRESSION: 1. Relatively stable appearance of the malignant-appearing right hemithoracic findings as described i ndividually above. The amount of lytic destruction of the right 4th rib is unchanged. No new rib le sions. Appearing compression fractures of T5 and T11. 2. No new findings in the opposite-left lung. 3. No new intrathoracic adenopathy. RADIATION DOSE DELIVERED: 560.1mGy.cm Total DLP DATA REPOSITORY: All CT scans at this facility are submitted to the National Radiology Data Registry (NRDR) Dose Index Registry (DIR) with the [employer] (ACR). RADIATION OPTIMIZATION: All CT scans at this facility use at least one of these dose optimization te chniques: automated exposure control; mA and/or kV adjustment per patient size (includes targeted exa ms where dose is matched to clinical indication); or iterative reconstruction.
[2022-02-11 12:42] LABS: Abs Immature Grans 0.03 10^3/uL (0.0-0.06); Absolute Basophil Count 0.02 10^3/uL (0.0-0.2); Absolute Eosinophil Count 0.07 10^3/uL (0.0-0.7); Absolute Lymphocyte Count 0.66 10^3/uL (1.2-3.4); Absolute Monocyte Count 0.51 10^3/uL (0.1-0.8); Absolute Neutrophil Count 5.44 10^3/uL (1.2-6.7); Basophils % 0.3; HCT 32.8 % (40.0-50.0); HGB 11.5 g/dL (13.5-17.5); Immature Grans % 0.4; Lymphocytes % 9.8; MCH 37.2 pg (27.0-33.0); MCHC 35.1 % (32.0-36.0); MCV 106 fL (80-95); MPV 8.9 fL (8.0-11.0); Monocytes % 7.6; Neutrophils % 80.9; Platelet Count 216 10^3/uL (130-400); RBC 3.09 10^6/uL (4.36-5.78); RDW 14.1 % (11.8-14.1); RDW-SD 54.4 fL; WBC 6.73 10^3/uL (4.4-10.8)
[2022-02-11 12:52] LABS: Diff Comment RBC Morph Reviewed; Macrocytosis 1+
[2022-02-11 13:05] LABS: ALT 19 U/L (16-63); AST 18 U/L (15-37); Albumin 3.7 g/dL (3.4-5.0); Alkaline Phosphatase 110 U/L (46-116); Anion Gap 7.4 mmol/L (3-11); BUN 20 mg/dL (7-18); Bilirubin, Total 0.4 mg/dL (0.2-1.0); CO2 29.6 mmol/L (21.0-32.0); CREATININE 1.7 mg/dL (0.70-1.30); Chloride 100 mmol/L (98-107); Estimated GFR 38.78 (mL/min/1.73m2); FREE T4 1.07 ng/dL (0.76-1.46); Glucose 122 mg/dL (74-106); Potassium 4.9 mmol/L (3.5-5.1); Sodium 137 mmol/L (136-145); TSH 5.29 uIU/mL (0.36-3.74); Total Protein 7.3 g/dL (6.4-8.2)
[2022-02-11] MEDS: Omnipaque 350 MG/ML 100 ML BTL IJ (13:15)
== END ==
PROVIDERS: PCP Internal Medicine; Visit Provider Internal Medicine Hematology & Oncology
DX: C01 Malignant neoplasm of base of tongue (principal)
CPT/HCPCS: 80053; 71260; 84439; 84443; 85025; J3490

== ENCOUNTER 2022-02-18 03:21 | Outpatient (RCR) | payer MEDICARE, SELFPAY ==
[2022-01-29 08:19] LABS: Abs Immature Grans 0.01 10^3/uL (0.0-0.06); Absolute Basophil Count 0.02 10^3/uL (0.0-0.2); Absolute Eosinophil Count 0.13 10^3/uL (0.0-0.7); Absolute Monocyte Count 0.79 10^3/uL (0.1-0.8); Basophils % 0.4; Eosinophils % 2.4; HCT 33.8 % (40.0-50.0); HGB 11.6 g/dL (13.5-17.5); Immature Grans % 0.2; Lymphocytes % 11.2; MCH 36.6 pg (27.0-33.0); MCHC 34.3 % (32.0-36.0); MCV 107 fL (80-95); MPV 8.7 fL (8.0-11.0); Monocytes % 14.8; Platelet Count 260 10^3/uL (130-400); RBC 3.17 10^6/uL (4.36-5.78); RDW 14.6 % (11.8-14.1); RDW-SD 57.6 fL; WBC 5.35 10^3/uL (4.4-10.8)
[2022-01-29 08:48] LABS: ALT 12 U/L (16-63); AST 16 U/L (15-37); Albumin 3.5 g/dL (3.4-5.0); Alkaline Phosphatase 116 U/L (46-116); Anion Gap 8.9 mmol/L (3-11); BUN 24 mg/dL (7-18); Bilirubin, Total 0.5 mg/dL (0.2-1.0); CO2 23.1 mmol/L (21.0-32.0); CREATININE 1.9 mg/dL (0.70-1.30); Chloride 101 mmol/L (98-107); Estimated GFR 34.11 (mL/min/1.73m2); FREE T4 1.09 ng/dL (0.76-1.46); Glucose 136 mg/dL (74-106); Potassium 4.3 mmol/L (3.5-5.1); Sodium 133 mmol/L (136-145); TSH 3.47 uIU/mL (0.36-3.74); Total Protein 6.9 g/dL (6.4-8.2)
[2022-01-29 09:30] LABS: Magnesium 1.7 mg/dL (1.8-2.4)
[2022-02-18 10:30] LABS: Abs Immature Grans 0.01 10^3/uL (0.0-0.06); Absolute Basophil Count 0.03 10^3/uL (0.0-0.2); Absolute Lymphocyte Count 0.52 10^3/uL (1.2-3.4); Absolute Monocyte Count 0.81 10^3/uL (0.1-0.8); Absolute Neutrophil Count 4.48 10^3/uL (1.2-6.7); Basophils % 0.5; Eosinophils % 3.3; HCT 33.3 % (40.0-50.0); HGB 11.7 g/dL (13.5-17.5); Immature Grans % 0.2; Lymphocytes % 8.6; MCH 37.5 pg (27.0-33.0); MCHC 35.1 % (32.0-36.0); MCV 107 fL (80-95); MPV 8.9 fL (8.0-11.0); Monocytes % 13.4; Platelet Count 250 10^3/uL (130-400); RBC 3.12 10^6/uL (4.36-5.78); RDW 14.1 % (11.8-14.1); RDW-SD 55.1 fL; WBC 6.05 10^3/uL (4.4-10.8)
[2022-02-18 10:42] LABS: ALT 13 U/L (16-63); AST 18 U/L (15-37); Albumin 3.6 g/dL (3.4-5.0); Alkaline Phosphatase 127 U/L (46-116); Anion Gap 7.5 mmol/L (3-11); BUN 25 mg/dL (7-18); Bilirubin, Total 0.8 mg/dL (0.2-1.0); CO2 28.5 mmol/L (21.0-32.0); CREATININE 2.2 mg/dL (0.70-1.30); Chloride 99 mmol/L (98-107); Glucose 123 mg/dL (74-106); Potassium 4.9 mmol/L (3.5-5.1); Sodium 135 mmol/L (136-145); Total Protein 7.4 g/dL (6.4-8.2)
== END 2022-02-27 23:59 | disposition home or self-care (01) ==
LOC: INF 03:21
PROVIDERS: PCP Internal Medicine; Visit Provider Internal Medicine Hematology & Oncology
DX: C01 Malignant neoplasm of base of tongue (principal); C76.0 Malignant neoplasm of head, face and neck; C77.0 Secondary and unspecified malignant neoplasm of lymph nodes of head, face and neck; T50.905D Adverse effect of unspecified drugs, medicaments and biological substances, subsequent encounter
CPT/HCPCS: 36415; 80053; 83735; 84439; 84443; 85025

== ENCOUNTER → 2022-02-26 21:34 | Outpatient (CLI) | payer MEDICARE, SELFPAY ==
--- NOTE | 2022-02-26 | DI.RAD_ITS ---
Exam(s) XR CHEST 2V PA LATERAL EXAM: XR CHEST 2V PA LATERAL CLINICAL HISTORY: CANCER BASE OF TOUNGE-C01 TECHNIQUE: COMPARISON: CR XR CHEST 2V PA LATERAL from 11/30/2021 FINDINGS: Examination is compared with prior examination of November 30. Note is again made of a right-sided pleu ral based mass, this appears slightly larger in comparison with prior examination of November 30, measur ing roughly 5 cm in greatest diameter on today's examination. Lungs otherwise appear mostly clear. No pleural effusion seen. No cardiac enlargement. IMPRESSION: Interval increase in size of right-sided pleural based mass. RADIATION DOSE DELIVERED: Total DLP
== END ==
PROVIDERS: PCP Internal Medicine; Visit Provider Nurse Practitioner Gerontology
DX: C01 Malignant neoplasm of base of tongue (principal); R91.8 Other nonspecific abnormal finding of lung field
CPT/HCPCS: 71046

== ENCOUNTER 2022-03-11 02:57 | Outpatient (RCR) | payer MEDICARE, SELFPAY ==
[2022-03-11 09:02] LABS: Abs Immature Grans 0.12 10^3/uL (0.0-0.06); HCT 30.7 % (40.0-50.0); HGB 10.3 g/dL (13.5-17.5); MCH 35.8 pg (27.0-33.0); MCHC 33.6 % (32.0-36.0); MCV 107 fL (80-95); Platelet Count 443 10^3/uL (130-400); RBC 2.88 10^6/uL (4.36-5.78); RDW 12.8 % (11.8-14.1); RDW-SD 50.5 fL; WBC 16.49 10^3/uL (4.4-10.8)
[2022-03-11 09:12] LABS: Absolute Lymphocyte Count 1.15 10^3/uL (1.2-3.4); Absolute Monocyte Count 1.15 10^3/uL (0.1-0.8); Absolute Neutrophil Count 14.18 10^3/uL (1.2-6.7); Atypical Lymphocytes % 0; Bands % 0; Diff Comment Manual Differential
[2022-03-11 09:13] LABS: Macrocytosis 1+
[2022-03-11 09:30] LABS: ALT 11 U/L (16-63); AST 16 U/L (15-37); Albumin 3.2 g/dL (3.4-5.0); Alkaline Phosphatase 142 U/L (46-116); Anion Gap 6.5 mmol/L (3-11); BUN 32 mg/dL (7-18); Bilirubin, Total 0.4 mg/dL (0.2-1.0); CO2 31.5 mmol/L (21.0-32.0); CREATININE 2.1 mg/dL (0.70-1.30); Calcium 9.5 mg/dL (8.5-10.1); Chloride 98 mmol/L (98-107); Estimated GFR 30.85 (mL/min/1.73m2); FREE T4 1.23 ng/dL (0.76-1.46); Glucose 107 mg/dL (74-106); Magnesium 1.9 mg/dL (1.8-2.4); Potassium 4.8 mmol/L (3.5-5.1); Sodium 136 mmol/L (136-145); TSH 1.64 uIU/mL (0.36-3.74); Total Protein 7.3 g/dL (6.4-8.2)
== END 2022-03-29 23:59 | disposition home or self-care (01) ==
LOC: INF 02:57
PROVIDERS: PCP Internal Medicine; Visit Provider Internal Medicine Hematology & Oncology
DX: C01 Malignant neoplasm of base of tongue (principal); C76.0 Malignant neoplasm of head, face and neck; C77.0 Secondary and unspecified malignant neoplasm of lymph nodes of head, face and neck; T50.905D Adverse effect of unspecified drugs, medicaments and biological substances, subsequent encounter
CPT/HCPCS: 36415; 80053; 83735; 84439; 84443; 85025

== ENCOUNTER → 2022-03-29 00:55 | Outpatient (CLI) | payer MEDICARE, SELFPAY ==
--- NOTE | 2022-03-29 13:00 | DI.MRI_ITS ---
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 METS TECHNIQUE: Multiplanar multisequence MRI of the brain was performed. Today's examination was planne d as a without and with contrast study, but the patient has severely decreased renal function with a GFR of 30 so noncontrast scan only was performed. COMPARISON: No exams were available for comparison FINDINGS: There is moderate generalized cerebral atrophy. There is a left basal ganglia infarct measuring roug hly 10 millimeters in greatest diameter and a 3 millimeter right basal ganglia lacunar is also noted. . There are slight periventricular signal abnormalities and subcortical signal abnormalities consistent with mild microvascular ischemic changes. No other significant signal abnormality seen.. The orbital and temporal bone structures appear intact as does the pituitary. Diffusion weighted imaging shows no evidence of infarction. Susceptibility weighted imaging shows no evidence of intracranial hemorrhage. There is normal flow void in the [place] vasculature. IMPRESSION: Cerebral atrophy and slight microvascular ischemic changes. 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 No intr acranial mass lesion seen.. DATA REPOSITORY:
[2022-03-29 13:14] LABS: Abs Immature Grans 0.07 10^3/uL (0.0-0.06); Absolute Eosinophil Count 0.24 10^3/uL (0.0-0.7); Absolute Lymphocyte Count 0.73 10^3/uL (1.2-3.4); Absolute Monocyte Count 1.19 10^3/uL (0.1-0.8); Absolute Neutrophil Count 12.59 10^3/uL (1.2-6.7); Basophils % 0.3; Eosinophils % 1.6; HCT 27.4 % (40.0-50.0); HGB 9.1 g/dL (13.5-17.5); Immature Grans % 0.5; Lymphocytes % 4.9; MCH 35.1 pg (27.0-33.0); MCHC 33.2 % (32.0-36.0); MCV 106 fL (80-95); MPV 8.5 fL (8.0-11.0); Neutrophils % 84.7; Platelet Count 400 10^3/uL (130-400); RBC 2.59 10^6/uL (4.36-5.78); RDW 12.6 % (11.8-14.1); RDW-SD 48.8 fL; WBC 14.87 10^3/uL (4.4-10.8)
[2022-03-29 13:15] LABS: Absolute Basophil Count 0.04 10^3/uL (0.0-0.2)
[2022-03-29 13:38] LABS: ALT 11 U/L (16-63); AST 19 U/L (15-37); Albumin 3.4 g/dL (3.4-5.0); Alkaline Phosphatase 162 U/L (46-116); Anion Gap 7.4 mmol/L (3-11); BUN 25 mg/dL (7-18); Bilirubin, Total 0.5 mg/dL (0.2-1.0); CO2 28.6 mmol/L (21.0-32.0); CREATININE 2.1 mg/dL (0.70-1.30); Calcium 9.5 mg/dL (8.5-10.1); Chloride 98 mmol/L (98-107); Estimated GFR 30.85 (mL/min/1.73m2); FREE T4 1.19 ng/dL (0.76-1.46); Glucose 93 mg/dL (74-106); Potassium 4.4 mmol/L (3.5-5.1); Sodium 134 mmol/L (136-145); TSH 1.09 uIU/mL (0.36-3.74); Total Protein 7.3 g/dL (6.4-8.2)
--- NOTE | 2022-03-29 13:45 | DI.CT_ITS ---
Exam(s) CT CHEST WO EXAM: CT CHEST WO CLINICAL HISTORY: BASE OF TONGUE CA, C01, METASTATIC HEAD/NECK CA, RESTAGING TECHNIQUE: COMPARISON: CT CT CHEST W from 02/11/2022 FINDINGS: CT examination of the chest was performed without contrast administration due to decreased renal func tion. Images obtained through the upper abdomen show cholelithiasis, no focal abnormality seen involving pa ncreas, adrenals, spleen, or bile ducts. No intrahepatic lesion is seen. A previously described rig ht sided inferior pleural mass compresses and distorts the right hepatic lobe. Numerous previously noted right pleural metastases have markedly increased in size in comparison with prior examination February 11. A right pleural based mass with associated erosion of the right 4th rib has increased in size from approximately 8 x 3 cm to approximately 10 x 6 cm. A medially located pleural based mass has increased in size from about 2.7 cm to 4 cm. No gross mediastinal or hilar adenopathy. Tracheobronchial tree appears intact. Staple line again a ppears to be present in the right lung. No significant pleural effusion seen. No supraclavicular ad enopathy. No new left lung lesions identified. Incidental note is made of ectasia of the ascending aorta at about 5 cm. IMPRESSION: Marked interval increase in size of numerous pleural based presumed metastatic lesions on the right s nicole prior examination of February 11. No other significant change. RADIATION DOSE DELIVERED: 535.66mGy.cm Total DLP !Error CTDIvol DATA REPOSITORY: All CT scans at this facility are submitted to the National Radiology Data Registry (NRDR) Dose Index Registry (DIR) with the [employer] (ACR). RADIATION OPTIMIZATION: All CT scans at this facility use at least one of these dose optimization te chniques: automated exposure control; mA and/or kV adjustment per patient size (includes targeted exa ms where dose is matched to clinical indication); or iterative reconstruction.
== END ==
PROVIDERS: PCP Internal Medicine; Visit Provider Internal Medicine Hematology & Oncology
DX: C01 Malignant neoplasm of base of tongue (principal); G93.89 Other specified disorders of brain
CPT/HCPCS: 71250; 80053; 70551; 84439; 84443; 85025

== ENCOUNTER 2022-04-22 02:29 | Outpatient (RCR) | payer MEDICARE, SELFPAY ==
[2022-04-09 12:23] LABS: Abs Immature Grans 0.04 10^3/uL (0.0-0.06); Absolute Basophil Count 0.01 10^3/uL (0.0-0.2); Absolute Eosinophil Count 0.03 10^3/uL (0.0-0.7); Absolute Lymphocyte Count 0.38 10^3/uL (1.2-3.4); Absolute Monocyte Count 0.05 10^3/uL (0.1-0.8); Absolute Neutrophil Count 3.38 10^3/uL (1.2-6.7); Basophils % 0.3; Eosinophils % 0.8; HCT 24.5 % (40.0-50.0); HGB 8.4 g/dL (13.5-17.5); Lymphocytes % 9.8; MCH 34.6 pg (27.0-33.0); MCHC 34.3 % (32.0-36.0); MCV 101 fL (80-95); MPV 9.4 fL (8.0-11.0); Monocytes % 1.3; Neutrophils % 86.8; Platelet Count 306 10^3/uL (130-400); RBC 2.43 10^6/uL (4.36-5.78); RDW-SD 44.4 fL; WBC 3.89 10^3/uL (4.4-10.8)
[2022-04-09 14:01] LABS: ALT 23 U/L (16-63); AST 14 U/L (15-37); Albumin 3.5 g/dL (3.4-5.0); Alkaline Phosphatase 116 U/L (46-116); Anion Gap 10.4 mmol/L (3-11); BUN 42 mg/dL (7-18); Bilirubin, Total 0.7 mg/dL (0.2-1.0); CO2 24.6 mmol/L (21.0-32.0); CREATININE 1.9 mg/dL (0.70-1.30); Calcium 9.3 mg/dL (8.5-10.1); Chloride 96 mmol/L (98-107); Estimated GFR 34.79 (mL/min/1.73m2); FREE T4 1.08 ng/dL (0.76-1.46); Glucose 139 mg/dL (74-106); Magnesium 2.1 mg/dL (1.8-2.4); Potassium 4.5 mmol/L (3.5-5.1); Sodium 131 mmol/L (136-145); TSH 1.38 uIU/mL (0.36-3.74); Total Protein 6.9 g/dL (6.4-8.2)
[2022-04-22 10:21] LABS: Abs Immature Grans 0.19 10^3/uL (0.0-0.06); Absolute Basophil Count 0.02 10^3/uL (0.0-0.2); Absolute Eosinophil Count 0.03 10^3/uL (0.0-0.7); Absolute Lymphocyte Count 0.69 10^3/uL (1.2-3.4); Absolute Monocyte Count 0.59 10^3/uL (0.1-0.8); Basophils % 0.2; Eosinophils % 0.3; HCT 27.2 % (40.0-50.0); HGB 9.4 g/dL (13.5-17.5); Immature Grans % 1.6; MCH 35.1 pg (27.0-33.0); MCHC 34.6 % (32.0-36.0); MCV 102 fL (80-95); MPV 8.9 fL (8.0-11.0); Monocytes % 5.1; Neutrophils % 86.8; Platelet Count 292 10^3/uL (130-400); RBC 2.68 10^6/uL (4.36-5.78); RDW 12.9 % (11.8-14.1); RDW-SD 47.5 fL; WBC 11.58 10^3/uL (4.4-10.8)
[2022-04-22 10:23] LABS: Absolute Neutrophil Count 10.05 10^3/uL (1.2-6.7)
[2022-04-22 10:48] LABS: ALT 34 U/L (16-63); AST 17 U/L (15-37); Albumin 3.6 g/dL (3.4-5.0); Alkaline Phosphatase 116 U/L (46-116); Anion Gap 7.2 mmol/L (3-11); BUN 35 mg/dL (7-18); Bilirubin, Total 0.4 mg/dL (0.2-1.0); CO2 29.8 mmol/L (21.0-32.0); CREATININE 1.7 mg/dL (0.70-1.30); Chloride 96 mmol/L (98-107); Estimated GFR 39.75 (mL/min/1.73m2); FREE T4 1.09 ng/dL (0.76-1.46); Glucose 82 mg/dL (74-106); Magnesium 2.3 mg/dL (1.8-2.4); Potassium 4.2 mmol/L (3.5-5.1); Sodium 133 mmol/L (136-145); Total Protein 7.2 g/dL (6.4-8.2)
== END 2022-04-29 23:59 | disposition home or self-care (01) ==
LOC: INF 02:29
PROVIDERS: PCP Internal Medicine; Visit Provider Internal Medicine Hematology & Oncology
DX: C01 Malignant neoplasm of base of tongue (principal)
CPT/HCPCS: 36415; 80053; 83735; 84439; 84443; 85025

== ENCOUNTER → 2022-05-21 15:09 | Outpatient (CLI) | payer MEDICARE, SELFPAY ==
--- NOTE | 2022-05-21 | DI.RAD_ITS ---
Exam(s) XR CHEST 2V PA LATERAL EXAM: XR CHEST 2V PA LATERAL CLINICAL HISTORY: RT LOWER LOBE PNEUMONIA, J18.9; IMMUNOCOMPROMISED WITH PRODUCTIVE COUGH TECHNIQUE: 2D digital imaging was performed of the chest. Two images were obtained. PA and lateral views were obtained. COMPARISON: CR XR CHEST 2V PA LATERAL from 02/26/2022 FINDINGS: MEDIASTINUM: Normal. HEART: Normal. PULMONARY VASCULATURE: Normal. There is tortuosity of the thoracic aorta. LUNGS: There has been interval decrease in size of the soft tissue mass along the posterior lateral r ight hemithorax. No focal consolidating infiltrates are seen. PLEURAL SPACE: No pleural effusion or pneumothorax. BONE:Within normal limits for the patient's age. Stable thoracic compression deformities are seen. OTHER FINDINGS:Normal. IMPRESSION: 1. Interval decrease in size of the pleural based soft tissue mass in the right upper lobe. 2. No acute pulmonary process. DATA REPOSITORY: RADIATION DOSE DELIVERED:
== END ==
PROVIDERS: PCP Internal Medicine; Visit Provider Internal Medicine
DX: J18.9 Pneumonia, unspecified organism (principal); J98.4 Other disorders of lung; R05.8 Other specified cough; D84.89 Other immunodeficiencies
CPT/HCPCS: 71046

== ENCOUNTER 2022-05-29 02:11 | Outpatient (CLI) | payer MEDICARE, SELFPAY ==
--- NOTE | 2022-05-29 08:16 | DI.RAD_ITS ---
Exam(s) RF MODIFIED SPEECH BA SWALLOW TECHNIQUE: Modified barium swallow was performed in conjunction with speech pathology. CONTRAST MATERIAL: Oral barium Oral water soluble contrast was administered. COMPARISON: No exams were available for comparison FINDINGS: Note that this is not a dedicated esophagram, distal esophagus not evaluated. This study did reveal some aspiration. See speech therapist report for details. IMPRESSION: As above. Total fluoroscopy time: 3 minutes 14 seconds RADIATION DOSE DELIVERED: latia Romero=18.7 mGy
[2022-05-29] MEDS: Barium Sulfate 81% w/w for Oral Suspension 148 GM BTL PO (15:14)
[2022-05-29] MEDS: Barium Sulfate Oral Paste 40% W/V 230 ML TUBE PO (15:15)
[2022-05-29] MEDS: Barium Sulfate 40% W/V 240 ML BTL PO (15:16)
--- NOTE | 2022-05-29 15:24 | ST.MBS_ITS ---
Date of Service Date of service: 05/29/22 Time of Service: 14:30 Modified Barium Swallow Study Findings: Video fluoroscopic Swallowing Evaluation (VFSE) / Modified Barium Swallow Study (MBSS) Speech Language Pathology Report Patient referred for VFSE/MBSS from Dr. Perkins given difficulty swallowing in setting of late effects of XRT, with metastatic recurrence now on palliative chemotherapy and interested in trying swallow rehabilitation to increase QOL. 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 In the past year he has undergone several trials of chemotherapy but with continued advancement of disease. He is currently on trials of palliative chemotherapy with [facility] and followed by our palliative team. Previously followed by Sridevi Gan, SANNA at [facility], who recommended oral-pharyn geal exercises.? ? MBSS from 03/29/21: Overall Moderate-severe pharyngeal dysphagia with esophageal component, likely chronic; dysphagia presentation likely due to combination of atrophy and post-radiation change/radiation fibrosis, as well as possible link with reflux symptomology and reduced laryngeal sensation during aspiration event (noted x2, able to effectively clear aspirated material from airway first with cued cough, then with reflexive cough during second aspiration event at end of study, seen in a-p view). Patient does demonstrate hypertensive upper esophageal sphincter which appears to contribute to overall inefficiency of swallow process, which results in marked residue post swallow of most consistencies in both vallecular and pyriform sinus space; esophageal retention with retrograde flow below UES/PES is also noted, along with hypertrophy at C5-C6 level of cervical esophagus; patient is likely to benefit from GI consult with endoscopy and potential consideration of esophageal dilation as deemed appropriate and follow up with [facility] VICE PRESIDENT to re-assess efficiency of swallow mechanism with appropriate treatment plan of care. ? Jim continues to report difficulties swallowing especially solid foods and dense purees. He primarily consumes a liquid diet at this time and has been eating less purees and solids in recent weeks. 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 He will undergo chest CT 06/03/22 to monitor for changes to lung masses. IMPRESSIONS: Moderate-severe chronic oropharyngoesophageal dysphagia impacting both safety and efficiency of swallow mechanism. Swallow is characterized by slow oral transit, delayed swallow onset, reduced hyo-laryngeal motility, absent epiglottic inversion, minimal approximation of tongue base and pharyngeal wall muscles, and limited cricopharyngeus opening to allow pharyngeal clearance. ? These deficits resulted in consistent aspiration of thin and thickened liquids into the airway as well as significant (majority of bolus) puree and solid residue Clinical Indicator(s) of Prandial/Postprandial Aspiration were not observed (no spontaneous cough, throat clear, etc). Patient with inconsistent ability to clear aspirated liquids with cued cough. Patient appears to be at moderate risk for potential aspiration PNA and/or pulmonary compromise and high risk for malnutrition, moderate risk for dehydration. Diet modification is indicated; non-oral nutrition may become indicated pending patient's intake, goals of care, and medical status. Swallow prognosis is guarded/fair given significant late effects of XRT, current medical status/fatigue, age, pending cancer treatement and impacts of disease. However, he is very motivated to participate in swallow rehabilitation for quality of life, has a strong support system, and could be considered a candidate for Intensive [facility] if cleared by ENT and Oncology from a medical/prognostic standpoint, and pending patient goals. He is likely to remain aspirating small amounts of thin liquids, treatment program may increase his ability to increase intake of puree textures and with some possibility to reduce frequency/amount of aspiration. He will be a good candidate for training in risk management strategies such as oral care measures. May not be a good candidate for trismus therapy or GI treatments such as esophageal dilation; will discuss with ENT. RECOMMENDATIONS: Diet Texture Recommendation:? IDDSI LEVEL SOLIDS 3-Liquidised Solids LIQUIDS 0-Thin Liquids Please see further details at?www.iddsi.org http://www.iddsi.org/ MEDICATIONS Crushed, as able with 0-Thin Liquids Diet texture modification is per patient's preference; please adjust diet textures at patient's discretion & collaboration with care team. Do not alter medications (e.g., cut)? without advice from your MD or pharmacist. Risk Management Strategies:? Behavioral reflux precautions, including upright position during + 90 mins after meals. Very small sips, approx 1/2 tsp Multiple swallows per bolus to encourage clearance of pharyngeal stasis/residue Control risk factors for aspiration pneumonia via (a) thorough oral hygiene & (b) maintaining physical mobility as tolerated PLAN: Therapy: Recommend subsequent outpatient session with [facility] CON[employer]ER SE[employer] VICE PRESIDENT to review results of today's exam and develop treatment plan as appropriate. May consider the following: Targeted Oropharyngeal Exercise, Further Compensatory Strategy Training, Further Training/Education in Risk Management, Further Counseling re: Options for maintaining quality of life in context of dysphagia presentation Goals: 1. Patient/caregivers will verbalize understanding of education r/t results of this study, impact of radiation on jail swallow function, options for maintaining quality of life in context of dysphagia presentation, prognosis for swallow improvement, and rationale for recommended treatment plan and swallow strategies/risk management strategies. Further goals TBD pending patient/caregiver interview. ----- OBJECTIVE Videofluoroscopic Swallow Evaluation (VFSE/MBSS) was conducted in the lateral[ and [id number]] projection by Speech-Language Pathologist, in collaboration with Radiologist, to evaluate oropharyngeal swallow function. Anatomic view under fluoroscopy: noting presence of cricopharyngeal prominence at UES. PO Barium Contrast Trials Oral barium water-soluble contrast was administered as follows: IDDSI Level 0 Varibar thin liquid (40% w/v) IDDSI Level 2 Varibar nectar thick/mildly thick liquid (40% w/v) IDDSI Level 4 Varibar pudding/pureed/extremely thick (40% w/v) IDDSI Level 7 Regular Solid: 1/2 omid cracker coated in 3 mL Varibar pudding MBSImP Component Scores: COMPONENT Scale SCORE 1 Lip closure (0-4) 0 Resulted in no labial escape 2 Hold Position (0-3) 0 Maintained a cohesive bolus between tongue to palatal seal 3 Bolus Preparation (0-4) 1 Resulted in slow prolonged chewing/mashing with complete re-collection 4 Bolus Transport (0-4) 2 Was with slowed tongue motion 5 Oral Residue (0-4) 2 Was a collection on oral structures 6 Swallow Initiation (0-4) 3 Occurred when the bolus head was in the pyriform sinuses 7 Soft Palate Elevation (0-4) 0 Resulted in no bolus between soft palate and t he pharyngeal wall 8 Laryngeal Elevation (0-3) 1 Was decreased with partial superior movement of thyroid cartilage/partial approximation of arytenoids to epiglottic petiole 9 Anterior Hyoid Motion (0-2) 1 Demonstrated partial anterior movement (minima l anterior movement) 10 Epiglottic Movement (0-2) 2 Resulted in no inversion 11 Laryngeal Closure (0-2) 1 Was incomplete with narrow a column of air/contra st in laryngeal vestibule 12 Pharyngeal Stripping Wave (0-2) 2 Was absent 13 Pharyngeal Contraction (0-3) NA 14 PES Opening (0-3) 2 Demonstrated minimal distension/minimal duration, with marked obstruction of flow 15 Tongue Base Retraction (0-4) 3 Allowed a wide column of contrast or air between the retracted tongue base and the posterior pharyngeal wall 16 Pharyngeal Residue (0-4) 3 Was the majority of contrast within or on pharyngeal structures 17 Esophageal Clearance (0-4) NA Note: No A/P view observed but able to observe some retrograde flow through UES likeley secondary to CP bar. Results: COMPONENT Scale SCORE 1 Oral Score (0-18) 8 2 Pharyngeal Score (0-29) 15 3 Esophageal Score (0-4) 0 (N/A - Not ab le to score) Dysphagia Outcome and Severity Scale: COMPONENT Scale SCORE 1 LEVEL (1-7) 3 Full PO - Modified diet and/or independence, Moderate dysphagi a; Total assist or strategies, 2 or more diet consistencies restricted. May become Level 2 (Partial Nonoral Nutrition necessary) Penetration-Aspiration Scale: COMPONENT Scale SCORE 1 Thin liquid (1-8) 8 Contrast entered the airway, passed below the vocal fold s, and no effort was made to eject. 2 Jarrell thick (1-8) 8 Contrast entered the airway, passed below the vocal fol d s, and no effort was made to eject. 3 Honey thick (1-8) NA 4 Pudding thick (1-8) 1 Contrast did not enter the airway 5 Cookie (1-8) 1 Contrast did not enter the airway Functional Oral Intake Scale: COMPONENT Scale SCORE 1 Pre-Study (1-7) 5 Total oral intake of multiple consistencies requiring s pecial preparation 2 Post-Study (1-7) 5 Total oral intake of multiple consistencies requiring special preparation DIGEST: COMPONENT Scale SCORE 1 Thin Max PAS (1-8) 8 Contrast entered the airway, passed below the vocal fol ds, and no effort was made to eject. 2 Jarrell Max PAS (1-8) 8 Contrast entered the airway, passed below the vocal folds, and no effort was made to eject. 3 Honey Max PAS (1-8) NA 4 Liquid Max PAS (1-8) 8 Maximum PAS Score over all liquid trials 5 Liquid Max Residue (0-3) 1 10 - 49% 6 Pudding Max PAS (1-8) 1 Contrast did not enter the airway 7 Pudding Max Residue (0-3) 3 above 90% 8 Cracker Max PAS (1-8) 1 Contrast did not enter the airway 9 Cracker Max Residue (0-3) 3 above 90% 10 Frequency if PAS >= 3 (0-3) 3 Chronic (50% or more of thin liquid trails and/or more than one consistency) 11 Amount if PAS >= 5 (0-1) 0 Not gross Results: COMPONENT Scale SCORE 1 SAFETY GRADE (0-4) 3 Safety grade for swallowing based on patterns of aspiration or laryngeal penetration 2 EFFICIENCY GRADE (0-4) 3 Efficiency grade of swallowing based on patterns of pharyngeal residue 3 DIGEST (0-4) 3 Severity grade of pharyngeal dysphagia: 0 - Normal, 1 - Mild, 2 - Moderate, 3 - Severe, 4 - Life threatening 4 Max Exam PAS (1-8) 8 Maximum PAS Score over all bolus trials 5 Max Exam Residue (0-3) 3 Maximum Exam Residue over all bolus trials Trialed Compensatory Strategies & Outcome: Maneuvers Successful (+) Unsuccessful (-) Postures Successful (+) Unsuccessful (-) 3 second Preparatory Set? ? - Chin Tuck Posture? ? Cough? ? Posterior Head tilt? Reflexive? Cued? ? - ? ? Throat Clear? ? Head Tilt to? Reflexive? Left? Cued? ? - ? Right? ? Saliva swallow? ? + reduce pharyngeal stasis Head Turn/Rotate to? ? Supraglottic Swallow? Left? ? no improvement in pharyngeal residue Super-supraglottic Swallow? Right? ? no improvement in pharyngeal residue Bolus Modifications Successful (+) Unsuccessful (-) Delivery/Alternating Consistencies ? Follow with Liquid Wash + reduces puree/regular residue but aspirates on liquids ? Follow with Solid Bolus? Delivery/Via Straw? ? Reduced Volume? ? + Reduced Rate of Intake? ? Increased Viscosity? ? +/- decreases aspiration, increases residue Other:?? ? Reduce viscosity to reduce pharyngeal residue Thank you for allowing us to take part in this patient's care. Please feel free to contact the [facility] Speech Language Pathology Department with any questions/concerns. Coding CPT Codes MOTION FLUOROSCOPY/SWALLOW - [id number] ([id number])
== END 2022-05-29 02:31 ==
PROVIDERS: PCP Internal Medicine; Visit Provider Otolaryngology
DX: C02.9 Malignant neoplasm of tongue, unspecified (principal); R13.10 Dysphagia, unspecified
CPT/HCPCS: 92611; 74221

== ENCOUNTER 2022-05-29 03:10 | Outpatient (RCR) | payer MEDICARE, SELFPAY ==
[2022-05-13 09:03] LABS: Abs Immature Grans 0.46 10^3/uL (0.0-0.06); Absolute Basophil Count 0.02 10^3/uL (0.0-0.2); Absolute Eosinophil Count 0.05 10^3/uL (0.0-0.7); Absolute Lymphocyte Count 0.93 10^3/uL (1.2-3.4); Absolute Monocyte Count 0.82 10^3/uL (0.1-0.8); Basophils % 0.2; Eosinophils % 0.4; HCT 29.7 % (40.0-50.0); Lymphocytes % 8.1; MCH 34.4 pg (27.0-33.0); MCHC 33.7 % (32.0-36.0); MCV 102 fL (80-95); MPV 9.1 fL (8.0-11.0); Monocytes % 7.1; Neutrophils % 80.2; Platelet Count 400 10^3/uL (130-400); RBC 2.91 10^6/uL (4.36-5.78); RDW 14.9 % (11.8-14.1); RDW-SD 54.1 fL; WBC 11.48 10^3/uL (4.4-10.8)
[2022-05-13 09:06] LABS: Absolute Neutrophil Count 9.21 10^3/uL (1.2-6.7)
[2022-05-13 09:28] LABS: ALT 37 U/L (16-63); AST 18 U/L (15-37); Albumin 3.7 g/dL (3.4-5.0); Alkaline Phosphatase 104 U/L (46-116); Anion Gap 9.9 mmol/L (3-11); BUN 47 mg/dL (7-18); Bilirubin, Total 0.6 mg/dL (0.2-1.0); CO2 27.1 mmol/L (21.0-32.0); CREATININE 1.8 mg/dL (0.70-1.30); Calcium 9.5 mg/dL (8.5-10.1); Chloride 96 mmol/L (98-107); Estimated GFR 37.12 (mL/min/1.73m2); FREE T4 1.21 ng/dL (0.76-1.46); Glucose 97 mg/dL (74-106); Magnesium 2.3 mg/dL (1.8-2.4); Potassium 4.5 mmol/L (3.5-5.1); Sodium 133 mmol/L (136-145); Total Protein 7.7 g/dL (6.4-8.2)
== END 2022-05-29 23:59 | disposition home or self-care (01) ==
LOC: INF 03:10
PROVIDERS: PCP Internal Medicine; Visit Provider Internal Medicine Hematology & Oncology
DX: C01 Malignant neoplasm of base of tongue (principal); C76.0 Malignant neoplasm of head, face and neck; C77.0 Secondary and unspecified malignant neoplasm of lymph nodes of head, face and neck; T50.905D Adverse effect of unspecified drugs, medicaments and biological substances, subsequent encounter
CPT/HCPCS: 36415; 80053; 96372; Q0221; 83735; 84439; 84443; 85025

== ENCOUNTER → 2022-06-04 02:16 | Outpatient (CLI) | payer MEDICARE, SELFPAY ==
--- NOTE | 2022-06-04 10:01 | DI.CT_ITS ---
Exam(s) CT CHEST WO EXAM: CT CHEST WO CLINICAL HISTORY: MESTATATIC HEAD/NECK CA, BASE OF TONGUE CA, C01, RESTAGING. TECHNIQUE: Imaging protocol: Axial computed tomography images were obtained and coronal and sagittal reformatted images were created and reviewed. COMPARISON: CT CT CHEST WO from 03/29/2022 FINDINGS: Tracheobronchial tree: Patent where visualized. Pulmonary parenchyma: There has been a significant decrease in size of the right pleural based masses since 03/29/2022. The mass associated with the right major fissure now measures 0.6 x 0.8 cm. This compares to 1.3 x 1.1 cm. The mass in the lateral aspect of the right middle lobe measures 1.2 x 0.5 cm. This compares to 1.6 x 1.1 cm. The mass along the right lateral chest wall measures 8.2 x 2.0 cm. This compares to a 9.8 x 5.8 cm. No new pulmonary nodules are seen. There is again seen a stap le line in the right upper lobe. There is a nodular infiltrate in the lung right lung base medially. It appears slightly more prominent compared to the prior examination. No focal consolidating infil trates are seen. Mediastinum and Suzette: No dominant adenopathy or fluid collection. The esophagus is unremarkable. Thyroid gland: Appears atrophic. Pleura: No effusion or pneumothorax. Heart: The heart is not dilated. Coronary artery calcification and/or stents are seen. No pericardia l effusion. Aorta: Thoracic aorta non-dilated. There is again seen a 5.1 cm ascending thoracic aortic aneurysm. Upper abdomen: Cholelithiasis. No biliary ductal dilatation. Colonic diverticulosis without eviden ce of acute diverticulitis. Lymph nodes: Within normal limits. Soft tissues: Unremarkable. Bones:Within normal limits for the patient's age. Unchanged erosions involving the right 4th rib lat erally. IMPRESSION: 1. Interval decrease in size of the pleural masses since 03/29/2022. 2. Stable thoracic aortic ascending aneurysm. 3. Nodular infiltrate in the right lung base. This may represent an infectious or inflammatory proce ss versus metastases. RADIATION DOSE DELIVERED: 525.08mGy.cm Total DLP 525.08mGy.cm Total DLP DATA REPOSITORY: All CT scans at this facility are submitted to the National Radiology Data Registry (NRDR) Dose Index Registry (DIR) with the [employer] ([employer]). RADIATION OPTIMIZATION: All CT scans at this facility use at least one of these dose optimization te chniques: automated exposure control; mA and/or kV adjustment per patient size (includes targeted exa ms where dose is matched to clinical indication); or iterative reconstruction.
== END ==
PROVIDERS: PCP Internal Medicine; Visit Provider Internal Medicine Hematology & Oncology
DX: R91.8 Other nonspecific abnormal finding of lung field (principal); C01 Malignant neoplasm of base of tongue
CPT/HCPCS: 71250

== ENCOUNTER 2022-06-10 10:00 | Outpatient (RCR) | payer MEDICARE, SELFPAY ==
[2022-06-10 10:24] LABS: Abs Immature Grans 0.11 10^3/uL (0.0-0.06); Absolute Basophil Count 0.03 10^3/uL (0.0-0.2); Absolute Eosinophil Count 0.07 10^3/uL (0.0-0.7); Absolute Lymphocyte Count 0.44 10^3/uL (1.2-3.4); Absolute Neutrophil Count 6.81 10^3/uL (1.2-6.7); Basophils % 0.4; Eosinophils % 0.9; HCT 25.4 % (40.0-50.0); HGB 8.3 g/dL (13.5-17.5); Immature Grans % 1.4; Lymphocytes % 5.5; MCH 34.3 pg (27.0-33.0); MCHC 32.7 % (32.0-36.0); MCV 105 fL (80-95); MPV 9.2 fL (8.0-11.0); Monocytes % 6.3; Neutrophils % 85.5; Platelet Count 204 10^3/uL (130-400); RBC 2.42 10^6/uL (4.36-5.78); RDW 16.4 % (11.8-14.1); RDW-SD 63.7 fL; WBC 7.96 10^3/uL (4.4-10.8)
[2022-06-10 10:51] LABS: ALT 27 U/L (16-63); AST 23 U/L (15-37); Albumin 3.1 g/dL (3.4-5.0); Alkaline Phosphatase 152 U/L (46-116); Anion Gap 7.3 mmol/L (3-11); BUN 25 mg/dL (7-18); Bilirubin, Total 0.9 mg/dL (0.2-1.0); CO2 27.7 mmol/L (21.0-32.0); CREATININE 1.8 mg/dL (0.70-1.30); Chloride 97 mmol/L (98-107); Estimated GFR 37.12 (mL/min/1.73m2); FREE T4 1.04 ng/dL (0.76-1.46); Glucose 107 mg/dL (74-106); Magnesium 1.9 mg/dL (1.8-2.4); Potassium 5.1 mmol/L (3.5-5.1); Sodium 132 mmol/L (136-145); TSH 2.92 uIU/mL (0.36-3.74); Total Protein 6.8 g/dL (6.4-8.2)
== END 2022-06-29 23:59 | disposition home or self-care (01) ==
LOC: INF 10:00
PROVIDERS: PCP Internal Medicine; Visit Provider Internal Medicine Hematology & Oncology
DX: C01 Malignant neoplasm of base of tongue (principal)
CPT/HCPCS: 36415; 80053; 83735; 84439; 84443; 85025

== ENCOUNTER 2022-07-17 15:47 | Outpatient (CLI) | payer MEDICARE, SELFPAY ==
--- NOTE | 2022-07-17 | DI.RAD_ITS ---
Exam(s) XR CHEST 2V PA LATERAL EXAM: XR CHEST 2V PA LATERAL CLINICAL HISTORY: CANCER BASE OF TONGUE C01, METS, RT RIB PAIN ? FX. TECHNIQUE: 2D digital imaging was performed. COMPARISON: CR XR CHEST 2V PA LATERAL from 05/21/[address] CHEST WO from 06/04/2022 FINDINGS: 2 views: Heart size is normal. The mediastinum is not widened. Left lung is clear. On the right side there is an increasing size spiculated pleural base mass in the peripheral aspect o f the right upper lobe as well as other pleural based densities on the right side. Suspicious for ne oplasm. No obvious rib destruction on these limited images. No large pleural effusions. IMPRESSION: Right-side findings as described above which are concerning for peripheral lung neoplastic infiltrate . Follow-up CT scan recommended. DATA REPOSITORY: RADIATION DOSE DELIVERED:
== END 2022-07-17 16:07 ==
PROVIDERS: PCP Internal Medicine; Visit Provider Internal Medicine Hematology & Oncology
DX: C01 Malignant neoplasm of base of tongue (principal); R07.81 Pleurodynia; R91.8 Other nonspecific abnormal finding of lung field
CPT/HCPCS: 71046

== ENCOUNTER 2022-07-25 02:06 | Outpatient (RCR) | payer MEDICARE, SELFPAY ==
[2022-07-15 12:51] LABS: Abs Immature Grans 0.05 10^3/uL (0.0-0.06); Absolute Basophil Count 0.05 10^3/uL (0.0-0.2); Absolute Eosinophil Count 0.18 10^3/uL (0.0-0.7); Absolute Lymphocyte Count 1.04 10^3/uL (1.2-3.4); Absolute Monocyte Count 1.12 10^3/uL (0.1-0.8); Basophils % 0.4; Eosinophils % 1.4; HCT 30.4 % (40.0-50.0); HGB 9.9 g/dL (13.5-17.5); Immature Grans % 0.4; MCHC 32.6 % (32.0-36.0); MCV 101 fL (80-95); MPV 9.2 fL (8.0-11.0); Monocytes % 8.6; Neutrophils % 81.2; Platelet Count 388 10^3/uL (130-400); WBC 13.04 10^3/uL (4.4-10.8)
[2022-07-15 12:55] LABS: Absolute Neutrophil Count 10.59 10^3/uL (1.2-6.7)
[2022-07-15 14:33] LABS: ALT 16 U/L (16-63); AST 29 U/L (15-37); Albumin 3.8 g/dL (3.4-5.0); Alkaline Phosphatase 199 U/L (46-116); Anion Gap 12.5 mmol/L (3-11); BUN 20 mg/dL (7-18); Bilirubin, Total 0.5 mg/dL (0.2-1.0); CO2 25.5 mmol/L (21.0-32.0); CREATININE 1.8 mg/dL (0.70-1.30); Calcium 9.5 mg/dL (8.5-10.1); Chloride 97 mmol/L (98-107); Estimated GFR 37.12 (mL/min/1.73m2); Glucose 105 mg/dL (74-106); Potassium 4.1 mmol/L (3.5-5.1); Sodium 135 mmol/L (136-145); Total Protein 7.8 g/dL (6.4-8.2)
[2022-07-25 12:26] LABS: Abs Immature Grans 0.03 10^3/uL (0.0-0.06); Absolute Basophil Count 0.04 10^3/uL (0.0-0.2); Absolute Eosinophil Count 0.28 10^3/uL (0.0-0.7); Absolute Lymphocyte Count 0.76 10^3/uL (1.2-3.4); Absolute Monocyte Count 0.31 10^3/uL (0.1-0.8); Basophils % 0.6; Eosinophils % 4.2; HCT 28.8 % (40.0-50.0); HGB 9.4 g/dL (13.5-17.5); Immature Grans % 0.5; Lymphocytes % 11.5; MCH 32.5 pg (27.0-33.0); MCHC 32.6 % (32.0-36.0); MCV 100 fL (80-95); MPV 9.3 fL (8.0-11.0); Monocytes % 4.7; Neutrophils % 78.5; Platelet Count 467 10^3/uL (130-400); RBC 2.89 10^6/uL (4.36-5.78); RDW 12.7 % (11.8-14.1); RDW-SD 45.8 fL; WBC 6.62 10^3/uL (4.4-10.8)
[2022-07-25 12:50] LABS: ALT 16 U/L (16-63); AST 20 U/L (15-37); Albumin 3.5 g/dL (3.4-5.0); Alkaline Phosphatase 162 U/L (46-116); BUN 24 mg/dL (7-18); Bilirubin, Total 0.4 mg/dL (0.2-1.0); CREATININE 1.8 mg/dL (0.70-1.30); Calcium 9.7 mg/dL (8.5-10.1); Chloride 99 mmol/L (98-107); Estimated GFR 37.12 (mL/min/1.73m2); Glucose 105 mg/dL (74-106); Potassium 5.3 mmol/L (3.5-5.1); Sodium 134 mmol/L (136-145); Total Protein 7.3 g/dL (6.4-8.2)
== END 2022-07-30 23:59 | disposition home or self-care (01) ==
LOC: INF 02:06
PROVIDERS: PCP Internal Medicine; Visit Provider Internal Medicine Hematology & Oncology
DX: C01 Malignant neoplasm of base of tongue (principal)
CPT/HCPCS: 36415; 80053; 85025

== ENCOUNTER 2022-08-26 02:03 | Outpatient (RCR) | payer MEDICARE, SELFPAY ==
[2022-08-05 09:43] LABS: Abs Immature Grans 0.03 10^3/uL (0.0-0.06); Absolute Basophil Count 0.04 10^3/uL (0.0-0.2); Absolute Eosinophil Count 0.14 10^3/uL (0.0-0.7); Absolute Lymphocyte Count 0.92 10^3/uL (1.2-3.4); Absolute Monocyte Count 0.71 10^3/uL (0.1-0.8); Absolute Neutrophil Count 3.59 10^3/uL (1.2-6.7); Basophils % 0.7; Eosinophils % 2.6; HCT 28.3 % (40.0-50.0); HGB 9.2 g/dL (13.5-17.5); Immature Grans % 0.6; Lymphocytes % 16.9; MCH 31.9 pg (27.0-33.0); MCHC 32.5 % (32.0-36.0); MCV 98 fL (80-95); Monocytes % 13.1; Neutrophils % 66.1; Platelet Count 471 10^3/uL (130-400); RBC 2.88 10^6/uL (4.36-5.78); RDW 13.4 % (11.8-14.1); RDW-SD 48.2 fL; WBC 5.43 10^3/uL (4.4-10.8)
[2022-08-05 10:25] LABS: ALT 11 U/L (16-63); AST 19 U/L (15-37); Albumin 3.2 g/dL (3.4-5.0); Alkaline Phosphatase 140 U/L (46-116); Anion Gap 9.1 mmol/L (3-11); BUN 19 mg/dL (7-18); Bilirubin, Total 0.4 mg/dL (0.2-1.0); CO2 26.9 mmol/L (21.0-32.0); CREATININE 1.8 mg/dL (0.70-1.30); Calcium 9.2 mg/dL (8.5-10.1); Chloride 99 mmol/L (98-107); Estimated GFR 37.12 (mL/min/1.73m2); Glucose 93 mg/dL (74-106); Potassium 4.1 mmol/L (3.5-5.1); Sodium 135 mmol/L (136-145); Total Protein 6.6 g/dL (6.4-8.2)
[2022-08-05] MEDS: Normal Saline Flush 10 ML SYR IVP (10:51)
[2022-08-12] MEDS: Normal Saline Flush 10 ML SYR IVP (07:45)
[2022-08-12 08:06] LABS: Abs Immature Grans 0.03 10^3/uL (0.0-0.06); Absolute Basophil Count 0.05 10^3/uL (0.0-0.2); Absolute Eosinophil Count 0.17 10^3/uL (0.0-0.7); Absolute Monocyte Count 0.41 10^3/uL (0.1-0.8); Absolute Neutrophil Count 3.72 10^3/uL (1.2-6.7); Basophils % 0.9; HGB 9.4 g/dL (13.5-17.5); Immature Grans % 0.5; Lymphocytes % 21.5; MCH 31.8 pg (27.0-33.0); MCHC 32.4 % (32.0-36.0); MCV 98 fL (80-95); MPV 9.5 fL (8.0-11.0); Monocytes % 7.3; Neutrophils % 66.8; Platelet Count 412 10^3/uL (130-400); RBC 2.96 10^6/uL (4.36-5.78); RDW 13.2 % (11.8-14.1); RDW-SD 47.3 fL; WBC 5.58 10^3/uL (4.4-10.8)
[2022-08-12 08:25] LABS: ALT 10 U/L (16-63); AST 19 U/L (15-37); Albumin 3.1 g/dL (3.4-5.0); Alkaline Phosphatase 138 U/L (46-116); Anion Gap 8.7 mmol/L (3-11); BUN 21 mg/dL (7-18); Bilirubin, Total 0.3 mg/dL (0.2-1.0); CO2 28.3 mmol/L (21.0-32.0); CREATININE 1.8 mg/dL (0.70-1.30); Calcium 9.3 mg/dL (8.5-10.1); Chloride 100 mmol/L (98-107); Estimated GFR 37.12 (mL/min/1.73m2); Glucose 89 mg/dL (74-106); Potassium 4.1 mmol/L (3.5-5.1); Sodium 137 mmol/L (136-145); Total Protein 6.6 g/dL (6.4-8.2)
[2022-08-19] MEDS: Normal Saline Flush 10 ML SYR IVP (07:53)
[2022-08-19 07:59] LABS: Abs Immature Grans 0.02 10^3/uL (0.0-0.06); Absolute Basophil Count 0.04 10^3/uL (0.0-0.2); Absolute Eosinophil Count 0.12 10^3/uL (0.0-0.7); Absolute Lymphocyte Count 1.34 10^3/uL (1.2-3.4); Absolute Monocyte Count 0.31 10^3/uL (0.1-0.8); Absolute Neutrophil Count 2.59 10^3/uL (1.2-6.7); Basophils % 0.9; Eosinophils % 2.7; HCT 26.3 % (40.0-50.0); HGB 8.8 g/dL (13.5-17.5); Immature Grans % 0.5; Lymphocytes % 30.3; MCHC 33.5 % (32.0-36.0); MCV 96 fL (80-95); MPV 9.4 fL (8.0-11.0); Neutrophils % 58.6; Platelet Count 417 10^3/uL (130-400); RBC 2.75 10^6/uL (4.36-5.78); RDW 13.7 % (11.8-14.1); RDW-SD 47.8 fL; WBC 4.42 10^3/uL (4.4-10.8)
[2022-08-19 08:12] LABS: ALT 11 U/L (16-63); AST 17 U/L (15-37); Albumin 3.2 g/dL (3.4-5.0); Alkaline Phosphatase 109 U/L (46-116); Anion Gap 10.4 mmol/L (3-11); BUN 21 mg/dL (7-18); Bilirubin, Total 0.3 mg/dL (0.2-1.0); CO2 23.6 mmol/L (21.0-32.0); CREATININE 1.8 mg/dL (0.70-1.30); Calcium 9.1 mg/dL (8.5-10.1); Chloride 101 mmol/L (98-107); Estimated GFR 37.12 (mL/min/1.73m2); Glucose 102 mg/dL (74-106); Potassium 4.4 mmol/L (3.5-5.1); Sodium 135 mmol/L (136-145); Total Protein 6.5 g/dL (6.4-8.2)
[2022-08-26] MEDS: Normal Saline Flush 10 ML SYR IVP (11:49)
[2022-08-26 11:55] LABS: Abs Immature Grans 0.05 10^3/uL (0.0-0.06); Absolute Basophil Count 0.04 10^3/uL (0.0-0.2); Absolute Eosinophil Count 0.06 10^3/uL (0.0-0.7); Absolute Lymphocyte Count 0.74 10^3/uL (1.2-3.4); Absolute Monocyte Count 0.28 10^3/uL (0.1-0.8); Absolute Neutrophil Count 3.92 10^3/uL (1.2-6.7); Basophils % 0.8; Eosinophils % 1.2; HGB 8.8 g/dL (13.5-17.5); Lymphocytes % 14.5; MCHC 33.8 % (32.0-36.0); MCV 95 fL (80-95); MPV 9.5 fL (8.0-11.0); Monocytes % 5.5; Platelet Count 438 10^3/uL (130-400); RBC 2.75 10^6/uL (4.36-5.78); RDW 14.3 % (11.8-14.1); RDW-SD 48.5 fL; WBC 5.09 10^3/uL (4.4-10.8)
[2022-08-26 12:10] LABS: ALT 15 U/L (16-63); AST 12 U/L (15-37); Albumin 3.5 g/dL (3.4-5.0); Alkaline Phosphatase 91 U/L (46-116); Anion Gap 11.9 mmol/L (3-11); BUN 25 mg/dL (7-18); Bilirubin, Total 0.4 mg/dL (0.2-1.0); CO2 23.1 mmol/L (21.0-32.0); Calcium 9.5 mg/dL (8.5-10.1); Chloride 100 mmol/L (98-107); Estimated GFR 32.71 (mL/min/1.73m2); Glucose 130 mg/dL (74-106); Potassium 4.3 mmol/L (3.5-5.1); Sodium 135 mmol/L (136-145); Total Protein 6.6 g/dL (6.4-8.2)
== END 2022-08-27 23:59 | disposition home or self-care (01) ==
LOC: INF 02:03
PROVIDERS: PCP Internal Medicine; Visit Provider Internal Medicine Hematology & Oncology
DX: C01 Malignant neoplasm of base of tongue (principal); Z45.2 Encounter for adjustment and management of vascular access device
CPT/HCPCS: 36591; 80053; 85025

== ENCOUNTER 2022-09-05 01:24 | Outpatient (CLI) | payer MEDICARE, SELFPAY ==
[2022-09-05] MEDS: Barium Sulfate 2% W/V-Berry Smoothie 450 ML BTL 900 ML PO (08:15)
[2022-09-05] MEDS: Omnipaque 350 MG/ML 500 ML BTL-Imaging package IJ (09:59)
[2022-09-05] MEDS: Normal Saline - Diluent 50 ML VIAL IJ (09:59)
--- NOTE | 2022-09-05 10:00 | DI.CT_ITS ---
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 TECHNIQUE: Imaging Protocol: Axial computed tomography images with coronal and sagittal reformatted images were created and reviewed CONTRAST MATERIAL: Intravenous: Omnipaque 350 Contrast volume:98 ml Oral: yes / COMPARISON: CT CT NECK CHEST ABD W from 05/18/[address] CHEST W from 02/11/[address] CHEST WO from 03/29/[address] CHEST WO from 06/04/2022 FINDINGS: CHEST: A port is now noted over the right upper chest wall with tip in the superior vena cava. Tracheobronchial tree: Patent where visualized. Pulmonary parenchyma: Staple line right upper lobe. Marked interval worsening of multiple right-side d masses. The pleural based mass along the lateral aspect of the right upper chest is now measures 9.2 by 1.7 b y 4 cm. This now appears nearly confluent with masses extending along the posterior aspect of the ch est wall. Significant interval increase in size of mass seen the medial right lower lobe, now measuring 4 x 2.5 by 3.5 cm. Mass seen at anterolateral right lung base now measures 7 x 4.5 by 6.3 cm. Other smaller areas of nodularity along the right pleural have also increased. Numerous small pulmonary nodules are noted at the right lung base. Most of these appear new from erick or. 14 millimeter mass at the right major fissure, also significantly increased in size. No left-sided abnormalities identified. Pleura: No effusion or pneumothorax. Lymph nodes: Within normal limits. Pulmonary arteries: No evidence of emboli. Aorta: Ascending aorta dilated to 5 cm, unchanged.. Heart: Left atrial dilatation. Coronary artery calcifications. No pericardial effusion. Bones: Worsening of right 4th rib destruction adjacent to the mass in the lateral right upper lobe w ith extension through the chest wall. Stable compression fractures. ABDOMEN: Liver: Normal density. New 9 millimeter hypodensity superior anterior right lobe. Tiny hypodensity i n the dome of the liver appears unchanged. Gallbladder and biliary tract: Gallbladder sludge and or small layering stones. No biliary dilation. Pancreas: Normal density, no abnormal calcifications or inflammatory process. Spleen: Normal. Kidneys: Normal size, contour and axis. No radiodense stones or obstructive uropathy. No suspicious m asses seen. Adrenal glands: No masses seen. Aorta: Abdominal portion non-dilated. Lymph nodes: Within normal limits. Soft tissues: Stable appearance midline abdominal wall hernia above the level of umbilicus.. Loop of bowel appears nonobstructed. PELVIS: Bladder: Symmetric distention, no gross wall thickening. Bowel: No obstruction or bowel wall thickening. Peritoneal cavity: No ascites, collection or mesenteric inflammatory response. Bones: Right hip prosthesis. Degenerative changes in lumbar spine. No lytic or blastic lesions iden tified. Reproductive organs: Enlarged prostate. IMPRESSION: Marked interval increase in size of previously noted multiple right sided pleural based masses. Incr eased size and number pulmonary nodules at the right lung base. Increase in bony destruction of the right 4th rib by the pleural based mass New low-density lesion in the upper liver could represent a metastatic focus. No evidence of adenopa thy or suspicious bony lesions. RADIATION DOSE DELIVERED: 1,645.39mGy.cm Total DLP DATA REPOSITORY: All CT scans at this facility are submitted to the National Radiology Data Registry (NRDR) Dose Index Registry (DIR) with the [employer] (A[employer]). RADIATION OPTIMIZATION: All CT scans at this facility use at least one of these dose optimization te chniques: automated exposure control; mA and/or kV adjustment per patient size (includes targeted exa ms where dose is matched to clinical indication); or iterative reconstruction.
== END 2022-09-05 01:44 ==
PROVIDERS: PCP Internal Medicine; Visit Provider Nurse Practitioner Adult Health
DX: C34.11 Malignant neoplasm of upper lobe, right bronchus or lung (principal); K12.1 Other forms of stomatitis; R04.2 Hemoptysis; R91.8 Other nonspecific abnormal finding of lung field; M89.8X8 Other specified disorders of bone, other site
CPT/HCPCS: 74177; 71260

== ENCOUNTER 2022-09-22 09:50 | Emergency (ER) | payer MEDICARE, SELFPAY ==
[2022-09-22] VITALS (41 sets, daily range): BP systolic 98–119; BP diastolic 69–86; PULSE 74–128; RESP 16–18; TEMP 36.6; O2SAT 95–100
--- NOTE | 2022-09-22 10:12 | ED.GENADUL_ITS ---
Discharge Plan Disposition Patient Disposition: Home Condition: Improving Discharge Details Clinical Impression: Palliative care patient, Acute dehydration Primary Care Provider: Vicente Reagan ED Provider: Jorden Hall Home Meds and New Rx's Prescriptions: Continued polyethylene glycol 3350 [Miralax] 17 gram powder in packet 17 gm PO DAILY levothyroxine 25 mcg capsule 100 mcg PO DAILY multivitamin Tablet 1 tab PO DAILY Patient Comments: does not take anymore omeprazole 40 mg capsule,delayed release(DR/EC) 40 mg PO DAILY prochlorperazine maleate 10 mg tablet 10 mg PO BID PRN alprazolam [Xanax] 1 tab PO DAILY zinc gluconate 50 mg tablet 50 mg PO DAILY magnesium oxide 500 mg tablet 1,000 mg PO DAILY fentanyl 12 mcg/hr patch 72 hour 1 patch transdermal Q72H MDD 12 Qty: 10 0RF hydromorphone 2 mg tablet 2 mg PO DAILY MDD 2 PRN (Reason: pain) Qty: 60 0RF Rx Instructions: cancer related pain Xarelto 20 mg tablet 20 mg PO DAILY Patient Comments: does not take anymore, aspirin instead. acetaminophen 500 mg Tablet 1,000 mg PO Q6H PRN aspirin 325 mg Tablet 325 mg PO DAILY tamsulosin 0.4 mg Capsule 0.8 mg PO DAILY dexamethasone 1 mg tablet 1 mg PO DAILY Patient Comments: TAKE TWO TABLETS BY MOUTH DAILY FOR 3 DAYS, THEN TAKE ONE TABLE DAILY FOR 3 DAYS, THEN TAKE ONE TABLET EVERY OTHER DAY FOR 7 DAYS diphenhydramine HCl [Benadryl] 25 mg Capsule 25 mg PO HS diltiazem HCl 120 mg Capsule,Ext.Rel 24h Degradable 120 mg PO DAILY Discharge Instructions Instructions: Dehydration (ED) Additional Instructions: Continue your Ensure, soft diet, and small, frequent sips of fluids. You are given 1500 cc of fluid in the emergency department. Continue your palliative care with Dr. Guevara and your routine care with Dr. Reagan. Return to the emergency department for any acute concerns. It was a pleasure taking care of you today. Medical Decision Making This is an 81-year-old male who is suffering from metastatic cancer for which she is receiving palliative chemotherapy. He has establish care with Dr. Reagan as well as Dr. Guevara and wishes to have minimal medical interventions. He reports from home with his of weeks of episodes of lightheadedness and elevated heart rate with rising. His noted blood pressures in the mid 70s of 6 at home with a pulse approximately 100. The patient has had poor p.o. intake, no longer taking solid foods. He is primarily taking Ensure as a source of nutrition. He arrives tachycardic and dehydrated in appearance. He is certainly at risk for metabolic abnormalities. IV access was established, fluids initiated, screening laboratories obtained. Following 1 L of fluids patient is improving and his pulse is correcting. His laboratories note chronic anemia with hemoglobin of 8.7, platelet count of 405. Electrolytes are reassuring, BUN 27 and creatinine 1.6. Patient received an additional 500 cc of normal saline. He felt subjectively better and improving. He has ongoing follow-up with oncology planned. He is stable and appropriate for trial of outpatient management. HPI General Mode of arrival: ambulatory . Date/Time Provider Initiated Documentation: 09/22/22 09:55 . Limitations to Documentation: no limitations . Information obtained by: patient and EMS . History of Present Illness 81 year old M presents to the emergency department with the chief complaint of Feeling weak and lightheaded with standing/change in position, described as moderate, Patient started experiencing this week(s) and it has been intermittent. Rest improves symptom(s), Other factors that worsen symptoms (Rising from seated position) . Patient notes weakness; denies confusion, seizure, shortness of breath and syncope. Patient did receive the following treatments prior to arrival, none Related Data Home Medications Medication Instructions Recorded Confirmed polyethylene glycol 3350 17 gram 17 gm PO DAILY 08/21/18 09/22/22 oral powder packet (Miralax) levothyroxine 25 mcg capsule 100 mcg PO DAILY 11/03/19 09/22/22 rivaroxaban 20 mg tablet (Xarelto) 20 mg PO DAILY 11/10/19 08/07/22 multivitamin 1 tab PO DAILY 05/17/21 09/22/22 omeprazole 40 mg capsule,delayed 40 mg PO DAILY 05/17/21 09/22/22 release acetaminophen 500 mg tablet 1,000 mg PO Q6H PRN 10/27/21 09/22/22 alprazolam [Xanax] 1 tab PO DAILY 02/06/22 09/22/22 magnesium oxide 500 mg tablet 1,000 mg PO DAILY 02/06/22 09/22/22 prochlorperazine maleate 10 mg 10 mg PO BID PRN 02/06/22 09/22/22 tablet zinc gluconate 50 mg tablet 50 mg PO DAILY 02/06/22 09/22/22 fentanyl 12 mcg/hr transdermal 1 patch transdermal Q72H #10 ea 09/05/22 09/22/22 patch hydromorphone 2 mg tablet 2 mg PO DAILY PRN pain #60 tabs 09/05/22 09/22/22 aspirin 325 mg tablet 325 mg PO DAILY 09/22/22 09/22/22 dexamethasone 1 mg tablet 1 mg PO DAILY 09/22/22 09/22/22 diltiazem HCl 120 mg 120 mg PO DAILY 09/22/22 09/22/22 capsule,extended release 24 hr, controlled diphenhydramine HCl 25 mg capsule 25 mg PO HS 09/22/22 09/22/22 (Benadryl) tamsulosin 0.4 mg capsule 0.8 mg PO DAILY 09/22/22 09/22/22 Previous Rx's Medication Instructions Recorded fentanyl 12 mcg/hr transdermal 1 patch transdermal Q72H #10 ea 09/05/22 patch hydromorphone 2 mg tablet 2 mg PO DAILY PRN pain #60 tabs 09/05/22 Allergies Allergy/AdvReac Type Severity Reaction Status Date / Time Penicillins Allergy Unknown happened Verified 09/22/22 10:03 at age 5, serious hives bee sting Allergy Uncoded 09/22/22 10:03 marinol AdvReac Intermediate mental Uncoded 09/22/22 10:03 status changes General Stated Complaint: Dizzy/Sync VIJAY: 3 Review of Systems Narrative: 6 systems reviewed and otherwise negative PFSH All Active Problems (Updated 09/22/22 @ 12:54 by Jorden Hall MD) Acute dehydration (Acute) Nasal vestibulitis (Acute) Pharyngeal dysphagia (Acute) Anemia (Chronic) Adenocarcinoma of right lung (Acute) Painful total knee replacement, left (Acute) Postoperative bleeding from incision (Acute) Chronic throat clearing (Acute) History of lung surgery (Acute) 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) Trochanteric bursitis, right hip (Acute) History of total right hip replacement (Acute 11/10/19) Tongue irritation (Acute) Globus sensation (Acute) Mucositis (ulcerative) due to antineoplastic therapy (Acute) Tongue ulcer (Acute) Dr. Beaumont Atrial fibrillation (Chronic) Mass in neck (Acute) Cancer of base of tongue (Acute) Palliative care patient (Acute) 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) Uses feeding tube (Acute) Tongue cancer (Acute) Medical History Actinic cheilitis Adenomatous colon polyp Bee sting allergy BPH (benign prostatic hyperplasia) Dermatitis Dysphagia Erectile dysfunction HSV (herpes simplex virus) infection Hyperlipidemia denies any history looks like he was discontinued on medication last July Left lumbar radiculopathy Following left TKA Leg pain Lipoma Lumbar back pain Marital problem Kjjdotzl-Tqnaxrgzyz-Wqtsbnyqw syndrome Thrush Ventral hernia s/p 2 repairs Surgical History Ankle fracture, right s/p ORIF Carpal tunnel syndrome s/p ECTR and OCTR B/L (4 total surgeries) Colonoscopy - IV Sedation (05/28/16) History of biopsy History of cataract extraction with lens replacement B/L History of esophagogastroduodenoscopy (EGD) History of gastrostomy tube placement feeding tube per pt History of removal of Port-a-Cath History of tonsillectomy History of total left knee replacement (TKR) Status post hernia repair Family History Mother , age 76 Alcohol abuse COPD (chronic obstructive pulmonary disease) Father , age 74 during surgery to repair heart valve Heart disease Sister Multiple myeloma Brother Alcohol abuse Substance abuse Social History Smoking/Tobacco Use Status: Never Smoking risk assessment performed?: Yes Alcohol Intake: current Alcohol Intake frequency: 0-2 drinks per day Alcohol type: beer, wine and hard liquor Counseling given: Yes Counseling provided: reduce to 2 or less/day Details: drinks heavily on a daily basis, says he's quit before. suggested reduction Drug use: Never Substance use type: does not use Caregiver/Support person: Yes Household members: spouse Housing: house Number of Children: 0 number of grandchildren: 0 Pets and animals: Yes (yellow and chocolate labs, one each) Pets and animals: dog(s) Current gender identity: male What is your relationship status?: How often do you talk on the phone with friends or family?: twice per week How often do you get together with friends or relatives?: twice per week Panel score (0-1 are the most socially isolated patients): 2 What type of physical activity do you participate in: walking, irregular exercise and occasional exercise Special heidi needs: No Do you feel safe at home: Yes Do you feel safe in your relationship?: Yes Exam Narrative Exam Narrative: GEN: awake, alert, oriented 3. Pleasant, well groomed, interactive. HEAD: Normocephalic, atraumatic ENT: Mucous membranes dry, External ear exam unremarkable EYES: PERRL, EOMI NECK: Full ROM, no SAVANNAH, no menigismus CHEST/RESP: Nontender, clear to auscultation bilateral, no wheeze/rhonchi/rales CARDIOVASCULAR: Regular and tachycardic, no murmur, rub golden. 2+ Rad pulse bilateral ABDOMEN: Soft, nontender, no mass. +Bowel sounds EXT: Full ROM, no edema, no rash Neuro: Grossly normal neurologic exam, conversant, interactive. Psych: Speech fluent, thoughts congruent, affect normal Course Vital Signs Vital signs: Vital Signs Temperature 36.6 C 09/22/22 09:55 Pulse 128 H 09/22/22 09:55 Respiratory Rate 18 09/22/22 09:55 Blood Pressure 114/74 09/22/22 09:55 Pulse Oximetry 95 09/22/22 09:55 Temperature 36.6 C 09/22/22 09:55 Temperature Source Oral 09/22/22 09:55 Pulse 128 H 09/22/22 09:55 Respiratory Rate 18 09/22/22 09:55 Respiratory Effort Normal 09/22/22 10:02 Blood Pressure 114/74 09/22/22 09:55 Blood Pressure Position Sitting 09/22/22 09:55 Pulse Oximetry 95 09/22/22 09:55 Oxygen Delivery Method Room Air 09/22/22 09:55 Oxygen Flow Rate 0 09/22/22 09:55 Pain Level 3 09/22/22 09:55
[2022-09-22] MEDS: Normal Saline 1,000 ML 1000 ML IV (10:32)
[2022-09-22 10:33] LABS: Abs Immature Grans 0.05 10^3/uL (0.0-0.06); Absolute Basophil Count 0.09 10^3/uL (0.0-0.2); Absolute Eosinophil Count 0.41 10^3/uL (0.0-0.7); Absolute Lymphocyte Count 0.91 10^3/uL (1.2-3.4); Absolute Monocyte Count 0.92 10^3/uL (0.1-0.8); Absolute Neutrophil Count 6.86 10^3/uL (1.2-6.7); Eosinophils % 4.4; HCT 26.5 % (40.0-50.0); HGB 8.7 g/dL (13.5-17.5); Immature Grans % 0.5; Lymphocytes % 9.8; MCH 31.3 pg (27.0-33.0); MCHC 32.8 % (32.0-36.0); MCV 95 fL (80-95); MPV 8.9 fL (8.0-11.0); Neutrophils % 74.3; Platelet Count 405 10^3/uL (130-400); RBC 2.78 10^6/uL (4.36-5.78); RDW 16.7 % (11.8-14.1); RDW-SD 58.2 fL; WBC 9.24 10^3/uL (4.4-10.8)
[2022-09-22 10:52] LABS: ALT 27 U/L (16-63); AST 27 U/L (15-37); Albumin 2.9 g/dL (3.4-5.0); Alkaline Phosphatase 125 U/L (46-116); Anion Gap 8.1 mmol/L (3-11); BUN 27 mg/dL (7-18); Bilirubin, Total 0.3 mg/dL (0.2-1.0); CO2 26.9 mmol/L (21.0-32.0); CREATININE 1.6 mg/dL (0.70-1.30); Calcium 8.8 mg/dL (8.5-10.1); Chloride 102 mmol/L (98-107); Estimated GFR 42.75 (mL/min/1.73m2); Glucose 89 mg/dL (74-106); Magnesium 2.3 mg/dL (1.8-2.4); Potassium 4.2 mmol/L (3.5-5.1); Sodium 137 mmol/L (136-145); Total Protein 6.3 g/dL (6.4-8.2)
[2022-09-22] MEDS: Normal Saline 500 ML IV (12:37)
[2022-09-22] MEDS: Heparin 500 UNITS/5 ML SYRINGE (13:40)
== END 2022-09-22 14:21 | disposition home or self-care (01) ==
PROVIDERS: Emergency Provider Emergency Medicine; PCP Internal Medicine
DX: E86.0 Dehydration (principal); Z51.5 Encounter for palliative care
CPT/HCPCS: 36415; 80053; 96360; 96361; 99284; 83735; 85025

== ENCOUNTER 2022-09-23 02:11 | Outpatient (RCR) | payer MEDICARE, SELFPAY ==
[2022-09-02] MEDS: Normal Saline Flush 10 ML SYR IVP (12:08)
[2022-09-02 12:28] LABS: Abs Immature Grans 0.04 10^3/uL (0.0-0.06); Absolute Basophil Count 0.04 10^3/uL (0.0-0.2); Absolute Eosinophil Count 0.04 10^3/uL (0.0-0.7); Absolute Lymphocyte Count 0.63 10^3/uL (1.2-3.4); Absolute Neutrophil Count 3.23 10^3/uL (1.2-6.7); Basophils % 0.9; Eosinophils % 0.9; HCT 25.7 % (40.0-50.0); HGB 8.6 g/dL (13.5-17.5); Immature Grans % 0.9; Lymphocytes % 14.4; MCH 31.7 pg (27.0-33.0); MCHC 33.5 % (32.0-36.0); MCV 95 fL (80-95); MPV 9.7 fL (8.0-11.0); Monocytes % 9.1; Neutrophils % 73.8; Platelet Count 395 10^3/uL (130-400); RBC 2.71 10^6/uL (4.36-5.78); RDW 14.7 % (11.8-14.1); RDW-SD 48.8 fL; WBC 4.38 10^3/uL (4.4-10.8)
[2022-09-02 12:48] LABS: ALT 17 U/L (16-63); AST 16 U/L (15-37); Albumin 3.3 g/dL (3.4-5.0); Alkaline Phosphatase 85 U/L (46-116); Anion Gap 11.5 mmol/L (3-11); BUN 30 mg/dL (7-18); Bilirubin, Total 0.6 mg/dL (0.2-1.0); CO2 23.5 mmol/L (21.0-32.0); Calcium 9.3 mg/dL (8.5-10.1); Chloride 102 mmol/L (98-107); Estimated GFR 32.71 (mL/min/1.73m2); Glucose 138 mg/dL (74-106); Potassium 4.3 mmol/L (3.5-5.1); Sodium 137 mmol/L (136-145); Total Protein 6.8 g/dL (6.4-8.2)
[2022-09-05 08:24] LABS: ALT 22 U/L (16-63); AST 22 U/L (15-37); Albumin 3.3 g/dL (3.4-5.0); Alkaline Phosphatase 87 U/L (46-116); Anion Gap 12.2 mmol/L (3-11); BUN 25 mg/dL (7-18); Bilirubin, Total 0.5 mg/dL (0.2-1.0); CO2 23.8 mmol/L (21.0-32.0); CREATININE 1.9 mg/dL (0.70-1.30); Calcium 9.2 mg/dL (8.5-10.1); Chloride 102 mmol/L (98-107); Estimated GFR 34.79 (mL/min/1.73m2); Glucose 81 mg/dL (74-106); Potassium 4.2 mmol/L (3.5-5.1); Sodium 138 mmol/L (136-145); Total Protein 6.5 g/dL (6.4-8.2)
[2022-09-16] MEDS: Normal Saline Flush 10 ML SYR IVP (10:13)
[2022-09-16 10:22] LABS: Basophils % 0.5; Eosinophils % 0.9; HCT 27.3 % (40.0-50.0); Immature Grans % 0.7; Lymphocytes % 7.1; MCH 31.5 pg (27.0-33.0); MCV 96 fL (80-95); MPV 9.1 fL (8.0-11.0); Neutrophils % 80.8; Platelet Count 385 10^3/uL (130-400); RBC 2.86 10^6/uL (4.36-5.78); RDW 17.2 % (11.8-14.1); RDW-SD 59.5 fL
[2022-09-16 10:23] LABS: Absolute Basophil Count 0.08 10^3/uL (0.0-0.2); Absolute Eosinophil Count 0.14 10^3/uL (0.0-0.7); Absolute Lymphocyte Count 1.07 10^3/uL (1.2-3.4); Absolute Neutrophil Count 12.12 10^3/uL (1.2-6.7)
[2022-09-16 10:37] LABS: ALT 16 U/L (16-63); AST 23 U/L (15-37); Alkaline Phosphatase 115 U/L (46-116); Anion Gap 12.5 mmol/L (3-11); BUN 29 mg/dL (7-18); Bilirubin, Total 0.4 mg/dL (0.2-1.0); CO2 23.5 mmol/L (21.0-32.0); Calcium 9.2 mg/dL (8.5-10.1); Chloride 102 mmol/L (98-107); Estimated GFR 32.71 (mL/min/1.73m2); Glucose 121 mg/dL (74-106); Potassium 4.2 mmol/L (3.5-5.1); Sodium 138 mmol/L (136-145); Total Protein 6.6 g/dL (6.4-8.2)
[2022-09-23] MEDS: Normal Saline Flush 10 ML SYR IVP (10:22)
[2022-09-23 10:32] LABS: Abs Immature Grans 0.06 10^3/uL (0.0-0.06); Absolute Basophil Count 0.09 10^3/uL (0.0-0.2); Absolute Eosinophil Count 0.46 10^3/uL (0.0-0.7); Absolute Lymphocyte Count 0.87 10^3/uL (1.2-3.4); Absolute Monocyte Count 0.96 10^3/uL (0.1-0.8); Absolute Neutrophil Count 10.32 10^3/uL (1.2-6.7); Basophils % 0.7; Eosinophils % 3.6; HCT 28.3 % (40.0-50.0); HGB 9.3 g/dL (13.5-17.5); Immature Grans % 0.5; Lymphocytes % 6.8; MCH 31.5 pg (27.0-33.0); MCHC 32.9 % (32.0-36.0); MCV 96 fL (80-95); Monocytes % 7.5; Neutrophils % 80.9; Platelet Count 434 10^3/uL (130-400); RBC 2.95 10^6/uL (4.36-5.78); RDW 16.7 % (11.8-14.1); RDW-SD 58.7 fL; WBC 12.76 10^3/uL (4.4-10.8)
[2022-09-23 10:46] LABS: ALT 23 U/L (16-63); AST 23 U/L (15-37); Alkaline Phosphatase 132 U/L (46-116); Anion Gap 9.4 mmol/L (3-11); BUN 22 mg/dL (7-18); Bilirubin, Total 0.4 mg/dL (0.2-1.0); CO2 23.6 mmol/L (21.0-32.0); CREATININE 1.7 mg/dL (0.70-1.30); Calcium 8.9 mg/dL (8.5-10.1); Chloride 105 mmol/L (98-107); Estimated GFR 39.75 (mL/min/1.73m2); Glucose 127 mg/dL (74-106); Magnesium 2.2 mg/dL (1.8-2.4); Sodium 138 mmol/L (136-145); Total Protein 6.4 g/dL (6.4-8.2)
== END 2022-09-27 23:59 | disposition home or self-care (01) ==
LOC: INF 02:11
PROVIDERS: PCP Internal Medicine; Visit Provider Internal Medicine Hematology & Oncology
DX: C01 Malignant neoplasm of base of tongue (principal); Z45.2 Encounter for adjustment and management of vascular access device
CPT/HCPCS: 36591; 80053; 96523; 83735; 85025

== ENCOUNTER 2022-10-05 10:44 | Inpatient (IN) | payer MEDICARE, SELFPAY ==
[2022-10-05] VITALS (85 sets, daily range): BP systolic 72–118; BP diastolic 50–84; PULSE 74–140; RESP 12–34; TEMP 36.2–36.6; O2SAT 94–100
--- NOTE | 2022-10-05 11:00 | RT.EKG_ITS ---
APPROVED REPORT Exam: Resting ECG Reason for Exam: weakness, afib Patient Location: E HR:95 bpm ECG Measurements Heart Rate 95 AXIS [place] [id number] P [id number] QRSd 91 QRS 20 QT 364 T [id number] QTc 459 Conclusion Atrial fibrillation...? atrial activity Low voltage, extremity and precordial leads...extremity<0.5mV, precordial<1.0mV
--- NOTE | 2022-10-05 11:00 | DI.RAD_ITS ---
Exam(s) XR CHEST 2V PA LATERAL EXAM: XR CHEST 2V PA LATERAL CLINICAL HISTORY: weakness, shortness of breath TECHNIQUE: 2D digital imaging was performed of the chest. Two images were obtained. PA and lateral views were obtained. COMPARISON: CR XR CHEST 2V PA LATERAL from 07/17/2022 FINDINGS: MEDIASTINUM: Normal. HEART: Normal. PULMONARY VASCULATURE: There is tortuosity of the thoracic aorta. LUNGS: There has been no change in appearance of the multiple right pleural based masses. No new pul monary infiltrates are seen. PLEURAL SPACE: No pleural effusion or pneumothorax. BONE:Within normal limits for the patient's age. OTHER FINDINGS:There has been interval placement of a new right-sided port.. The tip is seen in the superior vena cava. IMPRESSION: No acute pulmonary findings. DATA REPOSITORY: RADIATION DOSE DELIVERED:
--- NOTE | 2022-10-05 11:21 | ED.GENADUL_ITS ---
Discharge Plan Disposition Patient Disposition: Admit to [facility] Condition: Serious Discharge Details Clinical Impression: Atrial fibrillation, Cancer of base of tongue, Adenocarcinoma of right lung, Anemia, Acute dehydration, Hypomagnesemia, Hypothyroidism Admit Date/Time: 10/05/22 16:10 Admit Provider: Casa Rivas Attending Provider: Casa Rivas Primary Care Provider: Vicente Reagan ED Provider: Gemma Stone Discharge Data Discharge Date/Time-TO BE ENTERED AT DEPARTURE: 10/05/22 18:03 Medical Decision Making 81-year-old gentleman with history of atrial fibrillation, 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 presents with report of hypotension and tachycardia recently taken off Xarelto for history of hemoptysis and diltiazem secondary to hypotension Given 1.5 L of LR with LR infusion, diagnostic labs displayed a creatinine similar to prior at 1.7 mildly elevated BUN, anemia which I suspect is related to chemotherapy and does not appear to be grossly changed from prior, guaiac negative stool, and no evidence of obvious active source of bleeding Chest x-ray does not show evidence of volume overload BNP is elevated at 3644, likely secondary to cancer history given clinical exam and diagnostic exam Unfortunately patient does remain hypotensive, this may be acute dehydration but he is markedly orthostatic and symptomatic with this and he did think he benefit from admission to the hospital He also is quite tachycardic, heart rate increasing into the 140s in atrial fibrillation rhythm with any sort of ambulation, known history of atrial fibrillation, patient is at increased risk for stroke given the fact that he is not on any antiarrhythmic and is not on anticoagulation, I think at this time he would benefit from admission to the hospital I did consult with Dr. Adams, director clinical operations at [facility] and given patient's hypotension and atrial fibrillation he did recommend digoxin, I did initiate digoxin as patient has contraindication without anticoagulation to acute synchronized cardioversion Of note, patient was relatively rate controlled at rest and therefore we did not give acute antiarrhythmics such as metoprolol and diltiazem secondary to hypote nsion which is a relative contraindication Secondary to chronic kidney disease, I did dose adjust patient's digoxin after consulting with the pharmacist to point 187 for an initial loading dose which will be supplemented by the hospitalist Case was discussed with Dr. Machado who is excepted patient to his service in the intensive care unit Of note, I do not think the patient has any sort of infectious cause of his symptoms, his procalcitonin and lactate are within lumbar normal limits and there is no evidence of infectious etiology on exam, I suspect patient symptoms are multifactorial with dehydration and atrial fibrillation He is fully alert and oriented with a nonfocal neurological exam on my assessment will be admitted to the intensive care unit at this time Medical Records Medical records reviewed: Yes I reviewed the patient's medical records. Lab Data Lab results reviewed: Yes I reviewed the patient's lab results. HPI General Date/Time Provider Initiated Documentation: 10/05/22 10:55 . HPI Narrative: This 81-year-old male presents with report of hypotension when he goes from sitting to standing since intermittently for the past two weeks. He reportedly has had decreased intake secondary to aphthous ulcers in his mouth related to likely chemotherapy. He states he was here 2 weeks ago for similar presentation. His PCP discontinued his diltiazem at that time for his atrial fibrillation. He denies any chest pain or significant shortness of breath. He denies any fever or chills. He has not been restarted on any medications for his atrial fibrillation. He was taken off anticoagulation previously secondary to hemoptysis per patient. Denies any weakness or focal neurological findings. He denies any infectious signs and symptoms. He does receive chemotherapy on Mondays for his history of metastatic squamous cell carcinoma to his lungs. His last chemotherapy was on Friday of this week. He denies any nausea or vomiting. He denies any diarrhea. Related Data Home Medications Medication Instructions Recorded Confirmed polyethylene glycol 3350 17 gram 17 gm PO DAILY 08/21/18 10/05/22 oral powder packet (Miralax) levothyroxine 25 mcg capsule 100 mcg PO DAILY 11/03/19 10/05/22 multivitamin 1 tab PO DAILY 05/17/21 10/05/22 omeprazole 40 mg capsule,delayed 40 mg PO DAILY 05/17/21 10/05/22 release acetaminophen 500 mg tablet 1,000 mg PO Q6H PRN 10/27/21 10/05/22 alprazolam [Xanax] 1 tab PO DAILY 02/06/22 10/05/22 magnesium oxide 500 mg tablet 1,000 mg PO DAILY 02/06/22 10/05/22 prochlorperazine maleate 10 mg 10 mg PO BID PRN 02/06/22 10/05/22 tablet zinc gluconate 50 mg tablet 50 mg PO DAILY 02/06/22 10/05/22 aspirin 325 mg tablet 325 mg PO DAILY 09/22/22 10/05/22 dexamethasone 1 mg tablet 1 mg PO DAILY 09/22/22 10/05/22 diltiazem HCl 120 mg 120 mg PO DAILY 09/22/22 10/02/22 capsule,extended release 24 hr, controlled diphenhydramine HCl 25 mg capsule 25 mg PO HS 09/22/22 10/05/22 (Benadryl) tamsulosin 0.4 mg capsule 0.8 mg PO DAILY 09/22/22 10/05/22 cetuximab 200 mg/100 mL 200 mg IV QWEEK 10/02/22 10/02/22 intravenous solution fentanyl 12 mcg/hr transdermal 1 patch transdermal Q72H #10 ea 10/02/22 10/05/22 patch hydromorphone 4 mg tablet 4 mg PO BID PRN pain #60 tabs 10/02/22 10/05/22 Previous Rx's Medication Instructions Recorded fentanyl 12 mcg/hr transdermal 1 patch transdermal Q72H #10 ea 10/02/22 patch hydromorphone 4 mg tablet 4 mg PO BID PRN pain #60 tabs 10/02/22 Allergies Allergy/AdvReac Type Severity Reaction Status Date / Time Penicillins Allergy Unknown happened Verified 10/05/22 10:56 at age 5, serious hives bee sting Allergy Uncoded 10/05/22 10:56 marinol AdvReac Intermediate mental Uncoded 10/02/22 11:32 status changes General Stated Complaint: [facility]Medical VIJAY: 3 PFSH All Active Problems (Updated 10/06/22 @ 08:33 by ELLIE Mckeon) Hypomagnesemia (Acute) Hypothyroidism (Chronic) Acute dehydration (Acute) Anemia (Chronic) Adenocarcinoma of right lung (Acute) Painful total knee replacement, left (Acute) History of lung surgery (Acute) 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) History of total right hip replacement (Acute 11/10/19) Atrial fibrillation (Chronic) Cancer of base of tongue (Acute) Palliative care patient (Acute) Medical History (Updated 10/06/22 @ 08:33 by ELLIE Mckeon) Actinic cheilitis Adenomatous colon polyp Bee sting allergy BPH (benign prostatic hyperplasia) Dermatitis Dysphagia Erectile dysfunction HSV (herpes simplex virus) infection Hyperlipidemia denies any history looks like he was discontinued on medication last July Left lumbar radiculopathy Following left TKA Leg pain Lipoma Lumbar back pain Marital problem Rrlzufre-Xtcgtgrsgj-Siqmlyqbr syndrome Thrush Ventral hernia s/p 2 repairs Surgical History Ankle fracture, right s/p ORIF Carpal tunnel syndrome s/p ECTR and OCTR B/L (4 total surgeries) Colonoscopy - IV Sedation (05/28/16) History of biopsy History of cataract extraction with lens replacement B/L History of esophagogastroduodenoscopy (EGD) History of gastrostomy tube placement feeding tube per pt History of removal of Port-a-Cath History of tonsillectomy History of total left knee replacement (TKR) Status post hernia repair Family History Mother , age 76 Alcohol abuse COPD (chronic obstructive pulmonary disease) Father , age 74 during surgery to repair heart valve Heart disease Sister Multiple myeloma Brother Alcohol abuse Substance abuse Social History Smoking/Tobacco Use Status: Never Smoking risk assessment performed?: Yes Alcohol Intake: current Alcohol Intake frequency: a few times a month Alcohol type: beer, wine and hard liquor Counseling given: Yes Counseling provided: reduce to 2 or less/day Details: drinks heavily on a daily basis, says he's quit before. suggested reduction Drug use: Never Substance use type: does not use Caregiver/Support person: Yes Household members: spouse Housing: house Number of Children: 0 number of grandchildren: 0 Pets and animals: Yes (yellow and chocolate labs, one each) Pets and animals: dog(s) Current gender identity: male What is your relationship status?: How often do you talk on the phone with friends or family?: twice per week How often do you get together with friends or relatives?: twice per week Panel score (0-1 are the most socially isolated patients): 2 What type of physical activity do you participate in: walking, irregular exercise and occasional exercise Special heidi needs: No Do you feel safe at home: Yes Do you feel safe in your relationship?: Yes Exam Const General: cooperative, no acute distress and frail appearing HENMT Head: normal to inspection Mouth: oral mucosae normal Other: Single aphthous ulcer noted to left lateral tongue Eyes Pupils: PERRL Resp Effort & Inspection: normal respiratory effort Auscultation: clear to auscultation bilaterally Cardio Rate: tachycardic Rhythm: abnormal rhythm Heart Sounds: no murmurs GI Inspection: normal to inspection Other: Nontender abdominal exam Skin General skin exam: no rashes or lesions noted Neuro General: patient alert and patient oriented x3 Cognition: normal cognition Speech: speech normal Extrem Other: No peripheral edema Course Vital Signs Vital signs: Vital Signs Temperature 36.4 C L 10/05/22 10:48 Pulse 117 H 10/05/22 10:48 Respiratory Rate 15 10/05/22 10:48 Blood Pressure 95/64 L 10/05/22 10:48 Pulse Oximetry 100 10/05/22 10:48 Temperature 36.4 C L 10/05/22 10:48 Temperature Source Oral 10/05/22 10:48 Pulse 82 10/05/22 11:15 Pulse 105 H 10/05/22 11:15 Respiratory Rate 29 H 10/05/22 11:15 Respiratory Effort Normal, Non-Labored 10/05/22 11:13 Blood Pressure 104/63 10/05/22 11:15 Blood Pressure Mean 73 10/05/22 11:15 Blood Pressure Position Sitting 10/05/22 10:48 Pulse Oximetry 99 10/05/22 11:15 Oxygen Delivery Method Room Air 10/05/22 10:48 Oxygen Flow Rate 0 10/05/22 10:48 Pain Level 0 10/05/22 10:48 Critical Care Time Critical Care Time Critical Care Time: Yes Total Critical Care Time: 45 Attestation: 45 minutes of critical care time was performed secondary to assessment, diagnostic test ordering, diagnostic interpretation of chest x-ray, diagnostic lab interpretation and review, telemetry monitoring, IV fluid resuscitation secondary to acute dehydration and significant orthostatic hypotension, digoxin administration secondary to atrial fibrillation, and cardiology consultation, IV magnesium infusion intensive care admission, hospitalist consultation
[2022-10-05 12:01] LABS: Abs Immature Grans 0.04 10^3/uL (0.0-0.06); Absolute Basophil Count 0.07 10^3/uL (0.0-0.2); Absolute Eosinophil Count 0.35 10^3/uL (0.0-0.7); Absolute Monocyte Count 0.92 10^3/uL (0.1-0.8); Basophils % 0.7; Eosinophils % 3.4; HCT 25.5 % (40.0-50.0); HGB 8.5 g/dL (13.5-17.5); Immature Grans % 0.4; Lymphocytes % 6.9; MCH 31.7 pg (27.0-33.0); MCHC 33.3 % (32.0-36.0); MCV 95 fL (80-95); MPV 8.9 fL (8.0-11.0); Neutrophils % 79.6; Platelet Count 354 10^3/uL (130-400); RBC 2.68 10^6/uL (4.36-5.78); RDW 15.8 % (11.8-14.1); WBC 10.18 10^3/uL (4.4-10.8)
[2022-10-05] MEDS: Lactated Ringers 1,000 ML 1000 ML IV (12:04)
[2022-10-05 12:36] LABS: ALT 19 U/L (16-63); AST 20 U/L (15-37); Alkaline Phosphatase 124 U/L (46-116); Anion Gap 10.3 mmol/L (3-11); BUN 22 mg/dL (7-18); Bilirubin, Total 0.5 mg/dL (0.2-1.0); CO2 25.7 mmol/L (21.0-32.0); CREATININE 1.7 mg/dL (0.70-1.30); Calcium 9.1 mg/dL (8.5-10.1); Chloride 101 mmol/L (98-107); Estimated GFR 39.75 (mL/min/1.73m2); Glucose 95 mg/dL (74-106); Magnesium 1.7 mg/dL (1.8-2.4); NT-proBNP 3677 pg/mL (<300); Potassium 3.9 mmol/L (3.5-5.1); Sodium 137 mmol/L (136-145); TSH (W/Ref FT4) 5.98 uIU/mL (0.36-3.74); Total Protein 6.2 g/dL (6.4-8.2); Troponin I < 50 ng/L (<or=60)
--- NOTE | 2022-10-05 12:54 | DI.VRAD_ITS ---
PROCEDURE INFORMATION: Exam: XR Chest Exam date and time: 10/05/2022 12:28 PM Age: 81 years old Clinical indication: Cough; Prior surgery TECHNIQUE: Imaging protocol: Radiologic exam of the chest. Views: 2 views. COMPARISON: CT CHEST/ABD/PEL W 09/05/2022 9:59 AM FINDINGS: Tubes, catheters and devices: Right-sided port is noted. Tip projects at the SVC Lungs: There is mild volume loss on the right. There are multiple pleural based masses in the right lung better visualized on the patient's prior CT examination. There is no new airspace consolidation or CHF. Pleural spaces: A large effusion, or pneumothorax is not seen. Heart/Mediastinum: Heart size is within normal limits Vasculature: The aorta is mildly ectatic, tortuous Bones/joints: Destructive changes of right-sided ribs are better visualized by patient's CT examination. No new bony abnormality identified by plain film exam IMPRESSION: No new findings on plain film exam. Volume loss right lung with multiple pleural base masses . Dictated and Authenticated by: Shivani Avilez MD. Ordering:REMI Menendez MD
[2022-10-05 13:03] LABS: Diff Comment Diff Reviewed; Hypochromasia 2+
[2022-10-05 13:04] LABS: FREE T4 1.18 ng/dL (0.76-1.46)
[2022-10-05] MEDS: Lactated Ringers 500 ML IV (13:05)
[2022-10-05 15:19] LABS: Lactate 1.3 mmol/L (0.6-1.4)
[2022-10-05] MEDS: Lactated Ringers 1,000 ML 100 ML IV ×2 (15:24→20:53)
[2022-10-05 15:59] LABS: Procalcitonin 0.1 ng/mL
[2022-10-05] MEDS: Digoxin 0.5 MG/2 ML AMP 0.18 MG IVP (16:10)
[2022-10-05] MEDS: MAGNESIUM SULFATE 1 GM/100 ML BAG IVPB (16:14)
[2022-10-05 17:26] LABS: Source Nasal/Nares
[2022-10-05 17:58] LABS: COVID-19 PCR Negative (Negative)
[2022-10-05 19:16] LABS: Lab Add On Test DONE
--- NOTE | 2022-10-05 19:44 | W.PM.HP.N ---
Date of service: 10/05/22 Time of Service: 19:44 Assessment and Plan Assessment and plan (1) Acute dehydration: Status: Acute Assessment and plan: continue iv fluids overnight; encourage po intake w/ mince/moistend foods and thin liquids. will add protein supplements, put him on magic mouth wash AC meals and viscous lidocaine in between meals prn pain. repeat labs in the morning. He is no longer hypotensive and his afib rate is coming under control. Critical care time spent interviewing and examining the patient, reviewing studies, discussing case with patient's nurse and consulting physicians was 60 minutes (2) Anemia: Status: Chronic Assessment and plan: chronic. will monitor overnight. no hx of GI bleeding. He gets periodic hemoptysis still despite being taken off his Xarelto. (3) Atrial fibrillation: Status: Chronic Assessment and plan: chronic afib. rate has not been controlled since coming off his diltiazem. cont. loading w/ digoxin but will limit loading doses. recheck digoxin level 8 hrs after last loading dose. consider low dose every other day to keep rate controlled. the other option would be for amiodarone therapy but he would need anticoagulation to prevent emboli in the event of conversion. Initial troponin I was normal. His BNP was elevated but he was not in acute CHF. I will repeat his troponin I tonight to be sure he did not have an ischemic event. he has no dyspnea or chest pressure other than his chronic right sided lower chest wall and right posterior chest pains. EKG did not show any ischemic changes. (4) Adenocarcinoma of right lung: Status: Acute Assessment and plan: Initially he told me that his lung cancer was metastasis from his prior tongue/throat cancer; if his primary was squamous cell however his office notes indicate his lung cancer is adenocarcinoma. We are not providing any current treatment as an inpatient. His oncologist can follow up on this next week. We will try to provide adequate pain relief. 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 He was treated with chemotherapy including Keytruda and subsequently paclitaxel. He failed both these regimens and for the last few weeks he has been getting weekly infusions of cetuximab. Patient's had poor oral intake for several days because of mucositis. He was recently in the emergency department because of dehydration and hypotension and responded to IV fluids and was discharged home. This was on 09/22/2022. His called our nurse practitioner out of concern that he was hypotensive with systolic pressures in the 60s to 70s. She was advised to call EMS but patient refused to come by ambulance and therefore his brought him to the emergency department where he was found to be hypotensive. Blood pressure on arrival was 95/64 but with standing he dropped to as low as 72/54. He was also noted to be in rapid atrial fibrillation. Patient has chronic atrial fibrillation and previously had been on Xarelto for anticoagulation until he started having hemoptysis from his lung metastasis. His atrial fibrillation rate was controlled with diltiazem until recently when his primary care provider stopped the diltiazem because of his hypotension. He is not currently on any AV ricardo blocking drugs for his atrial fibrillation rate control. On arrival to the emergency department his atrial fibrillation rate was 112 bpm but reportedly has been as high as 140 bpm ELLIE Mckeon, from our ED department called [facility] cardiology for advice and she was advised to give him IV digoxin. She was advised this in spite of the fact that he does have chronic renal insufficiency. In the emergency department he was hydrated with 1.5 L of LR but because of continued hypotension and tachycardia he was admitted to the intensive care unit. Since arrival to the intensive care unit he has become more hemodynamically stable with systolic blood pressures maintaining over 100. His mean arterial pressure has remained in the 80s. He is not dizzy or lightheaded at present. His atrial fibrillation rate has improved and is in the low 100s. Patient denies any fever or chills. He is not short of breath or having any chest pressure. He will get right-sided chest pains with coughing or deep breathing related to his pleural mets. He does take hydromorphone tablets for his chest pain. His poor oral intake is related to his mucositis and pain with chewing or swallowing. He will use the Magic mouthwash at home or sometimes just viscous Xylocaine applied to under his tongue. Work-up in the ED included chest x-ray that showed no pulmonary infiltrates. Laboratory studies showed a stable chronic anemia. His hemoglobin varies between 8.5 and 9 g. His white blood cell count today is 10,000. His platelet count 354,000. His chemistry profile shows a stable chronic renal insufficiency with a BUN of 22 and creatinine 1.7. He seemed to be unaware that he had chronic kidney disease. I went over all of his labs and showed his labs dating back to spring 2021 on September 03, 2021 his last time his creatinine was below 1.5. His magnesium was a little low at 1.7 today but otherwise his potassium was 3.9 and the rest of his electrolytes were normal. His liver transaminases were normal except for his alkaline phosphatase of 124. His proBNP was elevated at 3600 but he had no evidence of acute congestive heart failure. Troponin I was less than 50. Review of Systems Constitutional Constitutional: Reports as per HPI PFSH All Active Problems (Updated 10/02/22 @ 16:24 by Rach Guevara MD, [place]) Acute dehydration (Acute) Anemia (Chronic) Adenocarcinoma of right lung (Acute) Painful total knee replacement, left (Acute) History of lung surgery (Acute) 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) History of total right hip replacement (Acute 11/10/19) Atrial fibrillation (Chronic) Cancer of base of tongue (Acute) Palliative care patient (Acute) Medical History (Updated 10/02/22 @ 16:24 by Rach Guevara MD, [place]) Actinic cheilitis Adenomatous colon polyp Bee sting allergy BPH (benign prostatic hyperplasia) Dermatitis Dysphagia Erectile dysfunction HSV (herpes simplex virus) infection Hyperlipidemia denies any history looks like he was discontinued on medication last July Left lumbar radiculopathy Following left TKA Leg pain Lipoma Lumbar back pain Marital problem Pbjnxhuw-Xouxlfofpa-Zqqxwdlee syndrome Thrush Ventral hernia s/p 2 repairs Surgical History Ankle fracture, right s/p ORIF Carpal tunnel syndrome s/p ECTR and OCTR B/L (4 total surgeries) Colonoscopy - IV Sedation (05/28/16) History of biopsy History of cataract extraction with lens replacement B/L History of esophagogastroduodenoscopy (EGD) History of gastrostomy tube placement feeding tube per pt History of removal of Port-a-Cath History of tonsillectomy History of total left knee replacement (TKR) Status post hernia repair Family History Mother , age 76 Alcohol abuse COPD (chronic obstructive pulmonary disease) Father , age 74 during surgery to repair heart valve Heart disease Sister Multiple myeloma Brother Alcohol abuse Substance abuse Social History Smoking/Tobacco Use Status: Never Smoking risk assessment performed?: Yes Alcohol Intake: current Alcohol Intake frequency: a few times a month Alcohol type: beer, wine and hard liquor Counseling given: Yes Counseling provided: reduce to 2 or less/day Details: drinks heavily on a daily basis, says he's quit before. suggested reduction Drug use: Never Substance use type: does not use Caregiver/Support person: Yes Household members: spouse Housing: house Number of Children: 0 number of grandchildren: 0 Pets and animals: Yes (yellow and chocolate labs, one each) Pets and animals: dog(s) Current gender identity: male What is your relationship status?: How often do you talk on the phone with friends or family?: twice per week How often do you get together with friends or relatives?: twice per week Panel score (0-1 are the most socially isolated patients): 2 What type of physical activity do you participate in: walking, irregular exercise and occasional exercise Special heidi needs: No Do you feel safe at home: Yes Do you feel safe in your relationship?: Yes Meds Allergies and Home Medications Allergies Allergy/AdvReac Type Severity Reaction Status Date / Time Penicillins Allergy Unknown happened Verified 10/05/22 10:56 at age 5, serious hives bee sting Allergy Uncoded 10/05/22 10:56 marinol AdvReac Intermediate mental Uncoded 10/02/22 11:32 status changes Home Medications Medication Instructions Recorded Confirmed Type polyethylene glycol 3350 17 gram 17 gm PO DAILY 08/21/18 10/05/22 History oral powder packet (Miralax) levothyroxine 25 mcg capsule 100 mcg PO DAILY 11/03/19 10/05/22 History multivitamin 1 tab PO DAILY 05/17/21 10/05/22 History omeprazole 40 mg capsule,delayed 40 mg PO DAILY 05/17/21 10/05/22 History release acetaminophen 500 mg tablet 1,000 mg PO Q6H PRN 10/27/21 10/05/22 History alprazolam [Xanax] 1 tab PO DAILY 02/06/22 10/05/22 History magnesium oxide 500 mg tablet 1,000 mg PO DAILY 02/06/22 10/05/22 History prochlorperazine maleate 10 mg 10 mg PO BID PRN 02/06/22 10/05/22 History tablet zinc gluconate 50 mg tablet 50 mg PO DAILY 02/06/22 10/05/22 History aspirin 325 mg tablet 325 mg PO DAILY 09/22/22 10/05/22 History dexamethasone 1 mg tablet 1 mg PO DAILY 09/22/22 10/05/22 History diltiazem HCl 120 mg 120 mg PO DAILY 09/22/22 10/02/22 History capsule,extended release 24 hr, controlled diphenhydramine HCl 25 mg capsule 25 mg PO HS 09/22/22 10/05/22 History (Benadryl) tamsulosin 0.4 mg capsule 0.8 mg PO DAILY 09/22/22 10/05/22 History cetuximab 200 mg/100 mL 200 mg IV QWEEK 10/02/22 10/02/22 History intravenous solution fentanyl 12 mcg/hr transdermal 1 patch transdermal Q72H #10 ea 10/02/22 10/05/22 Rx patch hydromorphone 4 mg tablet 4 mg PO BID PRN pain #60 tabs 10/02/22 10/05/22 Rx Exam Narrative Exam Narrative: Elderly white male who is alert oriented person place time circumstance. Cognitively he is very sharp. 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 HEENT is remarkable for some mucositis in the left tongue base. No exudate just some slight redness of the base of the left side of his tongue Neck is supple nontender no JVD no adenopathy no supraclavicular adenopathy Chest is nontender to palpation his lungs are clear, Heart is irregularly irregular slightly tachycardic no appreciable murmur rub Abdomen soft nondistended nontender normal bowel sounds no organomegaly Extremities with normal range of motion and strength no edema Neurologic exam grossly intact no focal motor or sensory deficits no focal cranial nerve deficits Results Labs 10/05/22 11:53 10/05/22 11:53 Labs: Laboratory Results - last 24 hr 04/08/23 04/08/23 04/08/23 11:53 11:53 11:53 WBC 10.18 RBC 2.68 L Hgb 8.5 L Hct 25.5 L MCV 95 MCH 31.7 MCHC 33.3 RDW 15.8 H Plt Count 354 MPV 8.9 Immature Gran % 0.4 Neutrophils % 79.6 Lymphocytes % 6.9 Monocytes % 9.0 Eosinophils % 3.4 Basophils % 0.7 Nucleated RBC % 0.0 Absolute Neutrophils 8.10 H Absolute Lymphocytes 0.70 L Absolute Monocytes 0.92 H Absolute Eosinophils 0.35 Absolute Basophils 0.07 RBC Morphology See Below Hypochromasia 2+ VBG Lactate Sodium 137 Potassium 3.9 Chloride 101 Carbon Dioxide 25.7 Anion Gap 10.3 BUN 22 H Creatinine 1.7 H Est GFR (CKD-EPI 2020) 39.75 Glucose 95 Calcium 9.1 Magnesium 1.7 L Total Bilirubin 0.5 AST 20 ALT 19 Alkaline Phosphatase 124 H Troponin I < 50 NT-Pro-B Natriuret Pep 3677 H Total Protein 6.2 L Albumin 3.0 L Procalcitonin TSH 5.98 H Free T4 1.18 COVID-19 Source SARS-CoV-2 (PCR) Add-On Test Request DONE 10/05/22 10/05/22 15:13 17:22 WBC RBC Hgb Hct MCV MCH MCHC RDW Plt Count MPV Immature Gran % Neutrophils % Lymphocytes % Monocytes % Eosinophils % Basophils % Nucleated RBC % Absolute Neutrophils Absolute Lymphocytes Absolute Monocytes Absolute Eosinophils Absolute Basophils RBC Morphology Hypochromasia VBG Lactate 1.3 Sodium Potassium Chloride Carbon Dioxide Anion Gap BUN Creatinine Est GFR (CKD-EPI 2020) Glucose Calcium Magnesium Total Bilirubin AST ALT Alkaline Phosphatase Troponin I NT-Pro-B Natriuret Pep Total Protein Albumin Procalcitonin 0.1 TSH Free T4 COVID-19 Source Nasal/Nares SARS-CoV-2 (PCR) Negative Add-On Test Request Last Vital Signs Temp 36.6 C 10/05/22 18:18 Pulse 87 10/05/22 18:18 Resp 17 10/05/22 18:18 BP 96/63 L 10/05/22 18:18 Pulse Ox 98 10/05/22 18:18 Time Spent Time spent with Patient: 55-74 minutes Time was spent: preparing to see the patient(eg.review tests), obtaining and/or reviewing separately otained hiistory, ordering medications,tests, procedures, referring, communicating with other health rental boats caretaker, indepentently interpreting results, counseling the patient and care coordination
[2022-10-05] MEDS: Enoxaparin 40 MG/0.4 ML SYR SC (20:35)
[2022-10-05] MEDS: Hydrocortisone SOD SUC. 100 MG VIAL IVP (20:36)
[2022-10-05 20:50] LABS: Bilirubin Negative (Negative); Blood Trace-intact (Negative); Clarity Clear (Clear); Glucose Negative (Negative); Ketones Negative (Negative); Leukocyte Esterase Negative (Negative); Nitrite Negative (Negative); Specific Gravity 1.015 (1.005-1.025); Urobilinogen 0.2 mg/dL (Up to 0.2)
[2022-10-05] MEDS: Normal Saline Flush 10 ML SYR IVP (20:54)
[2022-10-05 20:58] LABS: Bacteria Negative HPF (Negative); C & S Indicated? No; Casts Negative LPF (Negative); Crystals Negative HPF (Negative); Epithelial Cells Rare HPF (Negative); Mucus Negative (Negative); Other Cells Negative (Negative); RBC 0-2 HPF (0-2); WBC 0-2 HPF (0-5)
[2022-10-05] MEDS: Digoxin 0.5 MG/2 ML AMP 0.125 MG IVP (21:10)
[2022-10-05 21:25] LABS: Troponin I < 50 ng/L (<or=60)
[2022-10-05] MEDS: HYDROmorphone 4 MG TAB PO (21:31)
[2022-10-05] MEDS: diphenhydrAMINE 25 MG CAP PO (21:35)
[2022-10-06] VITALS (28 sets, daily range): BP systolic 68–122; BP diastolic 48–80; PULSE 68–149; RESP 12–33; TEMP 36.1–36.5; O2SAT 96–99
[2022-10-06] MEDS: Hydrocortisone SOD SUC. 100 MG VIAL 50 MG IVP ×2 (00:17→05:51)
[2022-10-06] MEDS: ALPRAZolam 0.25 MG TAB PO (00:43)
[2022-10-06] MEDS: Lidocaine 2% Jelly 6 ML SYR (00:57)
[2022-10-06] MEDS: Digoxin 0.5 MG/2 ML AMP 0.125 MG IVP ×2 (03:03→09:30)
[2022-10-06] MEDS: Magic Mouthwash 119 ML BTL (03:05)
[2022-10-06] MEDS: HYDROmorphone 4 MG TAB PO (03:47)
--- NOTE | 2022-10-06 04:28 | NUR.NOTE ---
Nursing Note: Patient with intermittent heart rate increase up to the 140's just prior to administration of dose number 2 of Digoxin. Patient was found to have c/o lower back pain and requested Dilaudid for relief. Patient stated he takes 20mg of Dilaudid at home and then corrected himself and said I take two, 2mg tablets I don't know where the 20 came from.
[2022-10-06] MEDS: Normal Saline Flush 10 ML SYR IVP ×2 (04:51→09:30)
[2022-10-06 06:34] LABS: Abs Immature Grans 0.05 10^3/uL (0.0-0.06); Absolute Basophil Count 0.02 10^3/uL (0.0-0.2); Absolute Eosinophil Count 0.01 10^3/uL (0.0-0.7); Absolute Lymphocyte Count 0.57 10^3/uL (1.2-3.4); Absolute Monocyte Count 0.41 10^3/uL (0.1-0.8); Basophils % 0.2; Eosinophils % 0.1; HCT 25.5 % (40.0-50.0); HGB 8.3 g/dL (13.5-17.5); Immature Grans % 0.5; Lymphocytes % 5.8; MCH 31.1 pg (27.0-33.0); MCHC 32.5 % (32.0-36.0); MCV 96 fL (80-95); MPV 9.6 fL (8.0-11.0); Monocytes % 4.2; Neutrophils % 89.2; Platelet Count 331 10^3/uL (130-400); RBC 2.67 10^6/uL (4.36-5.78); RDW 15.9 % (11.8-14.1); RDW-SD 55.8 fL; WBC 9.76 10^3/uL (4.4-10.8)
[2022-10-06 06:47] LABS: ALT 15 U/L (16-63); AST 20 U/L (15-37); Albumin 2.8 g/dL (3.4-5.0); Alkaline Phosphatase 118 U/L (46-116); Anion Gap 10.8 mmol/L (3-11); BUN 17 mg/dL (7-18); Bilirubin, Total 0.5 mg/dL (0.2-1.0); CO2 24.2 mmol/L (21.0-32.0); CREATININE 1.4 mg/dL (0.70-1.30); Calcium 8.8 mg/dL (8.5-10.1); Chloride 101 mmol/L (98-107); Estimated GFR 50.18 (mL/min/1.73m2); Glucose 148 mg/dL (74-106); Potassium 4.1 mmol/L (3.5-5.1); Sodium 136 mmol/L (136-145); Total Protein 5.8 g/dL (6.4-8.2)
[2022-10-06] MEDS: Magnesium Oxide 400 MG TAB 1000 MG PO (07:59)
[2022-10-06] MEDS: Levothyroxine 100 MCG TAB PO (08:05)
[2022-10-06] MEDS: Aspirin 325 MG TAB PO (08:05)
[2022-10-06] MEDS: Omeprazole 20 MG CAPCR 40 MG PO (08:05)
[2022-10-06] MEDS: Polyethylene Glycol 3350 17 GM PACKET PO (08:06)
[2022-10-06] MEDS: Protein Nutritional Supplement 16 GM 1 OUNCE PACKET PO (08:06)
--- NOTE | 2022-10-06 08:32 | INITIAL_ITS ---
- If Service Date Differs Date of service: 10/06/22 Time of Service: 08:32 Care Management Initial Assess REASON FOR HOSPITALIZATION:: Acute dehydration, Afib, hypotension PAST MEDICAL HISTORY/PAST SURGICAL HISTORY:: All Active Problems (Updated 10/02/22 @ 16:24 by Rach Guevara MD, [place]). Acute dehydration (Acute). Anemia (Chronic). Adenocarcinoma of right lung (Acute). Painful total knee replacement, left (Acute). History of lung surgery (Acute). 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). History of total right hip replacement (Acute 11/10/19). Atrial fibrillation (Chronic). Cancer of base of tongue (Acute). Palliative care patient (Acute). Medical History (Updated 10/02/22 @ 16:24 by Rach Guevara MD, [place]). Actinic cheilitis. Adenomatous colon polyp. Bee sting allergy. BPH (benign prostatic hyperplasia). Dermatitis. Dysphagia. Erectile dysfunction. HSV (herpes simplex virus) infection. Hyperlipidemia. denies any history. looks like he was discontinued on medication last July. Left lumbar radiculopathy. Following left TKA. Leg pain. Lipoma. Lumbar back pain. Marital problem. Xohpijei-Dfayiowajo-Cktdsuysc syndrome. Thrush. Ventral hernia. s/p 2 repairs. Surgical History . Ankle fracture, right. s/p ORIF. Carpal tunnel syndrome. s/p ECTR and OCTR B/L (4 total surgeries). Colonoscopy - IV Sedation (05/28/16). History of biopsy. History of cataract extraction with lens replacement. B/L. History of esophagogastroduodenoscopy (EGD). History of gastrostomy tube placement. feeding tube per pt. History of removal of Port-a-Cath. History of tonsillectomy. History of total left knee replacement (TKR). Status post hernia repair PREVIOUS FUNCTIONAL STATUS/SOCIAL/FAMILY SUPPORTS:: Jim lives in [place] with h is Rach. Per report, is capable of activities of daily living but fatigue limits him so is helps with dressing etc if there is time constraint. CURRENT FUNCTIONAL STATUS:: Jim discharged before was able to meet with him. ADVANCE DIRECTIVES:: On file, [facility] is [facility] Loyd Has patient been provided with info about the portal/API?: Yes Did the patient sign up for the portal?: Yes (Prior to admission) CODE STATUS:: DNR/DNI ([facility] on file) INSURANCE COVERAGE / FINANCIAL ISSUES:: [facility] PRIMARY CARE PHYSICIAN:: Vicente Reagan PATIENT/FAMILY EDUCATION NEEDS:: Review discharge instructions, limitations and plan to follow up with community providers. Discuss ask me three. TRANSPORTATION:: Via private vehicle with family PLAN:: Jim is discharged home via private vehicle with family. He will follow up with community providers and discharge plan of care as prescribed. No new services are ordered.
[2022-10-06] MEDS: Magic Mouthwash 119 ML BTL 10 ML MM (08:38)
[2022-10-06] MEDS: Tamsulosin 0.4 MG CAPCR 0.8 MG PO (08:39)
--- NOTE | 2022-10-06 10:05 | DSE_ITS ---
Date of service: 10/06/22 Time of Service: 10:06 DS: Diagnosis Discharge Diagnosis (1) Acute dehydration: Status: Acute Asessment and Plan: Patient was found to be acutely dehydrated with azotemia. BUN 22, creatinine 1.7 although looking back over his labs over the past 6 months this level azotemia is been pretty much his baseline. Patient was given IV fluids for treatment of his dehydration and hypotension. He was admitted to the intensive care unit where he received further IV fluids as well as treatment of possible adrenal insufficiency and treatment of his rapid atrial fibrillation. Overnight his BUN/creatinine went down to 17 and 1.4. Patient was eating and drinking markedly better by the morning and was desiring to return home. Patient still had orthostatic hypotension but was no longer symptomatic. With lying and sitting his blood pressure was stable but once standing he would have orthostasis. (2) Atrial fibrillation: Status: Chronic Asessment and Plan: Patient came in with rapid atrial fibrillation with heart rates up to 140 with heart rate coming down into the 100-1 10 range after IV fluid hydration. Patient was started on digoxin and given loading doses beginning at 0.18 mg IV with subsequent doses of 0.125 mg IV every 6 hours x3 more doses. Patient was discharged home on a dose of digoxin 0.125 mg p.o. every other day. Patient is to have follow-up labs next week including BMP and digoxin level as well as an EKG. Patient should follow-up with his primary care provider next week. (3) Adrenal insufficiency: Status: Suspected Asessment and Plan: Because the patient had been on tapering doses of Decadron it was suspected that he has adrenal insufficiency. He was given high-dose hydrocortisone 100 mg IV bolus and then placed on 50 mg every 6 hours. He will be discharged home on a taper dose of prednisone beginning at 50 mg/day and tapering by 10 mg/day every 7 days until he gets down to 20 mg/day and from there he will be decreased by 5 mg/day every 7 days until he is off prednisone. While on prednisone he will need pneumocystis prophylaxis with dapsone 100 mg daily (4) Anemia: Status: Chronic Asessment and Plan: Patient is stable chronic anemia and no evidence of overt bleeding. (5) Adenocarcinoma of right lung: Status: Acute Discharge Plan Disposition Patient Disposition: Home Condition: Improving Discharge Details Reason For Visit: AFIB w/ RVR, Hypotension Admit Date/Time: 10/05/22 16:10 Admit Provider: Casa Rivas Attending Provider: Casa Rivas Primary Care Provider: Vicente Reagan Hospital Course Hospital Course: Mr. 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 Who went into remission for about a year to year and a half before he was then found to have secondary cancer of his lung this was an adenocarcinoma for which she underwent right lower lobe resection of the lung nodule. Subsequently went through chemotherapy including Keytruda and paclitaxel. After failure of these regimens he has now been on cetuximab for the last few weeks. He has had a history of dehydration secondary to poor oral intake due to oral pain that inhibits his oral intake. In the past he had a PEG tube but no longer has one. He was brought to emergency department because of hypotension with systolic pressures in the 60s to 70s. He was found to be in rapid atrial fibrillation. He was given IV fluid hydration in the emergency department which did not resolve his tachycardia. Blood pressure did improve but patient was admitted overnight to the intensive care unit. Serial troponin levels were normal. EKG showed no acute ischemic changes. Procalcitonin level was normal at 0.1. He was found to be anemic but with a stable hemoglobin of 8.5 g. White cell count was 10,000. He had no fevers. Chest x-ray was performed showed no acute pulmonary findings. Patient had been on a tapered dose of Decadron and therefore adrenal insufficiency was suspected. Random cortisol level was sent off on admission and is pending at this time. Patient was placed on stress dose hydrocortisone given a bolus of 100 mg and then started on hydrocortisone 50 mg every 6 hours. He was begun on digoxin and given loading doses at a reduced dose due to his renal impairment. The physician information assistant in our emergency department spoke with [facility] cardiology and they recommend digoxin because of his hypotension as he would be intolerant to beta-blockers or diltiazem. Initial dose of digoxin 0.18 mg was given in the emergency department and then he was given 3 more loading doses of 0.125 mg every 6 hours. Last dose was given on the morning of discharge. Patient was feeling markedly better he was actually eating breakfast alert with stable blood pressure and stable heart rate. He was discharged home on a taper dose of prednisone beginning at 50 mg daily for 7 days and then decreasing by 10 mg/day every week until he gets down to 20 mg/day and at that point he should be tapered by 5 mg/day every week. I.e. his taper schedule should be 50 mg/day x 7 days, 40 mg/day x 7 days, 30 mg/day x 7 days, 20 mg/day x 7 days, 50 mg/day x 7 days, 10 mg/day x 7 days, 5 mg/day. While he is on prednisone doses greater than 20 mg/day he should take dapsone 100 mg daily. This is for pneumocystis prevention. Bactrim was not ordered due to his renal impairment and potential for causing digoxin toxicity. On the day of discharge his renal function and improved remarkably. His BUN was down to 17 creatinine 1.4. Patient should have a follow-up EKG and BMP next week. Home Meds and New Rx's Prescriptions: New prednisone 10 mg tablet 10 mg PO DIRECTED Qty: 120 0RF Rx Instructions: taper as follows: 50 mg/dx7d, 40 mg/dx7d, 30 mg/dx7d, 20 mg/dx7d, 15 mg/dx7d, 10 mg/dx7d, 5 mg/dx7d dapsone 100 mg tablet 100 mg PO DAILY Qty: 21 0RF Rx Instructions: take once per day while on prednisone doses higher than 20 mg/day digoxin 125 mcg (0.125 mg) tablet 125 mcg PO Q48H Qty: 30 0RF Continued polyethylene glycol 3350 [Miralax] 17 gram powder in packet 17 gm PO DAILY levothyroxine 25 mcg capsule 100 mcg PO DAILY multivitamin Tablet 1 tab PO DAILY Patient Comments: does not take anymore omeprazole 40 mg capsule,delayed release(DR/EC) 40 mg PO DAILY prochlorperazine maleate 10 mg tablet 10 mg PO BID PRN alprazolam [Xanax] 1 tab PO DAILY zinc gluconate 50 mg tablet 50 mg PO DAILY magnesium oxide 500 mg tablet 1,000 mg PO DAILY cetuximab 200 mg/100 mL solution 200 mg IV QWEEK Rx Instructions: administer over 60 mins fentanyl 12 mcg/hr patch 72 hour 1 patch transdermal Q72H MDD 12 Qty: 10 0RF hydromorphone 4 mg tablet 4 mg PO BID MDD 4 PRN (Reason: pain) Qty: 60 0RF Rx Instructions: cancer related pain acetaminophen 500 mg Tablet 1,000 mg PO Q6H PRN aspirin 325 mg Tablet 325 mg PO DAILY tamsulosin 0.4 mg Capsule 0.8 mg PO DAILY diphenhydramine HCl [Benadryl] 25 mg Capsule 25 mg PO HS Discontinued dexamethasone 1 mg tablet 1 mg PO DAILY Patient Comments: TAKE TWO TABLETS BY MOUTH DAILY FOR 3 DAYS, THEN TAKE ONE TABLE DAILY FOR 3 DAYS, THEN TAKE ONE TABLET EVERY OTHER DAY FOR 7 DAYS diltiazem HCl 120 mg Capsule,Ext.Rel 24h Degradable 120 mg PO DAILY Discharge Instructions Instructions: Digoxin (By mouth), Prednisone (By mouth), Dapsone (By mouth), A- fib (Atrial Fibrillation) (DC), Dehydration (DC), Secondary Adrenal Insufficiency (DC) Additional Instructions: You were admitted to the hospital to treat you for dehydration and rapid atrial fibrillation. Your atrial fibrillation rate became rapid due to the fact that you are physician took you off diltiazem and you are not taking any rate controlling medications. You are also found to be severely dehydrated due to poor oral intake. Cardiac enzymes were checked and there was no evidence for heart attack. Your atrial fibrillation rate came under improved control with the use of intravenous digoxin as well as IV fluid hydration. You were found to have acute on chronic insufficiency of your kidney function. On admission your BUN was elevated at 22 and your creatinine was 1.7 but after fluid hydration your BUN/creatinine came down to 70 and 1.4. It is imperative that you take adequate fluid intake daily. He should drink at least 6 to 8 glasses of 8 ounces of fluids per day. 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 Please use your Magic mouthwash or viscous lidocaine prior to each meal to reduce the burning sensation in your mouth. You recently were put on a tapered dose of dexamethasone and it has been suspected that you may have adrenal insufficiency. A random cortisol level was drawn on admission and the results are pending at this time. You were put on stress doses of hydrocortisone and this seems to have improved your energy level as well as your appetite. You are being discharged home on a taper dose of prednisone. Prednisone is a corticosteroid that can replace some of your natural cortisol. While on high doses of prednisone, i.e., more than 20 mg of prednisone per day, you should be taking an antibiotic to prevent complications such as pneumocystis pneumonia. I have prescribed dapsone 100 mg once a day. This should be taken daily while you are on prednisone doses that are higher than 20 mg/day. You also been started on oral digoxin at a dose of 125 mcg (0.125 mg) every other day. If this is an adequate to control your heart rate your provider may increase the dose to every day however digoxin level should be monitored and your renal function needs to be closely monitored. You should have a follow-up EKG in your doctor's office next week and you should have follow-up lab work to monitor your kidney function and electrolytes such as a basic metabolic profile (BMP). Your admission lab work included thyroid function tests. Your TSH was found to be mildly elevated at 5.98 but within normal free T4 level of 1.18. This may suggest subclinical hypothyroidism. We did not start her on thyroid replacement but you should discuss this with your primary care provider who may want to repeat your levels in several weeks before starting on thyroid replacement. Activity:: Activity as Tolerated Equipment/Supplies:: No Equipment Needed Diet:: Normal Diet Discharge Orders Discharge Orders: Discharge Order (Routine); Ordered 10/06/22 Ordered By: Casa Rivas DS: Summary Time Spent with Patient providing and/or coordinating discharge services: Greater than 30 minutes (40) Specific discharge activities: Interview/exam of patient; review of discharge in structions, completion of prescriptions/discharge instructions; discussion w/ nursing and CM; documentation of hospital visit Status at Discharge Functional status at discharge: uses cane/walker Overall status at discharge: patient is progressing back to baseline Mental Status: mental status grossly normal Speech and Movement: speech and movement normal Mood: congruent mood Affect: normal affect Exam Narrative Exam Narrative: Jim is sitting up in bed eating breakfast he says he feels 1000% better. Lungs: clear Heart: irregularly irregular, reasonably controlled, HR in the 100 to 110; was in the 90's before he got out of bed. Mouth: no exudates Abdomen: soft, nontender Psych Mental Status: mental status grossly normal Speech and Movement: speech and movement normal Mood: congruent mood Affect: normal affect DS: Data Vitals/I&O Vitals and I&O: Vital Signs Temperature 36.1 C L 10/06/22 04:51 Temperature Source Temporal Artery Scan 10/06/22 04:00 Pulse 121 H 10/06/22 09:30 Pulse 91 H 10/06/22 05:48 Respiratory Rate 15 10/06/22 05:48 Respiratory Effort Normal, Non-Labored 10/06/22 04:00 Respiratory Depth Normal 10/06/22 04:00 Respiratory Pattern Normal 10/06/22 04:00 Blood Pressure 115/73 10/06/22 05:48 Blood Pressure Mean 83 10/06/22 05:48 Blood Pressure Position Supine 10/05/22 18:00 Pulse Oximetry 97 10/06/22 04:00 Oxygen Delivery Method Room Air 10/06/22 04:00 Oxygen Flow Rate 0 10/06/22 04:00 Pain Level 1 10/06/22 05:51 Intake & Output 10/05/22 10/05/22 10/06/22 11:59 23:59 11:59 Intake Total 1860 / 1960 1321.667 / 1321.667 Output Total 650 / 1075 700 / 700 Balance 1210 / 885 621.667 / 621.667 Weight 72.575 kg 76 kg 79.6 kg Intake: IV 1860 / 1860 1021.667 / 1021.667 Oral 300 / 300 Output: Urine 650 / 1075 700 / 700 Other: Urine Color Yellow Yellow Urine Appearance Clear Clear Comment Parr Catheter, patent and draining. Data Completed and Pending Labs on day of discharge: Labs from last 24 hours 10/06/22 10/06/22 10/05/22 05:10 05:10 20:47 WBC 9.76 RBC 2.67 L Hgb 8.3 L Hct 25.5 L MCV 96 H MCH 31.1 MCHC 32.5 RDW 15.9 H Plt Count 331 MPV 9.6 Immature Gran % 0.5 Neutrophils % 89.2 Lymphocytes % 5.8 Monocytes % 4.2 Eosinophils % 0.1 Basophils % 0.2 Nucleated RBC % 0.0 Absolute Neutrophils 8.70 H Absolute Lymphocytes 0.57 L Absolute Monocytes 0.41 Absolute Eosinophils 0.01 Absolute Basophils 0.02 RBC Morphology Hypochromasia VBG Lactate Sodium 136 Potassium 4.1 Chloride 101 Carbon Dioxide 24.2 Anion Gap 10.8 BUN 17 Creatinine 1.4 H Est GFR (CKD-EPI 2020) 50.18 Glucose 148 H Calcium 8.8 Magnesium Total Bilirubin 0.5 AST 20 ALT 15 L Alkaline Phosphatase 118 H Troponin I < 50 NT-Pro-B Natriuret Pep Total Protein 5.8 L Albumin 2.8 L Procalcitonin TSH Free T4 Cortisol Urine Color Urine Clarity Urine pH Ur Specific [place] Urine Protein Urine Ketones Urine Blood Urine Nitrite Urine Bilirubin Urine Urobilinogen Ur Leukocyte Esterase Urine RBC Urine WBC Ur Epithelial Cells Urine Crystals Urine Bacteria Urine Casts Urine Mucus Urine Other Ur Culture Indicated? Urine Glucose COVID-19 Source SARS-CoV-2 (PCR) Add-On Test Request 10/05/22 10/05/22 10/05/22 20:21 17:22 15:13 WBC RBC Hgb Hct MCV MCH MCHC RDW Plt Count MPV Immature Gran % Neutrophils % Lymphocytes % Monocytes % Eosinophils % Basophils % Nucleated RBC % Absolute Neutrophils Absolute Lymphocytes Absolute Monocytes Absolute Eosinophils Absolute Basophils RBC Morphology Hypochromasia VBG Lactate 1.3 Sodium Potassium Chloride Carbon Dioxide Anion Gap BUN Creatinine Est GFR (CKD-EPI 2020) Glucose Calcium Magnesium Total Bilirubin AST ALT Alkaline Phosphatase Troponin I NT-Pro-B Natriuret Pep Total Protein Albumin Procalcitonin 0.1 TSH Free T4 Cortisol Urine Color Yellow Urine Clarity Clear Urine pH 7.0 Ur Specific [place] 1.015 Urine Protein 30 H Urine Ketones Negative Urine Blood Trace-intact H Urine Nitrite Negative Urine Bilirubin Negative Urine Urobilinogen 0.2 Ur Leukocyte Esterase Negative Urine RBC 0-2 Urine WBC 0-2 Ur Epithelial Cells Rare Urine Crystals Negative Urine Bacteria Negative Urine Casts Negative Urine Mucus Negative Urine Other Negative Ur Culture Indicated? No Urine Glucose Negative COVID-19 Source Nasal/Nares SARS-CoV-2 (PCR) Negative Add-On Test Request 10/05/22 10/05/22 10/05/22 11:53 11:53 11:53 WBC 10.18 RBC 2.68 L Hgb 8.5 L Hct 25.5 L MCV 95 MCH 31.7 MCHC 33.3 RDW 15.8 H Plt Count 354 MPV 8.9 Immature Gran % 0.4 Neutrophils % 79.6 Lymphocytes % 6.9 Monocytes % 9.0 Eosinophils % 3.4 Basophils % 0.7 Nucleated RBC % 0.0 Absolute Neutrophils 8.10 H Absolute Lymphocytes 0.70 L Absolute Monocytes 0.92 H Absolute Eosinophils 0.35 Absolute Basophils 0.07 RBC Morphology See Below Hypochromasia 2+ VBG Lactate Sodium Potassium Chloride Carbon Dioxide Anion Gap BUN Creatinine Est GFR (CKD-EPI 2020) Glucose Calcium Magnesium Total Bilirubin AST ALT Alkaline Phosphatase Troponin I NT-Pro-B Natriuret Pep Total Protein Albumin Procalcitonin TSH Free T4 Cortisol Pending Urine Color Urine Clarity Urine pH Ur Specific [place] Urine Protein Urine Ketones Urine Blood Urine Nitrite Urine Bilirubin Urine Urobilinogen Ur Leukocyte Esterase Urine RBC Urine WBC Ur Epithelial Cells Urine Crystals Urine Bacteria Urine Casts Urine Mucus Urine Other Ur Culture Indicated? Urine Glucose COVID-19 Source SARS-CoV-2 (PCR) Add-On Test Request DONE 10/05/22 11:53 WBC RBC Hgb Hct MCV MCH MCHC RDW Plt Count MPV Immature Gran % Neutrophils % Lymphocytes % Monocytes % Eosinophils % Basophils % Nucleated RBC % Absolute Neutrophils Absolute Lymphocytes Absolute Monocytes Absolute Eosinophils Absolute Basophils RBC Morphology Hypochromasia VBG Lactate Sodium 137 Potassium 3.9 Chloride 101 Carbon Dioxide 25.7 Anion Gap 10.3 BUN 22 H Creatinine 1.7 H Est GFR (CKD-EPI 2020) 39.75 Glucose 95 Calcium 9.1 Magnesium 1.7 L Total Bilirubin 0.5 AST 20 ALT 19 Alkaline Phosphatase 124 H Troponin I < 50 NT-Pro-B Natriuret Pep 3677 H Total Protein 6.2 L Albumin 3.0 L Procalcitonin TSH 5.98 H Free T4 1.18 Cortisol Urine Color Urine Clarity Urine pH Ur Specific [place] Urine Protein Urine Ketones Urine Blood Urine Nitrite Urine Bilirubin Urine Urobilinogen Ur Leukocyte Esterase Urine RBC Urine WBC Ur Epithelial Cells Urine Crystals Urine Bacteria Urine Casts Urine Mucus Urine Other Ur Culture Indicated? Urine Glucose COVID-19 Source SARS-CoV-2 (PCR) Add-On Test Request [facility] All Active Problems Hypomagnesemia (Acute) Hypothyroidism (Chronic) Acute dehydration (Acute) Anemia (Chronic) Adenocarcinoma of right lung (Acute) Painful total knee replacement, left (Acute) History of lung surgery (Acute) 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) History of total right hip replacement (Acute 11/10/19) Atrial fibrillation (Chronic) Cancer of base of tongue (Acute) Palliative care patient (Acute) Medical History Actinic cheilitis Adenomatous colon polyp Bee sting allergy BPH (benign prostatic hyperplasia) Dermatitis Dysphagia Erectile dysfunction HSV (herpes simplex virus) infection Hyperlipidemia denies any history looks like he was discontinued on medication last July Left lumbar radiculopathy Following left TKA Leg pain Lipoma Lumbar back pain Marital problem Fadgsozs-Hfiseowyln-Wtrohmfxk syndrome Thrush Ventral hernia s/p 2 repairs Surgical History Ankle fracture, right s/p ORIF Carpal tunnel syndrome s/p ECTR and OCTR B/L (4 total surgeries) Colonoscopy - IV Sedation (05/28/16) History of biopsy History of cataract extraction with lens replacement B/L History of esophagogastroduodenoscopy (EGD) History of gastrostomy tube placement feeding tube per pt History of removal of Port-a-Cath History of tonsillectomy History of total left knee replacement (TKR) Status post hernia repair Family History Mother , age 76 Alcohol abuse COPD (chronic obstructive pulmonary disease) Father , age 74 during surgery to repair heart valve Heart disease Sister Multiple myeloma Brother Alcohol abuse Substance abuse Social History Smoking/Tobacco Use Status: Never Smoking risk assessment performed?: Yes Alcohol Intake: current Alcohol Intake frequency: a few times a month Alcohol type: beer, wine and hard liquor Counseling given: Yes Counseling provided: reduce to 2 or less/day Details: drinks heavily on a daily basis, says he's quit before. suggested reduction Drug use: Never Substance use type: does not use Caregiver/Support person: Yes Household members: spouse Housing: house Number of Children: 0 number of grandchildren: 0 Pets and animals: Yes (yellow and chocolate labs, one each) Pets and animals: dog(s) Current gender identity: male What is your relationship status?: How often do you talk on the phone with friends or family?: twice per week How often do you get together with friends or relatives?: twice per week Panel score (0-1 are the most socially isolated patients): 2 What type of physical activity do you participate in: walking, irregular exercise and occasional exercise Special heidi needs: No Do you feel safe at home: Yes Do you feel safe in your relationship?: Yes Time Spent with Patient Time Spent with Patient: 45-69 minutes Time was spent: preparing to see the patient(eg.review tests), ordering medications,tests, procedures, indepentently interpreting results, counseling the patient and care coordination
--- NOTE | 2022-10-06 10:09 | PDOC.CMDIS ---
- If Service Date Differs Date of service: 10/06/22 Time of Service: 10:09 LACE Index Scoring Tool - Questions: Length of Stay (in days): 1 Acuity (Admit via E.D.?): Yes E.D. Visits: 3 - Answers: Total Score: 7 Risk of Readmission: Low Risk Care Management Discharge Reason for Hospitalization: Acute dehydration, Afib, hypotension Discharge Plan: Jim is discharged home via private vehicle with family. He will follow up with community providers and discharge plan of care as prescribed. No new services are ordered. Patient/Family Education Needs: Review discharge instructions, limitations, medications and plan to follow up with community providers. Discuss ask me three.
[2022-10-06] MEDS: predniSONE 20 MG TAB 60 MG PO (10:43)
[2022-10-06] MEDS: Heparin 500 UNITS/5 ML SYRINGE (11:08)
== END 2022-10-06 11:40 | disposition home or self-care (01) | DRG 309 ==
LOC: ER 10:49 → ICU 18:00
PROVIDERS: Admitting Provider Internal Medicine; Emergency Provider Physician Assistant; PCP Internal Medicine; Visit Provider Internal Medicine
DX: I48.20 Chronic atrial fibrillation, unspecified (principal); C34.91 Malignant neoplasm of unspecified part of right bronchus or lung; T84.84XA Pain due to internal orthopedic prosthetic devices, implants and grafts, initial encounter; N18.9 Chronic kidney disease, unspecified; E86.0 Dehydration; E83.42 Hypomagnesemia; E03.9 Hypothyroidism, unspecified; Z96.652 Presence of left artificial knee joint; Z96.641 Presence of right artificial hip joint; C01 Malignant neoplasm of base of tongue; N40.0 Benign prostatic hyperplasia without lower urinary tract symptoms; R13.10 Dysphagia, unspecified; E78.5 Hyperlipidemia, unspecified; L87.2 Elastosis perforans serpiginosa; I95.1 Orthostatic hypotension; D64.9 Anemia, unspecified; K12.31 Oral mucositis (ulcerative) due to antineoplastic therapy; Y84.2 Radiological procedure and radiotherapy as the cause of abnormal reaction of the patient, or of later complication, without mention of misadventure at the time of the procedure
CPT/HCPCS: 36410; 36415; 36591; 80053; 82533; 84145; 87635; 93005; 96361; 96365; 96375; 99285; J1650; 71046; 81003; 81015; 83605; 83735; 83880; 84439; 84443; 84484; 85025; 93010; 99239; 99291; J1160; J1720; J3475; J7512

== ENCOUNTER 2022-10-18 10:52 | Inpatient (IN) | payer MEDICARE, SELFPAY ==
[2022-10-18] VITALS (38 sets, daily range): BP systolic 80–137; BP diastolic 55–88; PULSE 66–141; RESP 11–31; TEMP 36.8–37.5; O2SAT 94–96
--- NOTE | 2022-10-18 | DI.RAD_ITS ---
Exam(s) XR LUMBAR SPINE COMPLETE EXAM: XR LUMBAR SPINE COMPLETE CLINICAL HISTORY: fall, back pain. TECHNIQUE: 2D digital imaging was performed. Five views. COMPARISON: CT CT CHEST PE CTA from 10/18/2022 FINDINGS: BONES: Stable mild T11 compression fracture. No acute fracture or gross evidence of a destructive le evan. facet hypertrophy identified greatest at L4-5 and L5-S1. Right hip prosthesis. DISKS: Multilevel disc space narrowing.. ALIGNMENT: Mild levoscoliosis. SOFT TISSUE: Contrast noted in urinary bladder from prior CT IMPRESSION: Advanced degenerative changes. No acute abnormality. DATA REPOSITORY: RADIATION DOSE DELIVERED:
--- NOTE | 2022-10-18 | DI.RAD_ITS ---
Exam(s) XR THORACIC SPINE COMPLETE EXAM: XR THORACIC SPINE COMPLETE CLINICAL HISTORY: fall, back pain. TECHNIQUE: 2D digital imaging was performed. Three views. COMPARISON: CR,XR XR CHEST 2V PA LATERAL from 10/05/2022 CR XR CHEST 2V PA LATERAL from 10/18/2022 FINDINGS: BONES: Stable mid and lower thoracic compression fractures. There is no acute fracture or destructiv e lesion visible. The vertebral bodies and posterior elements are unremarkable. ALIGNMENT: Within normal limits. DISKS: Interverebral disc spaces are maintained. SOFT TISSUE: Visualized lungs are clear. Port noted with tip in SVC. IMPRESSION: Stable mild mid and lower thoracic compression fractures. DATA REPOSITORY: RADIATION DOSE DELIVERED:
--- NOTE | 2022-10-18 11:00 | RT.EKG_ITS ---
APPROVED REPORT Exam: Resting ECG Reason for Exam: weakness Patient Location: E HR:88 bpm ECG Measurements Heart Rate 88 AXIS [place] [id number] P [id number] QRSd 90 QRS 25 QT 327 T -90 QTc 396 Conclusion Atrial fibrillation...V-rate 73-109, irreg A-activity Ventricular premature complex...V complex w/ short R-R interval st dep inf/lat more pronounced than piror ekg
[2022-10-18] MEDS: predniSONE 20 MG TAB PO (11:41)
[2022-10-18] MEDS: Acetaminophen 325 MG TAB 650 MG PO ×2 (11:42)
[2022-10-18 11:43] LABS: Abs Immature Grans 0.11 10^3/uL (0.0-0.06); Absolute Basophil Count 0.03 10^3/uL (0.0-0.2); Absolute Eosinophil Count 0.11 10^3/uL (0.0-0.7); Absolute Monocyte Count 0.81 10^3/uL (0.1-0.8); Absolute Neutrophil Count 11.01 10^3/uL (1.2-6.7); Basophils % 0.2; Eosinophils % 0.9; HCT 24.6 % (40.0-50.0); HGB 8.2 g/dL (13.5-17.5); Immature Grans % 0.9; Lymphocytes % 4.1; MCH 33.1 pg (27.0-33.0); MCHC 33.3 % (32.0-36.0); MCV 99 fL (80-95); MPV 8.9 fL (8.0-11.0); Monocytes % 6.4; Neutrophils % 87.5; Platelet Count 278 10^3/uL (130-400); RBC 2.48 10^6/uL (4.36-5.78); RDW 16.6 % (11.8-14.1); RDW-SD 60.5 fL; WBC 12.58 10^3/uL (4.4-10.8)
[2022-10-18] MEDS: Lactated Ringers 1,000 ML 1000 ML IV ×2 (11:43→14:15)
[2022-10-18 11:44] LABS: Absolute Lymphocyte Count 0.52 10^3/uL (1.2-3.4)
--- NOTE | 2022-10-18 12:00 | DI.CT_ITS ---
Exam(s) CT HEAD CERVICAL SPINE WO EXAM: CT HEAD CERVICAL SPINE WO CLINICAL HISTORY: fall, [place]. TECHNIQUE: Imaging Protocol: Axial computed tomography images with coronal and sagittal reformatted images were created and reviewed COMPARISON: CT CT NECK CHEST ABD W from 05/18/2021 FINDINGS: BRAIN: There are no skull fractures nor fluid in the visualized paranasal sinuses. There is no evidence of intracranial hemorrhage, mass effect, or shift of midline structures. There are no extra-axial fluid collections. The ventricles are not enlarged or shifted and there is no blo od within the ventricular system nor within the basal cisterns. Vascular calcifications noted in the vertebral arteries at the skull base. CERVICAL SPINE: There is no evidence of fracture nor listhesis. No significant prevertebral soft tissue swelling. Two level advanced disc space narrowing. Facet arthropathy at multiple levels. There is no significant facet joint malalignment. No significant osseous lesions evident. IMPRESSION: No acute intracranial findings on this noninfused CT scan of the brain. No evidence of cervical spine fracture, malalignment, nor acute compromise of the cervical spinal can al. Multi level chronic degenerative changes as described above. RADIATION DOSE DELIVERED: 1,434.1mGy.cm Total DLP DATA REPOSITORY: All CT scans at this facility are submitted to the National Radiology Data Registry (NRDR) Dose Index Registry (DIR) with the [employer] (ACR). RADIATION OPTIMIZATION: All CT scans at this facility use at least one of these dose optimization te chniques: automated exposure control; mA and/or kV adjustment per patient size (includes targeted exa ms where dose is matched to clinical indication); or iterative reconstruction.
[2022-10-18 12:05] LABS: ALT 31 U/L (16-63); AST 21 U/L (15-37); Albumin 3.1 g/dL (3.4-5.0); Alkaline Phosphatase 91 U/L (46-116); BUN 30 mg/dL (7-18); Bilirubin, Total 0.9 mg/dL (0.2-1.0); CREATININE 1.7 mg/dL (0.70-1.30); Calcium 8.9 mg/dL (8.5-10.1); Chloride 102 mmol/L (98-107); Digoxin 0.66 ng/mL (0.90-2.00); Estimated GFR 39.75 (mL/min/1.73m2); Glucose 92 mg/dL (74-106); Lipase 26 U/L (16-77); Magnesium 1.7 mg/dL (1.8-2.4); Potassium 3.4 mmol/L (3.5-5.1); Sodium 139 mmol/L (136-145); Total Protein 6.2 g/dL (6.4-8.2); Troponin I < 50 ng/L (<or=60)
--- NOTE | 2022-10-18 12:46 | NUR.NOTE ---
Nursing Note: Pt resting on stretcher, offers no complaints, at bedside. IVF infusing vis port, awaiting CT, monitors in place, NAD at this time.
--- NOTE | 2022-10-18 13:04 | DI.RAD_ITS ---
Exam(s) XR CHEST 2V PA LATERAL EXAM: XR CHEST 2V PA LATERAL CLINICAL HISTORY: fall, weakness. TECHNIQUE: 2D digital imaging was performed. COMPARISON: CR,XR XR CHEST 2V PA LATERAL from 10/05/2022 FINDINGS: 2 views: Distal tip of the Port-A-Cath remains in good position in the SVC. Heart size is normal. The mediastinum is not widened. Previously described abnormal pleural based densities and nodules in the right lung again noted, unch anged. The opposite-left lung is clear. No pleural effusions. No pneumothorax. No pulmonary edema . IMPRESSION: Abnormal right hemithoracic findings but with minimal if any significant change compared to 3. DATA REPOSITORY: RADIATION DOSE DELIVERED:
--- NOTE | 2022-10-18 13:30 | RT.EKG_ITS ---
APPROVED REPORT Exam: Resting ECG Reason for Exam: weakness Patient Location: E HR:92 bpm ECG Measurements Heart Rate 92 AXIS RI [id number] P [id number] QRSd 89 QRS 16 QT 343 T [id number] QTc 425 Conclusion Atrial fibrillation...? atrial activity Low voltage, extremity leads...all extremity leads <0.5mV st dep laterally
--- NOTE | 2022-10-18 14:16 | ED.GENADUL_ITS ---
Discharge Plan Disposition Patient Disposition: Admit to [facility] Condition: Serious Discharge Details Clinical Impression: Atrial fibrillation, Cancer of base of tongue, Hypomagnesemia, Anemia, Fall, O rthostatic hypotension, Dehydration Admit Date/Time: 10/18/22 16:05 Admit Provider: Joan Nolen Attending Provider: Joan Nolen Primary Care Provider: Vicente Reagan ED Provider: Gemma Stone Discharge Data Discharge Date/Time-TO BE ENTERED AT DEPARTURE: 10/18/22 17:22 Medical Decision Making This 81-year-old gentleman presents with fall secondary to weakness just prior to arrival. Denies any loss of consciousness. Denies any chest pain or shortness of breath. States has had several episodes in the past with similar presentation. Hit his head with the fall reportedly Secondary to age and comorbidities, CT head and cervical spine were ordered in addition to diagnostic labs, patient has baseline anemia, chemistry is not significantly changed, history of chronic renal disease, creatinine 1.7, BUN 30 Received 2 L of IV hydration with initial orthostasis Asymptomatic with orthostatic blood pressure Given 20 mg of prednisone for stress dose adrenal insufficiency dosing Given Tylenol for pain Patient does have anemia, baseline anemia when compared to prior, no indication of active bleeding, not anticoagulated currently secondary to hemoptysis Given 2 L of LR and magnesium for magnesium of 1.7 We will reassess sending patient's home, low suspicion for dysrhythmia as no syncope and rather presyncopal symptoms were noted On reassessment, patient is markedly orthostatic, 120 systolic supine to 73 systolic standing pulse 150s on standing increased from 98 in supine position At this time, patient is unsafe for discharge home, he will likely fall again with this level of orthostasis, he has received 2 L of IV hydration in the emergency department and I do not feel comfortable giving additional oral hy dration at this time He is agreeable to admission to this facility He has at rest normotensive and in rate controlled atrial fibrillation I was asked by the admitting hospitalist, Dr. Nolen to perform CTA chest to exclude pulmonary embolism, the CTA does not show significant acute abnormality, specifically no pulmonary embolism per radiology interpretation my review HPI General Date/Time Provider Initiated Documentation: 10/18/22 10:58 . HPI Narrative: This 81-year-old gentleman with history of adrenal insufficiency, hypomagnesemia, hypothyroidism, anemia, adenocarcinoma of right lung, undergoing chemotherapy weekly, last chemotherapy on Friday presents with report of inter mittent falls with weakness. Patient states that this happens typically when he is dehydrated per patient. He denies any loss of consciousness associated with fall. States he was using his walker and his legs buckled. He fell to the ground and remembers hitting his head. He had trouble getting himself up after the fall reportedly. He denies any additional acquired injuries or changes in medications. He denies any palpitations, chest pain, shortness of breath associated with episode. Related Data Home Medications Medication Instructions Recorded Confirmed polyethylene glycol 3350 17 gram 17 gm PO DAILY 08/21/18 10/18/22 oral powder packet (Miralax) levothyroxine 25 mcg capsule 100 mcg PO DAILY 11/03/19 10/18/22 multivitamin 1 tab PO DAILY 05/17/21 10/18/22 omeprazole 40 mg capsule,delayed 40 mg PO DAILY 05/17/21 10/18/22 release acetaminophen 500 mg tablet 1,000 mg PO Q6H PRN 10/27/21 10/18/22 alprazolam [Xanax] 1 tab PO DAILY 02/06/22 10/05/22 magnesium oxide 500 mg tablet 1,000 mg PO DAILY 02/06/22 10/18/22 prochlorperazine maleate 10 mg 10 mg PO BID PRN 02/06/22 10/18/22 tablet zinc gluconate 50 mg tablet 50 mg PO DAILY 02/06/22 10/18/22 aspirin 325 mg tablet 325 mg PO DAILY 09/22/22 10/18/22 diphenhydramine HCl 25 mg capsule 25 mg PO HS 09/22/22 10/18/22 (Benadryl) tamsulosin 0.4 mg capsule 0.8 mg PO DAILY 09/22/22 10/18/22 cetuximab 200 mg/100 mL 200 mg IV QWEEK 10/02/22 10/18/22 intravenous solution fentanyl 12 mcg/hr transdermal 1 patch transdermal Q72H #10 ea 10/02/22 10/18/22 patch hydromorphone 4 mg tablet 4 mg PO BID PRN pain #60 tabs 10/02/22 10/18/22 dapsone 100 mg tablet 100 mg PO DAILY #21 tabs 10/06/22 10/18/22 digoxin 125 mcg (0.125 mg) tablet 125 mcg PO Q48H #30 tabs 10/06/22 10/18/22 prednisone 10 mg tablet 10 mg PO DIRECTED #120 tabs 10/06/22 10/18/22 Previous Rx's Medication Instructions Recorded fentanyl 12 mcg/hr transdermal 1 patch transdermal Q72H #10 ea 10/02/22 patch hydromorphone 4 mg tablet 4 mg PO BID PRN pain #60 tabs 10/02/22 dapsone 100 mg tablet 100 mg PO DAILY #21 tabs 10/06/22 digoxin 125 mcg (0.125 mg) tablet 125 mcg PO Q48H #30 tabs 10/06/22 prednisone 10 mg tablet 10 mg PO DIRECTED #120 tabs 10/06/22 Allergies Allergy/AdvReac Type Severity Reaction Status Date / Time Penicillins Allergy Unknown happened Verified 10/05/22 10:56 at age 5, serious hives bee sting Allergy Uncoded 10/05/22 10:56 marinol AdvReac Intermediate mental Uncoded 10/02/22 11:32 status changes General Stated Complaint: Dizzy/Sync VIJAY: 4 PFSH All Active Problems (Updated 10/19/22 @ 08:52 by ELLIE Mckeon) Acute on chronic anemia (Acute) Discharge planning issues (Acute) DVT prophylaxis (Acute) Dehydration (Acute) Hypokalemia (Acute) Orthostatic hypotension (Acute) Fall (Acute) Medication monitoring encounter (Acute) Hypomagnesemia (Acute) Hypothyroidism (Chronic) Anemia (Chronic) Adenocarcinoma of right lung (Acute) Painful total knee replacement, left (Acute) History of lung surgery (Acute) 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) History of total right hip replacement (Acute 11/10/19) Atrial fibrillation (Chronic) Cancer of base of tongue (Acute) Palliative care patient (Acute) Medical History Actinic cheilitis Adenomatous colon polyp Bee sting allergy BPH (benign prostatic hyperplasia) Dermatitis Dysphagia Erectile dysfunction HSV (herpes simplex virus) infection Hyperlipidemia denies any history looks like he was discontinued on medication last July Left lumbar radiculopathy Following left TKA Leg pain Lipoma Lumbar back pain Marital problem Xzrhbzxa-Snfcveikfp-Nlzsuzjbn syndrome Thrush Ventral hernia s/p 2 repairs Surgical History Ankle fracture, right s/p ORIF Carpal tunnel syndrome s/p ECTR and OCTR B/L (4 total surgeries) Colonoscopy - IV Sedation (05/28/16) History of biopsy History of cataract extraction with lens replacement B/L History of esophagogastroduodenoscopy (EGD) History of gastrostomy tube placement feeding tube per pt History of removal of Port-a-Cath History of tonsillectomy History of total left knee replacement (TKR) Status post hernia repair Family History Mother , age 76 Alcohol abuse COPD (chronic obstructive pulmonary disease) Father , age 74 during surgery to repair heart valve Heart disease Sister Multiple myeloma Brother Alcohol abuse Substance abuse Social History Smoking/Tobacco Use Status: Never Smoking risk assessment performed?: Yes Alcohol Intake: current Alcohol Intake frequency: a few times a month Alcohol type: beer, wine and hard liquor Counseling given: Yes Counseling provided: reduce to 2 or less/day Details: drinks heavily on a daily basis, says he's quit before. suggested reduction Drug use: Never Substance use type: does not use Caregiver/Support person: Yes Household members: spouse Housing: house Number of Children: 0 number of grandchildren: 0 Pets and animals: Yes (yellow and chocolate labs, one each) Pets and animals: dog(s) Current gender identity: male What is your relationship status?: How often do you talk on the phone with friends or family?: twice per week How often do you get together with friends or relatives?: twice per week Panel score (0-1 are the most socially isolated patients): 2 What type of physical activity do you participate in: walking, irregular e xercise and occasional exercise Special heidi needs: No Do you feel safe at home: Yes Do you feel safe in your relationship?: Yes Exam Const General: cooperative and no acute distress HENMT Head: normal to inspection Head images: 1. hematoma scalp 1 inch 2. hematoma 2 inch Mouth: oral mucosae normal Other: no hemotympanum Eyes Pupils: PERRL Skin General skin exam: no rashes or lesions noted Neuro General: patient alert and patient oriented x3 Cranial Nerves: CN's II-XI intact bilaterally and tongue midline Cognition: normal cognition Speech: speech normal Course Vital Signs Vital signs: Vital Signs Temperature 36.8 C 10/18/22 10:54 Pulse 98 H 10/18/22 10:54 Respiratory Rate 16 10/18/22 10:54 Blood Pressure 125/79 10/18/22 10:54 Pulse Oximetry 96 10/18/22 10:54 Temperature 36.8 C 10/18/22 10:54 Temperature Source Oral 10/18/22 10:54 Pulse 78 10/18/22 12:31 Pulse 88 10/18/22 12:31 Respiratory Rate 11 L 10/18/22 12:31 Respiratory Effort Normal, Non-Labored 10/18/22 11:01 Respiratory Depth Normal 10/18/22 11:01 Respiratory Pattern Normal 10/18/22 11:01 Blood Pressure 131/70 10/18/22 13:35 Blood Pressure Mean 78 10/18/22 12:31 Blood Pressure Position Supine 10/18/22 10:54 Pulse Oximetry 96 10/18/22 10:54 Oxygen Delivery Method Room Air 10/18/22 10:54 Oxygen Flow Rate 0 10/18/22 10:54 Pain Level 0 10/18/22 10:54 Lab/Test Results Lab/Test Results: Laboratory Tests Range/Units 10/18/22 10/18/22 11:28 11:28 WBC (4.4-10.8) 10^3/uL 12.58 H RBC (4.36-5.78) 10^6/uL 2.48 L Hgb (13.5-17.5) g/dL 8.2 L Hct (40.0-50.0) % 24.6 L MCV (80-95) fL 99 H MCH (27.0-33.0) pg 33.1 H MCHC (32.0-36.0) % 33.3 RDW (11.8-14.1) % 16.6 H Plt Count (130-400) 10^3/uL 278 MPV (8.0-11.0) fL 8.9 Immature Gran % 0.9 Neutrophils % 87.5 Lymphocytes % 4.1 Monocytes % 6.4 Eosinophils % 0.9 Basophils % 0.2 Nucleated RBC % (0.0-0.3) % 0.0 Absolute Neutrophils (1.2-6.7) 10^3/uL 11.01 H Absolute Lymphocytes (1.2-3.4) 10^3/uL 0.52 L Absolute Monocytes (0.1-0.8) 10^3/uL 0.81 H Absolute Eosinophils (0.0-0.7) 10^3/uL 0.11 Absolute Basophils (0.0-0.2) 10^3/uL 0.03 Sodium (136-145) mmol/L 139 Potassium (3.5-5.1) mmol/L 3.4 L Chloride (98-107) mmol/L 102 Carbon Dioxide (21.0-32.0) mmol/L 30.0 Anion Gap (3-11) mmol/L 7.0 BUN (7-18) mg/dL 30 H Creatinine (0.70-1.30) mg/dL 1.7 H Est GFR (CKD-EPI 2020) (mL/min/1.73m2) 39.75 Glucose (74-106) mg/dL 92 Calcium (8.5-10.1) mg/dL 8.9 Magnesium (1.8-2.4) mg/dL 1.7 L Total Bilirubin (0.2-1.0) mg/dL 0.9 AST (15-37) U/L 21 ALT (16-63) U/L 31 Alkaline Phosphatase (46-116) U/L 91 Troponin I (<or=60) ng/L < 50 Total Protein (6.4-8.2) g/dL 6.2 L Albumin (3.4-5.0) g/dL 3.1 L Lipase (16-77) U/L 26 TSH (0.36-3.74) uIU/mL 3.00 Digoxin (0.90-2.00) ng/mL 0.66 L
[2022-10-18 14:19] LABS: Bilirubin Negative (Negative); Blood Trace-intact (Negative); Clarity Clear (Clear); Glucose Negative (Negative); Ketones Negative (Negative); Leukocyte Esterase Trace (Negative); Nitrite Negative (Negative); Urobilinogen 0.2 mg/dL (Up to 0.2)
--- NOTE | 2022-10-18 14:27 | NUR.NOTE ---
Nursing Note: Repeat troponin & EKG done as ordered, pt without complaints at this time, remains at bedside, 2nd liter IVF hung & infusing, provider aware.
[2022-10-18 14:29] LABS: Bacteria Moderate HPF (Negative); C & S Indicated? Yes; Casts Negative LPF (Negative); Crystals Negative HPF (Negative); Epithelial Cells Rare HPF (Negative); Mucus Negative (Negative); RBC 0-2 HPF (0-2)
[2022-10-18 14:39] LABS: Troponin I < 50 ng/L (<or=60)
--- NOTE | 2022-10-18 15:00 | DI.CT_ITS ---
Exam(s) CT CHEST PE CTA EXAM: CT CHEST PE CTA CLINICAL HISTORY: orthostasis, hemoptysis, tachycardia. TECHNIQUE: Imaging Protocol: CT angiography of the chest was performed using pulmonary embolus letha col. Multi planar reconstructions were performed. CONTRAST MATERIAL: Intravenous: Omnipaque 350 Contrast volume: 100 cc COMPARISON: CT CT CHEST/ABD/PEL W from 09/05/2022 FINDINGS: CHEST: PULMONARY ARTERIES: There are no intraluminal filling defects to suggest acute pulmonary emboli. LUNGS: Surgical staple line in the right upper lobe again noted. Previously described multiple right sided intrathoracic masses both pulmonary and pleural based are again noted with slight further prog ression in size of these findings... Pleural based mass eroding through 4th right rib is again noted . No pleural effusions. No new findings in trachea and mainstem bronchi. MEDIASTINUM: There is no new hilar nor mediastinal adenopathy. CARDIAC: Heart size is upper normal. There is no pericardial effusion.Diameter of the ascending thor acic aorta is enlarged at 4 cm. There is no dissection. There is no significant shift of the inter ventricular septum. PARTIALLY VISUALIZED UPPERMOST ABDOMEN: Again noted is an abnormal cystic structure below the right h emidiaphragm a just lateral to the right hepatic lobe and indenting the right hepatic lobe this measu ring 5.4 cm cephalocaudal by 4.5 cm wide by 5.2 cm AP. This is again noted to indent the lateral asp ect of the liver. This is presumed to be metastatic. It is not associated with adjacent rib destruc tion. OSSEOUS: Right 4th rib destruction by pleural base mass again noted. There is lytic involvement of a right transverse process in the midthoracic spine noted, probably also metastatic.Slight loss of hei ght T5 and T11 vertebrae noted.. IMPRESSION: 1. No evidence of acute pulmonary emboli. No evidence of pulmonary infarction. 2. Further progression of size and number of metastatic pleural based and lung parenchymal lesions. No new pleural effusion. 3. Metastatic osseous disease again noted as described above. Report called by myself to ER provider. RADIATION DOSE DELIVERED: 419.67mGy.cm Total DLP DATA REPOSITORY: All CT scans at this facility are submitted to the National Radiology Data Registry (NRDR) Dose Index Registry (DIR) with the [employer] (ACR). RADIATION OPTIMIZATION: All CT scans at this facility use at least one of these dose optimization te chniques: automated exposure control; mA and/or kV adjustment per patient size (includes targeted exa ms where dose is matched to clinical indication); or iterative reconstruction.
[2022-10-18] MEDS: Normal Saline - Diluent 50 ML VIAL IJ (15:21)
[2022-10-18] MEDS: Omnipaque 350 MG/ML 500 ML BTL-Imaging package IJ (15:21)
--- NOTE | 2022-10-18 15:27 | NUR.NOTE ---
Nursing Note:Pt to DI via stretcher for imaging, cont. w/no acute complaints.
[2022-10-18] MEDS: Magnesium Gluconate 500 MG TAB PO (15:58)
[2022-10-18] MEDS: predniSONE 20 MG TAB 40 MG PO (15:59)
[2022-10-18 16:06] LABS: Source Nasal/Nares
--- NOTE | 2022-10-18 16:08 | NUR.NOTE ---
Nursing Note: Covid test obtained & sent to lab.
--- NOTE | 2022-10-18 16:24 | W.PM.HP.N ---
Date of service: 10/18/22 Time of Service: 16:24 Assessment and Plan Assessment and plan (1) Orthostatic hypotension: Status: Acute Assessment and plan: In setting of dehydration, flomax use, adrenal insufficiency. Continue IVF initiated in the ER. Continue steroids (will increase the dose to 40 mg PO daily). hold flomax. Consider midodrine. TEDs. (2) Fall: Status: Acute Assessment and plan: In fact, a syncopal episode with closed head injury. In setting of #1. Tx as per #1. C/s PT. (3) Atrial fibrillation: Status: Chronic Assessment and plan: Not on anticoagulation due to h/o hemoptysis. HR goes up when standing, controlled in supine position. Address orthostasis. Replete lytes. Continue digoxin. Consider increasing the dose. (4) Adrenal insufficiency: Status: Suspected Assessment and plan: Prednisone 40 mg PO daily (5) Hypomagnesemia: Status: Acute Assessment and plan: Replete (6) Hypokalemia: Status: Acute Assessment and plan: Replete (7) Dehydration: Status: Acute Assessment and plan: IVF (8) Acute on chronic anemia: Status: Acute Assessment and plan: Check hematest. Check anemia studies. Trend H/H (9) Cancer of base of tongue: Status: Acute Assessment and plan: In resmission. Has poor PO intake due to oral pain. Will trial magic mouth wash. Consider speech therapy consult (not available over the weekend). (10) Adenocarcinoma of right lung: Status: Acute Assessment and plan: On chemo. Monitor for recurrence of hemoptysis. CT shows progression of disease. C/s palliative care. (11) DVT prophylaxis: Status: Acute Assessment and plan: SC heparin (12) Discharge planning issues: Status: Acute Assessment and plan: DNR/DNi C/s PT and palliative care History of Present Illness History of Present Illness Chief Complaint: Fall at home Narrative: Mr Camacho is an 81 year old male with PMHx of SCC of the tongue s/p resection/XRT, in remission (no PEG tube in place) and a secondary adenocarcinoma of the lung s/p resection and on chemotherapy every Friday, who presented to [facility] ED today after a syncopal event while walking to the bathroom and hitting the back of his head, found to be hypotensive by EMS and very orthostatic in the ED with SBP going down to the 70s and HR going up to 150s in standing position when his SBPs are in 110s and HR is in the 90s at rest. He also has a h/o Afib on digoxin and no longer on anticoagulation due to h/o hemoptysis, adrenal insufficiency on a prednisone taper, BPH on flomax. He remains orthostatic despite aggressive IV hydration. He received a dose of prednisone 60 mg in the ER. Hospitalist admission has requested. The patient had a similar admission at our facility 10/05/22-10/06/22 during which he was found to be dehydrated and this was due to poor PO intake due to oral pain. Review of Systems All systems reviewed & are unremarkable except as noted in HPI and below PFSH All Active Problems (Updated 10/18/22 @ 17:19 by Joan Nolen MD) Acute on chronic anemia (Acute) Discharge planning issues (Acute) DVT prophylaxis (Acute) Dehydration (Acute) Hypokalemia (Acute) Orthostatic hypotension (Acute) Fall (Acute) Medication monitoring encounter (Acute) Hypomagnesemia (Acute) Hypothyroidism (Chronic) Anemia (Chronic) Adenocarcinoma of right lung (Acute) Painful total knee replacement, left (Acute) History of lung surgery (Acute) 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) History of total right hip replacement (Acute 11/10/19) Atrial fibrillation (Chronic) Cancer of base of tongue (Acute) Palliative care patient (Acute) Medical History Actinic cheilitis Adenomatous colon polyp Bee sting allergy BPH (benign prostatic hyperplasia) Dermatitis Dysphagia Erectile dysfunction HSV (herpes simplex virus) infection Hyperlipidemia denies any history looks like he was discontinued on medication last July Left lumbar radiculopathy Following left TKA Leg pain Lipoma Lumbar back pain Marital problem Ucatlefw-Ihvczbzzsu-Fdsrigien syndrome Thrush Ventral hernia s/p 2 repairs Surgical History Ankle fracture, right s/p ORIF Carpal tunnel syndrome s/p ECTR and OCTR B/L (4 total surgeries) Colonoscopy - IV Sedation (05/28/16) History of biopsy History of cataract extraction with lens replacement B/L History of esophagogastroduodenoscopy (EGD) History of gastrostomy tube placement feeding tube per pt History of removal of Port-a-Cath History of tonsillectomy History of total left knee replacement (TKR) Status post hernia repair Family History Mother , age 76 Alcohol abuse COPD (chronic obstructive pulmonary disease) Father , age 74 during surgery to repair heart valve Heart disease Sister Multiple myeloma Brother Alcohol abuse Substance abuse Social History Smoking/Tobacco Use Status: Never Smoking risk assessment performed?: Yes Alcohol Intake: current Alcohol Intake frequency: a few times a month Alcohol type: beer, wine and hard liquor Counseling given: Yes Counseling provided: reduce to 2 or less/day Details: drinks heavily on a daily basis, says he's quit before. suggested reduction Drug use: Never Substance use type: does not use Caregiver/Support person: Yes Household members: spouse Housing: house Number of Children: 0 number of grandchildren: 0 Pets and animals: Yes (yellow and chocolate labs, one each) Pets and animals: dog(s) Current gender identity: male What is your relationship status?: How often do you talk on the phone with friends or family?: twice per week How often do you get together with friends or relatives?: twice per week Panel score (0-1 are the most socially isolated patients): 2 What type of physical activity do you participate in: walking, irregular exercise and occasional exercise Special heidi needs: No Do you feel safe at home: Yes Do you feel safe in your relationship?: Yes Meds Allergies and Home Medications Allergies Allergy/AdvReac Type Severity Reaction Status Date / Time Penicillins Allergy Unknown happened Verified 10/05/22 10:56 at age 5, serious hives bee sting Allergy Uncoded 10/05/22 10:56 marinol AdvReac Intermediate mental Uncoded 10/02/22 11:32 status changes Home Medications Medication Instructions Recorded Confirmed Type polyethylene glycol 3350 17 gram 17 gm PO DAILY 08/21/18 10/18/22 History oral powder packet (Miralax) levothyroxine 25 mcg capsule 100 mcg PO DAILY 11/03/19 10/18/22 History multivitamin 1 tab PO DAILY 05/17/21 10/18/22 History omeprazole 40 mg capsule,delayed 40 mg PO DAILY 05/17/21 10/18/22 History release acetaminophen 500 mg tablet 1,000 mg PO Q6H PRN 10/27/21 10/18/22 History alprazolam [Xanax] 1 tab PO DAILY 02/06/22 10/05/22 History magnesium oxide 500 mg tablet 1,000 mg PO DAILY 02/06/22 10/18/22 History prochlorperazine maleate 10 mg 10 mg PO BID PRN 02/06/22 10/18/22 History tablet zinc gluconate 50 mg tablet 50 mg PO DAILY 02/06/22 10/18/22 History aspirin 325 mg tablet 325 mg PO DAILY 09/22/22 10/18/22 History diphenhydramine HCl 25 mg capsule 25 mg PO HS 09/22/22 10/18/22 History (Benadryl) tamsulosin 0.4 mg capsule 0.8 mg PO DAILY 09/22/22 10/18/22 History cetuximab 200 mg/100 mL 200 mg IV QWEEK 10/02/22 10/18/22 History intravenous solution fentanyl 12 mcg/hr transdermal 1 patch transdermal Q72H #10 ea 10/02/22 10/18/22 Rx patch hydromorphone 4 mg tablet 4 mg PO BID PRN pain #60 tabs 10/02/22 10/18/22 Rx dapsone 100 mg tablet 100 mg PO DAILY #21 tabs 10/06/22 10/18/22 Rx digoxin 125 mcg (0.125 mg) tablet 125 mcg PO Q48H #30 tabs 10/06/22 10/18/22 Rx prednisone 10 mg tablet 10 mg PO DIRECTED #120 tabs 10/06/22 10/18/22 Rx Exam Narrative Exam Narrative: General: Pleasant elderly male who is sitting up at the edge of the bed, A&Ox3, appears ubpeat Neurological: A&Ox3, no focal deficits Psychiatric: appropriate speech pattern/content Skin: Visible skin pale, dry, two ecchymoses on his posterior head without evidence of broken skin. HEENT: Ecchymoses as described above, EOMI, MMM, aphthous ulcers oral mucosa, oropharynx clear, no submandibular or cervical lymphadenopathy, no goiter or JVD Cardiovascular: irregularly irregular rhythm, no m/r/g Lungs: CTAB Gastrointestinal: soft, nontender, nondistended Genitourinary: deferred Extremities: no edema BLEs, 1+ pedal pulses B, no c/c, no lesions on B feet Results Imaging Additional studies: CT head/c-spine: No acute intracranial findings on this noninfused CT scan of the brain. No evidence of cervical spine fracture, malalignment, nor acute compromise of the cervical spinal canal.? Multi level chronic degenerative changes as described above. CXR PA/lateral: Abnormal right hemithoracic findings but with minimal if any significant change compared to 10/05/2022. CTA chest: 1. No evidence of acute pulmonary emboli.? No evidence of pulmonary infarction. 2. Further progression of size and number of metastatic pleural based and lung parenchymal lesions.? No new pleural effusion. 3. Metastatic osseous disease again noted as described above. Labs 10/18/22 11:28 10/18/22 11:28 Labs: Laboratory Results - last 24 hr 10/18/22 10/18/22 10/18/22 11:28 11:28 13:55 WBC 12.58 H RBC 2.48 L Hgb 8.2 L Hct 24.6 L MCV 99 H MCH 33.1 H MCHC 33.3 RDW 16.6 H Plt Count 278 MPV 8.9 Immature Gran % 0.9 Neutrophils % 87.5 Lymphocytes % 4.1 Monocytes % 6.4 Eosinophils % 0.9 Basophils % 0.2 Nucleated RBC % 0.0 Absolute Neutrophils 11.01 H Absolute Lymphocytes 0.52 L Absolute Monocytes 0.81 H Absolute Eosinophils 0.11 Absolute Basophils 0.03 Sodium 139 Potassium 3.4 L Chloride 102 Carbon Dioxide 30.0 Anion Gap 7.0 BUN 30 H Creatinine 1.7 H Est GFR (CKD-EPI 2020) 39.75 Glucose 92 Calcium 8.9 Magnesium 1.7 L Total Bilirubin 0.9 AST 21 ALT 31 Alkaline Phosphatase 91 Troponin I < 50 Total Protein 6.2 L Albumin 3.1 L Lipase 26 TSH 3.00 Urine Color Yellow Urine Clarity Clear Urine pH 7.0 Ur Specific [place] 1.020 Urine Protein 30 H Urine Ketones Negative Urine Blood Trace-intact H Urine Nitrite Negative Urine Bilirubin Negative Urine Urobilinogen 0.2 Ur Leukocyte Esterase Trace H Urine RBC 0-2 Urine WBC 3-5 Ur Epithelial Cells Rare Urine Crystals Negative Urine Bacteria Moderate Urine Casts Negative Urine Mucus Negative Ur Culture Indicated? Yes Urine Glucose Negative Digoxin 0.66 L COVID-19 Source 10/18/22 10/18/22 14:15 16:00 WBC RBC Hgb Hct MCV MCH MCHC RDW Plt Count MPV Immature Gran % Neutrophils % Lymphocytes % Monocytes % Eosinophils % Basophils % Nucleated RBC % Absolute Neutrophils Absolute Lymphocytes Absolute Monocytes Absolute Eosinophils Absolute Basophils Sodium Potassium Chloride Carbon Dioxide Anion Gap BUN Creatinine Est GFR (CKD-EPI 2020) Glucose Calcium Magnesium Total Bilirubin AST ALT Alkaline Phosphatase Troponin I < 50 Total Protein Albumin Lipase TSH Urine Color Urine Clarity Urine pH Ur Specific [place] Urine Protein Urine Ketones Urine Blood Urine Nitrite Urine Bilirubin Urine Urobilinogen Ur Leukocyte Esterase Urine RBC Urine WBC Ur Epithelial Cells Urine Crystals Urine Bacteria Urine Casts Urine Mucus Ur Culture Indicated? Urine Glucose Digoxin COVID-19 Source Nasal/Nares Last Vital Signs Temp 36.8 C 10/18/22 10:54 Pulse 115 H 10/18/22 15:15 Resp 20 10/18/22 15:20 BP 111/68 10/18/22 15:15 Pulse Ox 96 10/18/22 10:54 Time Spent Time spent with Patient: 55-74 minutes Time was spent: preparing to see the patient(eg.review tests), obtaining and/or reviewing separately otained hiistory, ordering medications,tests, procedures, referring, communicating with other health home care giver, indepentently interpreting results, counseling the patient and care coordination
[2022-10-18 16:51] LABS: COVID-19 PCR Negative (Negative)
[2022-10-18] MEDS: Acetaminophen 500 MG TAB 1000 MG PO (18:25)
[2022-10-18] MEDS: Potassium Chloride 20 MEQ TABCR 40 MEQ PO (18:26)
[2022-10-18] MEDS: Lactated Ringers 1,000 ML 125 ML IV (18:31)
[2022-10-18] MEDS: Lidocaine 5% Patch 1 PATCH TP (18:31)
--- NOTE | 2022-10-18 20:04 | DI.VRAD_ITS ---
PROCEDURE INFORMATION: Exam: XR Thoracic Spine Exam date and time: 10/18/2022 7:40 PM Age: 81 years old Clinical indication: Injury or trauma; Fall; Other: Back pain TECHNIQUE: Imaging protocol: Radiologic exam of the thoracic spine. Views: 3 views. COMPARISON: CR XR LUMBAR SPINE COMPLETE 10/18/2022 7:39 PM FINDINGS: Tubes, catheters and devices: Right chest/IJ Port-A-Cath is incidentally noted. Bones/joints: T11 anterior wedging with loss of height. This is of indeterminate age. Anterior loss of height is approximally 20%. There is also anterior wedging and loss of height at T5 with approximally 10% reduction of height. Similar appearance is noted on a CT dated 09/05/2022. This appears to be a chronic process. There is multilevel degenerative disc and facet disease. Soft tissues: Paravertebral soft tissues are unremarkable. Vasculature: Ectatic thoracic aorta. No aneurysmal features suggested. IMPRESSION: 1. Degenerative thoracic spine features. 2. No acute compression fracture or malalignment. 3. Old anterior wedge compression fracture of T5 and T11 with 10-20% loss of height. No change since 09/05/2022 CT. Dictated and Authenticated by: Ethan Meraz MD. Ordering:JOSE ALBERTO Franco MD
--- NOTE | 2022-10-18 20:08 | DI.VRAD_ITS ---
PROCEDURE INFORMATION: Exam: XR Lumbosacral Spine Exam date and time: 10/18/2022 7:39 PM Age: 81 years old Clinical indication: Injury or trauma; Fall; Other: Back pain TECHNIQUE: Imaging protocol: Radiologic exam of the lumbosacral spine. Views: 4 or 5 views. COMPARISON: CR LUMBAR SPINE COMPLETE 07/23/2016 2:57 PM FINDINGS: Bones/joints: Minor loss of height of the L1 vertebral body which is not evident by previous CT 09/05/2022. A mild compression fracture of an acute nature can not be excluded. Degenerative lumbar spine disease. Mid lumbar bjey-aq-hbrramga levoscoliosis. Multilevel severe degenerative disc and facet disease. No neoplastic features. Right hip total arthroplasty. Soft tissues: Paravertebral soft tissues are unremarkable. Organs: Urinary bladder enhances with contrast secondary to an earlier CT performed today. IMPRESSION: 1. Minor loss of height of L1 vertebral body which is not evident by previous CT 09/05/2022. Can not exclude a mild L1 acute compression fracture. 2. Degenerative lumbar spine disease is otherwise noted. Levoscoliosis. Dictated and Authenticated by: Ethan Meraz MD. Ordering:JOSE ALBERTO Franco MD
[2022-10-18] MEDS: Magic Mouthwash 119 ML BTL 10 ML MM (21:01)
[2022-10-18] MEDS: diphenhydrAMINE 25 MG CAP PO (21:26)
[2022-10-18] MEDS: Digoxin 0.125 MG TAB PO (21:30)
[2022-10-19] VITALS (14 sets, daily range): BP systolic 95–130; BP diastolic 57–88; PULSE 73–133; RESP 16–22; TEMP 35.5–36.9; O2SAT 94–96
[2022-10-19] MEDS: HYDROmorphone 4 MG TAB PO ×3 (01:14→19:31)
[2022-10-19] MEDS: Acetaminophen 500 MG TAB 1000 MG PO ×2 (01:18→21:46)
[2022-10-19] MEDS: Lactated Ringers 1,000 ML 125 ML IV (03:17)
[2022-10-19] MEDS: Magic Mouthwash 119 ML BTL 10 ML MM ×4 (03:18→19:32)
[2022-10-19] MEDS: Levothyroxine 100 MCG TAB PO (06:45)
[2022-10-19 06:59] LABS: Absolute Monocyte Count 0.88 10^3/uL (0.1-0.8); Absolute Neutrophil Count 13.82 10^3/uL (1.2-6.7); Basophils % 0.1; HCT 23.4 % (40.0-50.0); HGB 7.6 g/dL (13.5-17.5); Immature Grans % 0.6; MCH 32.6 pg (27.0-33.0); MCHC 32.5 % (32.0-36.0); MCV 100 fL (80-95); MPV 9.4 fL (8.0-11.0); Monocytes % 5.7; Neutrophils % 89.6; Platelet Count 275 10^3/uL (130-400); RBC 2.33 10^6/uL (4.36-5.78); RDW 16.5 % (11.8-14.1); RDW-SD 61.5 fL; WBC 15.42 10^3/uL (4.4-10.8)
[2022-10-19 07:02] LABS: Absolute Basophil Count 0.02 10^3/uL (0.0-0.2); Absolute Lymphocyte Count 0.62 10^3/uL (1.2-3.4)
[2022-10-19 07:17] LABS: Anion Gap 8.1 mmol/L (3-11); BUN 21 mg/dL (7-18); CO2 25.9 mmol/L (21.0-32.0); CREATININE 1.3 mg/dL (0.70-1.30); Calcium 8.8 mg/dL (8.5-10.1); Chloride 102 mmol/L (98-107); Estimated GFR 54.85 (mL/min/1.73m2); Glucose 112 mg/dL (74-106); Magnesium 1.4 mg/dL (1.8-2.4); Sodium 136 mmol/L (136-145)
[2022-10-19 07:19] LABS: Potassium 4.8 mmol/L (3.5-5.1)
[2022-10-19] MEDS: Lidocaine 5% Patch 1 PATCH TP (07:26)
[2022-10-19] MEDS: Polyethylene Glycol 3350 17 GM PACKET PO (07:35)
[2022-10-19] MEDS: Magnesium Oxide 400 MG TAB PO (07:35)
[2022-10-19] MEDS: Dapsone 25 MG TABLET 100 MG PO (07:36)
[2022-10-19] MEDS: predniSONE 20 MG TAB 40 MG PO (07:36)
[2022-10-19] MEDS: Multivitamin TAB 1 TAB PO (07:37)
[2022-10-19] MEDS: Aspirin 325 MG TAB PO (07:38)
[2022-10-19] MEDS: Omeprazole 20 MG CAPCR 40 MG PO (07:40)
[2022-10-19 07:44] LABS: Ferritin 742 ng/mL (26-388); Folate 12.7 ng/mL (8.6-20.0); Vitamin B12 700 pg/mL (193-986)
[2022-10-19 07:50] LABS: Iron 45 ug/dL (65-175); Total Iron Binding Capacity 198 ug/dL (250-450); Transferrin Sat 23 % (20-55)
[2022-10-19] MEDS: Magnesium Chloride 64 MG TABCR PO ×2 (09:20→19:31)
[2022-10-19] MEDS: Docusate Sodium 100 MG CAP PO ×2 (09:20→19:31)
[2022-10-19] MEDS: MAGNESIUM SULFATE 4 GM/100 ML BAG IVPB (09:20)
--- NOTE | 2022-10-19 09:30 | INITIAL_ITS ---
- If Service Date Differs Date of service: 10/19/22 Time of Service: 09:31 Care Management Initial Assess REASON FOR HOSPITALIZATION:: Orthostatic Hypotension, Fall PAST MEDICAL HISTORY/PAST SURGICAL HISTORY:: Medical History . Actinic cheilitis. Adenomatous colon polyp. Bee sting allergy. BPH (benign prostatic hyperplasia). Dermatitis. Dysphagia. Erectile dysfunction. HSV (herpes simplex virus) infection. Hyperlipidemia. denies any history. looks like he was discontinued on medication last July. Left lumbar radiculopathy. Following left TKA. Leg pain. Lipoma. Lumbar back pain. Marital problem. Uxnfcwnh-Jalnkvfrbo-Hfxudhhut syndrome. Thrush. Ventral hernia. s/p 2 repairs. Surgical History . Ankle fracture, right. s/p ORIF. Carpal tunnel syndrome. s/p ECTR and OCTR B/L (4 total surgeries). Colonoscopy - IV Sedation (05/28/16). History of biopsy. History of cataract extraction with lens replacement. B/L. History of esophagogastroduodenoscopy (EGD). History of gastrostomy tube placement. feeding tube per pt. History of removal of Port-a-Cath. History of tonsillectomy. History of total left knee replacement (TKR). Status post hernia repair PREVIOUS FUNCTIONAL STATUS/SOCIAL/FAMILY SUPPORTS:: Jim lives in [place] with his Rach. Per report, is capable of activities of daily living but fatigue limits him so is helps with dressing etc if there is time constraint. ADVANCE DIRECTIVES:: On file, [facility] is James Loyd Has patient been provided with info about the portal/API?: Yes Did the patient sign up for the portal?: Yes CODE STATUS:: DNR/DNI INSURANCE COVERAGE / FINANCIAL ISSUES:: [facility] CURRENT HOME/COMMUNITY SERVICES/EQUIPMENT:: [facility] RN, Chemo: adenocarcinoma of right lung PRIMARY CARE PHYSICIAN:: Vicente Reagan POTENTIAL DISCHARGE NEEDS:: Speech consult; oral pain r/t cancer of base of tongue (in remission) trial magic mouthwash. PATIENT/FAMILY EDUCATION NEEDS:: Review discharge instructions, limitations and plan to follow up with community providers. Discuss ask me three. TRANSPORTATION:: Via private vehicle with family PLAN:: Anticipate Jim will discharge home when ready per MD, follow up with community providers and plan of care as prescribed. He will transport home via private vehicle with family. Readmission - Assessment for Readmission Summary of readmission circumstances, based upon interviews: Gemma Stone ED provider: On reassessment, patient is markedly orthostatic, 120 systolic supine to 73 systolic standing pulse 150s on standing increased from 98 in supine position At this time, patient is unsafe for discharge home, he will likely fall again with this level of orthostasis, he has received 2 L of IV hydration in the emergency department and I do not feel comfortable giving additional oral hydration at this time.
--- NOTE | 2022-10-19 10:20 | IN_ITS ---
PT Notes Visit Reasons: Orthostatic Hypotension, Fall Inpatient Physical Therapy Evaluation Date: October 19, 2022 Referring Doctor: Dr. Joan Nolen PT Orders: PT CONSULT: Limited ability Precautions: Orthostatic hypotension, elevated heart rate with ambulation, standard precautions Patient Profile/Admitting Diagnosis: Mr Camacho is an 81 year old male with PMHx of SCC of the tongue s/p resection/XRT, in remission (no PEG tube in place) and a secondary adenocarcinoma of the lung s/p resection and on chemotherapy every Friday, who presented to [facility] 10/18/22 after a syncopal event while walking to the bathroom and hitting the back of his head, found to be hypotensive by EMS and very orthostatic in the ED with SBP going down to the 70s and HR going up to 150s in standing position when his SBPs are in 110s and HR is in the 90s at rest. He also has a h/o Afib on digoxin and no longer on anticoagulation due to h/o hemoptysis, adrenal insufficiency on a prednisone taper, BPH on flomax. He remains orthostatic despite aggressive IV hydration. The patient had a similar admission at our facility 10/05/22-10/06/22 during which he was found to be dehydrated and this was due to poor PO intake due to oral pain. PMHX: PFSH All Active Problems?(Updated 10/18/22 @ 17:19 by Joan Nolen MD) Acute on chronic anemia (Acute) Discharge planning issues (Acute) DVT prophylaxis (Acute) Dehydration (Acute) Hypokalemia (Acute) Orthostatic hypotension (Acute) Fall (Acute) Medication monitoring encounter (Acute) Hypomagnesemia (Acute) Hypothyroidism (Chronic) Anemia (Chronic) Adenocarcinoma of right lung (Acute) Painful total knee replacement, left (Acute) History of lung surgery (Acute) 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)History of total right hip replacement (Acute 11/10/19) Atrial fibrillation (Chronic) Cancer of base of tongue (Acute) Palliative care patient (Acute) Medical History? Actinic cheilitis Adenomatous colon polyp Bee sting allergy BPH (benign prostatic hyperplasia) Dermatitis Dysphagia Erectile dysfunction HSV (herpes simplex virus) infection Hyperlipidemia denies any history looks like he was discontinued on medication last lumbar radiculopathy Following left TKALeg pain Lipoma Lumbar back pain Marital problem Rsdmybmn-Vzovllgvgs-Ozqmxgfkn syndrome Thrush Ventral hernia s/p 2 repairs Surgical History? Ankle fracture, right s/p ORIFCarpal tunnel syndrome s/p ECTR and OCTR B/L (4 total surgeries)Colonoscopy - IV Sedation (05/28/16) History of biopsy History of cataract extraction with lens replacement B/LHistory of esophagogastroduodenoscopy (EGD) History of gastrostomy tube placement feeding tube per ptHistory of removal of Port-a-Cath History of tonsillectomy History of total left knee replacement (TKR) Status post hernia repair Social History/Home Situation: Patient lives with his in multilevel home. Admits 1 step into the dwelling and primarily lives on single level. Has railing to go up stairs but rarely goes upstairs. Current Functional Limitations: Ambulation, functional mobility, endurance Equipment Owned/DME: Front wheel walker,cane Subjective: Patient states that they did some orthostatic blood pressures on him prior to initial evaluation. Admits he is not having any significant lightheadedness or dizziness when he transitions from supine to sit or sit to stand during today's evaluation however does have a history of this. Denies any pain despite hitting his head when he fell prior to admission to the hospital. No pain or headache. No double vision, difficulty swallowing, dysphagia. Objective: General Observation: Very pleasant. No acute distress. On telemetry and IV port and upper right chest. Ecchymosis occipital region. Mental Status: Alert and oriented x3 Pain: 0/10 Vital Signs: Blood pressure prior to start of initial evaluation 133/58, heart rate 95 bpm, 97% O2 saturation on room air. After 50 feet of ambulation with front wheel walker and contact-guard x1 nursing requested that the patient returned to his room in Bed secondary to elevation of heart rate in the 160s. Following ambulation and a 2-minute rest his heart rate decreased to 135, blood pressure 119/58 and 97% O2 saturation on room air. Patient left lying in bed with head of bed 45 degrees and nursing notified. ROM: Right Upper Extremity: Within functional limits Left Upper Extremity: Within functional limits Right Lower Extremity: Within functional limits Left Lower Extremity: Within functional limits Strength: Right Upper Extremity:4/5 GH flexion, abduction, elbow flexion and extension. Good geoscience professor Left Upper Extremity: 4/5 GH flexion, abduction, elbow flexion and extension. Good geoscience professor Right Lower Extremity:Hip flexion 4-/5, knee flexion 4-/5, quad 4/5 (SLR with no lag), ankle PF and DF 4/5 Left Lower Extremity: Hip flexion 4-/5, knee flexion 4-/5, quad 4/5 (SLR with no lag), ankle PF and DF 4/5 Sensation: Intact sensation reported to light touch throughout bilateral lower extremities. Bed Mobility/Transfers: Supine?sit: Independent with head of bed at 45 degrees Sit?stand: To front wheel walker with standby assist Stand?sit: From front wheel walker standby assist Gait: 50 feet x 2 with front wheel walker and contact-guard Balance: Static Sitting: Good Dynamic Sitting: Good Static Standing: Fair Dynamic Standing: Fair (-) Romberg Special Tests: Mobility Limitations Standardized Measure [facility] 6 clicks Basic Mobility Inpatient Short Form: Raw Score: 20 Standardized Score: 47.67 CMS Score: 36% Informed Consent/Education: Patient instructed in purpose of PT consult and plan of care. Assessment: Patient is a 81 year old male referred to physical therapy services with the diagnosis of limited ability, syncope, anemia, orthostatic hypotension. Patient presents with clinical signs and symptoms consistent with above diagnosis, as demonstrated by the following impairment level findings: Motor control, muscle performance, limited endurance, orthostatic hypotension, elevated heart rate. Impairments are contributing to the following functional limitations: AMPAC score. Patient is assessed as a Low 26171 X Moderate 31501 [] High 78512 complexity based on the following: History: see above Examination: see above Presentation: Evolving Decision Making: AM-PAC Goals: Goals X1 week 1. Supine-Sit : I 2. Sit-Supine: I 3. Sit-Stand: I to FWW 4. Stand-Sit: I from FWW 5. Bed-Chair: I with FWW 6. Chair-Bed: I with FWW 7. Gait: SBA with FWW greater than or equal to 250' [] Plan of Care/Treatment Plan: 1-2x/day, 7 days/week x 1 week. Plan of care has been reviewed with the [employer]GANIC SEARCH LEAD providing the service under Physical Therapy direction. Initiate Physical Therapy intervention for strengthening, bed mobility, transfers, gait, stairs, balance training, use of assistive device. DISCHARGE RECOMMENDATIONS: X Home with no services [] Home with services [specify] [] Home with outpatient PT [] [] SNF for continued rehabilitation [] [] [facility] [] [] SNF versus LTC based on ability to participate and progress [] TREATMENT CODE/TIME: 30 minutes direct one on one care 9:35-10:05 [id number] Thank your for this referral. Hugo Taylor PT, DPT Disclaimer: This note was created using [employer] voice recognition software. It was reviewed for major content. However, there may be multiple small discrepancies and errors due to the voice recognition aspects of the software.
[2022-10-19] MEDS: fentaNYL 12 MCG PATCH TD (10:36)
[2022-10-19] MEDS: Methocarbamol 750 MG TAB PO (16:02)
--- NOTE | 2022-10-19 16:25 | PGE_ITS ---
Date of Service Date of service: 10/19/22 Time of Service: 16:26 Assessment and Plan Assessment and plan (1) Syncope: Status: Chronic Assessment and plan: In setting of symptomatic hypotension, anemia, adrenal insufficiency, dehydration, flomax use, Afib. Transfusing blood. Continue to monitor on tele. If still has episodes of tachycardia when getting up, would consider increasing digoxin. (2) Orthostatic hypotension: Status: Acute Assessment and plan: As above. TEDs. COntinue to monitor on tele. (3) Atrial fibrillation: Status: Chronic Assessment and plan: Not on anticoagulation due to h/o hemoptysis. HR goes up when standing, controlled in supine position. Addressing orthostasis. Continue digoxin. Consider increasing the dose. Continue to monitor on tele. (4) Compression fracture of L1 vertebra: Status: Acute Assessment and plan: New. Suspected. Traumatic due to fall. Lidocaine paches, methocarbamol prn. PT following. (5) Adrenal insufficiency: Status: Suspected Assessment and plan: Prednisone 40 mg PO daily (6) Hypomagnesemia: Status: Acute Assessment and plan: Replete (7) Hypokalemia: Status: Resolved Assessment and plan: Recheck in am (8) Dehydration: Status: Acute Assessment and plan: Continue IVF (9) Acute on chronic anemia: Status: Acute Assessment and plan: Transfusing 1 unit pRBCS today. No active bleeding. Might be dilutional + anemia of chronic disease. (10) Cancer of base of tongue: Status: Acute Assessment and plan: In resmission. Has poor PO intake due to oral pain. Continue magic mouth wash. Consider speech therapy consult (not available over the weekend). (11) Adenocarcinoma of right lung: Status: Acute Assessment and plan: On chemo. Monitor for recurrence of hemoptysis. CT shows progression of disease. Palliative care consulted (12) DVT prophylaxis: Status: Acute Assessment and plan: SC heparin (13) Discharge planning issues: Status: Acute Assessment and plan: DNR/DNi Palliative care consulted. Continues to require hospitalization. Subjective Subjective Interval history since last seen: Mr Camacho is feeling better. He did get tachycardic while working with PT. He denies dizziness, chest pain, shortness of breath, nausea. He still feels a bit weak. He has been ambulating with a walker. He knows to give himself time to adjust to a change in position. He is receiving a blood transfusion today. Exam Narrative Exam Narrative: General: Pleasant elderly male who is A&Ox3, in bed, appears to be in good spirits. HEENT: EOMI, MMM Cardiovascular: irregularly irregular rhythm, no m/r/g Lungs: CTAB Gastrointestinal: soft, nontender, nondistended Extremities: no edema BLEs Objective Last Vital Signs Temp 36.7 C 10/19/22 16:16 Pulse 73 10/19/22 16:16 Resp 17 10/19/22 16:16 BP 116/75 10/19/22 16:16 Pulse Ox 94 10/19/22 16:16 Laboratory Results - last 24 hr 10/18/22 10/19/22 10/19/22 16:00 06:15 06:15 WBC RBC Hgb Hct MCV MCH MCHC RDW Plt Count MPV Immature Gran % Neutrophils % Lymphocytes % Monocytes % Eosinophils % Basophils % Nucleated RBC % Absolute Neutrophils Absolute Lymphocytes Absolute Monocytes Absolute Eosinophils Absolute Basophils Sodium Potassium Chloride Carbon Dioxide Anion Gap BUN Creatinine Est GFR (CKD-EPI 2020) Glucose Calcium Magnesium Iron 45 L TIBC 198 L Transferrin % Sat 23 Ferritin 742 H Vitamin B12 700 Folate 12.7 SARS-CoV-2 (PCR) Negative Patient ABO/Rh Antibody Screen Crossmatch 10/19/22 10/19/22 10/19/22 06:15 06:15 09:10 WBC 15.42 H RBC 2.33 L Hgb 7.6 L Hct 23.4 L MCV 100 H MCH 32.6 MCHC 32.5 RDW 16.5 H Plt Count 275 MPV 9.4 Immature Gran % 0.6 Neutrophils % 89.6 Lymphocytes % 4.0 Monocytes % 5.7 Eosinophils % 0.0 Basophils % 0.1 Nucleated RBC % 0.0 Absolute Neutrophils 13.82 H Absolute Lymphocytes 0.62 L Absolute Monocytes 0.88 H Absolute Eosinophils 0.00 Absolute Basophils 0.02 Sodium 136 Potassium 4.8 D Chloride 102 Carbon Dioxide 25.9 Anion Gap 8.1 BUN 21 H Creatinine 1.3 Est GFR (CKD-EPI 2020) 54.85 Glucose 112 H Calcium 8.8 Magnesium 1.4 L Iron TIBC Transferrin % Sat Ferritin Vitamin B12 Folate SARS-CoV-2 (PCR) Patient ABO/Rh B Positive Antibody Screen NEGATIVE Crossmatch See Detail Objective Narrative Objective Narrative: XR Thoracic spine: 1. ? Degenerative thoracic spine features. 2. ? No acute compression fracture or malalignment. 3. ? Old anterior wedge compression fracture of T5 and T11 with 10-20% loss of height. No change since 09/05/2022 CT. XR lumbar spine: 1. ? Minor loss of height of L1 vertebral body which is not evident by previous CT 09/05/2022. Can not exclude a mild L1 acute compression fracture. 2. ? Degenerative lumbar spine disease is otherwise noted. Levoscoliosis. Time Spent with Patient Time Spent with Patient: 25-34 minutes Time was spent: preparing to see the patient(eg.review tests), obtaining and/or reviewing separately otained hiistory, ordering medications,tests, procedures, referring, communicating with other health adult day care worker, indepentently interpreting results, counseling the patient and care coordination
[2022-10-19] MEDS: diphenhydrAMINE 25 MG CAP PO (21:46)
[2022-10-20] VITALS (11 sets, daily range): BP systolic 84–141; BP diastolic 51–85; PULSE 79–101; RESP 16–18; TEMP 36.1–37; O2SAT 92–95
[2022-10-20] MEDS: Magic Mouthwash 119 ML BTL 10 ML MM ×2 (02:32→08:04)
[2022-10-20] MEDS: HYDROmorphone 4 MG TAB PO ×2 (02:32→16:56)
[2022-10-20] MEDS: Levothyroxine 100 MCG TAB PO (06:12)
[2022-10-20 06:31] LABS: Abs Immature Grans 0.12 10^3/uL (0.0-0.06); Absolute Basophil Count 0.02 10^3/uL (0.0-0.2); Absolute Eosinophil Count 0.05 10^3/uL (0.0-0.7); Basophils % 0.1; Eosinophils % 0.3; HCT 26.7 % (40.0-50.0); HGB 8.7 g/dL (13.5-17.5); Immature Grans % 0.7; Lymphocytes % 3.5; MCH 32.1 pg (27.0-33.0); MCHC 32.6 % (32.0-36.0); MCV 99 fL (80-95); MPV 9.2 fL (8.0-11.0); Monocytes % 5.5; Neutrophils % 89.9; Platelet Count 274 10^3/uL (130-400); RBC 2.71 10^6/uL (4.36-5.78); RDW 17.3 % (11.8-14.1); RDW-SD 61.7 fL; WBC 16.11 10^3/uL (4.4-10.8)
[2022-10-20 06:41] LABS: Absolute Lymphocyte Count 0.56 10^3/uL (1.2-3.4); Absolute Monocyte Count 0.89 10^3/uL (0.1-0.8); Absolute Neutrophil Count 14.48 10^3/uL (1.2-6.7)
[2022-10-20 06:53] LABS: Anion Gap 5.6 mmol/L (3-11); BUN 22 mg/dL (7-18); CO2 27.4 mmol/L (21.0-32.0); CREATININE 1.4 mg/dL (0.70-1.30); Calcium 8.7 mg/dL (8.5-10.1); Chloride 102 mmol/L (98-107); Estimated GFR 50.18 (mL/min/1.73m2); Glucose 98 mg/dL (74-106); Magnesium 2.1 mg/dL (1.8-2.4); Potassium 4.3 mmol/L (3.5-5.1); Sodium 135 mmol/L (136-145)
[2022-10-20] MEDS: Lidocaine 5% Patch 1 PATCH TP (08:03)
[2022-10-20] MEDS: Dapsone 25 MG TABLET 100 MG PO (08:03)
[2022-10-20] MEDS: Polyethylene Glycol 3350 17 GM PACKET PO (08:04)
[2022-10-20] MEDS: Multivitamin TAB 1 TAB PO (08:05)
[2022-10-20] MEDS: Aspirin 325 MG TAB PO (08:05)
[2022-10-20] MEDS: Omeprazole 20 MG CAPCR 40 MG PO (08:05)
[2022-10-20] MEDS: Docusate Sodium 100 MG CAP PO ×2 (08:07→19:42)
[2022-10-20] MEDS: predniSONE 20 MG TAB 40 MG PO (08:07)
[2022-10-20] MEDS: Methocarbamol 750 MG TAB PO ×2 (08:07→16:56)
[2022-10-20] MEDS: Acetaminophen 500 MG TAB 1000 MG PO ×3 (08:07→21:11)
[2022-10-20] MEDS: Magnesium Chloride 64 MG TABCR PO ×2 (08:08→19:42)
[2022-10-20] MEDS: Furosemide 20 MG/2 ML VIAL IVP (10:42)
--- NOTE | 2022-10-20 11:58 | PT.INTREAT ---
Date of service: 10/20/22 Time of Service: 10:45 PT Notes Visit Reasons: Orthostatic Hypotension, Fall Inpatient Physical Therapy Treatment Note [facility] Date: 10/20/2022 PRECAUTIONS: Orthostatic hypotension, elevated heart rate with ambulation, standard precautions SUBJECTIVE: Stated he is doing better today. Eager to get back home, but understands if he needs to stay a little longer to get BP/ HR better under control. OBJECTIVE: PAIN: No complaints of pain offered. BED MOBILITY/TRANSFERS Rolling L/R: Able to roll to the right to transition to sitting Supine-sit: SBA with HOB at approximately 45 degrees Sit-supine: SBA with HOB at approximately 39 degrees Sit-stand: SBA Stand-sit: SBA GAIT Assistive Device: FWW Weight bearing: Full Assist: CGA and nurse pushing w/c behind monitoring O2 level and HR Distance: 200ft Taking good steps with steady pace. No LOB Vitals: BP in long leg sitting in bed 96/62 with HR of 80 b/m with O2 at 94%, BP in standing at bed side 84/51, BP in standing 87/57 with HR ranging in the 56-96 b/m range with ambulation. Once back to bed after walking with legs up BP was 99/69 with HR of 86 and 94% O2 reading THEREX: Had patient work on ankle pumps, QS and GS for 10 reps each once back in bed. STAIRS: Indicated he has one step to get into his home and feels he is safe with this. ASSESSMENT: Tolerated today's session well without significant increase in HR, but orthostatic BP readings did remain low throughout. PLAN: Continue to focus on vitals with activity. Advance as able to tolerate. TREATMENT CODE/TIME: Therap Activity ([id number]), 10:45 to 11:05 am
--- NOTE | 2022-10-20 13:05 | W.PM.PROGNOT ---
Date of Service Date of service: 10/20/22 Time of Service: 08:30 Assessment and Plan Assessment and plan (1) Syncope: Status: Chronic Assessment and plan: In setting of symptomatic hypotension, anemia, adrenal insufficiency, dehydration, flomax use, Afib. S/p 1 unit pRBCs with H/H improving as expected. Continue to monitor on tele. Start midodrine. As HR seems to be better controlled, will keep the dose of digoxin the same. (2) Orthostatic hypotension: Status: Acute Assessment and plan: As above. TEDs. COntinue to monitor on tele. (3) Atrial fibrillation: Status: Chronic Assessment and plan: Not on anticoagulation due to h/o hemoptysis. HR goes up when standing, controlled in supine position. Addressing orthostasis. Continue digoxin. Continue to monitor on tele. (4) Urinary retention: Status: Acute Assessment and plan: s/p sanchez catheter. C/s urology. Holding flomax due to orthostasis/syncope. (5) Compression fracture of L1 vertebra: Status: Acute Assessment and plan: New. Suspected. Traumatic due to fall. Lidocaine paches, methocarbamol prn. PT following. (6) Adrenal insufficiency: Status: Suspected Assessment and plan: Continue prednisone 40 mg PO daily (7) Hypomagnesemia: Status: Acute Assessment and plan: Replete (8) Hypokalemia: Status: Resolved Assessment and plan: Recheck in am (9) Dehydration: Status: Resolved Assessment and plan: IVF d/c'ed. Somewhat fluid overloaded on my exam today And required a dose of IV lasix. (10) Acute on chronic anemia: Status: Acute Assessment and plan: S/p 1 unit pRBCs on 10/19/22. H/H improved as expected. No active bleeding. Might be dilutional + anemia of chronic disease. (11) Cancer of base of tongue: Status: Acute Assessment and plan: In resmission. Has poor PO intake due to oral pain. Continue magic mouth wash. Consider speech therapy consult (not available over the weekend). (12) Adenocarcinoma of right lung: Status: Acute Assessment and plan: On immunotherapy. Monitor for recurrence of hemoptysis. CT shows progression of disease. Palliative care consulted (13) DVT prophylaxis: Status: Acute Assessment and plan: TEDs Chemical DVT ppx held in light of anemia (14) Discharge planning issues: Status: Acute Assessment and plan: DNR/DNi Palliative care consulted. Continues to require hospitalization. Subjective Subjective Interval history since last seen: Mr Camacho does not feel dizzy at all today. He denies chest pain, shortness of breath, nausea. He required placement of a sanchez catheter due to urinary retention overnight. Ambulated with PT - no tachycardia today, but did become hypotensive with SBPs in the 80s. Exam Narrative Exam Narrative: General: Pleasant elderly male who is A&Ox3, sitting up in bed, appears to be in good spirits. HEENT: EOMI, MMM Cardiovascular: irregularly irregular rhythm, no m/r/g Lungs: crackles at B bases Gastrointestinal: soft, nontender, nondistended : has a sanchez Extremities: no edema BLEs Objective Last Vital Signs Temp 36.7 C 10/20/22 12:48 Pulse 87 10/20/22 12:48 Resp 17 10/20/22 12:48 BP 115/76 10/20/22 12:48 Pulse Ox 95 10/20/22 12:48 Laboratory Results - last 24 hr 10/19/22 10/20/22 10/20/22 09:10 06:05 06:05 WBC 16.11 H RBC 2.71 L Hgb 8.7 L Hct 26.7 L MCV 99 H MCH 32.1 MCHC 32.6 RDW 17.3 H Plt Count 274 MPV 9.2 Immature Gran % 0.7 Neutrophils % 89.9 Lymphocytes % 3.5 Monocytes % 5.5 Eosinophils % 0.3 Basophils % 0.1 Nucleated RBC % 0.0 Absolute Neutrophils 14.48 H Absolute Lymphocytes 0.56 L Absolute Monocytes 0.89 H Absolute Eosinophils 0.05 Absolute Basophils 0.02 Sodium 135 L Potassium 4.3 Chloride 102 Carbon Dioxide 27.4 Anion Gap 5.6 BUN 22 H Creatinine 1.4 H Est GFR (CKD-EPI 2020) 50.18 Glucose 98 Calcium 8.7 Magnesium 2.1 Patient ABO/Rh B Positive Antibody Screen NEGATIVE Crossmatch See Detail Time Spent with Patient Time Spent with Patient: 35-49 minutes Time was spent: preparing to see the patient(eg.review tests), obtaining and/or reviewing separately otained hiistory, ordering medications,tests, procedures, referring, communicating with other health critical care cns, indepentently interpreting results, counseling the patient and care coordination
[2022-10-20] MEDS: Midodrine 2.5 MG TAB PO ×2 (13:54→19:42)
[2022-10-20] MEDS: Digoxin 0.125 MG TAB PO (16:55)
[2022-10-20] MEDS: fentaNYL 12 MCG PATCH 24 MCG TD (18:50)
[2022-10-20] MEDS: diphenhydrAMINE 25 MG CAP PO (21:11)
[2022-10-21] VITALS (13 sets, daily range): BP systolic 92–125; BP diastolic 61–82; PULSE 74–134; RESP 18–20; TEMP 36–36.8; O2SAT 90–95
--- NOTE | 2022-10-21 | DI.RAD_ITS ---
Exam(s) XR PORTABLE CHEST AP EXAM: XR PORTABLE CHEST AP CLINICAL HISTORY: ?CHF TECHNIQUE: 2D digital imaging was performed of the chest. One image was obtained. An AP view was ob tained. COMPARISON: CR XR CHEST 2V PA LATERAL from 10/18/[address] CHEST PE CTA from 10/18/2022 FINDINGS: MEDIASTINUM: Normal. HEART: Normal. PULMONARY VASCULATURE: Normal. There is tortuosity of the thoracic aorta. LUNGS: There are stable right-sided pleural masses including a large pleural based mass along the rig ht lateral chest wall. The left lung remains clear. No new infiltrates are seen. PLEURAL SPACE: No pleural effusion or pneumothorax. BONE:Within normal limits for the patient's age. OTHER FINDINGS:The right-sided catheter is stable in position. The tip is in good position in the mancia perior vena cava IMPRESSION: No acute change in appearance of the chest x-ray since 10/18/2022. DATA REPOSITORY: RADIATION DOSE DELIVERED:
[2022-10-21] MEDS: HYDROmorphone 4 MG TAB PO ×2 (02:06→13:58)
[2022-10-21] MEDS: Levothyroxine 100 MCG TAB PO (05:59)
--- NOTE | 2022-10-21 08:10 | W.PALLCONSUL ---
Date of service: 10/21/22 Time of Service: 08:10 History of Present Illness History of Present Illness Chief Complaint: Fall, syncope Narrative: From H and P History of Present Illness?Chief Complaint: Fall at home?Narrative: Mr Camacho is an 81 year old male with PMHx of SCC of the tongue s/p resection/XRT, in remission (no PEG tube in place) and a secondary adenocarcinoma of the lung s/p resection and on chemotherapy every Friday, who presented to [facility] ED today after a syncopal event while walking to the bathroom and hitting the back of his head, found to be hypotensive by EMS and very orthostatic in the ED with SBP going down to the 70s and HR going up to 150s in standing position when his SBPs are in 110s and HR is in the 90s at rest. He also has a h/o Afib on digoxin and no longer on anticoagulation due to h/o hemoptysis, adrenal insufficiency on a prednisone taper, BPH on flomax. He remains orthostatic despite aggressive IV hydration. He received? a dose of prednisone 60 mg in the ER. Hospitalist admission has requested. The patient had a similar admission at our facility 10/05/22-10/06/22 during which he was found to be dehydrated and this was due to poor PO intake due to oral pain. ? Interim Hx: Jim showed me his bruise on the back of his head. He states he is feeling better. Despite trying, its been difficult for his to stay hydrated. He often receives IVF at [facility] during his chem infusions. He is uncertain how to proceed. He is feeling ready to go home. He also states his is usually a source of strength for him. He feels that she needed a break from caring for him. He is certain she is ready for him to come home. He continues to cough up colored mucous. His pain is better control- he does not want to be in pain and concerned he won't have the meds he needs to control his pain. His fentanyl patch has been increased and he feels better. Nursing states he responded well to dilaudid Assessment and Plan Assessment and plan (1) Urinary retention: Status: Acute (2) Compression fracture of L1 vertebra: Status: Acute (3) Syncope: Status: Chronic (4) Acute on chronic anemia: Status: Acute (5) Fall: Status: Acute (6) Adrenal insufficiency: Status: Suspected (7) Anemia: Status: Chronic (8) Adenocarcinoma of right lung: Status: Acute (9) Palliative care patient: Status: Acute Assessment and plan: We talked about his dehydration. He is uncertain if he can stay properly hydrated by PO. He states he drinks fluids often and despite this, becomes easily dehydrated. Hopefully if his adrenal insufficiency is treated, he may be able to better stay hydrated He feels he can safely stay home alone and his can have free/respite time. I am not convinced this is true. may need more help once he returns home He does not feel he is anywhere near hospice at this time. In general he feels he is doing fine. It was only at our last office visit that he revealed he didn't think he was going to be able to beat this cancer and may from it, but not soon! Since seeing Jim, Dr Peralta consulted and wants an overnight trial to see if he can void on his own I have spoken with hospitalist staff and will see Jim November 06 at the Palliative office. Review of Systems Narrative: chronic cough with colored mucous ; pain - better; bladder cath in place - states it feels better since placed PFS All Active Problems (Updated 10/23/22 @ 00:05 by LI CRUZ) Cancer, metastatic to bone (Acute) Acute bronchitis (Acute) Oral pain (Acute) Closed head injury (Acute) Palliative care patient (Acute) Urinary retention (Acute) Compression fracture of L1 vertebra (Acute) Syncope (Chronic) Acute on chronic anemia (Acute) Orthostatic hypotension (Acute) Fall (Acute) Medication monitoring encounter (Acute) Hypothyroidism (Chronic) Anemia (Chronic) Adenocarcinoma of right lung (Acute) Painful total knee replacement, left (Acute) History of lung surgery (Acute) 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) History of total right hip replacement (Acute 11/10/19) Atrial fibrillation (Chronic) Cancer of base of tongue (Acute) Palliative care patient (Acute) Medical History Actinic cheilitis Adenomatous colon polyp Bee sting allergy BPH (benign prostatic hyperplasia) Dermatitis Dysphagia Erectile dysfunction HSV (herpes simplex virus) infection Hyperlipidemia denies any history looks like he was discontinued on medication last July Left lumbar radiculopathy Following left TKA Leg pain Lipoma Lumbar back pain Marital problem Pyyqhyxl-Uedxifdvhr-Eafohqszy syndrome Thrush Ventral hernia s/p 2 repairs Surgical History Ankle fracture, right s/p ORIF Carpal tunnel syndrome s/p ECTR and OCTR B/L (4 total surgeries) Colonoscopy - IV Sedation (05/28/16) History of biopsy History of cataract extraction with lens replacement B/L History of esophagogastroduodenoscopy (EGD) History of gastrostomy tube placement feeding tube per pt History of removal of Port-a-Cath History of tonsillectomy History of total left knee replacement (TKR) Status post hernia repair Family History Mother , age 76 Alcohol abuse COPD (chronic obstructive pulmonary disease) Father , age 74 during surgery to repair heart valve Heart disease Sister Multiple myeloma Brother Alcohol abuse Substance abuse Social History Smoking/Tobacco Use Status: Never Smoking risk assessment performed?: Yes Alcohol Intake: current Alcohol Intake frequency: a few times a month Alcohol type: beer, wine and hard liquor Counseling given: Yes Counseling provided: reduce to 2 or less/day Details: drinks heavily on a daily basis, says he's quit before. suggested reduction Drug use: Never Substance use type: does not use Caregiver/Support person: Yes Household members: spouse Housing: house Number of Children: 0 number of grandchildren: 0 Pets and animals: Yes (yellow and chocolate labs, one each) Pets and animals: dog(s) Current gender identity: male What is your relationship status?: How often do you talk on the phone with friends or family?: twice per week How often do you get together with friends or relatives?: twice per week Panel score (0-1 are the most socially isolated patients): 2 What type of physical activity do you participate in: walking, irregular exercise and occasional exercise Special heidi needs: No Do you feel safe at home: Yes Do you feel safe in your relationship?: Yes Exam Narrative Exam Narrative: Friendly man. Bruise near occipital area of head. No bleeding; HHENT - ADITI, Heart - regular; Lungs - good air movement, rales scattered Did not ambulate Significant amount of mucous coughed up in my present. Filled 2 small medicine cups and coughed into the emesis bag and numerous kleenexes. I didn't see any blood, but it varied in color from brownish green to greenish yellow Results Last Vital Signs Temp 98.1 F 10/21/22 03:07 Pulse 97 H 10/21/22 03:07 Resp 18 10/21/22 03:07 BP 106/70 10/21/22 03:07 Pulse Ox 90 L 10/21/22 03:07 Labs 10/20/22 06:05 10/20/22 06:05
[2022-10-21] MEDS: Dapsone 25 MG TABLET 100 MG PO (08:25)
[2022-10-21] MEDS: predniSONE 20 MG TAB 40 MG PO (08:25)
[2022-10-21] MEDS: Aspirin 325 MG TAB PO (08:26)
[2022-10-21] MEDS: Docusate Sodium 100 MG CAP PO ×2 (08:26→19:29)
[2022-10-21] MEDS: Magnesium Chloride 64 MG TABCR PO ×2 (08:26→19:29)
[2022-10-21] MEDS: Omeprazole 20 MG CAPCR 40 MG PO (08:26)
[2022-10-21] MEDS: Multivitamin TAB 1 TAB PO (08:26)
[2022-10-21] MEDS: Midodrine 2.5 MG TAB PO (08:26)
[2022-10-21] MEDS: Polyethylene Glycol 3350 17 GM PACKET PO ×2 (08:31→19:31)
[2022-10-21 09:15] LABS: Abs Immature Grans 0.11 10^3/uL (0.0-0.06); Absolute Eosinophil Count 0.08 10^3/uL (0.0-0.7); Basophils % 0.2; Eosinophils % 0.4; HCT 29.4 % (40.0-50.0); HGB 9.7 g/dL (13.5-17.5); Immature Grans % 0.5; Lymphocytes % 2.3; MCH 32.8 pg (27.0-33.0); MCV 99 fL (80-95); MPV 9.5 fL (8.0-11.0); Monocytes % 2.7; Neutrophils % 93.9; Platelet Count 295 10^3/uL (130-400); RBC 2.96 10^6/uL (4.36-5.78); RDW 17.1 % (11.8-14.1); RDW-SD 62.5 fL; WBC 20.74 10^3/uL (4.4-10.8)
[2022-10-21 09:16] LABS: Absolute Basophil Count 0.04 10^3/uL (0.0-0.2); Absolute Lymphocyte Count 0.48 10^3/uL (1.2-3.4); Absolute Monocyte Count 0.56 10^3/uL (0.1-0.8); Absolute Neutrophil Count 19.47 10^3/uL (1.2-6.7)
[2022-10-21 09:28] LABS: Anion Gap 7.5 mmol/L (3-11); BUN 23 mg/dL (7-18); CO2 28.5 mmol/L (21.0-32.0); CREATININE 1.4 mg/dL (0.70-1.30); Calcium 8.9 mg/dL (8.5-10.1); Chloride 100 mmol/L (98-107); Estimated GFR 50.18 (mL/min/1.73m2); Glucose 94 mg/dL (74-106); Magnesium 1.8 mg/dL (1.8-2.4); Potassium 4.2 mmol/L (3.5-5.1); Sodium 136 mmol/L (136-145)
[2022-10-21] MEDS: Magic Mouthwash 119 ML BTL 10 ML MM (10:10)
[2022-10-21] MEDS: Lidocaine 5% Patch 1 PATCH TP (11:18)
[2022-10-21] MEDS: Midodrine 2.5 MG TAB 5 MG PO ×2 (13:46→19:30)
--- NOTE | 2022-10-21 14:27 | W.PM.PROGNOT ---
Date of Service Date of service: 10/21/22 Time of Service: 14:27 Assessment and Plan Assessment and plan (1) Syncope: Status: Chronic Assessment and plan: In setting of symptomatic orthostatic hypotension, anemia, adrenal insufficiency, dehydration, flomax use, Afib. S/p 1 unit pRBCs. H/H stable. Continue to monitor on tele. Increase midodrine. Keep the dose of digoxin the same. Flomax will not be restarted - discussed with Dr Peralta. (2) Orthostatic hypotension: Status: Acute Assessment and plan: As above. TEDs. COntinue to monitor on tele. (3) Atrial fibrillation: Status: Chronic Assessment and plan: Not on anticoagulation due to h/o hemoptysis. HR goes up when standing, controlled in supine position. Addressing orthostasis. Continue digoxin. Continue to monitor on tele. (4) Urinary retention: Status: Acute Assessment and plan: s/p sanchez catheter. Holding flomax due to orthostasis/syncope. Evaluated by urology: for a voiding trial tomorrow. If fails, would go home with a catheter and on finasteride with outpatient urology follow up. (5) Compression fracture of L1 vertebra: Status: Acute Assessment and plan: New. Suspected. Traumatic due to fall. Lidocaine paches, methocarbamol prn, prn PO dilaudid. Fentanyl patch dose was increased to 25 mcg/hr. PT following. (6) Adrenal insufficiency: Status: Suspected Assessment and plan: Continue prednisone 40 mg PO daily (7) Hypomagnesemia: Status: Resolved Assessment and plan: Recheck in am. (8) Hypokalemia: Status: Resolved Assessment and plan: Recheck in am (9) Dehydration: Status: Resolved Assessment and plan: IVF d/c'ed. Euvolemic at this point. (10) Acute on chronic anemia: Status: Acute Assessment and plan: S/p 1 unit pRBCs on 10/19/22. H/H improved as expected. No active bleeding. Might be dilutional + anemia of chronic disease. (11) Cancer of base of tongue: Status: Acute Assessment and plan: In resmission. Has poor PO intake due to oral pain. Continue magic mouth wash. (12) Adenocarcinoma of right lung: Status: Acute Assessment and plan: On immunotherapy. Monitor for recurrence of hemoptysis. CT shows progression of disease. Palliative care saw the patient - will need outpatient follow up. (13) DVT prophylaxis: Status: Acute Assessment and plan: TEDs Chemical DVT ppx held in light of anemia (14) Discharge planning issues: Status: Acute Assessment and plan: DNR/DNi Palliative care consulted. Continues to require hospitalization. Subjective Subjective Interval history since last seen: Reports a frontal headache that travels to the back of his head. States that frontal headaches are pretty typical for him and that he used to take quite a bit of excedrine for his headaches. He is willing to try excedrine now and would rather not get a CT. We would agree that if his headache got worse, given his recent head injury, we would repeat a CT. He did require dilaudid for his pain. Denied dizziness, chest pain, shortness of breath, nausea. He has been wheezing and coughing. He was evaluated by Dr Peralta who would like for the patient to stay overnight and perform a voiding trial in a morning. Exam Narrative Exam Narrative: General: Pleasant elderly male who is A&Ox3, napping, wakes up easily HEENT: EOMI, MMM Cardiovascular: irregularly irregular rhythm, no m/r/g Lungs: crackles at B bases; wheezing throughout B lung walters on expiration Gastrointestinal: soft, nontender, nondistended : has a sanchez Extremities: no edema BLEs Objective Last Vital Signs Temp 36.6 C 10/21/22 11:07 Pulse 104 H 10/21/22 11:07 Resp 20 10/21/22 11:07 BP 109/69 10/21/22 11:07 Pulse Ox 92 10/21/22 11:07 Laboratory Results - last 24 hr 10/21/22 10/21/22 09:00 09:00 WBC 20.74 H RBC 2.96 L Hgb 9.7 L Hct 29.4 L MCV 99 H MCH 32.8 MCHC 33.0 RDW 17.1 H Plt Count 295 MPV 9.5 Immature Gran % 0.5 Neutrophils % 93.9 Lymphocytes % 2.3 Monocytes % 2.7 Eosinophils % 0.4 Basophils % 0.2 Nucleated RBC % 0.0 Absolute Neutrophils 19.47 H Absolute Lymphocytes 0.48 L Absolute Monocytes 0.56 Absolute Eosinophils 0.08 Absolute Basophils 0.04 Sodium 136 Potassium 4.2 Chloride 100 Carbon Dioxide 28.5 Anion Gap 7.5 BUN 23 H Creatinine 1.4 H Est GFR (CKD-EPI 2020) 50.18 Glucose 94 Calcium 8.9 Magnesium 1.8 Objective Narrative Objective Narrative: CXR: LUNGS: There are stable right-sided pleural masses including a large pleural based mass along the right lateral chest wall.? The left lung remains clear.? No new infiltrates are seen. ? Time Spent with Patient Time Spent with Patient: 35-49 minutes Time was spent: preparing to see the patient(eg.review tests), obtaining and/or reviewing separately otained hiistory, ordering medications,tests, procedures, referring, communicating with other health animal care provider, indepentently interpreting results, counseling the patient and care coordination
[2022-10-21] MEDS: Acetaminophen 250 mg/Aspirin 250 mg/Caffeine 65 mg TAB 2 EACH PO (14:39)
--- NOTE | 2022-10-21 15:25 | PT.INTREAT ---
PT Notes Visit Reasons: Orthostatic Hypotension, Fall Inpatient Physical Therapy Treatment Note [facility] Date: 10/21/22 PRECAUTIONS: SUBJECTIVE: Patient reports feeling better than this morning. is visiting, and she joins us for therapy. OBJECTIVE: PAIN: None reported at rest, patient reports he feels fatigue in his knee joints after walking. BED MOBILITY/TRANSFERS Rolling L/R: supervision Supine-sit: supervision Sit-supine: supervision Sit-stand: standby assist Stand-sit: CGA (patient flops onto bed after long walk, demonstrating unsafe technique.) Bed-Chair: standby assist Chair-bed: standby assist GAIT Assistive Device: front wheeled walker Weight bearing: full Assist: CGA Distance: 650 feet Deviation: Patient demonstrates good foot clearance, symmetrical but reduced stride length, reduced gait speed. Therapist CGA with gait belt, verbal cues for breathing, rest as needed. ASSESSMENT: Patient tolerated therapy well. Reports he may be going home tomorrow afternoon. PLAN: Continue with plan of care for general strengthening and activity tolerance. TREATMENT CODE/TIME: 18684 TherEx 15, 32862 Gait 20
[2022-10-21] MEDS: Bisacodyl 10 MG SUPP PR (16:04)
--- NOTE | 2022-10-21 16:17 | CMPROGNOTE_ITS ---
- If Service Date Differs Date of service: 10/21/22 Time of Service: 16:17 Care Management Progress Note S/O: Jim remains inpatient, he has worked successfully with PT who are recommending outpatient PT follow up. CM continues to follow. A: 81 year old male admitted to [facility] 10/18/22 for Orthostatic hypotension. P: Jim will discharge home when ready per MD, follow up with community providers and plan of care as prescribed. He will transport home via private vehicle with family.
--- NOTE | 2022-10-21 16:24 | W.UROLOGYCON ---
Date of service: 10/21/22 Time of Service: 16:24 Assessment and Plan Assessment and plan (1) Urinary retention: Status: Acute Assessment and plan: I agree with disc continuing the tamsulosin which certainly can be contributing to his orthostatic hypotension. We will give this gentleman a voiding trial first thing in the morning. If he is able to urinate, I expect we can just charge him without a catheter. He would have a follow-up appointment where I would do a renal and bladder ultrasound in the office. If he is unable to urinate, we will reinsert his catheter and still plan to discharge him home. We will also consider starting him on a 5 alpha reductase inhibitor. Unfortunately, this type of medication can take up to 6 months for the full effect to be seen, but the medications have been helpful in preventing future episodes of retention. We would then arrange for a voiding trial in the office. History of Present Illness History of Present Illness Chief Complaint: Incomplete bladder emptying Narrative: This is an 47-tbmr-oopv-old gentleman who was hospitalized after sustaining a fall. He has a history of tongue cancer as well as adenocarcinoma of the lung. He has been on a combination of chemotherapy and immunotherapy. He has significant peripheral neuropathy from his treatments. He has a long history of lower urinary tract symptoms. He had developed urinary retention previously and was treated with tamsulosin. He has been on the medication for years, but does not really think it had much of an impact when he was first started. He has never been on 5 alpha reductase inhibitor medications. On evaluation here at the hospital, we found that his blood pressure was quite low and we suspect he has been experiencing orthostatic hypotension. His blood pressure issues are likely multifactorial, but tamsulosin certainly can be playing a role. The tamsulosin was discontinued and a Parr catheter has been placed. Review of Systems Narrative: No fevers or chills No vision change Hypothyroidism, adrenal insufficiency No shortness of breath, cough or hemoptysis Hx atrial fibrillation. No chest pain Constipation alternating with diarrhea. Peripheral neuropathy No bleeding disorders No gout PFSH All Active Problems (Updated 10/21/22 @ 14:36 by Joan Nolen MD) Urinary retention (Acute) Compression fracture of L1 vertebra (Acute) Syncope (Chronic) Acute on chronic anemia (Acute) Discharge planning issues (Acute) DVT prophylaxis (Acute) Orthostatic hypotension (Acute) Fall (Acute) Medication monitoring encounter (Acute) Hypothyroidism (Chronic) Anemia (Chronic) Adenocarcinoma of right lung (Acute) Painful total knee replacement, left (Acute) History of lung surgery (Acute) 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) History of total right hip replacement (Acute 11/10/19) Atrial fibrillation (Chronic) Cancer of base of tongue (Acute) Palliative care patient (Acute) Medical History Actinic cheilitis Adenomatous colon polyp Bee sting allergy BPH (benign prostatic hyperplasia) Dermatitis Dysphagia Erectile dysfunction HSV (herpes simplex virus) infection Hyperlipidemia denies any history looks like he was discontinued on medication last July Left lumbar radiculopathy Following left TKA Leg pain Lipoma Lumbar back pain Marital problem Eintobhs-Apwdxvnxtj-Trbpohixy syndrome Thrush Ventral hernia s/p 2 repairs Surgical History Ankle fracture, right s/p ORIF Carpal tunnel syndrome s/p ECTR and OCTR B/L (4 total surgeries) Colonoscopy - IV Sedation (05/28/16) History of biopsy History of cataract extraction with lens replacement B/L History of esophagogastroduodenoscopy (EGD) History of gastrostomy tube placement feeding tube per pt History of removal of Port-a-Cath History of tonsillectomy History of total left knee replacement (TKR) Status post hernia repair Family History Mother , age 76 Alcohol abuse COPD (chronic obstructive pulmonary disease) Father , age 74 during surgery to repair heart valve Heart disease Sister Multiple myeloma Brother Alcohol abuse Substance abuse Social History Smoking/Tobacco Use Status: Never Smoking risk assessment performed?: Yes Alcohol Intake: current Alcohol Intake frequency: a few times a month Alcohol type: beer, wine and hard liquor Counseling given: Yes Counseling provided: reduce to 2 or less/day Details: drinks heavily on a daily basis, says he's quit before. suggested reduction Drug use: Never Substance use type: does not use Caregiver/Support person: Yes Household members: spouse Housing: house Number of Children: 0 number of grandchildren: 0 Pets and animals: Yes (yellow and chocolate labs, one each) Pets and animals: dog(s) Current gender identity: male What is your relationship status?: How often do you talk on the phone with friends or family?: twice per week How often do you get together with friends or relatives?: twice per week Panel score (0-1 are the most socially isolated patients): 2 What type of physical activity do you participate in: walking, irregular exercise and occasional exercise Special heidi needs: No Do you feel safe at home: Yes Do you feel safe in your relationship?: Yes Exam Narrative Exam Narrative: He is a pleasant gentleman who does not appear acutely ill His vital signs are documented elsewhere in the chart His urine is grossly clear He is awake and alert I was able to review two chest CTs done within the past month. Neither of these scans imaged the kidneys completely, but is able to see the upper portion of both kidneys. There was no hydronephrosis on either of the scans. Results Last Vital Signs Temp 36.2 C L 10/21/22 14:59 Pulse 109 H 10/21/22 14:59 Resp 20 10/21/22 14:59 BP 102/69 10/21/22 14:59 Pulse Ox 95 10/21/22 14:59 Labs 10/21/22 09:00 10/21/22 09:00 Labs: Laboratory Results - last 24 hr 10/21/22 10/21/22 09:00 09:00 WBC 20.74 H RBC 2.96 L Hgb 9.7 L Hct 29.4 L MCV 99 H MCH 32.8 MCHC 33.0 RDW 17.1 H Plt Count 295 MPV 9.5 Immature Gran % 0.5 Neutrophils % 93.9 Lymphocytes % 2.3 Monocytes % 2.7 Eosinophils % 0.4 Basophils % 0.2 Nucleated RBC % 0.0 Absolute Neutrophils 19.47 H Absolute Lymphocytes 0.48 L Absolute Monocytes 0.56 Absolute Eosinophils 0.08 Absolute Basophils 0.04 Sodium 136 Potassium 4.2 Chloride 100 Carbon Dioxide 28.5 Anion Gap 7.5 BUN 23 H Creatinine 1.4 H Est GFR (CKD-EPI 2020) 50.18 Glucose 94 Calcium 8.9 Magnesium 1.8
[2022-10-21] MEDS: Lidocaine Patch Removal 1 EACH TP (21:15)
[2022-10-21] MEDS: diphenhydrAMINE 25 MG CAP 50 MG PO (21:20)
[2022-10-22] VITALS (9 sets, daily range): BP systolic 101–150; BP diastolic 60–74; PULSE 85–128; RESP 18–20; TEMP 36.8–37.4; O2SAT 90–92
[2022-10-22] MEDS: Levothyroxine 100 MCG TAB PO (06:07)
[2022-10-22] MEDS: Prochlorperazine 10 MG TAB PO (06:11)
[2022-10-22 06:35] LABS: Absolute Lymphocyte Count 1.16 10^3/uL (1.2-3.4); Basophils % 0.2; Eosinophils % 0.1; HCT 28.9 % (40.0-50.0); HGB 9.5 g/dL (13.5-17.5); Immature Grans % 0.4; Lymphocytes % 5.1; MCH 32.8 pg (27.0-33.0); MCHC 32.9 % (32.0-36.0); MCV 100 fL (80-95); MPV 9.4 fL (8.0-11.0); Neutrophils % 92.2; Platelet Count 289 10^3/uL (130-400); RDW 16.5 % (11.8-14.1); RDW-SD 60.7 fL; WBC 22.71 10^3/uL (4.4-10.8)
[2022-10-22 06:42] LABS: Absolute Basophil Count 0.05 10^3/uL (0.0-0.2); Absolute Eosinophil Count 0.02 10^3/uL (0.0-0.7); Absolute Monocyte Count 0.45 10^3/uL (0.1-0.8); Absolute Neutrophil Count 20.94 10^3/uL (1.2-6.7)
[2022-10-22 06:48] LABS: Anion Gap 10.3 mmol/L (3-11); BUN 24 mg/dL (7-18); CO2 25.7 mmol/L (21.0-32.0); CREATININE 1.4 mg/dL (0.70-1.30); Calcium 9.1 mg/dL (8.5-10.1); Chloride 99 mmol/L (98-107); Estimated GFR 50.18 (mL/min/1.73m2); Glucose 115 mg/dL (74-106); Magnesium 1.6 mg/dL (1.8-2.4); Potassium 4.5 mmol/L (3.5-5.1); Sodium 135 mmol/L (136-145)
[2022-10-22] MEDS: Dapsone 25 MG TABLET 100 MG PO (08:34)
[2022-10-22] MEDS: Magnesium Chloride 64 MG TABCR PO (08:34)
[2022-10-22] MEDS: Omeprazole 20 MG CAPCR 40 MG PO (08:34)
[2022-10-22] MEDS: Docusate Sodium 100 MG CAP PO (08:35)
[2022-10-22] MEDS: Multivitamin TAB 1 TAB PO (08:35)
[2022-10-22] MEDS: predniSONE 20 MG TAB 40 MG PO (08:35)
[2022-10-22] MEDS: MAGNESIUM SULFATE 2 GM/50 ML BAG IVPB (08:35)
[2022-10-22] MEDS: Polyethylene Glycol 3350 17 GM PACKET PO (08:35)
[2022-10-22] MEDS: Midodrine 2.5 MG TAB 5 MG PO ×2 (08:35→14:10)
[2022-10-22] MEDS: Aspirin 325 MG TAB PO (08:35)
[2022-10-22] MEDS: Normal Saline Flush 10 ML SYR IVP (08:36)
[2022-10-22] MEDS: Lidocaine 5% Patch 1 PATCH TP (09:45)
[2022-10-22] MEDS: Digoxin 0.125 MG TAB PO (11:39)
--- NOTE | 2022-10-22 13:24 | PT.INNT ---
Date of service: 10/22/22 Time of Service: 09:42 PT Notes Visit Reasons: Orthostatic Hypotension, Fall Patient reports being extremely fatigued and in a trance. Would prefer to be seen in the afternoon. Per RN at rounds meeting, patient's HR had been around 130 BPM all morning in spite of patient resting in bed most of the morning.
--- NOTE | 2022-10-22 14:32 | PT.INTREAT ---
PT Notes Visit Reasons: Orthostatic Hypotension, Fall Inpatient Physical Therapy Treatment Note [facility] Date: 10/22/22 PRECAUTIONS:Orthostatic hypotension, elevated heart rate with ambulation, standard precautions SUBJECTIVE: Patient's is visiting. Patient reports lunch as uneventful and that he is feeling fine. OBJECTIVE: PAIN: None reported BED MOBILITY/TRANSFERS Rolling L/R: Independent Supine-sit: Independent Sit-supine: Independent Sit-stand: standby Stand-sit: standby Bed-Chair: standby Chair-bed: standby GAIT Assistive Device: front wheeled walker Weight bearing: Full Assist: CGA with Gait belt Distance: 1000 feet Deviation: Patient demonstrates good foot clearance, symmetrical stride length. Verbal cues for deep breathing. RN reports heart rate climbed to 150's during ambulation. THERACT: instructed patient on physiologic sighing post ambulation (deep inhale, short inhale, long passive exhale; shown to dramatically improve heart rate variability). RN reports rapid decrease in heart rate to low 100's within 2 minutes. Educated patient that physiologic sighing can be beneficial any time he feels anxiety or has a bout of tachycardia. ASSESSMENT: Patient tolerated exercise well. Reported knees becoming tired after ~600 feet. Asserts knees do not limit his functional capacity. PLAN: Continue plan of care as established for general strengthening, activity tolerance. Patient expecting to d/c to home today or tomorrow, would like to receive home health PT services. TREATMENT CODE/TIME: 22703 gait 30 minutes, 45739 TherAct 13 minutes
--- NOTE | 2022-10-22 14:49 | PDOC.CMDIS ---
- If Service Date Differs Date of service: 10/22/22 Time of Service: 14:49 LACE Index Scoring Tool - Questions: Length of Stay (in days): 4 - 6 Acuity (Admit via E.D.?): Yes E.D. Visits: 3 - Answers: Total Score: 10 Risk of Readmission: High Risk Care Management Discharge Reason for Hospitalization: Orthostatic Hypotension, Fall Discharge Plan: Jim will discharge home when ready per MD, he will follow up with community providers including Palliative Care, Michele Boudreaux, PCP and plan of care as prescribed. Due to taxing efforts for him and his to leave the house, he will have new orders for home health PT. He will transport home via private vehicle with his . Patient/Family Education Needs: Review discharge instructions, discuss Ask Me Three. Services Needed at Discharge: Home Health Care Services (New PT orders )
--- NOTE | 2022-10-22 15:33 | CHAPLAIN ---
Jim was in bed when I visited. His was with him. He said he hopes to be going home today. They live in [facility] [place] [facility] [place] and were connected to the [facility] years ago, Jim said. He is looking forward to being home as he's been here five days.
--- NOTE | 2022-10-22 15:35 | W.PM.DS.N ---
Date of service: 10/22/22 Time of Service: 15:36 DS: Diagnosis Discharge Diagnosis (1) Syncope: Status: Chronic (2) Orthostatic hypotension: Status: Acute (3) Urinary retention: Status: Acute (4) Dehydration: Status: Resolved (5) Compression fracture of L1 vertebra: Status: Acute (6) Acute bronchitis: Status: Acute (7) Closed head injury: Status: Acute (8) Acute on chronic anemia: Status: Acute (9) Adrenal insufficiency: Status: Suspected (10) Adenocarcinoma of right lung: Status: Acute (11) Hypokalemia: Status: Resolved (12) Hypomagnesemia: Status: Resolved (13) Cancer of base of tongue: Status: Acute (14) Oral pain: Status: Acute (15) Cancer, metastatic to bone: Status: Acute Discharge Plan Disposition Patient Disposition: Home W/Home Health Services Condition: Fair Discharge Details Reason For Visit: Orthostatic Hypotension, Fall Admit Date/Time: 10/18/22 16:05 Admit Provider: Joan Nolen Attending Provider: Joan Nolen Primary Care Provider: Vicente Reagan [facility] Course Hospital Course: Mr Camacho is an 81 year old male with PMHx of Afib on digoxin, prior episodes of orthostasis and syncope, BPH on flomax, adrenal insufficiency, carcinoma of the tongue in remission, adenocarcinoma of the lung on immunotherapy, anemia, who was admitted to [facility] hospitalist service on 10/18/22 after having a syncopal episode in setting of orthostatic hypotension. The patient did hit his head and had evidence of bruising on his scalp, however, no intracranial hemorrhage. He was treated with IVF as he was clinically dehydrated, as well as steroids, cessation of flomax, a transfusion of 1 unit of pRBCs on 10/19/22 with a hemoglobin of 7.6, initiation of midodrine and TEDs. Without flomax, he was found to be retaining urine and required a sanchez catheterization. He was evaluated by Dr Peralta, having failed a voiding trial on the day of discharge, was recommended to self-catheterize, which he demonstrated ability to do prior to discharge. As his digoxin dose was also titrated up (HRs up to 150s with any ambulation), it would be prudent to check his digoxin level in 48 hrs. His new digoxin dose of 0.125 mcg daily. On this admission, the patient did have a productive cough (chronic) and rhonchi. His imaging did not show a new infiltrate, however he did have a progressive increase in his white count and did have clinical bronchitis. While he is getting discharged today, he is being initiated on a 5 day course of doxycycline as well as with a prescription for levalbuterol inhaler. The patient is being discharged home with new home health nursing and PT. He should follow up with his PCP, urology, oncology, and with palliative care. Care for patient as well as completion of his discharge summary on day of discharge took 60 minutes. Home Meds and New Rx's Prescriptions: New docusate sodium [Colace] 100 mg Capsule 100 mg PO BID Qty: 60 0RF fentanyl 25 mcg/hr Patch 72 Hour 25 mcg transdermal Q72H Qty: 2 0RF lidocaine 5 % Adhesive Patch,Medicated 1 patch topical Q24H Qty: 30 0RF Rx Instructions: apply on for 12 hours, off for 12 hours to lower back Mag 64 64 mg Tablet,Delayed Release (Dr/Ec) 64 mg PO BID Qty: 60 0RF methocarbamol 750 mg Tablet 750 mg PO QID PRN PRNQty: 30 0RF prednisone 5 mg tablet See Rx Instructions .ROUTE .COMPLEX Qty: 236 0RF Rx Instructions: 40 mg PO daily x 5 more days, then 35 mg PO daily x 7 days, then 30 mg PO daily x 7 days, then 25 mg PO daily x 7 days, then 20 mg PO daily x 7 days, then 15 mg PO daily x 7 days, then 10 mg PO daily x 7 days, then 5 mg PO daily x 7 days, then stop levalbuterol tartrate 45 mcg/actuation HFA aerosol inhaler 2 inh inhalation Q4H PRN PRN (Reason: shortness of breath or wheezing) Qty: 15 0RF doxycycline hyclate 100 mg tablet 100 mg PO BID Qty: 9 0RF midodrine 5 mg tablet 5 mg PO TID Qty: 90 0RF Rx Instructions: do not give last dose of day after 6PM or within 4 hrs of bedtime guaifenesin [Mucinex] 600 mg tablet extended release 12hr 600 mg PO BID Qty: 60 0RF Continued polyethylene glycol 3350 [Miralax] 17 gram powder in packet 17 gm PO DAILY levothyroxine 25 mcg capsule 100 mcg PO DAILY multivitamin Tablet 1 tab PO DAILY Patient Comments: does not take anymore omeprazole 40 mg capsule,delayed release(DR/EC) 40 mg PO DAILY prochlorperazine maleate 10 mg tablet 10 mg PO BID PRN alprazolam [Xanax] 1 tab PO DAILY Patient Comments: not taking zinc gluconate 50 mg tablet 50 mg PO DAILY cetuximab 200 mg/100 mL solution 200 mg IV QWEEK Rx Instructions: administer over 60 mins hydromorphone 4 mg tablet 4 mg PO BID MDD 4 PRN (Reason: pain) Qty: 60 0RF Rx Instructions: cancer related pain aspirin 325 mg Tablet 325 mg PO DAILY diphenhydramine HCl [Benadryl] 25 mg Capsule 25 mg PO HS dapsone 100 mg tablet 100 mg PO DAILY Qty: 21 0RF Rx Instructions: take once per day while on prednisone doses higher than 20 mg/day Changed acetaminophen 500 mg Tablet 1,000 mg PO Q8H PRN PRNQty: 0 0RF digoxin 125 mcg (0.125 mg) tablet 125 mcg PO DAILY Qty: 30 0RF Discontinued magnesium oxide 500 mg tablet 1,000 mg PO DAILY fentanyl 12 mcg/hr patch 72 hour 1 patch transdermal Q72H MDD 12 Qty: 10 0RF tamsulosin 0.4 mg Capsule 0.8 mg PO DAILY prednisone 10 mg tablet 10 mg PO DIRECTED Qty: 120 0RF Rx Instructions: taper as follows: 50 mg/dx7d, 40 mg/dx7d, 30 mg/dx7d, 20 mg/dx7d, 15 mg/dx7d, 10 mg/dx7d, 5 mg/dx7d Discharge Instructions Instructions: Doxycycline (By mouth), Prednisone (By mouth), Midodrine (By mouth), A-fib (Atrial Fibrillation) (DC), Urinary Retention in Men (ED), Syncope (DC), Acute Bronchitis (ED), Secondary Adrenal Insufficiency (DC), Hypotension (DC), Anemia (DC) Additional Instructions: Finish your antibiotics as prescribed. Follow directions for a new prednisone taper. Take your time adjusting to new position when getting up. Return to the hospital with any fever, bleeding, chest pain, or shortness of breath. Follow up with your PCP, with oncology, and with Dr Peralta. Follow up with palliative care. Your prescription for the magic mouth wash went to [facility] in [place]. Care Plan Goals: Home with new home health nursing and PT. Home health to check a digoxin level on 10/24/22 - results to PCP. Stand Alone Forms: Nursing Discharge Form Referrals: [facility] [Provider Group] (Please call [phone] to Make an Appointment ) Amando Peralta MD [ [facility] STAFF PHYSICIAN] - (A nurse will camm you Friday to make an Appointment ) Vicente Reagan MD [Primary Care Provider] - 11/12/22 11:30 am Activity:: Activity as Tolerated Equipment/Supplies:: No Equipment Needed Diet:: As Tolerated Discharge Orders Discharge Orders: Discharge Order (Routine); Ordered 10/22/22 Ordered By: Joan Nolen DS: Summary Time Spent with Patient providing and/or coordinating discharge services: Greater than 30 minutes Status at Discharge Functional status at discharge: uses cane/walker Overall status at discharge: patient is progressing back to baseline Mental Status: mental status grossly normal Speech and Movement: speech and movement normal Mood: congruent mood Affect: normal affect Exam Narrative Exam Narrative: General: Pleasant elderly male who is A&Ox3, resting, wakes up easily, appears more tired HEENT: EOMI, MMM Cardiovascular: irregularly irregular rhythm, no m/r/g Lungs: Rhonchi B lungs which clear with coughing Gastrointestinal: soft, nontender, nondistended Extremities: no edema BLEs Psych Mental Status: mental status grossly normal Speech and Movement: speech and movement normal Mood: congruent mood Affect: normal affect DS: Data Vitals/I&O Vitals and I&O: Vital Signs Temperature 36.9 C 10/22/22 15:33 Temperature Source Tympanic 10/22/22 15:33 Pulse 85 10/22/22 15:33 Pulse Rhythm Irregular 10/22/22 10:56 Pulse 96 H 10/18/22 17:10 Respiratory Rate 20 10/22/22 15:33 Respiratory Effort Normal 10/22/22 10:56 Respiratory Depth Normal 10/22/22 10:56 Respiratory Pattern Normal 10/22/22 10:56 Blood Pressure 102/67 10/22/22 15:33 Blood Pressure Mean 85 10/18/22 17:00 Blood Pressure Position Supine 10/18/22 10:54 Pulse Oximetry 91 L 10/22/22 15:33 Oxygen Delivery Method Room Air 10/22/22 15:33 Oxygen Flow Rate 0 10/22/22 15:33 Pain Level 0 10/22/22 03:48 Comment standing. results reported to charge nurseiris 10/22/22 11:30 Intake & Output 10/21/22 10/22/22 10/22/22 23:59 11:59 23:59 Intake Total 240 / 240 Output Total 1030 / 1030 Balance -1030 / -790 240 / -790 Weight 75.1 kg Intake: Oral 240 / 240 Output: Urine 1030 / 1030 Other: Urine Color Yellow Urine Appearance Clear Clear Comment post void residual. charge nursejacob made aware Stool Occult Blood Negative Stool Size Large Stool Characteristics Soft Formed Brown Data Completed and Pending Completed studies during hospitalization [Text1]: XR lumbar spine: Advanced degenerative changes.? No acute abnormality. XR thoracic spine: Stable mild mid and lower thoracic compression fractures. CT head/c-spine: No acute intracranial findings on this noninfused CT scan of the brain. No evidence of cervical spine fracture, malalignment, nor acute compromise of the cervical spinal canal.? Multi level chronic degenerative changes as described above. CXR 10/18/22: Abnormal right hemithoracic findings but with minimal if any significant change compared to 10/05/2022. CXR 10/21/22: No acute change in appearance of the chest x-ray since 10/18/2022. CTA chest 10/18/22: 1. No evidence of acute pulmonary emboli.? No evidence of pulmonary infarction. 2. Further progression of size and number of metastatic pleural based and lung parenchymal lesions.? No new pleural effusion. 3. Metastatic osseous disease again noted as described above. CXR 10/21/22: No acute change in appearance of the chest x-ray since 10/18/2022. Labs on day of discharge: Labs from last 24 hours 10/22/22 10/22/22 06:17 06:17 WBC 22.71 H RBC 2.90 L Hgb 9.5 L Hct 28.9 L MCV 100 H MCH 32.8 MCHC 32.9 RDW 16.5 H Plt Count 289 MPV 9.4 Immature Gran % 0.4 Neutrophils % 92.2 Lymphocytes % 5.1 Monocytes % 2.0 Eosinophils % 0.1 Basophils % 0.2 Nucleated RBC % 0.0 Absolute Neutrophils 20.94 H Absolute Lymphocytes 1.16 L Absolute Monocytes 0.45 Absolute Eosinophils 0.02 Absolute Basophils 0.05 Sodium 135 L Potassium 4.5 Chloride 99 Carbon Dioxide 25.7 Anion Gap 10.3 BUN 24 H Creatinine 1.4 H Est GFR (CKD-EPI 2020) 50.18 Glucose 115 H Calcium 9.1 Magnesium 1.6 L PFSH All Active Problems (Updated 10/22/22 @ 16:04 by Joan Nolen MD) Cancer, metastatic to bone (Acute) Acute bronchitis (Acute) Oral pain (Acute) Closed head injury (Acute) Palliative care patient (Acute) Urinary retention (Acute) Compression fracture of L1 vertebra (Acute) Syncope (Chronic) Acute on chronic anemia (Acute) Discharge planning issues (Acute) DVT prophylaxis (Acute) Orthostatic hypotension (Acute) Fall (Acute) Medication monitoring encounter (Acute) Hypothyroidism (Chronic) Anemia (Chronic) Adenocarcinoma of right lung (Acute) Painful total knee replacement, left (Acute) History of lung surgery (Acute) 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) History of total right hip replacement (Acute 11/10/19) Atrial fibrillation (Chronic) Cancer of base of tongue (Acute) Palliative care patient (Acute) Medical History Actinic cheilitis Adenomatous colon polyp Bee sting allergy BPH (benign prostatic hyperplasia) Dermatitis Dysphagia Erectile dysfunction HSV (herpes simplex virus) infection Hyperlipidemia denies any history looks like he was discontinued on medication last July Left lumbar radiculopathy Following left TKA Leg pain Lipoma Lumbar back pain Marital problem Apuapypr-Qedxrkchoi-Znfwqstaw syndrome Thrush Ventral hernia s/p 2 repairs Surgical History Ankle fracture, right s/p ORIF Carpal tunnel syndrome s/p ECTR and OCTR B/L (4 total surgeries) Colonoscopy - IV Sedation (05/28/16) History of biopsy History of cataract extraction with lens replacement B/L History of esophagogastroduodenoscopy (EGD) History of gastrostomy tube placement feeding tube per pt History of removal of Port-a-Cath History of tonsillectomy History of total left knee replacement (TKR) Status post hernia repair Family History Mother , age 76 Alcohol abuse COPD (chronic obstructive pulmonary disease) Father , age 74 during surgery to repair heart valve Heart disease Sister Multiple myeloma Brother Alcohol abuse Substance abuse Social History Smoking/Tobacco Use Status: Never Smoking risk assessment performed?: Yes Alcohol Intake: current Alcohol Intake frequency: a few times a month Alcohol type: beer, wine and hard liquor Counseling given: Yes Counseling provided: reduce to 2 or less/day Details: drinks heavily on a daily basis, says he's quit before. suggested reduction Drug use: Never Substance use type: does not use Caregiver/Support person: Yes Household members: spouse Housing: house Number of Children: 0 number of grandchildren: 0 Pets and animals: Yes (yellow and chocolate labs, one each) Pets and animals: dog(s) Current gender identity: male What is your relationship status?: How often do you talk on the phone with friends or family?: twice per week How often do you get together with friends or relatives?: twice per week Panel score (0-1 are the most socially isolated patients): 2 What type of physical activity do you participate in: walking, irregular exercise and occasional exercise Special heidi needs: No Do you feel safe at home: Yes Do you feel safe in your relationship?: Yes Time Spent with Patient Time Spent with Patient: 45-69 minutes Time was spent: preparing to see the patient(eg.review tests), obtaining and/or reviewing separately otained hiistory, ordering medications,tests, procedures, referring, communicating with other health medicare insurance specialist, indepentently interpreting results, counseling the patient and care coordination
--- NOTE | 2022-10-22 15:45 | NUR.NOTE ---
Patient educated on straight cath by urology nurse. , Nafisa at bedside during education. Nursing Note:
[2022-10-22] MEDS: Doxycycline Hyclate 100 MG CAP PO (16:28)
--- NOTE | 2022-10-22 16:28 | PDOC.HHF2F_ITS ---
Home Health Referral Home Health Orders Clinical synopsis of why skilled professionals are needed: Mr Camacho is an 81 year old male with PMHx of Afib on digoxin, prior episodes of orthostasis and syncope, BPH on flomax, adrenal insufficiency, carcinoma of the tongue in remission, adenocarcinoma of the lung on immunotherapy, anemia, who was admitted to [facility] hospitalist service on 10/18/22 after having a syncopal episode in setting of orthostatic hypotension. The patient did hit his head and had evidence of bruising on his scalp, however, no intracranial hemorrhage. He was treated with IVF as he was clinically dehydrated, as well as steroids, cessation of flomax, a transfusion of 1 unit of pRBCs on 10/19/22 with a hemoglobin of 7.6, initiation of midodrine and TEDs. Without flomax, he was found to be retaining urine and required a sanchez catheterization. He was evaluated by Dr Peralta, having failed a voiding trial on the day of discharge, was recommended to self-catheterize, which he demonstrated ability to do prior to discharge. As his digoxin dose was also titrated up (HRs up to 150s with any ambulation), it would be prudent to check his digoxin level in 48 hrs. His new digoxin dose of 0.125 mcg daily. On this admission, the patient did have a productive cough (chronic) and rhonchi. His imaging did not show a new infiltrate, however he did have a progressive increase in his white count and did have clinical bronchitis. While he is getting discharged today, he is being initiated on a 5 day course of doxycycline as well as with a prescription for levalbuterol inhaler. The patient is being discharged home with new home health nursing and PT. He should follow up with his PCP, urology, oncology, and with palliative care. Medical diagnosis necessitation home health referral: Afib, urinary retention, orthostatic hypotension, syncope Registered Nurse: Check all that apply Instruct on new or changed medication(s)/assess compliance: Ordered Instruct on, and maintenance of, urinary device: Ordered Assess for exacerbation of medical condition, instruct patient/caregivers on signs and symptoms to report for early detection: Ordered Other: digoxin level 10/24/22 - results to Dr Reagan. Physical Therapist: Check all that apply Increase strength & endurance for safe mobility at home: Ordered To design/establish home maintenance program: Ordered Fall reduction therapy program for patient with history of frequent falls: Ordered Home safety evaluation and teaching/gait training including stair management (if applicable): Ordered Home Bound Status Requires the aid of supportive device (check all that apply): Walker Assistance of another person (Describe assistance and medical necessity): The patient is very deconditioned and cannot drive in his current state Describe why leaving home would require a considerable and taxing effort: Requires frequent rest periods and Safety Concerns: describe (high risk to fall and syncope) Encounter Date and Reason: I certify that a FTF encounter for this patient was performed on October 22, 2022 and that such encounter was related to the primary reason the patient requires home health services. The encounter was conducted in the following manner: * By me as the certifying physician, HOSTESS PARTY SALES REPRESENTATIVE, PA or * By an inpatient physician, HOSTESS PARTY SALES REPRESENTATIVE or PA during an inpatient stay who communicated findings to me, Certification And Authentication I certify that I composed the above information based on my clinical judgment relating to this patient's medical condition and, if applicable, clinical findings communicated to me by the NPP or inpatient physician who performed the FTF encounter. Name of Provider that will be monitoring home health services: Vicente Reagan
--- NOTE | 2022-10-23 09:47 | INDS_ITS ---
Date of service: 10/22/22 PT Notes Visit Reasons: Orthostatic Hypotension, Fall Physical Therapy Inpatient Discharge Summary Date: 10/21/2022 Service: 10/19/2022 through 10/22/2022 This is a clinical summary of care provided for the duration of dates listed above. No charge was made in the completion of this documentation. Referring Doctor:? Dr. Joan Nolen PT Orders: PT CONSULT: Limited ability Precautions: Orthostatic hypotension, elevated heart rate with ambulation, standard precautions Patient Profile/Admitting Diagnosis:??? Mr Camacho is an 81 year old male with PMHx of SCC of the tongue s/p resection/XRT, in remission (no PEG tube in place) and a secondary adenocarcinoma of the lung s/p resection and on chemotherapy every Friday, who presented to [facility] ED 10/18/22 after a syncopal event while walking to the bathroom and hitting the back of his head, found to be hypotensive by EMS and very orthostatic in the ED with SBP going down to the 70s and HR going up to 150s in standing position when his SBPs are in 110s and HR is in the 90s at rest. He also has a h/o Afib on digoxin and no longer on anticoagulation due to h/o hemoptysis, adrenal insufficiency on a prednisone taper, BPH on flomax. He remains orthostatic despite aggressive IV hydration. The patient had a similar admission at our facility 10/05/22-10/06/22 during which he was found to be dehydrated and this was due to poor PO intake due to oral pain. PMHX: PFSH All Active Problems?(Updated 10/18/22 @ 17:19 by Joan Nloen MD) Acute on chronic anemia (Acute) Discharge planning issues (Acute) DVT prophylaxis (Acute) Dehydration (Acute) Hypokalemia (Acute) Orthostatic hypotension (Acute) Fall (Acute) Medication monitoring encounter (Acute) Hypomagnesemia (Acute) Hypothyroidism (Chronic) Anemia (Chronic) Adenocarcinoma of right lung (Acute) Painful total knee replacement, left (Acute) History of lung surgery (Acute) 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)History of total right hip repl acement (Acute 11/10/19) Atrial fibrillation (Chronic) Cancer of base of tongue (Acute) Palliative care patient (Acute) Medical History? Actinic cheilitis Adenomatous colon polyp Bee sting allergy BPH (benign prostatic hyperplasia) Dermatitis Dysphagia Erectile dysfunction HSV (herpes simplex virus) infection Hyperlipidemia denies any history looks like he was discontinued on medication last lumbar radiculopathy Following left TKALeg pain Lipoma Lumbar back pain Marital problem Zmghygcg-Buqonknzrf-Duevbegvr syndrome Thrush Ventral hernia s/p 2 repairs Surgical History? Ankle fracture, right s/p ORIFCarpal tunnel syndrome s/p ECTR and OCTR B/L (4 total surgeries)Colonoscopy - IV Sedation (05/28/16) History of biopsy History of cataract extraction with lens replacement B/LHistory of esophagogastroduodenoscopy (EGD) History of gastrostomy tube placement feeding tube per ptHistory of removal of Port-a-Cath History of tonsillectomy History of total left knee replacement (TKR) Status post hernia repair Social History/Home Situation: Patient lives with his in multilevel home.? Admits 1 step into the dwelling and primarily lives on single level.? Has railing to go up stairs but rarely goes upstairs. Equipment Owned/DME: Front wheel walker,cane Subjective:? NT. See most recent [employer] notes. Objective:?? General Observation: NT. See most recent [employer] notes. Mental Status: NT. See most recent [employer] notes. Pain: NT. See most recent [employer] notes. Vital Signs: NT. See most recent [employer] notes. ROM: Right Upper Extremity: Within functional limits Left Upper Extremity: Within functional limits Right Lower Extremity: Within functional limits Left Lower Extremity: Within functional limits Strength: Right Upper Extremity:4/5 GH flexion, abduction, elbow flexion and extension. Good operations trainer Left Upper Extremity: 4/5 GH flexion, abduction, elbow flexion and extension.? Good operations trainer Right Lower Extremity:Hip flexion 4-/5, knee flexion 4-/5, quad 4/5 (SLR with no lag), ankle PF and DF 4/5 Left Lower Extremity: Hip flexion 4-/5, knee flexion 4-/5, quad 4/5 (SLR with no lag), ankle PF and DF 4/5 Sensation:?? Intact sensation reported to light touch throughout bilateral lower extremities. ? BED MOBILITY/TRANSFERS? Rolling L/R: Independent Supine-sit: Independent ? Sit-supine: Independent? Sit-stand: standby? Stand-sit: standby? Bed-Chair: standby? Chair-bed: standby ? GAIT? Assistive Device: front wheeled walker ? Weight bearing: Full Assist: CGA with Gait belt? Distance:? 1000 feet ? Deviation: Patient demonstrates good foot clearance, symmetrical stride length. Verbal cues for deep breathing. RN reports heart rate climbed to 150's during ambulation. ? ? ? Balance:? Static Sitting: Good Dynamic Sitting: Good Static Standing: Fair Dynamic Standing: Fair? THERACT: Instructed patient on physiologic sighing post ambulation (deep inhale, short inhale, long passive exhale; shown to dramatically improve heart rate variability). RN reports rapid decrease in heart rate to low 100's within 2 minutes. Educated patient that physiologic sighing can be beneficial any time he feels anxiety or has a bout of tachycardia. ? Assessment:?? Jim goes home today on hospice care level. Patient is a 81 year old male referred to physical therapy services with the diagnosis of limited ability, syncope, anemia, orthostatic hypotension.? Patient presents with clinical signs and symptoms consistent with above diagnosis, as demonstrated by the following impairment level findings: Motor control, muscle performance, limited endurance, orthostatic hypotension, elevated heart rate.? Impairments are contributing to the following functional limitations: AMPAC score.? Goals: Goals X1 week 1. Supine-Sit : I MET 2. Sit-Supine: I MET 3. Sit-Stand: I to FWW NOT MET 4. Stand-Sit:? I from FWW NOT MET 5. Bed-Chair: I with FWW NOT MET 6. Chair-Bed: I with FWW NOT MET 7. Gait:? SBA with FWW greater than or equal to 250' NOT MET DISCHARGE RECOMMENDATIONS:? [X] ? Home with no services? [] ? Home with services [specify] [] ? Home with outpatient PT [] [] ? SNF for continued rehabilitation [] [] ? [facility] [employer] [facility] [] [] ? SNF versus LTC based on ability to participate and progress [] TREATMENT CODE/TIME:? NC Thank you for the opportunity to participate in the care of this patient. Georgia Manriquez PT, DPT, CLT [facility] [place], [place]
== END 2022-10-22 17:00 | disposition home health service (06) | DRG 312 ==
LOC: ER 11:41 → MS 17:22
PROVIDERS: Admitting Provider Internal Medicine; Emergency Provider Physician Assistant; PCP Internal Medicine; Visit Provider Internal Medicine
DX: I95.1 Orthostatic hypotension (principal); E27.40 Unspecified adrenocortical insufficiency; C34.91 Malignant neoplasm of unspecified part of right bronchus or lung; S32.010A Wedge compression fracture of first lumbar vertebra, initial encounter for closed fracture; C79.51 Secondary malignant neoplasm of bone; T84.84XA Pain due to internal orthopedic prosthetic devices, implants and grafts, initial encounter; I48.91 Unspecified atrial fibrillation; W19.XXXA Unspecified fall, initial encounter; E83.42 Hypomagnesemia; E86.0 Dehydration; E87.6 Hypokalemia; D64.9 Anemia, unspecified; R33.9 Retention of urine, unspecified; J20.9 Acute bronchitis, unspecified; S09.90XA Unspecified injury of head, initial encounter; R53.1 Weakness; Z96.652 Presence of left artificial knee joint; Z96.641 Presence of right artificial hip joint; S00.03XA Contusion of scalp, initial encounter; Z85.810 Personal history of malignant neoplasm of tongue; N40.0 Benign prostatic hyperplasia without lower urinary tract symptoms; Z66 Do not resuscitate; G62.0 Drug-induced polyneuropathy; T45.1X5A Adverse effect of antineoplastic and immunosuppressive drugs, initial encounter
CPT/HCPCS: 36415; 71275; 80048; 80053; 83690; 86850; 86900; 86901; 86920; 87635; 93005; 94618; 96360; 96361; 97110; 97116; 97162; 97530; 99222; 99285; 70450; 71045; 71046; 72072; 72110; 72125; 80162; 81003; 81015; 82607; 82728; 82746; 83540; 83550; 83735; 84443; 84484; 85025; 87086; 93010; 94667; 99223; 99232; 99233; 99239; J1941; J3475; J3490; J7512; P9016

== ENCOUNTER 2022-10-21 01:14 | Outpatient (RCR) | payer MEDICARE, SELFPAY ==
[2022-09-30] MEDS: Normal Saline Flush 10 ML SYR IVP (10:14)
[2022-09-30 10:21] LABS: Abs Immature Grans 0.06 10^3/uL (0.0-0.06); Absolute Basophil Count 0.12 10^3/uL (0.0-0.2); Absolute Eosinophil Count 0.53 10^3/uL (0.0-0.7); Absolute Lymphocyte Count 1.22 10^3/uL (1.2-3.4); Eosinophils % 4.3; HCT 27.5 % (40.0-50.0); HGB 9.2 g/dL (13.5-17.5); Immature Grans % 0.5; Lymphocytes % 9.9; MCH 31.8 pg (27.0-33.0); MCHC 33.5 % (32.0-36.0); MCV 95 fL (80-95); Monocytes % 8.6; Neutrophils % 75.7; Platelet Count 413 10^3/uL (130-400); RBC 2.89 10^6/uL (4.36-5.78); RDW 16.1 % (11.8-14.1); RDW-SD 56.5 fL; WBC 12.37 10^3/uL (4.4-10.8)
[2022-09-30 10:24] LABS: Absolute Monocyte Count 1.06 10^3/uL (0.1-0.8); Absolute Neutrophil Count 9.36 10^3/uL (1.2-6.7)
[2022-09-30 10:38] LABS: ALT 29 U/L (16-63); AST 27 U/L (15-37); Albumin 3.1 g/dL (3.4-5.0); Alkaline Phosphatase 141 U/L (46-116); Anion Gap 11.9 mmol/L (3-11); BUN 26 mg/dL (7-18); Bilirubin, Total 0.4 mg/dL (0.2-1.0); CO2 24.1 mmol/L (21.0-32.0); Calcium 9.1 mg/dL (8.5-10.1); Chloride 99 mmol/L (98-107); Estimated GFR 32.71 (mL/min/1.73m2); Glucose 130 mg/dL (74-106); Magnesium 1.9 mg/dL (1.8-2.4); Potassium 4.2 mmol/L (3.5-5.1); Sodium 135 mmol/L (136-145); Total Protein 6.7 g/dL (6.4-8.2)
[2022-10-07] MEDS: Normal Saline Flush 10 ML SYR IVP (09:33)
[2022-10-07 09:52] LABS: Abs Immature Grans 0.04 10^3/uL (0.0-0.06); Absolute Basophil Count 0.01 10^3/uL (0.0-0.2); Absolute Lymphocyte Count 0.88 10^3/uL (1.2-3.4); Absolute Monocyte Count 0.84 10^3/uL (0.1-0.8); Absolute Neutrophil Count 8.89 10^3/uL (1.2-6.7); Basophils % 0.1; HCT 26.7 % (40.0-50.0); HGB 8.8 g/dL (13.5-17.5); Immature Grans % 0.4; Lymphocytes % 8.3; MCH 31.3 pg (27.0-33.0); MCV 95 fL (80-95); MPV 9.4 fL (8.0-11.0); Monocytes % 7.9; Neutrophils % 83.3; Platelet Count 397 10^3/uL (130-400); RBC 2.81 10^6/uL (4.36-5.78); RDW 15.8 % (11.8-14.1); RDW-SD 54.6 fL; WBC 10.66 10^3/uL (4.4-10.8)
[2022-10-07 10:10] LABS: ALT 19 U/L (16-63); AST 20 U/L (15-37); Albumin 3.1 g/dL (3.4-5.0); Alkaline Phosphatase 112 U/L (46-116); Anion Gap 10.1 mmol/L (3-11); BUN 22 mg/dL (7-18); Bilirubin, Total 0.5 mg/dL (0.2-1.0); CO2 24.9 mmol/L (21.0-32.0); CREATININE 1.5 mg/dL (0.70-1.30); Calcium 9.2 mg/dL (8.5-10.1); Chloride 101 mmol/L (98-107); Estimated GFR 46.19 (mL/min/1.73m2); Glucose 150 mg/dL (74-106); Magnesium 1.8 mg/dL (1.8-2.4); Potassium 3.6 mmol/L (3.5-5.1); Sodium 136 mmol/L (136-145); Total Protein 6.3 g/dL (6.4-8.2)
[2022-10-15] MEDS: Normal Saline Flush 10 ML SYR IVP (11:55)
[2022-10-15 12:15] LABS: Abs Immature Grans 0.08 10^3/uL (0.0-0.06); Absolute Basophil Count 0.01 10^3/uL (0.0-0.2); Absolute Eosinophil Count 0.19 10^3/uL (0.0-0.7); Absolute Lymphocyte Count 0.67 10^3/uL (1.2-3.4); Absolute Monocyte Count 0.99 10^3/uL (0.1-0.8); Absolute Neutrophil Count 11.65 10^3/uL (1.2-6.7); Basophils % 0.1; Eosinophils % 1.4; HCT 26.5 % (40.0-50.0); Immature Grans % 0.6; Lymphocytes % 4.9; MCH 33.1 pg (27.0-33.0); MCV 97 fL (80-95); MPV 9.5 fL (8.0-11.0); Monocytes % 7.3; Neutrophils % 85.7; Platelet Count 337 10^3/uL (130-400); RBC 2.72 10^6/uL (4.36-5.78); RDW 16.6 % (11.8-14.1); RDW-SD 58.5 fL; WBC 13.59 10^3/uL (4.4-10.8)
[2022-10-15 12:30] LABS: ALT 31 U/L (16-63); AST 21 U/L (15-37); Albumin 3.1 g/dL (3.4-5.0); Alkaline Phosphatase 101 U/L (46-116); Anion Gap 7.4 mmol/L (3-11); BUN 40 mg/dL (7-18); Bilirubin, Total 0.7 mg/dL (0.2-1.0); CO2 28.6 mmol/L (21.0-32.0); CREATININE 1.5 mg/dL (0.70-1.30); Calcium 8.9 mg/dL (8.5-10.1); Chloride 100 mmol/L (98-107); Estimated GFR 46.19 (mL/min/1.73m2); Glucose 129 mg/dL (74-106); Magnesium 1.7 mg/dL (1.8-2.4); Potassium 3.8 mmol/L (3.5-5.1); Sodium 136 mmol/L (136-145); Total Protein 6.2 g/dL (6.4-8.2)
== END 2022-10-27 23:59 | disposition home or self-care (01) ==
LOC: INF 01:14
PROVIDERS: PCP Internal Medicine; Visit Provider Internal Medicine Hematology & Oncology
DX: C01 Malignant neoplasm of base of tongue (principal); Z45.2 Encounter for adjustment and management of vascular access device
CPT/HCPCS: 36591; 80053; 83735; 85025

== ENCOUNTER 2022-10-24 18:12 | Outpatient (REF) | payer MEDICARE, SELFPAY ==
[2022-10-24 19:07] LABS: Digoxin 0.53 ng/mL (0.90-2.00)
== END 2022-10-24 18:13 | disposition home or self-care (01) ==
LOC: LBN 18:12
PROVIDERS: PCP Internal Medicine; Visit Provider Internal Medicine
DX: I48.91 Unspecified atrial fibrillation (principal)
CPT/HCPCS: 80162

== ENCOUNTER 2022-10-28 04:24 | Outpatient (RCR) | payer MEDICARE, SELFPAY ==
[2022-10-28] MEDS: Normal Saline Flush 10 ML SYR IVP (10:39)
[2022-10-28 10:43] LABS: Abs Immature Grans 0.08 10^3/uL (0.0-0.06); Absolute Basophil Count 0.05 10^3/uL (0.0-0.2); Absolute Lymphocyte Count 0.93 10^3/uL (1.2-3.4); Basophils % 0.3; Eosinophils % 2.2; HCT 29.9 % (40.0-50.0); HGB 9.5 g/dL (13.5-17.5); Immature Grans % 0.5; Lymphocytes % 6.1; MCH 31.4 pg (27.0-33.0); MCHC 31.8 % (32.0-36.0); MCV 99 fL (80-95); MPV 9.4 fL (8.0-11.0); Monocytes % 4.6; Neutrophils % 86.3; Platelet Count 421 10^3/uL (130-400); RBC 3.03 10^6/uL (4.36-5.78); RDW 15.2 % (11.8-14.1); RDW-SD 54.7 fL
[2022-10-28 10:45] LABS: Absolute Eosinophil Count 0.34 10^3/uL (0.0-0.7)
[2022-10-28 11:02] LABS: ALT 193 U/L (16-63); AST 86 U/L (15-37); Albumin 3.1 g/dL (3.4-5.0); Alkaline Phosphatase 163 U/L (46-116); Anion Gap 9.9 mmol/L (3-11); BUN 39 mg/dL (7-18); CO2 27.1 mmol/L (21.0-32.0); Calcium 9.3 mg/dL (8.5-10.1); Chloride 102 mmol/L (98-107); Estimated GFR 32.71 (mL/min/1.73m2); Glucose 108 mg/dL (74-106); Magnesium 1.8 mg/dL (1.8-2.4); Potassium 4.6 mmol/L (3.5-5.1); Sodium 139 mmol/L (136-145); Total Protein 6.9 g/dL (6.4-8.2)
== END 2022-11-27 23:59 | disposition home or self-care (01) ==
LOC: INF 04:24
PROVIDERS: PCP Internal Medicine; Visit Provider Internal Medicine Hematology & Oncology
DX: C01 Malignant neoplasm of base of tongue (principal); Z45.2 Encounter for adjustment and management of vascular access device
CPT/HCPCS: 36591; 80053; 83735; 85025